=== PATIENT | female | born 1985 | race Caucasian/White ===

== ENCOUNTER → 2016-09-23 | Outpatient (CLI) | payer MEDICAID | LOC: RAD 09:41 | PROVIDERS: ATTEND Orthopaedic Surgery | DX: S42.001K Fracture of unspecified part of right clavicle, subsequent encounter for fracture with nonunion (principal) ==

== ENCOUNTER 2016-12-11 11:09 | Emergency (ER) | payer MEDICAID ==
[2016-12-11 11:14] VITALS: BP 115/73
--- NOTE | 2016-12-11 11:16 | ER Document Report ---
ED Medical Screen (RME) - General Stated Complaint: SHOULDER PAIN Mode of Arrival: Ambulatory Information source: Patient, Relative - mother Notes: pt presents to the ED with c/o right shoulder pain. She reports recent surgery on right clavicle with a olivia placed. Patient had a seizure last night and now the area is bleeding more. She also reports pain in the area. I have greeted and performed a rapid initial assessment of this patient. A comprehensive ED assessment and evaluation of the patient, analysis of test results and completion of the medical decision making process will be conducted by additional ED providers. TRAVEL OUTSIDE OF THE [place] IN LAST 30 DAYS: No - Related Data Allergies/Adverse Reactions: alprazolam [From Xanax] Allergy (Severe, Verified 06/28/16 04:56) Aggression asenapine maleate [From Saphris] Allergy (Severe, Verified 05/13/14 10:40) Blackout clonazepam [From Klonopin] Allergy (Severe, Verified 06/28/16 04:56) Seizure meperidine HCl [From Demerol] Allergy (Severe, Verified 05/13/14 10:40) Seizure brompheniramine maleate [From Dimetapp] Allergy (Mild, Verified 05/13/14 10:40) Hives dextromethorphan HBr [From Dimetapp] Allergy (Mild, Verified 05/13/14 10:40) Hives phenylpropanolamine HCl [From Dimetapp] Allergy (Mild, Verified 05/13/14 10:40) Hives pseudoephedrine HCl [From Dimetapp] Allergy (Mild, Verified 05/13/14 10:40) Hives triprolidine HCl [From Actifed] Allergy (Mild, Verified 05/13/14 10:40) Hives amoxicillin [Amoxicillin] Allergy (Unknown, Verified 05/13/14 10:40) doxepin [Doxepin] Allergy (Unknown, Verified 05/13/14 10:40) doxycycline [Doxycycline] Allergy (Unknown, Verified 05/13/14 10:40) erythromycin base [Erythromycin Base] Allergy (Unknown, Verified 05/13/14 10:40) indomethacin [Indomethacin] Allergy (Unknown, Verified 05/13/14 10:40) modafinil [From Provigil] Allergy (Unknown, Verified 05/13/14 10:40) quetiapine fumarate [From Seroquel] Allergy (Unknown, Verified 05/13/14 10:40) tramadol [Tramadol] Allergy (Unknown, Verified 06/28/16 04:56) triazolam [Triazolam] Allergy (Unknown, Verified 05/13/14 10:40) zonisamide [From Zonegran] Allergy (Unknown, Verified 05/13/14 10:40) cefdinir [Cefdinir] Allergy (Verified 05/13/14 10:40) haloperidol [From Haldol] Allergy (Verified 07/19/16 10:08) paliperidone [From Invega] Allergy (Verified 07/19/16 10:08) phenobarbital Allergy (Verified 07/19/16 10:08) primidone Allergy (Verified 07/19/16 10:08) pseudoephedrine [From Sudafed] Allergy (Verified 07/19/16 10:08) levetiracetam [From Keppra] Adverse Reaction (Verified 06/29/16 11:07) phenytoin [From Dilantin] Adverse Reaction (Verified 06/29/16 11:07) palprex Allergy (Unknown, Uncoded 12/10/13 12:38) zicam Allergy (Unknown, Uncoded 12/10/13 12:38) all vitamins Allergy (Uncoded 07/19/16 10:05) Seizures Past Medical History - Past Medical History Cardiac Medical History: Reports: Hx Hypertension - History of Denies: Hx Congestive Heart Failure, Hx Coronary Artery Disease, Hx DVT, Hx Heart Attack, Hx Hypercholesterolemia, Hx Pulmonary Embolism Pulmonary Medical History: Denies: Hx Asthma, Hx Bronchitis, Hx COPD, Hx Pneumonia Neurological Medical History: Reports: Hx Seizures - epilepsy; last seizure 1 month ago. Denies: Hx Cerebrovascular Accident Endocrine Medical History: Denies: Hx Diabetes Mellitus Type 1, Hx Diabetes Mellitus Type 2, Hx Hyperthyroidism, Hx Hypothyroidism Renal/ Medical History: Reports: Hx Kidney Stones GI Medical History: Denies: Hx Cirrhosis, Hx Gastroesophageal Reflux Disease, Hx Hepatitis Musculoskeltal Medical History: Denies Hx Arthritis Skin Medical History: Denies Hx Eczema, Denies Hx Psoriasis Psychiatric Medical History: Reports: Hx Anxiety, Hx Bipolar Disorder, Hx Depression Infectious Medical History: Denies: Hx Hepatitis Past Surgical History: Reports: Hx Appendectomy, Hx Gynecologic Surgery - Right oophorectomy; Left ovarian cyst, Hx Oral Surgery, Hx Urinary Tract Surgery - stent - Immunizations Hx Diphtheria, Pertussis, Tetanus Vaccination: Yes
--- NOTE | 2016-12-11 13:03 | ER Document Report ---
ED General - General Chief Complaint: Shoulder Pain Stated Complaint: SHOULDER PAIN Mode of Arrival: Ambulatory TRAVEL OUTSIDE OF THE [place] IN LAST 30 DAYS: No - HPI Patient complains to provider of: right shoulder surgical wound drainage Notes: Patient coming in approximately 2 weeks postop from having a pin placed in her clavicle with a bone stimulator of the right shoulder with signs of drainage concern about bleeding from the site states this patient had a seizure night prior to arrival and drainage. Patient denies any other symptoms denies fevers chills nausea vomiting. - Related Data Allergies/Adverse Reactions: alprazolam [From Xanax] Allergy (Severe, Verified 12/11/16 11:14) Aggression asenapine maleate [From Saphris] Allergy (Severe, Verified 12/11/16 11:14) Blackout clonazepam [From Klonopin] Allergy (Severe, Verified 12/11/16 11:14) Seizure meperidine HCl [From Demerol] Allergy (Severe, Verified 12/11/16 11:14) Seizure brompheniramine maleate [From Dimetapp] Allergy (Mild, Verified 12/11/16 11:14) Hives dextromethorphan HBr [From Dimetapp] Allergy (Mild, Verified 12/11/16 11:14) Hives phenylpropanolamine HCl [From Dimetapp] Allergy (Mild, Verified 12/11/16 11:14) Hives pseudoephedrine HCl [From Dimetapp] Allergy (Mild, Verified 12/11/16 11:14) Hives triprolidine HCl [From Actifed] Allergy (Mild, Verified 12/11/16 11:14) Hives amoxicillin [Amoxicillin] Allergy (Unknown, Verified 12/11/16 11:14) doxepin [Doxepin] Allergy (Unknown, Verified 12/11/16 11:14) doxycycline [Doxycycline] Allergy (Unknown, Verified 12/11/16 11:14) erythromycin base [Erythromycin Base] Allergy (Unknown, Verified 12/11/16 11:14) indomethacin [Indomethacin] Allergy (Unknown, Verified 12/11/16 11:14) modafinil [From Provigil] Allergy (Unknown, Verified 12/11/16 11:14) quetiapine fumarate [From Seroquel] Allergy (Unknown, Verified 12/11/16 11:14) tramadol [Tramadol] Allergy (Unknown, Verified 12/11/16 11:14) triazolam [Triazolam] Allergy (Unknown, Verified 12/11/16 11:14) zonisamide [From Zonegran] Allergy (Unknown, Verified 12/11/16 11:14) cefdinir [Cefdinir] Allergy (Verified 12/11/16 11:14) haloperidol [From Haldol] Allergy (Verified 12/11/16 11:14) paliperidone [From Invega] Allergy (Verified 12/11/16 11:14) phenobarbital Allergy (Verified 12/11/16 11:14) primidone Allergy (Verified 12/11/16 11:14) pseudoephedrine [From Sudafed] Allergy (Verified 12/11/16 11:14) levetiracetam [From Keppra] Adverse Reaction (Verified 12/11/16 11:14) phenytoin [From Dilantin] Adverse Reaction (Verified 12/11/16 11:14) palprex Allergy (Unknown, Uncoded 12/11/16 11:14) zicam Allergy (Unknown, Uncoded 12/11/16 11:14) all vitamins Allergy (Uncoded 12/11/16 11:14) Seizures Past Medical History - General Information source: Patient, Relative - mother - Social History Smoking Status: Former Smoker Chew tobacco use (# tins/day): No Frequency of alcohol use: None Drug Abuse: None Family History: CAD, Other - asthma - Past Medical History Cardiac Medical History: Reports: Hx Hypertension - History of Denies: Hx Congestive Heart Failure, Hx Coronary Artery Disease, Hx DVT, Hx Heart Attack, Hx Hypercholesterolemia, Hx Pulmonary Embolism Pulmonary Medical History: Denies: Hx Asthma, Hx Bronchitis, Hx COPD, Hx Pneumonia Neurological Medical History: Reports: Hx Seizures - epilepsy; last seizure 1 month ago. Denies: Hx Cerebrovascular Accident Endocrine Medical History: Denies: Hx Diabetes Mellitus Type 1, Hx Diabetes Mellitus Type 2, Hx Hyperthyroidism, Hx Hypothyroidism Renal/ Medical History: Reports: Hx Kidney Stones. Denies: Hx Peritoneal Dialysis GI Medical History: Denies: Hx Cirrhosis, Hx Gastroesophageal Reflux Disease, Hx Hepatitis Musculoskeltal Medical History: Denies Hx Arthritis Skin Medical History: Denies Hx Eczema, Denies Hx Psoriasis Psychiatric Medical History: Reports: Hx Anxiety, Hx Bipolar Disorder, Hx Depression Infectious Medical History: Denies: Hx Hepatitis Past Surgical History: Reports: Hx Appendectomy, Hx Gynecologic Surgery - Right oophorectomy; Left ovarian cyst, Hx Oral Surgery, Hx Urinary Tract Surgery - stent - Immunizations Hx Diphtheria, Pertussis, Tetanus Vaccination: Yes Review of Systems - Review of Systems Constitutional: No symptoms reported EENT: No symptoms reported Cardiovascular: No symptoms reported Respiratory: No symptoms reported Gastrointestinal: No symptoms reported Genitourinary: No symptoms reported Female Genitourinary: No symptoms reported Musculoskeletal: Other - Right surgical wound complication Skin: No symptoms reported Hematologic/Lymphatic: No symptoms reported Neurological/Psychological: No symptoms reported Physical Exam - Vital signs Vitals: Temp Pulse Resp BP Pulse Ox 98.5 F 96 20 115/73 97 12/11/16 11:13 12/11/16 11:13 12/11/16 11:13 12/11/16 11:13 12/11/16 11:13 Interpretation: Normal - General General appearance: Appears well, Alert - HEENT Head: Normocephalic, Atraumatic Eyes: Normal Pupils: PERRL - Respiratory Respiratory status: No respiratory distress Chest status: Nontender Breath sounds: Normal Chest palpation: Normal - Cardiovascular Rhythm: Regular Heart sounds: Normal auscultation Murmur: No - Abdominal Inspection: Normal Distension: No distension Bowel sounds: Normal Tenderness: Nontender Organomegaly: No organomegaly - Back Back: Normal, Nontender - Extremities General upper extremity: Nontender, Normal color, Normal ROM, Normal temperature. No: Normal inspection - Patient has surgical scars to the right shoulder with a small area of dehiscence of the surgical wound at the distal end of the clavicle with servicing this fluid draining. Patient does have a dressing over the wound with minimal drainage on the dressing. More likely patient developed a seroma and now is leaking. General lower extremity: Normal inspection, Nontender, Normal color, Normal ROM , Normal temperature, Normal weight bearing. No: Сергей's sign - Neurological Neuro grossly intact: Yes Cognition: Normal Orientation: AAOx4 Shawn Coma Scale Eye Opening: Spontaneous Shawn Coma Scale Verbal: Oriented Shawn Coma Scale Motor: Obeys Commands [place] Coma Scale Total: 15 Speech: Normal Motor strength normal: LUE, RUE, LLE, RLE Sensory: Normal - Psychological Associated symptoms: Normal affect, Normal mood - Skin Skin Temperature: Warm Skin Moisture: Dry Skin Color: Normal Course - Re-evaluation Re-evalutation: 12/11/16 16:03 Patient with insertion of drainage from a surgical wound with minimal dehiscence of did discuss with orthopedic fund controller at [facility]. Agrees with assessment and plan to discharge patient home patient to call the orthopedist on Tuesday. - Vital Signs Vital signs: Temp Pulse Resp BP Pulse Ox 98.5 F 96 20 115/73 97 12/11/16 11:13 12/11/16 11:13 12/11/16 11:13 12/11/16 11:13 12/11/16 11:13 Discharge - Discharge Clinical Impression: surgical wound complication Condition: Good Disposition: HOME, SELF-CARE Additional Instructions: I discussed your case with the orthopedic fund controller at [facility]. Please call the orthopedics office on Tuesday for a follow-up appointment. At this time I think that she developed a seroma which is a fluid collection underneath her surgical scar leaking serosanguineous fluid. This fluid may continue to leak. Please change dressings as needed Referrals: WARREN GUTIERREZ MD [Primary Care Provider] - Follow up as needed
== END 2016-12-11 13:16 | disposition home or self-care (01) ==
LOC: ER 11:09
DX: T81.31XA Disruption of external operation (surgical) wound, not elsewhere classified, initial encounter (principal); M25.511 Pain in right shoulder; Z88.3 Allergy status to other anti-infective agents; Z87.891 Personal history of nicotine dependence; Z87.442 Personal history of urinary calculi
CPT/HCPCS: 99283

== ENCOUNTER → 2017-01-19 | Outpatient (CLI) | payer MEDICAID ==
[2017-01-19 13:39] LABS: ANION GAP 15 (5-19); BLOOD UREA NITROGEN 9 mg/dL (7-20); CALCIUM 10.5 mg/dL (8.4-10.2); CARBON DIOXIDE 24 mmol/L (22-30); CHLORIDE 102 mmol/L (98-107); CREATININE RESULT 1.05 mg/dL (0.52-1.25); GLUCOSE 124 mg/dL (75-110); POTASSIUM 4.6 mmol/L (3.6-5.0); SODIUM 141.1 mmol/L (137-145)
== END ==
LOC: OD 12:12
PROVIDERS: ATTEND Family Medicine
DX: E87.6 Hypokalemia (principal); N20.0 Calculus of kidney
CPT/HCPCS: 36415; 80048

== ENCOUNTER 2017-07-29 15:42 | Emergency (ER) | payer MEDICAID ==
[2017-07-29 16:37] LABS: ABSOLUTE BASOPHILS # (AUTO) 0.1 10^3/uL (0.0-0.2); ABSOLUTE EOSINOPHILS # (AUTO) 0.2 10^3/uL (0.0-0.6); ABSOLUTE LYMPHOCYTES (AUTO) 1.4 10^3/uL (0.5-4.7); ABSOLUTE MONOCYTES (AUTO) 1.3 10^3/uL (0.1-1.4); ABSOLUTE NEUT (AUTO) 8.2 10^3/uL (1.7-8.2); EOSINOPHILS % (AUTO) 1.5 % (0-6); HEMATOCRIT 39.1 % (36.0-47.0); HEMOGLOBIN 13.3 g/dL (12.0-15.5); HGB HCT DIFFERENCE 0.8; LYMPHOCYTES % (AUTO) 12.8 % (13-45); MEAN CORPUSCULAR HEMOGLOBIN 29.9 pg (27.0-33.4); MEAN CORPUSCULAR HGB CONC 33.9 g/dL (32.0-36.0); MEAN CORPUSCULAR VOLUME 88 fl (80-97); MONOCYTES % (AUTO) 11.6 % (3-13); RED BLOOD COUNT 4.43 10^6/uL (3.72-5.28); RED CELL DISTRIBUTION WIDTH 12.8 % (11.5-14.0); SEGMENTED NEUTROPHILS % (AUTO) 73.1 % (42-78); WHITE BLOOD COUNT 11.3 10^3/uL (4.0-10.5)
[2017-07-29 16:54] LABS: ALANINE AMINOTRANSFERASE 28 U/L (9-52); ALCOHOL < 10 mg/dL (NONE DETECTED); ALKALINE PHOSPHATASE 92 U/L (38-126); ANION GAP 13 (5-19); ASPARTATE AMINO TRANSFERASE 20 U/L (14-36); BILIRUBIN,DIRECT 0.3 mg/dL (0.0-0.4); BILIRUBIN,TOTAL 0.4 mg/dL (0.2-1.3); BLOOD UREA NITROGEN 7 mg/dL (7-20); CALCIUM 9.3 mg/dL (8.4-10.2); CARBON DIOXIDE 26 mmol/L (22-30); CHLORIDE 101 mmol/L (98-107); CREATININE RESULT 1.04 mg/dL (0.52-1.25); GLUCOSE 109 mg/dL (75-110); MAGNESIUM 2.1 mg/dL (1.6-2.3); POTASSIUM 3.9 mmol/L (3.6-5.0); SODIUM 140.4 mmol/L (137-145); TOTAL PROTEIN 6.9 g/dL (6.3-8.2)
[2017-07-29] MEDS ORDERED: LORAZEPAM INJ 2 MG/1 ML VIAL IV ONE (17:00)
--- NOTE | 2017-07-29 17:38 | RADIOLOGY REPORT (SQ) ---
EXAM DESCRIPTION: CT HEAD WITHOUT COMPLETED DATE/TIME: 07/29/2017 5:27 pm REASON FOR STUDY: fall, altered COMPARISON: None. TECHNIQUE: Axial images acquired through the brain without intravenous contrast. Images reviewed wi th bone, brain and subdural windows. Images stored on PACS. All CT scanners at this facility use dose modulation, iterative reconstruction, and/or weight based d osing when appropriate to reduce radiation dose to as low as reasonably achievable (ALARA). [facility]: Dose Right [facility]: CareDose [facility]: Dose Right [facility]: Teradose 4D [facility]: [employer] RADIATION DOSE: 64.6mGy. LIMITATIONS: None. FINDINGS: VENTRICLES: Normal size and contour. CEREBRUM: No masses. No hemorrhage. No midline shift. No evidence for acute infarction. Normal gra y/white matter differentiation. No areas of low density in the white matter. CEREBELLUM: No masses. No hemorrhage. No alteration of density. No evidence for acute infarction. EXTRAAXIAL SPACES: No fluid collections. No masses. ORBITS AND GLOBE: No intra- or extraconal masses. Normal contour of globe without masses. CALVARIUM: No fracture. PARANASAL SINUSES: No fluid or mucosal thickening. SOFT TISSUES: No mass or hematoma. OTHER: No other significant finding. IMPRESSION: NORMAL BRAIN CT WITHOUT CONTRAST. EVIDENCE OF ACUTE STROKE: NO. COMMENT: Quality ID # [id number]: Final reports with documentation of one or more dose reduction techniques (e.g., Automated exposure control, adjustment of the mA and/or kV according to patient size, use of iterative reconstruction technique) TECHNICAL DOCUMENTATION: JOB ID: [id number] [employer]- All Rights Reserved
[2017-07-29] MEDS ORDERED: ACETAMINOPHEN 325 MG TABLET PO ONE (18:11)
[2017-07-29] MEDS ORDERED: LAMOTRIGINE 100 MG TABLET PO ONE (18:11)
--- NOTE | 2017-07-29 18:12 | ER Document Report ---
ED General - General Chief Complaint: Seizure Stated Complaint: RIGHT SHOULDER PAIN Time Seen by Provider: 07/29/17 16:30 Notes: This is [id number] female patient with history of seizures. Reportedly had a few seizures today. Takes medication. States that she fell and whacked her head. Complaining of headache. No other issues of that than some chronic right shoulder pain. Able to move shoulder completely. Denies any neck pain, back pain, abdominal pain, chest pain or other issues. TRAVEL OUTSIDE OF THE [place] IN LAST 30 DAYS: No - HPI Onset: Just prior to arrival Onset/Duration: Sudden Associated symptoms: None - Related Data Allergies/Adverse Reactions: alprazolam [From Xanax] Allergy (Severe, Verified 07/29/17 15:52) Aggression asenapine maleate [From Saphris] Allergy (Severe, Verified 07/29/17 15:52) Blackout clonazepam [From Klonopin] Allergy (Severe, Verified 07/29/17 15:52) Seizure meperidine HCl [From Demerol] Allergy (Severe, Verified 07/29/17 15:52) Seizure brompheniramine maleate [From Dimetapp] Allergy (Mild, Verified 07/29/17 15:52) Hives dextromethorphan HBr [From Dimetapp] Allergy (Mild, Verified 07/29/17 15:52) Hives phenylpropanolamine HCl [From Dimetapp] Allergy (Mild, Verified 07/29/17 15:52) Hives pseudoephedrine HCl [From Dimetapp] Allergy (Mild, Verified 07/29/17 15:52) Hives triprolidine HCl [From Actifed] Allergy (Mild, Verified 07/29/17 15:52) Hives amoxicillin [Amoxicillin] Allergy (Unknown, Verified 07/29/17 15:52) doxepin [Doxepin] Allergy (Unknown, Verified 07/29/17 15:52) doxycycline [Doxycycline] Allergy (Unknown, Verified 07/29/17 15:52) erythromycin base [Erythromycin Base] Allergy (Unknown, Verified 07/29/17 15:52) indomethacin [Indomethacin] Allergy (Unknown, Verified 07/29/17 15:52) modafinil [From Provigil] Allergy (Unknown, Verified 07/29/17 15:52) quetiapine fumarate [From Seroquel] Allergy (Unknown, Verified 07/29/17 15:52) tramadol [Tramadol] Allergy (Unknown, Verified 07/29/17 15:52) triazolam [Triazolam] Allergy (Unknown, Verified 07/29/17 15:52) zonisamide [From Zonegran] Allergy (Unknown, Verified 07/29/17 15:52) cefdinir [Cefdinir] Allergy (Verified 07/29/17 15:52) haloperidol [From Haldol] Allergy (Verified 07/29/17 15:52) paliperidone [From Invega] Allergy (Verified 07/29/17 15:52) phenobarbital Allergy (Verified 07/29/17 15:52) primidone Allergy (Verified 07/29/17 15:52) pseudoephedrine [From Sudafed] Allergy (Verified 07/29/17 15:52) levetiracetam [From Keppra] Adverse Reaction (Verified 07/29/17 15:52) phenytoin [From Dilantin] Adverse Reaction (Verified 07/29/17 15:52) palprex Allergy (Unknown, Uncoded 07/29/17 15:52) zicam Allergy (Unknown, Uncoded 07/29/17 15:52) all vitamins Allergy (Uncoded 07/29/17 15:52) Seizures Past Medical History - General Information source: Patient - Social History Smoking Status: Current Every Day Smoker Chew tobacco use (# tins/day): No Frequency of alcohol use: None Drug Abuse: None Family History: CAD, Other - asthma Patient has suicidal ideation: No Patient has homicidal ideation: No - Past Medical History Cardiac Medical History: Reports: Hx Hypertension - History of Denies: Hx Congestive Heart Failure, Hx Coronary Artery Disease, Hx DVT, Hx Heart Attack, Hx Hypercholesterolemia, Hx Pulmonary Embolism Pulmonary Medical History: Denies: Hx Asthma, Hx Bronchitis, Hx COPD, Hx Pneumonia Neurological Medical History: Reports: Hx Seizures - epilepsy; last seizure 1 month ago. Denies: Hx Cerebrovascular Accident Endocrine Medical History: Denies: Hx Diabetes Mellitus Type 1, Hx Diabetes Mellitus Type 2, Hx Hyperthyroidism, Hx Hypothyroidism Renal/ Medical History: Reports: Hx Kidney Stones. Denies: Hx Peritoneal Dialysis GI Medical History: Denies: Hx Cirrhosis, Hx Gastroesophageal Reflux Disease, Hx Hepatitis Musculoskeltal Medical History: Denies Hx Arthritis Skin Medical History: Denies Hx Eczema, Denies Hx Psoriasis Psychiatric Medical History: Reports: Hx Anxiety, Hx Bipolar Disorder, Hx Depression Infectious Medical History: Denies: Hx Hepatitis Past Surgical History: Reports: Hx Appendectomy, Hx Gynecologic Surgery - Right oophorectomy; Left ovarian cyst, Hx Oral Surgery, Hx Urinary Tract Surgery - stent - Immunizations Hx Diphtheria, Pertussis, Tetanus Vaccination: Yes Review of Systems - Review of Systems Constitutional: No symptoms reported EENT: No symptoms reported Cardiovascular: No symptoms reported Respiratory: No symptoms reported Gastrointestinal: No symptoms reported Genitourinary: No symptoms reported Female Genitourinary: No symptoms reported Musculoskeletal: No symptoms reported, Other - Chronic shoulder pain Skin: No symptoms reported Hematologic/Lymphatic: No symptoms reported Neurological/Psychological: Seizure, Headaches Physical Exam - Vital signs Vitals: Temp Pulse Resp BP Pulse Ox 98.7 F 92 18 120/77 98 07/29/17 15:46 07/29/17 15:46 07/29/17 15:46 07/29/17 15:46 07/29/17 15:46 Interpretation: Normal - General General appearance: Appears well, Alert - HEENT Head: Normocephalic, Atraumatic Eyes: Normal Pupils: PERRL - Respiratory Respiratory status: No respiratory distress Chest status: Nontender Breath sounds: Normal Chest palpation: Normal - Cardiovascular Rhythm: Regular Heart sounds: Normal auscultation Murmur: No - Abdominal Inspection: Normal Distension: No distension Bowel sounds: Normal Tenderness: Nontender Organomegaly: No organomegaly - Back Back: Normal, Nontender - Extremities General upper extremity: Normal inspection, Nontender, Normal color, Normal ROM , Normal temperature, Other - Full range of motion. Able to move arm completely above her head. Able to AB duct and adductor without difficulty. No obvious deformity or bruising to General lower extremity: Normal inspection, Nontender, Normal color, Normal ROM , Normal temperature, Normal weight bearing. No: Сергей's sign - Neurological Neuro grossly intact: Yes Cognition: Normal Orientation: AAOx4 [place] Coma Scale Eye Opening: Spontaneous Shawn Coma Scale Verbal: Oriented [place] Coma Scale Motor: Obeys Commands [place] Coma Scale Total: 15 Speech: Normal Motor strength normal: LUE, RUE, LLE, RLE Sensory: Normal - Psychological Associated symptoms: Normal affect, Normal mood - Skin Skin Temperature: Warm Skin Moisture: Dry Skin Color: Normal Course - Re-evaluation Re-evalutation: 07/29/17 18:10 Is a well-appearing female with history of seizures. Ativan was given. No seizure-like activity while in the ER. Head CT reviewed and unremarkable. - Vital Signs Vital signs: Temp Pulse Resp BP Pulse Ox 98.7 F 92 13 106/77 97 07/29/17 15:46 07/29/17 15:46 07/29/17 17:49 07/29/17 17:49 07/29/17 17:49 - Laboratory Result Diagrams: 07/29/17 16:28 07/29/17 16:28 Laboratory results interpreted by me: 07/29/17 16:28 WBC 11.3 H Plt Count 457 H Lymphocytes % 12.8 L Discharge - Discharge Clinical Impression: Seizure Disposition: HOME, SELF-CARE Additional Instructions: Head Injury Your child's examination shows no evidence of brain injury. The child can therefore be safely observed at home. Give clear liquids only for the first eight hours. Acetaminophen or ibuprofen can safely be given for pain. Follow the directions on the bottle. Do not give any medication that may alter her/his level of alertness. Limit activity for the first 24 hours -- bed rest is advisable at first. Several times during the first 24 hours, check the patient to see if the pupils are equal in size to each other, that the patient is easily arousable, and responds normally. Contact your doctor or go to the hospital if any of the following things occur: Persistent or projectile vomiting, a seizure, confusion , unequal pupil size, difficulty in arousing the patient, worsening or continued headache, or failure to improve as expected. Seizure, Known Epileptic You have had a seizure. Seizures may "break through" in an epileptic due to stress of infection or injury, a change in blood chemistry, or drug and alcohol use. Another common cause is failure to take medication as prescribed. Your doctor has evaluated your situation for the likely cause of this seizure. It is important that you follow his advice concerning any medication changes and follow-up care. Further testing of anti-seizure medication levels in your blood may be necessary. If you have a bulk delivery driver's license, it's important that you DO NOT DRIVE until given permission by your physician. This seizure must be reported to the bulk delivery driver 's license bureau. Call the doctor or return if seizures recur, or if new or unusual symptoms arise -- such as severe headache, confusion, excessive sleepiness, local weakness or numbness, neck stiffness, or fever. Referrals: ABISAI GUTIERREZ, DO [Primary Care Provider] - Follow up as needed
[2017-07-29 18:20] LABS: APPEARANCE,URINE SLIGHTLY-CLOUDY; BILIRUBIN,URINE NEGATIVE (NEGATIVE); GLUCOSE, URINE NEGATIVE (NEGATIVE); KETONES,URINE NEGATIVE (NEGATIVE); LEUKOCYTE ESTERASE,URINE TRACE (NEGATIVE); NITRITE,URINE NEGATIVE (NEGATIVE); PROTEIN,URINE NEGATIVE (NEGATIVE); URINE SPECIFIC GRAVITY 1.006; UROBILINOGEN,URINE NEGATIVE mg/dL (<2.0)
[2017-07-29 18:29] LABS: URINE BARBITURATES SCREEN NEGATIVE; URINE METHADONE SCREEN NEGATIVE; URINE OPIATES LOW NEGATIVE; URINE PHENCYCLIDINE SCREEN NEGATIVE
[2017-07-29 18:38] VITALS: BP 109/78
== END 2017-07-29 18:44 | disposition home or self-care (01) ==
LOC: ER 15:42
DX: R56.9 Unspecified convulsions (principal); M25.511 Pain in right shoulder; R51 Headache; W19.XXXA Unspecified fall, initial encounter; F17.200 Nicotine dependence, unspecified, uncomplicated
CPT/HCPCS: 99284; 96374; 36415; 80307 ×2; 83735; 84703; 85025; 80053; 81001; 70450; J3490 ×2; J2060

== ENCOUNTER 2017-08-28 17:23 | Emergency (ER) | payer MEDICAID ==
[2017-08-28] MEDS ORDERED: NORMAL SALINE 1000 ML 1,000 ML IV ONE (17:56)
--- NOTE | 2017-08-28 17:57 | ER Document Report ---
ED Medical Screen (RME) - General Chief Complaint: Flank Pain Stated Complaint: SIDE PAIN AND ABDOMINAL PAIN Time Seen by Provider: 08/28/17 17:55 Mode of Arrival: Ambulatory Information source: Patient TRAVEL OUTSIDE OF THE [place] IN LAST 30 DAYS: No - HPI Patient complains to provider of: R flank pian Onset: This morning - Pt .with h/o kidney stones with onset of R flank pain earlier today. Denies hematuria - Related Data Allergies/Adverse Reactions: alprazolam [From Xanax] Allergy (Severe, Verified 08/28/17 17:24) Aggression asenapine maleate [From Saphris] Allergy (Severe, Verified 08/28/17 17:24) Blackout clonazepam [From Klonopin] Allergy (Severe, Verified 08/28/17:24) Seizure meperidine HCl [From Demerol] Allergy (Severe, Verified 08/28/17 17:24) Seizure brompheniramine maleate [From Dimetapp] Allergy (Mild, Verified 08/28/17 17:24) Hives dextromethorphan HBr [From Dimetapp] Allergy (Mild, Verified 08/28/17 17:24) Hives phenylpropanolamine HCl [From Dimetapp] Allergy (Mild, Verified 08/28/17 17:24) Hives pseudoephedrine HCl [From Dimetapp] Allergy (Mild, Verified 08/28/17 17:24) Hives triprolidine HCl [From Actifed] Allergy (Mild, Verified 08/28/17 17:24) Hives amoxicillin [Amoxicillin] Allergy (Unknown, Verified 08/28/17 17:24) doxepin [Doxepin] Allergy (Unknown, Verified 08/28/17 17:24) doxycycline [Doxycycline] Allergy (Unknown, Verified 08/28/17 17:24) erythromycin base [Erythromycin Base] Allergy (Unknown, Verified 08/28/17 17:24) indomethacin [Indomethacin] Allergy (Unknown, Verified 08/28/17:24) modafinil [From Provigil] Allergy (Unknown, Verified 08/28/17 17:24) quetiapine fumarate [From Seroquel] Allergy (Unknown, Verified 08/28/17 17:24) tramadol [Tramadol] Allergy (Unknown, Verified 08/28/17 17:24) triazolam [Triazolam] Allergy (Unknown, Verified 08/28/17 17:24) zonisamide [From Zonegran] Allergy (Unknown, Verified 08/28/17 17:24) cefdinir [Cefdinir] Allergy (Verified 08/28/17 17:24) haloperidol [From Haldol] Allergy (Verified 08/28/17 17:24) paliperidone [From Invega] Allergy (Verified 08/28/17 17:24) phenobarbital Allergy (Verified 08/28/17 17:24) primidone Allergy (Verified 08/28/17 17:24) pseudoephedrine [From Sudafed] Allergy (Verified 08/28/17 17:24) levetiracetam [From Keppra] Adverse Reaction (Verified 08/28/17 17:24) phenytoin [From Dilantin] Adverse Reaction (Verified 08/28/17 17:24) palprex Allergy (Unknown, Uncoded 08/28/17 17:24) zicam Allergy (Unknown, Uncoded 08/28/17 17:24) all vitamins Allergy (Uncoded 08/28/17 17:24) Seizures Past Medical History - Past Medical History Cardiac Medical History: Reports: Hx Hypertension - History of Denies: Hx Congestive Heart Failure, Hx Coronary Artery Disease, Hx DVT, Hx Heart Attack, Hx Hypercholesterolemia, Hx Pulmonary Embolism Pulmonary Medical History: Denies: Hx Asthma, Hx Bronchitis, Hx COPD, Hx Pneumonia Neurological Medical History: Reports: Hx Seizures - epilepsy; last seizure 1 month ago. Denies: Hx Cerebrovascular Accident Endocrine Medical History: Denies: Hx Diabetes Mellitus Type 1, Hx Diabetes Mellitus Type 2, Hx Hyperthyroidism, Hx Hypothyroidism Renal/ Medical History: Reports: Hx Kidney Stones. Denies: Hx Peritoneal Dialysis GI Medical History: Denies: Hx Cirrhosis, Hx Gastroesophageal Reflux Disease, Hx Hepatitis Musculoskeltal Medical History: Denies Hx Arthritis Skin Medical History: Denies Hx Eczema, Denies Hx Psoriasis Psychiatric Medical History: Reports: Hx Anxiety, Hx Bipolar Disorder, Hx Depression Infectious Medical History: Denies: Hx Hepatitis Past Surgical History: Reports: Hx Appendectomy, Hx Gynecologic Surgery - Right oophorectomy; Left ovarian cyst, Hx Oral Surgery, Hx Urinary Tract Surgery - stent - Immunizations Hx Diphtheria, Pertussis, Tetanus Vaccination: Yes Physical Exam - Vital signs Vitals: Temp Pulse Resp BP Pulse Ox 98.8 F 87 16 110/74 97 08/28/17 17:28 08/28/17 17:28 08/28/17 17:28 08/28/17 17:28 08/28/17 17:28 Course - Vital Signs Vital signs: Temp Pulse Resp BP Pulse Ox 98.8 F 87 16 110/74 97 08/28/17 17:28 08/28/17 17:28 08/28/17 17:28 08/28/17 17:28 08/28/17 17:28
[2017-08-28 19:17] LABS: BILIRUBIN,URINE NEGATIVE (NEGATIVE); GLUCOSE, URINE NEGATIVE (NEGATIVE); KETONES,URINE NEGATIVE (NEGATIVE); LEUKOCYTE ESTERASE,URINE NEGATIVE (NEGATIVE); NITRITE,URINE NEGATIVE (NEGATIVE); PROTEIN,URINE 30 mg/dL (NEGATIVE); URINE SPECIFIC GRAVITY 1.021; UROBILINOGEN,URINE NEGATIVE mg/dL (<2.0)
[2017-08-28 19:19] LABS: APPEARANCE,URINE SLIGHTLY HAZY
--- NOTE | 2017-08-28 20:23 | RADIOLOGY REPORT (SQ) ---
EXAM DESCRIPTION: CT LTD RENAL STONE PROTOCOL ON COMPLETED DATE/TIME: 08/28/2017 8:07 pm REASON FOR STUDY: R flank pain COMPARISON: 06/27/2016 TECHNIQUE: CT scan of the abdomen and pelvis performed without intravenous or oral contrast. Images reviewed with lung, soft tissue, and bone windows. Reconstructed coronal and sagittal MPR images revi ewed. All images stored on PACS. All CT scanners at this facility use dose modulation, iterative reconstruction, and/or weight based d osing when appropriate to reduce radiation dose to as low as reasonably achievable (ALARA). [facility]: Dose Right [facility]: CareDose [facility]: Dose Right [facility]: Teradose 4D [facility]: Alai RADIATION DOSE: mGy. LIMITATIONS: None. FINDINGS: LOWER CHEST: No significant findings. No nodules or infiltrates. NON-CONTRASTED LIVER, SPLEEN, ADRENALS: Evaluation limited by lack of IV contrast. No identified sign ificant masses. PANCREAS: No masses. No peripancreatic inflammatory changes. GALLBLADDER: No identified stones by CT criteria. No inflammatory changes to suggest cholecystitis. RIGHT KIDNEY AND URETER: No suspicious masses. Assessment limited by lack of IV contrast. Tiny calc ifications. No hydronephrosis or hydroureter. LEFT KIDNEY AND URETER: No suspicious masses. Assessment limited by lack of IV contrast. Tiny calci fications. No hydronephrosis or hydroureter. AORTA AND RETROPERITONEUM: No aneurysm. No retroperitoneal masses or adenopathy. BOWEL AND PERITONEAL CAVITY: No obvious masses or inflammatory changes. No free fluid. APPENDIX: Not visualized. PELVIS, BLADDER, AND ABDOMINAL WALL:No abnormal masses. Trace free fluid. Bladder normal. BONES: No significant findings. OTHER: No other significant finding. IMPRESSION: NO ACUTE PROCESS IN THE ABDOMEN OR PELVIS. COMMENT: Quality ID # [id number]: Final reports with documentation of one or more dose reduction techniques (e.g., Automated exposure control, adjustment of the mA and/or kV according to patient size, use of iterative reconstruction technique) TECHNICAL DOCUMENTATION: JOB ID: [id number] [place]-72 2010 [employer]- All Rights Reserved
--- NOTE | 2017-08-28 20:47 | ER Document Report ---
ED General - General Chief Complaint: Flank Pain Stated Complaint: SIDE PAIN AND ABDOMINAL PAIN Time Seen by Provider: 08/28/17 17:55 Mode of Arrival: Ambulatory Notes: Patient is a 31-year-old female who presents emergency department with her mother complaining of right flank pain and right groin pain. Describes her flank pain as a constant dull ache and her pelvic pain as a achy/cramping pain. She denies any sharp stabbing pain in her flank radiating into her groin. Patient states that this started a couple of hours prior to arrival. Patient states that she does have a history of kidney stones. She also has a history of ovarian cysts. States she has not had a kidney stone in the past 12 months. She denies any fevers, chills, decreased urine output or hematuria. Patient states that she is currently on her period which started yesterday. She denies any nausea, vomiting, diarrhea or constipation Past medical history significant for bipolar, epilepsy, chronic low back pain and significant allergies list. Patient does have a Essure in place for control. Past surgical history is significant for appendectomy, left oophorectomy TRAVEL OUTSIDE OF THE [place] IN LAST 30 DAYS: No - Related Data Allergies/Adverse Reactions: alprazolam [From Xanax] Allergy (Severe, Verified 08/28/17 17:24) Aggression asenapine maleate [From Saphris] Allergy (Severe, Verified 08/28/17 17:24) Blackout clonazepam [From Klonopin] Allergy (Severe, Verified 08/28/17 17:24) Seizure meperidine HCl [From Demerol] Allergy (Severe, Verified 08/28/17 17:24) Seizure brompheniramine maleate [From Dimetapp] Allergy (Mild, Verified 08/28/17 17:24) Hives dextromethorphan HBr [From Dimetapp] Allergy (Mild, Verified 08/28/17 17:24) Hives phenylpropanolamine HCl [From Dimetapp] Allergy (Mild, Verified 08/28/17 17:24) Hives pseudoephedrine HCl [From Dimetapp] Allergy (Mild, Verified 08/28/17 17:24) Hives triprolidine HCl [From Actifed] Allergy (Mild, Verified 08/28/17 17:24) Hives amoxicillin [Amoxicillin] Allergy (Unknown, Verified 08/28/17 17:24) doxepin [Doxepin] Allergy (Unknown, Verified 08/28/17 17:24) doxycycline [Doxycycline] Allergy (Unknown, Verified 08/28/17 17:24) erythromycin base [Erythromycin Base] Allergy (Unknown, Verified 08/28/17 17:24) indomethacin [Indomethacin] Allergy (Unknown, Verified 08/28/17 17:24) modafinil [From Provigil] Allergy (Unknown, Verified 08/28/17 17:24) quetiapine fumarate [From Seroquel] Allergy (Unknown, Verified 08/28/17 17:24) tramadol [Tramadol] Allergy (Unknown, Verified 08/28/17 17:24) triazolam [Triazolam] Allergy (Unknown, Verified 08/28/17 17:24) zonisamide [From Zonegran] Allergy (Unknown, Verified 08/28/17 17:24) cefdinir [Cefdinir] Allergy (Verified 08/28/17 17:24) haloperidol [From Haldol] Allergy (Verified 08/28/17 17:24) paliperidone [From Invega] Allergy (Verified 08/28/17 17:24) phenobarbital Allergy (Verified 08/28/17 17:24) primidone Allergy (Verified 08/28/17 17:24) pseudoephedrine [From Sudafed] Allergy (Verified 08/28/17 17:24) levetiracetam [From Keppra] Adverse Reaction (Verified 08/28/17 17:24) phenytoin [From Dilantin] Adverse Reaction (Verified 08/28/17 17:24) palprex Allergy (Unknown, Uncoded 08/28/17 17:24) zicam Allergy (Unknown, Uncoded 08/28/17 17:24) all vitamins Allergy (Uncoded 08/28/17 17:24) Seizures Past Medical History - General Information source: Patient - Social History Smoking Status: Former Smoker Family History: CAD, Other - asthma Patient has suicidal ideation: No Patient has homicidal ideation: No - Past Medical History Cardiac Medical History: Reports: Hx Hypertension - History of Denies: Hx Congestive Heart Failure, Hx Coronary Artery Disease, Hx DVT, Hx Heart Attack, Hx Hypercholesterolemia, Hx Pulmonary Embolism Pulmonary Medical History: Denies: Hx Asthma, Hx Bronchitis, Hx COPD, Hx Pneumonia Neurological Medical History: Reports: Hx Seizures - epilepsy. Denies: Hx Cerebrovascular Accident Endocrine Medical History: Denies: Hx Diabetes Mellitus Type 1, Hx Diabetes Mellitus Type 2, Hx Hyperthyroidism, Hx Hypothyroidism Renal/ Medical History: Reports: Hx Kidney Stones. Denies: Hx Peritoneal Dialysis GI Medical History: Denies: Hx Cirrhosis, Hx Gastroesophageal Reflux Disease, Hx Hepatitis Musculoskeltal Medical History: Denies Hx Arthritis Skin Medical History: Denies Hx Eczema, Denies Hx Psoriasis Psychiatric Medical History: Reports: Hx Anxiety, Hx Bipolar Disorder, Hx Depression Infectious Medical History: Denies: Hx Hepatitis Past Surgical History: Reports: Hx Appendectomy, Hx Gynecologic Surgery - Right oophorectomy; Left ovarian cyst, Hx Kidney (Renal Surgery) - lithotripsy, Hx Oral Surgery, Hx Urinary Tract Surgery - stent - Immunizations Hx Diphtheria, Pertussis, Tetanus Vaccination: Yes Review of Systems - Review of Systems Constitutional: No symptoms reported Cardiovascular: No symptoms reported Respiratory: No symptoms reported Gastrointestinal: No symptoms reported Genitourinary: See HPI Female Genitourinary: See HPI -: Yes All other systems reviewed and negative Physical Exam - Vital signs Vitals: Temp Pulse Resp BP Pulse Ox 98.8 F 87 16 110/74 97 08/28/17 17:28 08/28/17 17:28 08/28/17 17:28 08/28/17 17:28 08/28/17 17:28 - Notes Notes: PHYSICAL EXAM GENERAL: Alert, interacts well. LUNGS: Clear to auscultation bilaterally, no wheezes, rales, or rhonchi. No respiratory distress. HEART: Regular rate and rhythm. No murmurs, gallops, or rubs. ABDOMEN: Soft, nondistended, right suprapubic pain. Otherwise abdomen nontender.. No guarding, rebound, or rigidity.. Bowel sounds present in all 4 quadrants. Female exam deferred EXTREMITIES: Moves all 4 extremities spontaneously. No edema, radial and dorsalis pedis pulses 2/4 bilaterally. No cyanosis. Back: Bilateral paralumbar muscular tenderness to palpation with pain reproducible on exam. No spinous process tenderness. No CVA tenderness. NEUROLOGICAL: Alert and oriented x4. Normal speech. PSYCH: Normal affect, normal mood. SKIN: Warm, dry, normal turgor. No rashes or lesions noted. Course - Re-evaluation Re-evalutation: 08/28/17 20:47 Patient is a 31-year-old female who is hemodynamically stable, no acute distress and afebrile. Urine is consistent with blood present but patient is on her menstrual cycle. CT limited was ordered from triage without evidence of stone. Patient sent for transvaginal ultrasound which does not reveal any evidence of ovarian or pelvic pathology. Patient back pain is consistent with a musculoskeletal pain given that her pain is reproducible to palpation. Regarding her pelvic pain likely due to artifact she is currently on her menstrual cycle. There is no concern for the Easter eroding given confirmed on both studies to be in good position. Patient to be discharged home and to follow-up with her [employer] as needed this week - Vital Signs Vital signs: Temp Pulse Resp BP Pulse Ox 101.5 F H 98 20 132/82 H 98 08/28/17 22:48 08/28/17 22:48 08/28/17 22:48 08/28/17 22:48 08/28/17 22:48 - Laboratory Laboratory results interpreted by me: 08/28/17 18:45 Urine Protein 30 H Urine Blood MODERATE H - Diagnostic Test Radiology reviewed: Image reviewed, Reports reviewed Discharge - Discharge Clinical Impression: Pelvic pain Back pain Qualifiers: Back pain location: low back pain Chronicity: chronic Back pain laterality: bilateral Sciatica presence: without sciatica Qualified Code(s): M54.5 - Low back pain Condition: Good Disposition: HOME, SELF-CARE Additional Instructions: There is no evidence of kidney stone noted on your imaging today also no evidence of ovarian cysts. Please follow-up with your [employer] tomorrow. LOW BACK PAIN: Three out of every four people will have an episode of disabling back pain during their lifetime. Most commonly the pain is due to straining of the muscles and ligaments in the low back. Usual treatment includes: (1) Rest on a firm surface. Avoid lying on your stomach. (2) Ice pack the painful area. After a few days, gentle heat may be used intermittently to relax the area, or ice packs can be continued. (3) Medication may be needed -- muscle relaxers and antiinflammatory medicines are commonly used. (4) As the back improves, exercises are prescribed to strengthen the back and abdominal muscles. Your doctor will advise you on the proper care for your back at each stage in your recovery. You may be better in a few days -- or healing may take several weeks. If new symptoms of a "herniated disc" (radiation of pain, numbness, or tingling down the back of the leg or weakness in the leg) occur, you should be re-examined. Further testing may be necessary. ORAL NARCOTIC MEDICATION: You have been given a prescription for pain control. This medication is a narcotic. It's best taken with food, as nausea can result if taken on an empty stomach. Don't operate machinery or drive within six hours of taking this medication. Do not combine this medicine with alcohol, or with any medication which can cause sedation (such as cold tablets or sleeping pills) unless you get permission from the physician. Narcotics tend to cause constipation. If possible, drink plenty of fluids and eat a diet high in fiber and fruits. Please be aware that prescription narcotics also have the potential for abuse. People become addicted to these medications because of the general sense of wellbeing that they induce. This feeling along with a significant reduction in tension, anxiety, and aggression provides a stimulating seductive quality to these drugs. Once your pain is under control, we encourage you to discard your unused narcotics. ICE PACKS: Apply ice packs frequently against the painful area. Many different schedules are recommended, such as "20 minutes on, 20 minutes off" or "one hour ice, two hours rest." If you need to work, you may need to go longer between ice treatments. You should plan to have the area ice packed AT LEAST one fourth of the time. The ice should be applied over the wrap, tape, or splint, or over a layer of cloth -- not directly against the skin. Some ice bags have a built-in cloth and can be put directly on the skin. WARM PACKS: After approximately two days, apply gentle heat (such as a heating pad or hot water bottle) for about 20 to 30 minutes about every two hours -- at least four times daily. Warmth and elevation will help you make a more rapid recovery , and will ease the pain considerably. Do not use HOT heat, and never apply heat for longer than 30 minutes. The continuous heat can invisibly damage skin and muscles -- even when no burn is seen on the surface. Damaged muscles can make you MORE sore. FOLLOW-UP CARE: If you have been referred to a physician for follow-up care, call the physician s office for an appointment as you were instructed or within the next two days. If you experience worsening or a significant change in your symptoms, notify the physician immediately or return to the Emergency Department at any time for re-evaluation. Prescriptions: Oxycodone HCl 5 mg PO BID #6 tablet Forms: Parent Work Note
[2017-08-28] MEDS ORDERED: MORPHINE SULFATE 10 MG/ML INJ IV ONE (21:10)
--- NOTE | 2017-08-28 21:54 | RADIOLOGY REPORT (SQ) ---
EXAM DESCRIPTION: U/S NON OB PEL TV W/DOPPLER COMPLETED DATE/TIME: 08/28/2017 9:33 pm REASON FOR STUDY: RLQ pain, h/o appendectomy, and ovarian cysts COMPARISON: None. TECHNIQUE: Dynamic and static grayscale images acquired of the pelvis via transvaginal approach and recorded on PACS. Additional selected color Doppler and spectral images recorded. LIMITATIONS: None. FINDINGS: UTERUS: Contour normal. No mass. ENDOMETRIAL STRIPE: No focal or generalized thickening. No masses. CERVIX: No nabothian cysts. RIGHT OVARY: No abnormal masses. RIGHT OVARY DOPPLER: Normal arterial vascular flow without evidence for torsion. LEFT OVARY: Surgically absent. LEFT OVARY DOPPLER: Ovary not visualized. FREE FLUID: Trace cul-de-sac free fluid. OTHER: No other significant finding. MEASUREMENTS: UTERUS: 8.4 x 4.1 x 3.4 cm ENDOMETRIAL STRIPE: 2 mm RIGHT OVARY: 2.4 x 3.1 x 3.0 cm LEFT OVARY: Not visualized. IMPRESSION: No acute findings. TECHNICAL DOCUMENTATION: JOB ID: [id number] [place]-72 2010 [employer]- All Rights Reserved
[2017-08-28] MEDS ORDERED: MORPHINE SULFATE IR 15 MG TABLET PO ONE (22:17)
[2017-08-28] MEDS ORDERED: OXYCODONE HCL IR 5 MG TABLET PO ONE (22:23)
[2017-08-28 22:50] VITALS: BP 132/82
== END 2017-08-28 22:48 | disposition home or self-care (01) ==
LOC: ER 17:23
DX: R10.2 Pelvic and perineal pain (principal); M54.5 Low back pain; G89.29 Other chronic pain; I10 Essential (primary) hypertension; Z87.442 Personal history of urinary calculi; Z87.42 Personal history of other diseases of the female genital tract; Z97.5 Presence of (intrauterine) contraceptive device; Z90.49 Acquired absence of other specified parts of digestive tract; Z90.721 Acquired absence of ovaries, unilateral; Z88.8 Allergy status to other drugs, medicaments and biological substances; Z88.5 Allergy status to narcotic agent; Z88.0 Allergy status to penicillin; Z88.1 Allergy status to other antibiotic agents; Z87.891 Personal history of nicotine dependence
CPT/HCPCS: 99284; 96361; 96374; 87086; 81025; 81001; 76830; 93976; 76380; J2270; J7030; J3490

== ENCOUNTER 2017-10-07 14:57 | Emergency (ER) | payer MEDICAID ==
--- NOTE | 2017-10-07 17:12 | ER Document Report ---
ED Extremity Problem, Upper - General Chief Complaint: Arm Pain Stated Complaint: ARM INJURY Time Seen by Provider: 10/07/17 17:03 Mode of Arrival: Ambulatory Information source: Patient TRAVEL OUTSIDE OF THE [place] IN LAST 30 DAYS: No - HPI Patient complains to provider of: Pain, Left, Shoulder Onset: This afternoon Recent injury: Possibly Quality of pain: Achy Severity of pain: Moderate Associated symptoms: denies: Back pain, Chest pain/discomfort, Chills, Dizziness , Fainted, Fever, Hurts to breathe, Jaw pain, Nausea, Neck pain, Numbness, Seizure, Short of breath, Sweating, Tingling, Vomiting Exacerbated by: Movement Relieved by: Rest Notes: Patient arrives with complaints of left shoulder pain. Patient was bending down to pick something off the floor of the car she had a sudden pain in her left shoulder. There is no significant trauma. She denies any numbness, tingling, weakness. She denies any chest pain or shortness of breath. No nausea, vomiting, diarrhea. She denies any other complaints at this moment. There is no other injuries at this time. She denies any history of shoulder dislocations. - Related Data Allergies/Adverse Reactions: alprazolam [From Xanax] Allergy (Severe, Verified 10/07/17 15:00) Aggression asenapine maleate [From Saphris] Allergy (Severe, Verified 10/07/17 15:00) Blackout clonazepam [From Klonopin] Allergy (Severe, Verified 10/07/17 15:00) Seizure meperidine HCl [From Demerol] Allergy (Severe, Verified 10/07/17 15:00) Seizure brompheniramine maleate [From Dimetapp] Allergy (Mild, Verified 10/07/17 15:00) Hives dextromethorphan HBr [From Dimetapp] Allergy (Mild, Verified 10/07/17 15:00) Hives phenylpropanolamine HCl [From Dimetapp] Allergy (Mild, Verified 10/07/17 15:00) Hives pseudoephedrine HCl [From Dimetapp] Allergy (Mild, Verified 10/07/17 15:00) Hives triprolidine HCl [From Actifed] Allergy (Mild, Verified 10/07/17 15:00) Hives amoxicillin [Amoxicillin] Allergy (Unknown, Verified 10/07/17 15:00) doxepin [Doxepin] Allergy (Unknown, Verified 10/07/17 15:00) doxycycline [Doxycycline] Allergy (Unknown, Verified 10/07/17 15:00) erythromycin base [Erythromycin Base] Allergy (Unknown, Verified 10/07/17 15:00) indomethacin [Indomethacin] Allergy (Unknown, Verified 10/07/17 15:00) modafinil [From Provigil] Allergy (Unknown, Verified 10/07/17 15:00) quetiapine fumarate [From Seroquel] Allergy (Unknown, Verified 10/07/17 15:00) tramadol [Tramadol] Allergy (Unknown, Verified 10/07/17 15:00) triazolam [Triazolam] Allergy (Unknown, Verified 10/07/17 15:00) zonisamide [From Zonegran] Allergy (Unknown, Verified 10/07/17 15:00) cefdinir [Cefdinir] Allergy (Verified 10/07/17 15:00) haloperidol [From Haldol] Allergy (Verified 10/07/17 15:00) paliperidone [From Invega] Allergy (Verified 10/07/17 15:00) phenobarbital Allergy (Verified 10/07/17 15:00) primidone Allergy (Verified 10/07/17 15:00) pseudoephedrine [From Sudafed] Allergy (Verified 10/07/17 15:00) levetiracetam [From Keppra] Adverse Reaction (Verified 10/07/17 15:00) phenytoin [From Dilantin] Adverse Reaction (Verified 10/07/17 15:00) palprex Allergy (Unknown, Uncoded 08/28/17 17:24) zicam Allergy (Unknown, Uncoded 08/28/17 17:24) all vitamins Allergy (Uncoded 08/28/17 17:24) Seizures Past Medical History - Social History Smoking Status: Former Smoker Chew tobacco use (# tins/day): No Frequency of alcohol use: former Drug Abuse: None Family History: CAD, Other - asthma Patient has suicidal ideation: No Patient has homicidal ideation: No - Past Medical History Cardiac Medical History: Reports: Hx Hypertension - History of Denies: Hx Congestive Heart Failure, Hx Coronary Artery Disease, Hx DVT, Hx Heart Attack, Hx Hypercholesterolemia, Hx Pulmonary Embolism Pulmonary Medical History: Denies: Hx Asthma, Hx Bronchitis, Hx COPD, Hx Pneumonia Neurological Medical History: Reports: Hx Seizures - epilepsy. Denies: Hx Cerebrovascular Accident Endocrine Medical History: Denies: Hx Diabetes Mellitus Type 1, Hx Diabetes Mellitus Type 2, Hx Hyperthyroidism, Hx Hypothyroidism Renal/ Medical History: Reports: Hx Kidney Stones. Denies: Hx Peritoneal Dialysis GI Medical History: Denies: Hx Cirrhosis, Hx Gastroesophageal Reflux Disease, Hx Hepatitis Musculoskeltal Medical History: Reports Hx Arthritis Skin Medical History: Denies Hx Eczema, Denies Hx Psoriasis Psychiatric Medical History: Reports: Hx Anxiety, Hx Bipolar Disorder, Hx Depression, Hx Schizophrenia Infectious Medical History: Denies: Hx Hepatitis Past Surgical History: Reports: Hx Appendectomy, Hx Gynecologic Surgery - Right oophorectomy; Left ovarian cyst, Hx Kidney (Renal Surgery) - lithotripsy, Hx Oral Surgery, Hx Urinary Tract Surgery - stent - Immunizations Hx Diphtheria, Pertussis, Tetanus Vaccination: Yes Review of Systems - Review of Systems -: Yes All other systems reviewed and negative Physical Exam - Vital signs Vitals: Temp Pulse Resp BP Pulse Ox 98.3 F 88 18 113/72 96 10/07/17 15:59 10/07/17 15:59 10/07/17 15:59 10/07/17 15:59 10/07/17 15:59 - Notes Notes: GENERAL: alert, cooperative, nontoxic, no distress. HEAD: normocephalic, atraumatic EYES: conjunctiva pink without discharge, no external redness or swelling. EARS: no external swelling, no external redness NOSE: atraumatic, no external swelling MOUTH/THROAT: mucous membranes moist and pink NECK: soft, supple, full range of motion, no meningismus. CHEST: no distress, lungs clear and equal throughout. No wheezing, rales, rhonchi. CARDIAC: regular rate and rhythm, no murmur, normal capillary refill, normal pulses. BACK: full range of motion, no CVA tenderness. EXTREMITIES: Mild tenderness to palpation of the left anterior shoulder at the AC joint. Slightly limited range of motion secondary to pain but abduction, abduction, flexion and extension are present. Normal neurovascular exam distally. No redness or significant swelling. No obvious deformity. NEURO: alert and oriented 3, no focal deficits, full range of motion of all extremities. PYSCH: appropriate mood, affect. Patient is cooperative. SKIN: pink, warm, dry, no rash. Course - Re-evaluation Re-evalutation: 10/07/17 17:52 The patient is nontoxic appearing with stable vitals. Patient felt a pop in her left shoulder when bending down to reach for something and has pain in this area since that time. There was no trauma or fall. There is no redness or swelling. No fever. She is neurovascularly intact. Compartments are soft. X- ray shows no definite acute osseous abnormality. There is a periosteal reaction involving the medial cortex of the proximal humeral diaphysis with irregularity of the humeral neck suggestive of a subacute or chronic injury and can also be seen with stress change/infection/underlying malignancy. Radiologist recommends considering a follow-up MRI. I discussed these findings with the patient. She will be placed in a sling for comfort. She will be given a prescription for Percocet. She was instructed to follow-up with [facility] at the next available appointment to facilitate an MRI. Follow-up sooner for increased pain, fever, numbness, tingling, weakness, any further concerns. The patient's emergency department workup and current diagnosis were explained to the patient and or family. Follow-up instructions were provided. Medications if prescribed were discussed. Instructions for when to return to the emergency department including specific worrisome symptoms were discussed with the patient and/or family. - Vital Signs Vital signs: Temp Pulse Resp BP Pulse Ox 98.3 F 88 18 113/72 96 10/07/17 15:59 10/07/17 15:59 10/07/17 15:59 10/07/17 15:59 10/07/17 15:59 Procedures - Immobilization left arm Pre-Proc Neuro Vasc Exam: Normal Immobilizer type: Sling Performed by: PCT Post-Proc Neuro Vasc Exam: Normal Alignment checked and good: Yes Discharge - Discharge Clinical Impression: Left shoulder pain Qualifiers: Chronicity: acute Qualified Code(s): M25.512 - Pain in left shoulder Condition: Stable Disposition: HOME, SELF-CARE Instructions: Shoulder Injury ([facility]) Additional Instructions: Take medications as prescribed. Follow-up with your orthopedist at the next available appointment. Follow-up sooner for increased pain, fever, redness, numbness, tingling, weakness, any further concerns. Prescriptions: Oxycodone HCl/Acetaminophen [Percocet 5-325 mg Tablet] 1 - 2 tab PO Q4H PRN #15 tablet PRN Reason: Forms: Smoking Cessation Education Referrals: WARREN GUTIERREZ MD [Primary Care Provider] - Follow up as needed CONNIE GREEN MD [ACTIVE STAFF] - Follow up as needed
--- NOTE | 2017-10-07 17:34 | RADIOLOGY REPORT (SQ) ---
EXAM DESCRIPTION: SHOULDER LEFT 2 OR MORE VIEWS COMPLETED DATE/TIME: 10/07/2017 5:24 pm REASON FOR STUDY: pain, felt pop while reaching COMPARISON: None. NUMBER OF VIEWS: Three views. TECHNIQUE: Internal rotation, external rotation, and Y view images acquired of the left shoulder. LIMITATIONS: None. FINDINGS: MINERALIZATION: Normal. BONES: No acute fracture or dislocation. No worrisome bone lesions. There is smooth periosteal reac tion involving the medial cortex of the proximal humeral diaphysis with slight irregularity of the hu meral neck. JOINTS: No dislocation. VISUALIZED LUNGS AND RIBS: No pneumothorax. No rib fracture. SOFT TISSUES: No radiopaque foreign body. OTHER: No other significant finding. IMPRESSION: NO DEFINITE ACUTE OSSEOUS ABNORMALITY. THERE IS PERIOSTEAL REACTION INVOLVING THE MEDIA L CORTEX OF THE PROXIMAL HUMERAL DIAPHYSIS WITH IRREGULARITY OF THE HUMERAL NECK SUGGESTIVE OF SUBACU TE OR CHRONIC INJURY COULD ALSO BE SEEN WITH STRESS CHANGE, INFECTION, OR UNDERLYING MALIGNANCY. COR RELATE WITH CLINICAL HISTORY AND CONSIDER ARE FOLLOW-UP MRI. TECHNICAL DOCUMENTATION: JOB ID: [id number] [employer]- All Rights Reserved
[2017-10-07 18:38] VITALS: BP 117/78
== END 2017-10-07 18:38 | disposition home or self-care (01) ==
LOC: ER 14:57
DX: M25.512 Pain in left shoulder (principal); I10 Essential (primary) hypertension; Z88.8 Allergy status to other drugs, medicaments and biological substances; Z88.5 Allergy status to narcotic agent; Z88.1 Allergy status to other antibiotic agents; Z88.0 Allergy status to penicillin; Z87.891 Personal history of nicotine dependence
CPT/HCPCS: 99283

== ENCOUNTER → 2017-12-20 | Outpatient (CLI) | payer MEDICAID ==
--- NOTE | 2017-12-21 11:19 | RADIOLOGY REPORT (SQ) ---
EXAM DESCRIPTION: NM THYROID SCAN AND UPTAKE COMPLETED DATE/TIME: 12/21/2017 10:07 am REASON FOR STUDY: THYROID NODULE (E04.1) E04.1 NONTOXIC SINGLE THYROID NODULE COMPARISON: No corresponding imaging studies are available. RADIONUCLIDE AND DOSE: 306 microcuries I-123. Oral administration ADDITIONAL DRUGS AND DOSES: None. TECHNIQUE: Iodine uptake was measured at 4 and 24 hours. Images of the neck were acquired. LIMITATIONS: None. FINDINGS: 4 HOUR UPTAKE RADIO-IODINE: 5.1%. Normal Range of 5-20% [facility] Normal Range of 5-15% [facility] Normal Range of 5-15% [facility] 24 HOUR UPTAKE RADIO-IODINE: 18.8%. Normal Range of 7-35% [facility] Normal Range of 8-35% [facility] Normal Range of 15-30% [facility] SCAN: No hot or cold focal areas over the thyroid gland on imaging. Gland is grossly normal in size. IMPRESSION: NORMAL RADIONUCLIDE SCAN OF THYROID GLAND. NORMAL UPTAKE OF IODINE. TECHNICAL DOCUMENTATION: JOB ID: [id number] [employer]- All Rights Reserved Reading location - IP/workstation name: [email or web address]
== END ==
LOC: RAD 08:21
PROVIDERS: ATTEND Internal Medicine Endocrinology, Diabetes & Metabolism
DX: E04.1 Nontoxic single thyroid nodule (principal)
CPT/HCPCS: 78014; A9516

== ENCOUNTER → 2018-03-17 | Outpatient (CLI) | payer MEDICAID ==
--- NOTE | 2018-03-17 15:25 | RADIOLOGY REPORT (SQ) ---
EXAM DESCRIPTION: U/S RETROPERITON LTD COMPLETED DATE/TIME: 03/17/2018 2:08 pm REASON FOR STUDY: DISORDER OF KIDNEY AND URETER, UNSPECIFIED N28.9 DISORDER OF KIDNEY AND URETER, U NSPECIFIED COMPARISON: None. TECHNIQUE: Dynamic and static grayscale images acquired of the kidneys and bladder and recorded on P ACS. Additional selected color Doppler and spectral images recorded. LIMITATIONS: None. FINDINGS: RIGHT KIDNEY: The right kidney measures 9.8 x 4.1 x 4.9 cm, normal size. Normal echogen icity. No solid or suspicious masses. No hydronephrosis. No calcifications. LEFT KIDNEY: The left kidney measures 10.4 x 5.0 x 5.3 cm, normal size. Normal echogenicity. No solid or suspicious masses. No hydronephrosis. No calcifications. BLADDER: Bilateral ureteral jets not visualized. OTHER FINDINGS: No other significant finding. IMPRESSION: NORMAL RENAL ULTRASOUND. TECHNICAL DOCUMENTATION: JOB ID: [id number] [employer]- All Rights Reserved Reading location - IP/workstation name: [email or web address]
== END ==
LOC: RAD 13:11
PROVIDERS: ATTEND Internal Medicine Endocrinology, Diabetes & Metabolism
DX: N28.9 Disorder of kidney and ureter, unspecified (principal)
CPT/HCPCS: 76775

== ENCOUNTER → 2018-08-14 | Outpatient (CLI) | payer MEDICARE, MEDICAID ==
--- NOTE | 2018-08-14 12:42 | RADIOLOGY REPORT (SQ) ---
EXAM DESCRIPTION: U/S RETROPERITON (RENAL/AORTA) COMPLETED DATE/TIME: 08/14/2018 12:27 pm REASON FOR STUDY: CKD IV (N18.4) N18.4 CHRONIC KIDNEY DISEASE, STAGE 4 (SEVERE) COMPARISON: None. TECHNIQUE: Dynamic and static grayscale images acquired of the kidneys and bladder and recorded on P ACS. Additional selected color Doppler and spectral images recorded. LIMITATIONS: None. FINDINGS: RIGHT KIDNEY: Normal size. Normal echogenicity. No solid or suspicious masses. No hydronep hrosis. No calcifications. LEFT KIDNEY: Normal size. Normal echogenicity. No solid or suspicious masses. No hydronephrosis. No calcifications. BLADDER: No masses. OTHER FINDINGS: Gallstones. IMPRESSION: NORMAL RENAL AND BLADDER ULTRASOUND. GALLSTONES. TECHNICAL DOCUMENTATION: JOB ID: [id number] [employer]- All Rights Reserved Reading location - IP/workstation name: [email or web address]
== END ==
LOC: RAD 10:52
PROVIDERS: ATTEND Internal Medicine Nephrology
DX: N18.4 Chronic kidney disease, stage 4 (severe) (principal); K80.80 Other cholelithiasis without obstruction
CPT/HCPCS: 76770

== ENCOUNTER → 2018-08-14 | Outpatient (CLI) | payer MEDICARE, MEDICAID ==
[2018-08-14 13:07] LABS: ABSOLUTE BASOPHILS # (AUTO) 0.1 10^3/uL (0.0-0.2); ABSOLUTE EOSINOPHILS # (AUTO) 0.1 10^3/uL (0.0-0.6); ABSOLUTE LYMPHOCYTES (AUTO) 1.8 10^3/uL (0.5-4.7); ABSOLUTE MONOCYTES (AUTO) 1.4 10^3/uL (0.1-1.4); ABSOLUTE NEUT (AUTO) 6.8 10^3/uL (1.7-8.2); BASOPHILS % (AUTO) 0.8 % (0-2); EOSINOPHILS % (AUTO) 1.2 % (0-6); HEMATOCRIT 42.3 % (36.0-47.0); HEMOGLOBIN 14.4 g/dL (12.0-15.5); LYMPHOCYTES % (AUTO) 17.1 % (13-45); MEAN CORPUSCULAR HEMOGLOBIN 30.4 pg (27.0-33.4); MEAN CORPUSCULAR HGB CONC 34.1 g/dL (32.0-36.0); MEAN CORPUSCULAR VOLUME 89 fl (80-97); MONOCYTES % (AUTO) 13.8 % (3-13); PLATELET COUNT 439 10^3/uL (150-450); RED BLOOD COUNT 4.74 10^6/uL (3.72-5.28); RED CELL DISTRIBUTION WIDTH 14.1 % (11.5-14.0); SEGMENTED NEUTROPHILS % (AUTO) 67.1 % (42-78); TOTAL CELLS COUNTED % (AUTO) 100 %; WHITE BLOOD COUNT 10.2 10^3/uL (4.0-10.5)
[2018-08-14 13:13] LABS: APPEARANCE,URINE SLIGHTLY-CLOUDY; BILIRUBIN,URINE NEGATIVE (NEGATIVE); CALCIUM OXALATE CRYSTALS,URINE MANY /HPF; COLOR,URINE YELLOW; GLUCOSE, URINE NEGATIVE (NEGATIVE); KETONES,URINE NEGATIVE (NEGATIVE); LEUKOCYTE ESTERASE,URINE NEGATIVE (NEGATIVE); NITRITE,URINE NEGATIVE (NEGATIVE); PROTEIN,URINE 30 mg/dL (NEGATIVE); URINE SPECIFIC GRAVITY 1.025
[2018-08-14 13:30] LABS: ALANINE AMINOTRANSFERASE 28 U/L (9-52); ALBUMIN 4.4 g/dL (3.5-5.0); ALKALINE PHOSPHATASE 145 U/L (38-126); ANION GAP 17 (5-19); ASPARTATE AMINO TRANSFERASE 33 U/L (14-36); BILIRUBIN,DIRECT 0.4 mg/dL (0.0-0.4); BILIRUBIN,TOTAL 0.6 mg/dL (0.2-1.3); BLOOD UREA NITROGEN 23 mg/dL (7-20); CALCIUM 10.3 mg/dL (8.4-10.2); CARBON DIOXIDE 24 mmol/L (22-30); CHLORIDE 101 mmol/L (98-107); GLUCOSE 124 mg/dL (75-110); PHOSPHORUS 2.1 mg/dL (2.5-4.5); POTASSIUM 4.5 mmol/L (3.6-5.0); SODIUM 141.5 mmol/L (137-145); TOTAL PROTEIN 7.9 g/dL (6.3-8.2)
== END ==
LOC: OD 12:16
PROVIDERS: ATTEND Internal Medicine Nephrology
DX: N18.4 Chronic kidney disease, stage 4 (severe) (principal); G40.909 Epilepsy, unspecified, not intractable, without status epilepticus
CPT/HCPCS: 36415; 80053; 81001; 83735; 83970; 84100; 85025

== ENCOUNTER 2018-12-14 16:14 | Inpatient (IN) | payer MEDICARE, MEDICAID ==
[2018-12-14] MEDS ORDERED: NORMAL SALINE 1000 ML 1,000 ML IV ONE (17:27)
[2018-12-14] MEDS ORDERED: ONDANSETRON HCL INJ/PF 4 MG/2 ML SDV IV ONE (17:28)
--- NOTE | 2018-12-14 17:29 | ER Document Report ---
ED Medical Screen (RME) - General Chief Complaint: Abdominal Pain Stated Complaint: ABDOMINAL PAIN Time Seen by Provider: 12/14/18 17:06 Primary Care Provider: Jose CHAHAL MD [Primary Care Provider] - Follow up as needed Notes: Patient is a 33-year-old female that presents to the emergency department for chief complaint of abdominal pain, nausea. Patient states she has not had a bowel movement about 1 week, she states that this feels somewhat like her constipation is somewhat like her prior kidney stones but she cannot tell.. ROS: Other than noted above, the 12 point review of systems was reviewed with the patient and were negative, all pertinent findings are included in the HPI. PHYSICAL EXAMINATION: Vital signs reviewed. Obese female, no acute distress HEAD: Atraumatic, normocephalic. EYES: Pupils equal round extraocular movements intact, conjunctiva are normal. ENT: Nares patent NECK: Normal range of motion CV: Heart regular rate and rhythm LUNGS: No respiratory distress Musculoskeletal: Normal range of motion NEUROLOGICAL: Normal speech PSYCH: Normal mood, normal affect. MDM: Patient seen and examined for rapid initial assessment. Vital signs reviewed. A comprehensive ED assessment and evaluation of the patient, analysis of test results and completion of the medical decision making process will be conducted by additional ED providers. *Note is created using voice recognition software and may contain spelling, syntax or grammatical errors. TRAVEL OUTSIDE OF THE [place] IN LAST 30 DAYS: No - Related Data Allergies/Adverse Reactions: alprazolam [From Xanax] Allergy (Severe, Verified 12/14/18 16:15) Aggression asenapine maleate [From Saphris] Allergy (Severe, Verified 12/14/18 16:15) Blackout clonazepam [From Klonopin] Allergy (Severe, Verified 12/14/18 16:15) Seizure meperidine HCl [From Demerol] Allergy (Severe, Verified 12/14/18 16:15) Seizure brompheniramine maleate [From Dimetapp] Allergy (Mild, Verified 12/14/18 16:15) Hives dextromethorphan HBr [From Dimetapp] Allergy (Mild, Verified 12/14/18 16:15) Hives phenylpropanolamine HCl [From Dimetapp] Allergy (Mild, Verified 12/14/18 16:15) Hives pseudoephedrine HCl [From Dimetapp] Allergy (Mild, Verified 12/14/18 16:15) Hives triprolidine HCl [From Actifed] Allergy (Mild, Verified 12/14/18 16:15) Hives amoxicillin [Amoxicillin] Allergy (Unknown, Verified 12/14/18 16:15) doxepin [Doxepin] Allergy (Unknown, Verified 12/14/18 16:15) doxycycline [Doxycycline] Allergy (Unknown, Verified 12/14/18 16:15) erythromycin base [Erythromycin Base] Allergy (Unknown, Verified 12/14/18 16:15) indomethacin [Indomethacin] Allergy (Unknown, Verified 12/14/18 16:15) modafinil [From Provigil] Allergy (Unknown, Verified 12/14/18 16:15) quetiapine fumarate [From Seroquel] Allergy (Unknown, Verified 12/14/18 16:15) tramadol [Tramadol] Allergy (Unknown, Verified 12/14/18 16:15) triazolam [Triazolam] Allergy (Unknown, Verified 12/14/18 16:15) zonisamide [From Zonegran] Allergy (Unknown, Verified 12/14/18 16:15) cefdinir [Cefdinir] Allergy (Verified 12/14/18 16:15) haloperidol [From Haldol] Allergy (Verified 12/14/18 16:15) paliperidone [From Invega] Allergy (Verified 12/14/18 16:15) phenobarbital Allergy (Verified 12/14/18 16:15) primidone Allergy (Verified 12/14/18 16:15) pseudoephedrine [From Sudafed] Allergy (Verified 12/14/18 16:15) levetiracetam [From Keppra] Adverse Reaction (Verified 12/14/18 16:15) phenytoin [From Dilantin] Adverse Reaction (Verified 12/14/18 16:15) palprex Allergy (Unknown, Uncoded 12/14/18 16:15) zicam Allergy (Unknown, Uncoded 12/14/18 16:15) all vitamins Allergy (Uncoded 12/14/18 16:15) Seizures Past Medical History - Social History Chew tobacco use (# tins/day): No - Past Medical History Cardiac Medical History: Reports: Hx Hypertension - History of Denies: Hx Congestive Heart Failure, Hx Coronary Artery Disease, Hx DVT, Hx Heart Attack, Hx Hypercholesterolemia, Hx Pulmonary Embolism Pulmonary Medical History: Denies: Hx Asthma, Hx Bronchitis, Hx COPD, Hx Pneumonia Neurological Medical History: Reports: Hx Seizures - epilepsy. Denies: Hx Cerebrovascular Accident Endocrine Medical History: Denies: Hx Diabetes Mellitus Type 1, Hx Diabetes Mellitus Type 2, Hx Hyperthyroidism, Hx Hypothyroidism Renal/ Medical History: Reports: Hx Kidney Stones. Denies: Hx Peritoneal Dialysis GI Medical History: Denies: Hx Cirrhosis, Hx Gastroesophageal Reflux Disease, Hx Hepatitis Musculoskeltal Medical History: Reports Hx Arthritis Skin Medical History: Denies Hx Eczema, Denies Hx Psoriasis Psychiatric Medical History: Reports: Hx Anxiety, Hx Bipolar Disorder, Hx Depression, Hx Schizophrenia Infectious Medical History: Denies: Hx Hepatitis Past Surgical History: Reports: Hx Appendectomy, Hx Gynecologic Surgery - Right oophorectomy; Left ovarian cyst, Hx Kidney (Renal Surgery) - lithotripsy, Hx Oral Surgery, Hx Urinary Tract Surgery - stent - Immunizations Hx Diphtheria, Pertussis, Tetanus Vaccination: Yes Physical Exam - Vital signs Vitals: Temp Pulse Resp BP Pulse Ox 98.0 F 99 22 H 140/98 H 96 12/14/18 16:18 12/14/18 16:18 12/14/18 16:18 12/14/18 16:18 12/14/18 16:18 Course - Vital Signs Vital signs: Temp Pulse Resp BP Pulse Ox 98.0 F 84 16 132/97 H 99 12/14/18 16:18 12/14/18 17:39 12/14/18 17:39 12/14/18 17:39 12/14/18 17:39 Doctor's Discharge - Discharge Referrals: Jose CHAHAL MD [Primary Care Provider] - Follow up as needed
[2018-12-14 18:44] LABS: ABSOLUTE BASOPHILS # (AUTO) 0.1 10^3/uL (0.0-0.2); ABSOLUTE LYMPHOCYTES (AUTO) 1.4 10^3/uL (0.5-4.7); ABSOLUTE MONOCYTES (AUTO) 2.1 10^3/uL (0.1-1.4); ABSOLUTE NEUT (AUTO) 14.6 10^3/uL (1.7-8.2); BASOPHILS % (AUTO) 0.3 % (0-2); EOSINOPHILS % (AUTO) 0.2 % (0-6); HEMATOCRIT 45.7 % (36.0-47.0); HEMOGLOBIN 15.6 g/dL (12.0-15.5); LYMPHOCYTES % (AUTO) 7.7 % (13-45); MEAN CORPUSCULAR HEMOGLOBIN 29.7 pg (27.0-33.4); MEAN CORPUSCULAR HGB CONC 34.1 g/dL (32.0-36.0); MEAN CORPUSCULAR VOLUME 87 fl (80-97); MONOCYTES % (AUTO) 11.6 % (3-13); PLATELET COUNT 460 10^3/uL (150-450); RED BLOOD COUNT 5.25 10^6/uL (3.72-5.28); SEGMENTED NEUTROPHILS % (AUTO) 80.2 % (42-78); TOTAL CELLS COUNTED % (AUTO) 100 %; WHITE BLOOD COUNT 18.3 10^3/uL (4.0-10.5)
[2018-12-14 19:00] LABS: ALANINE AMINOTRANSFERASE 29 U/L (9-52); ALBUMIN 4.6 g/dL (3.5-5.0); ALKALINE PHOSPHATASE 177 U/L (38-126); ANION GAP 16 (5-19); ASPARTATE AMINO TRANSFERASE 37 U/L (14-36); BILIRUBIN,DIRECT 0.5 mg/dL (0.0-0.4); BILIRUBIN,TOTAL 0.9 mg/dL (0.2-1.3); BLOOD UREA NITROGEN 17 mg/dL (7-20); CARBON DIOXIDE 23 mmol/L (22-30); CHLORIDE 94 mmol/L (98-107); GLUCOSE 115 mg/dL (75-110); POTASSIUM 4.6 mmol/L (3.6-5.0); SODIUM 133.2 mmol/L (137-145); TOTAL PROTEIN 8.4 g/dL (6.3-8.2)
[2018-12-14 19:13] LABS: LIPASE 3269.9 U/L (23-300)
[2018-12-14 19:15] LABS: CALCIUM 13.1 mg/dL (8.4-10.2)
--- NOTE | 2018-12-14 19:23 | RADIOLOGY REPORT (SQ) ---
EXAM DESCRIPTION: ABDOMEN 2 VIEWS COMPLETED DATE/TIME: 12/14/2018 7:14 pm REASON FOR STUDY: abdominal pain, constipation COMPARISON: 01/07/2016 NUMBER OF VIEWS: Two views. TECHNIQUE: Supine and erect/decubitus radiographic images of the abdomen acquired. LIMITATIONS: None. FINDINGS: FREE AIR: None. No abnormal gas collections. LUNG BASES: Clear. BOWEL GAS PATTERN: Nonobstructive pattern. No dilated loops or air fluid levels. CALCIFICATIONS: No suspicious calcifications. SOFT TISSUES: No gross mass or suggestion of organomegaly. HARDWARE: None in the abdomen. BONES: No acute fracture. No worrisome bone lesions. OTHER: Essure devices in the pelvis. IMPRESSION: NO RADIOGRAPHIC EVIDENCE FOR ACUTE ABDOMINAL DISEASE. TECHNICAL DOCUMENTATION: JOB ID: [id number] [employer]- All Rights Reserved Reading location - IP/workstation name: [email or web address]
--- NOTE | 2018-12-14 19:44 | ER Document Report ---
ED General - General Chief Complaint: Abdominal Pain Stated Complaint: ABDOMINAL PAIN Time Seen by Provider: 12/14/18 17:06 Primary Care Provider: Jose CHAHAL MD [Primary Care Provider] - Follow up as needed TRAVEL OUTSIDE OF THE [place] IN LAST 30 DAYS: No - HPI Notes: Patient is a 33-year-old female with a history of seizures, CKD, hypothyroidism, constipation, kidney stones, appendectomy, and mental health disorders who presents to the emergency department complaining of mid abdominal pain that wraps around both sides to her back that began 3 days ago. Patient states that she has had intermittent nausea and a couple episodes of vomiting associated. Patient states that she has had a decreased p.o. intake because of the pain as well. She otherwise is urinating normally. She has not had any vaginal discharge, odor, or bleeding. Denies any headache, fever, neck pain, URI, sore throat, chest pain, palpitations, syncope, cough, shortness of breath, wheeze, dyspnea, diarrhea, urinary retention, dysuria, hematuria, loss of control of bowel or bladder, numbness/tingling, saddle anesthesia, muscle paralysis/weakness, or rash. - Related Data Allergies/Adverse Reactions: alprazolam [From Xanax] Allergy (Severe, Verified 12/14/18 16:15) Aggression asenapine maleate [From Saphris] Allergy (Severe, Verified 12/14/18 16:15) Blackout clonazepam [From Klonopin] Allergy (Severe, Verified 12/14/18 16:15) Seizure meperidine HCl [From Demerol] Allergy (Severe, Verified 12/14/18 16:15) Seizure brompheniramine maleate [From Dimetapp] Allergy (Mild, Verified 12/14/18 16:15) Hives dextromethorphan HBr [From Dimetapp] Allergy (Mild, Verified 12/14/18 16:15) Hives phenylpropanolamine HCl [From Dimetapp] Allergy (Mild, Verified 12/14/18 16:15) Hives pseudoephedrine HCl [From Dimetapp] Allergy (Mild, Verified 12/14/18 16:15) Hives triprolidine HCl [From Actifed] Allergy (Mild, Verified 12/14/18 16:15) Hives amoxicillin [Amoxicillin] Allergy (Unknown, Verified 12/14/18 16:15) doxepin [Doxepin] Allergy (Unknown, Verified 12/14/18 16:15) doxycycline [Doxycycline] Allergy (Unknown, Verified 12/14/18 16:15) erythromycin base [Erythromycin Base] Allergy (Unknown, Verified 12/14/18 16:15) indomethacin [Indomethacin] Allergy (Unknown, Verified 12/14/18 16:15) modafinil [From Provigil] Allergy (Unknown, Verified 12/14/18 16:15) quetiapine fumarate [From Seroquel] Allergy (Unknown, Verified 12/14/18 16:15) tramadol [Tramadol] Allergy (Unknown, Verified 12/14/18 16:15) triazolam [Triazolam] Allergy (Unknown, Verified 12/14/18 16:15) zonisamide [From Zonegran] Allergy (Unknown, Verified 12/14/18 16:15) cefdinir [Cefdinir] Allergy (Verified 12/14/18 16:15) haloperidol [From Haldol] Allergy (Verified 12/14/18 16:15) paliperidone [From Invega] Allergy (Verified 12/14/18 16:15) phenobarbital Allergy (Verified 12/14/18 16:15) primidone Allergy (Verified 12/14/18 16:15) pseudoephedrine [From Sudafed] Allergy (Verified 12/14/18 16:15) levetiracetam [From Keppra] Adverse Reaction (Verified 12/14/18 16:15) phenytoin [From Dilantin] Adverse Reaction (Verified 12/14/18 16:15) palprex Allergy (Unknown, Uncoded 12/14/18 16:15) zicam Allergy (Unknown, Uncoded 12/14/18 16:15) all vitamins Allergy (Uncoded 12/14/18 16:15) Seizures Past Medical History - Social History Smoking Status: Former Smoker Chew tobacco use (# tins/day): No Family History: CAD, Other - asthma Patient has suicidal ideation: No Patient has homicidal ideation: No - Past Medical History Cardiac Medical History: Reports: Hx Hypertension - History of Denies: Hx Congestive Heart Failure, Hx Coronary Artery Disease, Hx DVT, Hx Heart Attack, Hx Hypercholesterolemia, Hx Pulmonary Embolism Pulmonary Medical History: Denies: Hx Asthma, Hx Bronchitis, Hx COPD, Hx Pneumonia Neurological Medical History: Reports: Hx Seizures - epilepsy. Denies: Hx Cerebrovascular Accident Endocrine Medical History: Denies: Hx Diabetes Mellitus Type 1, Hx Diabetes Mellitus Type 2, Hx Hyperthyroidism, Hx Hypothyroidism Renal/ Medical History: Reports: Hx Kidney Stones. Denies: Hx Peritoneal Dialysis GI Medical History: Denies: Hx Cirrhosis, Hx Gastroesophageal Reflux Disease, Hx Hepatitis Musculoskeletal Medical History: Reports Hx Arthritis Skin Medical History: Denies Hx Eczema, Denies Hx Psoriasis Psychiatric Medical History: Reports: Hx Anxiety, Hx Bipolar Disorder, Hx Depression, Hx Schizophrenia Infectious Medical History: Denies: Hx Hepatitis Past Surgical History: Reports: Hx Appendectomy, Hx Gynecologic Surgery - Right oophorectomy; Left ovarian cyst, Hx Kidney (Renal Surgery) - lithotripsy, Hx Oral Surgery, Hx Urinary Tract Surgery - stent - Immunizations Hx Diphtheria, Pertussis, Tetanus Vaccination: Yes Review of Systems - Review of Systems -: Yes All other systems reviewed and negative Physical Exam - Vital signs Vitals: Temp Pulse Resp BP Pulse Ox 98.0 F 99 22 H 140/98 H 96 12/14/18 16:18 12/14/18 16:18 12/14/18 16:18 12/14/18 16:18 12/14/18 16:18 - Notes Notes: PHYSICAL EXAMINATION: GENERAL: Well-appearing, well-nourished and in no acute distress. HEAD: Atraumatic, normocephalic. EYES: Pupils equal round and reactive to light, extraocular movements intact, sclera anicteric, conjunctiva are normal. ENT: Nares patent and without discharge. oropharynx clear without exudates. No tonsilar hypertrophy or erythema. Moist mucous membranes. NECK: Normal range of motion, supple without lymphadenopathy LUNGS: Breath sounds clear to auscultation bilaterally and equal. No wheezes rales or rhonchi. HEART: Regular rate and rhythm without murmurs, rubs, gallops. ABDOMEN: Soft, nondistended abdomen. No guarding, no rebound. Normal bowel sounds present. No CVA tenderness bilaterally. + tenderness to the mid abdomen. Musculoskeletal: FROM to passive/active. Strength 5+/5. Extremities: No cyanosis, clubbing, or edema b/l. Peripheral pulses 2+. Capillary refill less than 3 seconds. NEUROLOGICAL: Normal speech, normal gait. PSYCH: Normal mood, normal affect. SKIN: Warm, Dry, normal turgor, no rashes or lesions noted. Course - Re-evaluation Re-evalutation: 12/14/18 19:43 Reviewed labs/case with Dr. Herzog. We will push fluids through IV and obtain a plain CT due to Cr level. Suspect Pancreatitis causing disruption with her labs with elevated Calcium and KETTY. 12/14/18 20:53 CT shows pancreatitis. Patient is an afebrile, well-hydrated, 33-year-old female who presents emergency department with acute kidney injury, hypercalcemia, and acute pancreatitis. Vitals are currently acceptable without significant tachycardia, tachypnea, or hypoxia. Patient was given fluids as well as nausea and pain medicine. I did speak with Dr. Trinh, hospitalist, who accepted patient for admit to the medical floor. - Vital Signs Vital signs: Temp Pulse Resp BP Pulse Ox 98.0 F 84 16 132/97 H 99 12/14/18 16:18 12/14/18 17:39 12/14/18 17:39 12/14/18 17:39 12/14/18 17:39 - Laboratory Result Diagrams: 12/14/18 17:35 12/14/18 17:35 Laboratory results interpreted by me: 12/14/18 12/14/18 12/14/18 17:35 17:35 17:41 WBC 18.3 H Hgb 15.6 H Plt Count 460 H Seg Neutrophils % 80.2 H Lymphocytes % 7.7 L Absolute Neutrophils 14.6 H Absolute Monocytes 2.1 H Sodium 133.2 L Chloride 94 L Creatinine 2.33 H Est GFR ( Amer) 29 L Est GFR (Non-Af Amer) 24 L Glucose 115 H Calcium 13.1 H* Direct Bilirubin 0.5 H AST 37 H Alkaline Phosphatase 177 H Total Protein 8.4 H Lipase 3269.9 H Urine Protein 100 H Ur Leukocyte Esterase TRACE H Discharge - Discharge Clinical Impression: Acute kidney injury, Hypercalcemia Acute pancreatitis Qualifiers: Pancreatitis type: unspecified pancreatitis type Acute pancreatitis complication: no infection or necrosis Qualified Code(s): K85.90 - Acute pancreatitis without necrosis or infection, unspecified Condition: Stable Disposition: ADMITTED INPATIENT Admitting Provider: Hospitalist - Dr. Trinh Unit Admitted: Medical Floor Referrals: Jose CHAHAL MD [Primary Care Provider] - Follow up as needed
[2018-12-14 19:56] LABS: APPEARANCE,URINE CLOUDY; BILIRUBIN,URINE NEGATIVE (NEGATIVE); COLOR,URINE YELLOW; GLUCOSE, URINE NEGATIVE (NEGATIVE); KETONES,URINE NEGATIVE (NEGATIVE); LEUKOCYTE ESTERASE,URINE TRACE (NEGATIVE); NITRITE,URINE NEGATIVE (NEGATIVE); PROTEIN,URINE 100 mg/dL (NEGATIVE); URINE SPECIFIC GRAVITY 1.013; UROBILINOGEN,URINE NEGATIVE mg/dL (<2.0)
[2018-12-14] MEDS ORDERED: MORPHINE SULFATE 10 MG/ML INJ IV ONE (20:28)
[2018-12-14] MEDS: NORMAL SALINE 1000 ML 1,000 ML IV PRN ×3 (20:28→22:06)
--- NOTE | 2018-12-14 20:33 | RADIOLOGY REPORT (SQ) ---
CT ABDOMEN PELVIS WITHOUT IV CONTRAST EXAM DATE: 12/14/2018 19:35 HISTORY: Abdominal pain. COMPARISON: 08/28/2017 TECHNIQUE: CT scan of the abdomen and pelvis was performed without IV contrast. This exam was performed according to our departmental dose-optimization program, which includes automated exposure control, adjustment of the mA and/or kV according to patient size and/or use of iterative reconstruction technique. FINDINGS: The lung bases are clear. No pleural or pericardial effusions. There is no hiatal hernia. Multiple gallstones are present. The liver, spleen, and adrenal glands are normal. There is inflammatory stranding surrounding the pancreas. No fluid collection is seen. There are nonobstructing bilateral renal stones. A 2 cm left ovarian cyst is seen. No small bowel obstruction. The appendix is normal. There is no evidence of diverticulitis. No intraperitoneal free fluid or free air is identified. The aorta is normal caliber. No acute osseous findings are appreciated. IMPRESSION: 1. Acute pancreatitis without fluid collection. 2. Gallstones without inflammatory changes. 3. Nonobstructing bilateral renal stones. 4. 2 cm left ovarian cyst.
[2018-12-14] MEDS ORDERED: PROMETHAZINE HCL INJ 25 MG/1 ML VIAL IV PRN (20:49)
[2018-12-14] MEDS ORDERED: ONDANSETRON HCL INJ/PF 4 MG/2 ML SDV IV PRN (20:49)
[2018-12-14] MEDS ORDERED: MAGNESIUM HYDROXIDE SUSP 30 ML UDCUP PO PRN (20:49)
[2018-12-14] MEDS ORDERED: IPRATROPIUM/ALBUTEROL 0.5-2.5 MG/3 ML AMPUL NEB PRN (20:49)
[2018-12-14] MEDS ORDERED: DEXTROSE 50%-WATER 25 GM/50 ML DISP.SYRIN IV PRN ×2 (20:54)
[2018-12-14] MEDS ORDERED: GLUCAGON,HUMAN RECOMB 1 MG INJ IM PRN (20:54)
[2018-12-14] MEDS ORDERED: DEXTROSE 40% GEL 15 GM TUBE PO PRN ×2 (20:54)
[2018-12-14] MEDS ORDERED: NORMAL SALINE 1000 ML 1,000 ML IV SCH (21:00)
[2018-12-14 21:46] LABS: URINE AMPHETAMINES SCREEN NEGATIVE; URINE BARBITURATES SCREEN NEGATIVE; URINE BENZODIAZEPINES SCREEN UNCONFIRMED POSITIVE; URINE COCAINE SCREEN NEGATIVE; URINE MARIJUANA (THC) SCREEN NEGATIVE; URINE METHADONE SCREEN NEGATIVE; URINE PHENCYCLIDINE SCREEN NEGATIVE
[2018-12-14] MEDS: HYDROMORPHONE HCL INJ/PF 2 MG/ML AMPULE SUBCUT PRN (21:59)
--- NOTE | 2018-12-14 22:17 | ER Document Report ---
Doctor's Note Notes: I personally and independently obtained patient history and examined the patient in conjunction with the APC and agree with the assessment, treatment plan and disposition of the patient as recorded by the APC, and have reviewed the APC's note. HISTORY OF PRESENT ILLNESS: Patient is a 33-year-old female that presents to the emergency department for chief complaint of abdominal pain. Patient reports she has had a bowel movement in about 1 week, she is had some nausea, and abdominal pain she is not sure she is constipated or she is having a kidney stone, because the pain is similar to both that she has had in the past. ROS: Constitutional: Negative for fever. Cardiovascular: Negative for chest pain. Respiratory: Negative for shortness of breath. Gastrointestinal: Positive for abdominal pain and nausea Musculoskeletal: Negative for arm, leg or back pain Skin: Negative for rash. Neurological: Negative for weakness or numbness. Other than noted above, the 12 point review of systems was reviewed with the patient and were negative, all pertinent findings are included in the HPI. PHYSICAL EXAMINATION: Vital signs reviewed, nursing noted reviewed. GENERAL: Obese female, appears uncomfortable HEAD: Atraumatic, normocephalic. EYES: Eyes appear normal, conjunctiva are normal. ENT: nares patent, oropharynx clear without exudates. Moist mucous membranes. NECK: Normal range of motion, supple without lymphadenopathy LUNGS: Breath sounds clear to auscultation bilaterally and equal. No wheezes rales or rhonchi. HEART: Regular rate and rhythm without murmurs ABDOMEN: Soft, obese, tender to palpate normoactive bowel sounds. No rebound, guarding, or rigidity. No masses appreciated. EXTREMITIES: Nontender, good range of motion, no pitting or edema. NEUROLOGICAL: No focal neurological deficits. Moves all extremities spontaneously Motor and sensory grossly intact on exam. PSYCH: Normal mood, normal affect. SKIN: Warm, Dry, normal turgor, no rashes or lesions noted on exposed skin MEDICAL DECISION MAKING: Patient seen and examined, vital signs reviewed, patient was worked up for her abdominal pain, which demonstrated multiple lab abnormalities, including hypercalcemia, leukocytosis, and markedly elevated lipase concerning for acute pancreatitis, CT imaging was ordered after discussing with the PA, and demonstrated exam consistent with acute pancreatitis, gallstones without evidence of acute cholecystitis. Patient will be admitted to the hospital for further evaluation and management. She is given aggressive fluid hydration in the emergency department. Please review detail APC documentation. *Note is created using voice recognition software and may contain spelling, syntax or grammatical errors. Laboratory 12/14/18 12/14/18 12/14/18 17:35 17:35 17:35 WBC 18.3 H RBC 5.25 Hgb 15.6 H Hct 45.7 MCV 87 MCH 29.7 MCHC 34.1 RDW 14.0 Plt Count 460 H Seg Neutrophils % 80.2 H Lymphocytes % 7.7 L Monocytes % 11.6 Eosinophils % 0.2 Basophils % 0.3 Absolute Neutrophils 14.6 H Absolute Lymphocytes 1.4 Absolute Monocytes 2.1 H Absolute Eosinophils 0.0 Absolute Basophils 0.1 Sodium 133.2 L Potassium 4.6 Chloride 94 L Carbon Dioxide 23 Anion Gap 16 BUN 17 Creatinine 2.33 H Est GFR ( Amer) 29 L Est GFR (Non-Af Amer) 24 L Glucose 115 H Calcium 13.1 H* Total Bilirubin 0.9 Direct Bilirubin 0.5 H Neonat Total Bilirubin Not Reportable Neonat Direct Bilirubin Not Reportable Neonat Indirect Bili Not Reportable AST 37 H ALT 29 Alkaline Phosphatase 177 H Creatine Kinase Total Protein 8.4 H Albumin 4.6 Lipase 3269.9 H Serum HCG, Qual NEGATIVE Urine Color Urine Appearance Urine pH Ur Specific [place] Urine Protein Urine Glucose (UA) Urine Ketones Urine Blood Urine Nitrite Urine Bilirubin Urine Urobilinogen Ur Leukocyte Esterase Urine WBC (Auto) Urine RBC (Auto) Urine Bacteria (Auto) Squamous Epi Cells Auto Urine Mucus (Auto) Urine Ascorbic Acid Urine Opiates Screen Urine Methadone Screen Ur Barbiturates Screen Ur Phencyclidine Scrn Ur Amphetamines Screen U Benzodiazepines Scrn Urine Cocaine Screen U Marijuana (THC) Screen 12/14/18 12/14/18 12/14/18 17:35 17:41 17:41 WBC RBC Hgb Hct MCV MCH MCHC RDW Plt Count Seg Neutrophils % Lymphocytes % Monocytes % Eosinophils % Basophils % Absolute Neutrophils Absolute Lymphocytes Absolute Monocytes Absolute Eosinophils Absolute Basophils Sodium Potassium Chloride Carbon Dioxide Anion Gap BUN Creatinine Est GFR ( Amer) Est GFR (Non-Af Amer) Glucose Calcium Total Bilirubin Direct Bilirubin Neonat Total Bilirubin Neonat Direct Bilirubin Neonat Indirect Bili AST ALT Alkaline Phosphatase Creatine Kinase 27 L Total Protein Albumin Lipase Serum HCG, Qual Urine Color YELLOW Urine Appearance CLOUDY Urine pH 9.0 Ur Specific [place] 1.013 Urine Protein 100 H Urine Glucose (UA) NEGATIVE Urine Ketones NEGATIVE Urine Blood NEGATIVE Urine Nitrite NEGATIVE Urine Bilirubin NEGATIVE Urine Urobilinogen NEGATIVE Ur Leukocyte Esterase TRACE H Urine WBC (Auto) 19 Urine RBC (Auto) 2 Urine Bacteria (Auto) TRACE Squamous Epi Cells Auto 16 Urine Mucus (Auto) RARE Urine Ascorbic Acid NEGATIVE Urine Opiates Screen NEGATIVE Urine Methadone Screen NEGATIVE Ur Barbiturates Screen NEGATIVE Ur Phencyclidine Scrn NEGATIVE Ur Amphetamines Screen NEGATIVE U Benzodiazepines Scrn UNCONFIRMED POSITIVE Urine Cocaine Screen NEGATIVE U Marijuana (THC) Screen NEGATIVE Abdomen X-Ray 12/14/18 17:27 IMPRESSION: NO RADIOGRAPHIC EVIDENCE FOR ACUTE ABDOMINAL DISEASE. Abdomen/Pelvis CT 12/14/18 19:35 IMPRESSION: 1. Acute pancreatitis without fluid collection. 2. Gallstones without inflammatory changes. 3. Nonobstructing bilateral renal stones. 4. 2 cm left ovarian cyst.
[2018-12-14] MEDS: HEPARIN SOD (PORCINE) 5,000 UNIT/ML 1 ML SYRINGE SUBCUT SCH (23:13)
[2018-12-15] MEDS: INSULIN LISPRO 100 UNIT/ML 3 ML VIAL SUBCUT SCH ×4 (00:59→20:18)
[2018-12-15] MEDS: NORMAL SALINE 1000 ML 1,000 ML IV PRN ×2 (01:01→03:23)
[2018-12-15] MEDS: HYDROMORPHONE HCL INJ/PF 2 MG/ML AMPULE SUBCUT PRN ×3 (01:17→08:15)
[2018-12-15] MEDS ORDERED: FUROSEMIDE INJ/PF 40 MG/4 ML SDV IV ONE (04:10)
--- NOTE | 2018-12-15 04:22 | PDOC H&P ---
History of Present Illness Admission Date/PCP: 12/14/18 21:00 Jose CHAHAL MD Patient complains of: Abdominal pain History of Present Illness: CONNOR FLOYD is a 33 year old female with a past medical history of bipolar depression, nephrolithiasis, morbid obesity, diabetes and chronic pain presents the emergency room with 4 days of dull epigastric abdominal pain associated with nausea and vomiting of gastric content. In the emergency department she is found to have hypercalcemia of 13, acute renal failure creatinine 2.5, and acute pancreatitis. She receives morphine and referred to the hospitalist for admission. Patient denies recent change in medications, recent upper respiratory infection, alcohol, or weight loss. Past Medical History Cardiac Medical History: Reports: Hypertension - History of Denies: Congestive Heart Failure, Coronary Artery Disease, DVT, Myocardial Infarction, Hyperlipidema, Pulmonary Embolism Pulmonary Medical History: Denies: Asthma, Bronchitis, Chronic Obstructive Pulmonary Disease (COPD), Pneumonia Neurological Medical History: Reports: Seizures - epilepsy Endocrine Medical History: Denies: Diabetes Mellitus Type 1, Diabetes Mellitus Type 2, Hyperthyroidism, Hypothyroidism GI Medical History: Denies: Cirrhosis, Gastroesophageal Reflux Disease, Hepatitis Musculoskeltal Medical History: Reports: Arthritis Skin Medical History: Denies: Eczema, Psoriasis Psychiatric Medical History: Reports: Bipolar Disorder, Depression Hematology: Denies: Anemia Past Surgical History Past Surgical History: Reports: Appendectomy Social History Information Source: Patient Lives with: Family Smoking Status: Former Smoker Frequency of Alcohol Use: None Hx Recreational Drug Use: No Drugs: None Hx Prescription Drug Abuse: No - Advance Directive Resuscitation Status: Full Code Family History Family History: Arthritis, CAD, Malignancy, Thyroid Disfunction, Other - Ovarian cancer in mother, asthma Parental Family History Reviewed: Yes Children Family History Reviewed: Yes Sibling(s) Family History Reviewed.: Yes Medication/Allergy Home Medications: Diazepam [Valium 2 mg Tablet] 2 mg PO QHS 12/14/18 Fluoxetine HCl [Prozac] 80 mg PO DAILY 12/14/18 Lamotrigine [Lamictal] 150 mg PO Q12 12/14/18 Levothyroxine Sodium [Synthroid 0.075 mg Tablet] 0.075 mg PO Q6AM 12/14/18 Potassium Citrate [Potassium Citrate ER] 20 meq PO Q12 12/14/18 Yulia's Wort 300 mg PO DAILY 12/14/18 Trazodone HCl [Desyrel] 100 mg PO QHS 12/14/18 Allergies/Adverse Reactions: alprazolam [From Xanax] Allergy (Severe, Verified 12/14/18 16:15) Aggression asenapine maleate [From Saphris] Allergy (Severe, Verified 12/14/18 16:15) Blackout clonazepam [From Klonopin] Allergy (Severe, Verified 12/14/18 16:15) Seizure meperidine HCl [From Demerol] Allergy (Severe, Verified 12/14/18 16:15) Seizure brompheniramine maleate [From Dimetapp] Allergy (Mild, Verified 12/14/18 16:15) Hives dextromethorphan HBr [From Dimetapp] Allergy (Mild, Verified 12/14/18 16:15) Hives phenylpropanolamine HCl [From Dimetapp] Allergy (Mild, Verified 12/14/18 16:15) Hives pseudoephedrine HCl [From Dimetapp] Allergy (Mild, Verified 12/14/18 16:15) Hives triprolidine HCl [From Actifed] Allergy (Mild, Verified 12/14/18 16:15) Hives amoxicillin [Amoxicillin] Allergy (Unknown, Verified 12/14/18 16:15) doxepin [Doxepin] Allergy (Unknown, Verified 12/14/18 16:15) doxycycline [Doxycycline] Allergy (Unknown, Verified 12/14/18 16:15) erythromycin base [Erythromycin Base] Allergy (Unknown, Verified 12/14/18 16:15) indomethacin [Indomethacin] Allergy (Unknown, Verified 12/14/18 16:15) modafinil [From Provigil] Allergy (Unknown, Verified 12/14/18 16:15) quetiapine fumarate [From Seroquel] Allergy (Unknown, Verified 12/14/18 16:15) tramadol [Tramadol] Allergy (Unknown, Verified 12/14/18 16:15) triazolam [Triazolam] Allergy (Unknown, Verified 12/14/18 16:15) zonisamide [From Zonegran] Allergy (Unknown, Verified 12/14/18 16:15) cefdinir [Cefdinir] Allergy (Verified 12/14/18 16:15) haloperidol [From Haldol] Allergy (Verified 12/14/18 16:15) paliperidone [From Invega] Allergy (Verified 12/14/18 16:15) phenobarbital Allergy (Verified 12/14/18 16:15) primidone Allergy (Verified 12/14/18 16:15) pseudoephedrine [From Sudafed] Allergy (Verified 12/14/18 16:15) levetiracetam [From Keppra] Adverse Reaction (Verified 12/14/18 16:15) phenytoin [From Dilantin] Adverse Reaction (Verified 12/14/18 16:15) palprex Allergy (Unknown, Uncoded 12/14/18 16:15) zicam Allergy (Unknown, Uncoded 12/14/18 16:15) all vitamins Allergy (Uncoded 12/14/18 16:15) Seizures Review of Systems Constitutional: PRESENT: fatigue. ABSENT: chills, fever(s), headache(s), weight gain, weight loss Eyes: ABSENT: visual disturbances Ears: ABSENT: hearing changes Cardiovascular: ABSENT: chest pain, dyspnea on exertion, edema, orthropnea, palpitations Respiratory: ABSENT: cough, hemoptysis Gastrointestinal: PRESENT: as per HPI, abdominal pain, bloating, constipation, nausea, vomiting. ABSENT: diarrhea, hematemesis, hematochezia Genitourinary: ABSENT: dysuria, hematuria Musculoskeletal: ABSENT: joint swelling Integumentary: ABSENT: rash, wounds Neurological: ABSENT: abnormal gait, abnormal speech, confusion, dizziness, focal weakness, syncope Psychiatric: ABSENT: anxiety, depression, homidical ideation, suicidal ideation Endocrine: ABSENT: cold intolerance, heat intolerance, polydipsia, polyuria Hematologic/Lymphatic: ABSENT: easy bleeding, easy bruising Physical Exam Vital Signs: Temp Pulse Resp BP Pulse Ox 98.1 F 97 16 129/84 H 97 12/15/18 00:29 12/15/18 00:32 12/15/18 00:29 12/15/18 00:32 12/15/18 00:32 Intake & Output 12/13/18 12/14/18 12/15/18 11:59 11:59 11:59 Intake Total 5000 Balance 5000 Weight 99.8 kg General appearance: PRESENT: cooperative, mild distress, morbidly obese Head exam: PRESENT: atraumatic, normocephalic Eye exam: PRESENT: conjunctiva pink, EOMI, PERRLA. ABSENT: scleral icterus Ear exam: PRESENT: normal external ear exam Mouth exam: PRESENT: dry mucosa, neck supple. ABSENT: laceration Neck exam: ABSENT: carotid bruit, JVD, lymphadenopathy, thyromegaly Respiratory exam: PRESENT: clear to auscultation tj. ABSENT: decreased breath sounds, prolonged expiratory phas, rales, retraction, rhonchi, wheezes Cardiovascular exam: PRESENT: RRR. ABSENT: diastolic murmur, rubs, systolic murmur Pulses: PRESENT: normal dorsalis pedis pul Vascular exam: PRESENT: normal capillary refill GI/Abdominal exam: PRESENT: diminished bowel sounds, distended, hypoactive bowel sounds, tenderness. ABSENT: ascites, firm, guarding, rebound Rectal exam: PRESENT: deferred Extremities exam: PRESENT: full ROM. ABSENT: calf tenderness, clubbing, pedal edema Neurological exam: PRESENT: alert, awake, oriented to person, oriented to place, oriented to time, oriented to situation, CN II-XII grossly intact. ABSENT: motor sensory deficit Psychiatric exam: PRESENT: anxious Skin exam: PRESENT: dry, intact, warm. ABSENT: cyanosis, rash Results Laboratory Results: 12/14/18 17:35 12/14/18 17:35 12/14/18 12/14/18 12/14/18 17:35 17:35 17:35 WBC 18.3 H RBC 5.25 Hgb 15.6 H Hct 45.7 MCV 87 MCH 29.7 MCHC 34.1 RDW 14.0 Plt Count 460 H Seg Neutrophils % 80.2 H Lymphocytes % 7.7 L Monocytes % 11.6 Eosinophils % 0.2 Basophils % 0.3 Absolute Neutrophils 14.6 H Absolute Lymphocytes 1.4 Absolute Monocytes 2.1 H Absolute Eosinophils 0.0 Absolute Basophils 0.1 Sodium 133.2 L Potassium 4.6 Chloride 94 L Carbon Dioxide 23 Anion Gap 16 BUN 17 Creatinine 2.33 H Est GFR ( Amer) 29 L Est GFR (Non-Af Amer) 24 L Glucose 115 H Calcium 13.1 H* Total Bilirubin 0.9 AST 37 H ALT 29 Alkaline Phosphatase 177 H Total Protein 8.4 H Albumin 4.6 Lipase 3269.9 H Serum HCG, Qual NEGATIVE PTH Intact Urine Color Urine Appearance Urine pH Ur Specific [place] Urine Protein Urine Glucose (UA) Urine Ketones Urine Blood Urine Nitrite Ur Leukocyte Esterase Urine WBC (Auto) Urine RBC (Auto) 12/14/18 12/14/18 17:41 22:30 WBC RBC Hgb Hct MCV MCH MCHC RDW Plt Count Seg Neutrophils % Lymphocytes % Monocytes % Eosinophils % Basophils % Absolute Neutrophils Absolute Lymphocytes Absolute Monocytes Absolute Eosinophils Absolute Basophils Sodium Potassium Chloride Carbon Dioxide Anion Gap BUN Creatinine Est GFR ( Amer) Est GFR (Non-Af Amer) Glucose Calcium Total Bilirubin AST ALT Alkaline Phosphatase Total Protein Albumin Lipase Serum HCG, Qual PTH Intact 6.1 L Urine Color YELLOW Urine Appearance CLOUDY Urine pH 9.0 Ur Specific [place] 1.013 Urine Protein 100 H Urine Glucose (UA) NEGATIVE Urine Ketones NEGATIVE Urine Blood NEGATIVE Urine Nitrite NEGATIVE Ur Leukocyte Esterase TRACE H Urine WBC (Auto) 19 Urine RBC (Auto) 2 12/14/18 17:35 Creatine Kinase 27 L Impressions: Abdomen X-Ray 12/14/18 17:27 IMPRESSION: NO RADIOGRAPHIC EVIDENCE FOR ACUTE ABDOMINAL DISEASE. Abdomen/Pelvis CT 12/14/18 19:35 IMPRESSION: 1. Acute pancreatitis without fluid collection. 2. Gallstones without inflammatory changes. 3. Nonobstructing bilateral renal stones. 4. 2 cm left ovarian cyst. Assessment and Plan - Diagnosis (1) Hypercalcemia Is this a current diagnosis for this admission?: Yes Plan: Significant elevation is concerning for malignancy, IV fluid bolus, Lasix, pamidronate as needed, follow-up chemistry, PTH, PTH related protein, vitamin D 2. (2) Acute kidney injury Is this a current diagnosis for this admission?: Yes Plan: Multifactorial secondary to poor p.o. intake, hypercalcemia, IV fluid challenge, avoid nephrotoxic meds and doses. Follow-up urinalysis and chemistry (3) Acute pancreatitis Qualifiers: Pancreatitis type: unspecified pancreatitis type Acute pancreatitis complication: no infection or necrosis Qualified Code(s): K85.90 - Acute pancreatitis without necrosis or infection, unspecified Is this a current diagnosis for this admission?: Yes Plan: Likely secondary to hypercalcemia, IV fluid challenge, bowel rest follow-up - Time Time Spent with patient: 35 or more minutes - Inpatient Certification Medical Necessity: Need Close Monitoring Due to Risk of Patient Decompensation
[2018-12-15] MEDS ORDERED: DIAZEPAM 2 MG TABLET PO ONE (04:30)
[2018-12-15 05:33] LABS: ABSOLUTE EOSINOPHILS # (AUTO) 0.1 10^3/uL (0.0-0.6); ABSOLUTE LYMPHOCYTES (AUTO) 1.2 10^3/uL (0.5-4.7); ABSOLUTE MONOCYTES (AUTO) 1.9 10^3/uL (0.1-1.4); BASOPHILS % (AUTO) 0.2 % (0-2); EOSINOPHILS % (AUTO) 0.6 % (0-6); HEMATOCRIT 37.6 % (36.0-47.0); LYMPHOCYTES % (AUTO) 9.3 % (13-45); MEAN CORPUSCULAR HEMOGLOBIN 29.9 pg (27.0-33.4); MEAN CORPUSCULAR HGB CONC 33.9 g/dL (32.0-36.0); MEAN CORPUSCULAR VOLUME 88 fl (80-97); MONOCYTES % (AUTO) 14.5 % (3-13); PLATELET COUNT 341 10^3/uL (150-450); RED BLOOD COUNT 4.27 10^6/uL (3.72-5.28); RED CELL DISTRIBUTION WIDTH 13.6 % (11.5-14.0); SEGMENTED NEUTROPHILS % (AUTO) 75.4 % (42-78); TOTAL CELLS COUNTED % (AUTO) 100 %; WHITE BLOOD COUNT 13.3 10^3/uL (4.0-10.5)
[2018-12-15 05:52] LABS: ALANINE AMINOTRANSFERASE 28 U/L (9-52); ALKALINE PHOSPHATASE 120 U/L (38-126); ANION GAP 10 (5-19); ASPARTATE AMINO TRANSFERASE 21 U/L (14-36); BILIRUBIN,DIRECT 0.4 mg/dL (0.0-0.4); BILIRUBIN,TOTAL 0.5 mg/dL (0.2-1.3); BLOOD UREA NITROGEN 14 mg/dL (7-20); CALCIUM 9.7 mg/dL (8.4-10.2); CARBON DIOXIDE 20 mmol/L (22-30); CHOLESTEROL 212.11 mg/dL (0-200); GLUCOSE 100 mg/dL (75-110); SODIUM 137.7 mmol/L (137-145); TRIGLYCERIDES 179 mg/dL (<150)
[2018-12-15 06:03] LABS: DIRECT LDL 138 mg/dL (<100)
[2018-12-15 06:23] LABS: HEMOGLOBIN 12.8 g/dL (12.0-15.5)
[2018-12-15] MEDS: HEPARIN SOD (PORCINE) 5,000 UNIT/ML 1 ML SYRINGE SUBCUT SCH ×3 (06:26→21:10)
[2018-12-15 06:33] LABS: VLDL CHOLESTEROL 35.8 mg/dL (10-31)
[2018-12-15 06:52] LABS: CHLORIDE 108 mmol/L (98-107)
[2018-12-15 06:53] LABS: POTASSIUM 3.6 mmol/L (3.6-5.0)
[2018-12-15 08:37] LABS: APPEARANCE,URINE CLEAR; BILIRUBIN,URINE NEGATIVE (NEGATIVE); COLOR,URINE COLORLESS; GLUCOSE, URINE NEGATIVE (NEGATIVE); KETONES,URINE NEGATIVE (NEGATIVE); LEUKOCYTE ESTERASE,URINE NEGATIVE (NEGATIVE); NITRITE,URINE NEGATIVE (NEGATIVE); PROTEIN,URINE NEGATIVE (NEGATIVE); URINE SPECIFIC GRAVITY 1.004; UROBILINOGEN,URINE NEGATIVE mg/dL (<2.0)
[2018-12-15] MEDS: LAMOTRIGINE 100 MG TABLET PO SCH ×2 (09:15→21:08)
[2018-12-15] MEDS ORDERED: FLUOXETINE HCL 20 MG CAPSULE PO SCH (10:00)
[2018-12-15] MEDS: FLUOXETINE HCL 20 MG/5 ML UDCUP PO SCH ×2 (12:05→21:09)
[2018-12-15] MEDS: POTASSIUM CHLORIDE 10 MEQ CAPSULE.ER PO SCH ×2 (12:06→21:08)
[2018-12-15] MEDS: HYDROMORPHONE HCL INJ/PF 2 MG/ML AMPULE IV PRN ×4 (12:25→23:46)
[2018-12-15] MEDS ORDERED: LEVOTHYROXINE SODIUM 0.075 MG TABLET PO ONE (13:00)
[2018-12-15] MEDS ORDERED: BUTALB/ACETAMINOPHEN/CAFFEINE 1 TAB EACH PO ONE (13:00)
--- NOTE | 2018-12-15 19:12 | PDOC PROGRESS REPORT ---
Subjective Progress Note for:: 12/15/18 Subjective:: CONNOR FLOYD is a 33 year old female with a past medical history of bipolar depression, nephrolithiasis, morbid obesity, diabetes and chronic pain presents the emergency room with 4 days of dull epigastric abdominal pain associated with nausea and vomiting of gastric content. In the emergency department she is found to have hypercalcemia of 13, acute renal failure creatinine 2.5, and acute pancreatitis. She receives morphine and referred to the hospitalist for admission. Patient denies recent change in medications, recent upper respiratory infection, alcohol, or weight loss. 12/15/2018. No acute events overnight. Pending of persistent abdominal pain and headache. Patient p.o. tolerant and her diet was advanced. Has not had any bowel movement. Denies any any chest pain, shortness of breath, fever, chills, diarrhea or any urinary symptoms. Denies any recent recent upper respiratory infection, alcohol abuse, trauma, herbal medication abuse, excessive antacid intake, history of malignancy, history of hyperparathyroidism, history of excessive vitamin D intake, weight loss or fatigue. Reason For Visit: ARF, HYPERCALEMIA, PANCREATITIS, DIABETES, BIPOLAR Physical Exam Vital Signs: Temp Pulse Resp BP Pulse Ox 98.3 F 91 18 120/88 H 98 12/15/18 11:17 12/15/18 14:00 12/15/18 11:17 12/15/18 11:17 12/15/18 11:17 Intake & Output 12/14/18 12/15/18 12/16/18 06:59 06:59 06:59 Intake Total 6050 0 Output Total 500 Balance 6050 -500 Weight 99.4 kg General appearance: PRESENT: no acute distress, obese Head exam: PRESENT: atraumatic, normocephalic Neck exam: ABSENT: carotid bruit, JVD, lymphadenopathy, thyromegaly Respiratory exam: PRESENT: clear to auscultation tj. ABSENT: rales, rhonchi, wheezes Cardiovascular exam: PRESENT: RRR. ABSENT: diastolic murmur, rubs, systolic murmur GI/Abdominal exam: PRESENT: guarding, normal bowel sounds, soft, tenderness - Gastric tenderness.. ABSENT: distended, mass, organolmegaly, rebound Extremities exam: PRESENT: full ROM. ABSENT: calf tenderness, clubbing, pedal edema Neurological exam: PRESENT: alert, awake, oriented to person, oriented to place, oriented to time, oriented to situation, CN II-XII grossly intact. ABSENT: motor sensory deficit Psychiatric exam: PRESENT: agitated, anxious Skin exam: PRESENT: dry, intact, warm. ABSENT: cyanosis, rash Results Laboratory Results: 12/15/18 05:19 12/15/18 05:19 12/14/18 12/14/18 12/14/18 17:35 17:35 17:41 WBC RBC Hgb Hct MCV MCH MCHC RDW Plt Count Seg Neutrophils % Lymphocytes % Monocytes % Eosinophils % Basophils % Absolute Neutrophils Absolute Lymphocytes Absolute Monocytes Absolute Eosinophils Absolute Basophils Sodium 133.2 L Potassium 4.6 Chloride 94 L Carbon Dioxide 23 Anion Gap 16 BUN 17 Creatinine 2.33 H Est GFR ( Amer) 29 L Est GFR (Non-Af Amer) 24 L Glucose 115 H Calcium 13.1 H* Total Bilirubin 0.9 AST 37 H ALT 29 Alkaline Phosphatase 177 H Total Protein 8.4 H Albumin 4.6 Triglycerides Cholesterol LDL Cholesterol Direct VLDL Cholesterol HDL Cholesterol Lipase 3269.9 H Serum HCG, Qual NEGATIVE PTH Intact Urine Color YELLOW Urine Appearance CLOUDY Urine pH 9.0 Ur Specific [place] 1.013 Urine Protein 100 H Urine Glucose (UA) NEGATIVE Urine Ketones NEGATIVE Urine Blood NEGATIVE Urine Nitrite NEGATIVE Ur Leukocyte Esterase TRACE H Urine WBC (Auto) 19 Urine RBC (Auto) 2 12/14/18 12/15/18 12/15/18 22:30 05:19 05:19 WBC 13.3 H RBC 4.27 Hgb 12.8 D Hct 37.6 MCV 88 MCH 29.9 MCHC 33.9 RDW 13.6 Plt Count 341 Seg Neutrophils % 75.4 Lymphocytes % 9.3 L Monocytes % 14.5 H Eosinophils % 0.6 Basophils % 0.2 Absolute Neutrophils 10.0 H Absolute Lymphocytes 1.2 Absolute Monocytes 1.9 H Absolute Eosinophils 0.1 Absolute Basophils 0.0 Sodium 137.7 Potassium 3.6 D Chloride 108 H Carbon Dioxide 20 L Anion Gap 10 BUN 14 Creatinine 1.94 H Est GFR ( Amer) 36 L Est GFR (Non-Af Amer) 30 L Glucose 100 Calcium 9.7 Total Bilirubin 0.5 AST 21 ALT 28 Alkaline Phosphatase 120 Total Protein 6.0 L Albumin 3.0 L Triglycerides 179 H Cholesterol 212.11 H LDL Cholesterol Direct 138 H VLDL Cholesterol 35.8 H HDL Cholesterol 32 L Lipase Serum HCG, Qual PTH Intact 6.1 L Urine Color Urine Appearance Urine pH Ur Specific [place] Urine Protein Urine Glucose (UA) Urine Ketones Urine Blood Urine Nitrite Ur Leukocyte Esterase Urine WBC (Auto) Urine RBC (Auto) 12/15/18 08:20 WBC RBC Hgb Hct MCV MCH MCHC RDW Plt Count Seg Neutrophils % Lymphocytes % Monocytes % Eosinophils % Basophils % Absolute Neutrophils Absolute Lymphocytes Absolute Monocytes Absolute Eosinophils Absolute Basophils Sodium Potassium Chloride Carbon Dioxide Anion Gap BUN Creatinine Est GFR ( Amer) Est GFR (Non-Af Amer) Glucose Calcium Total Bilirubin AST ALT Alkaline Phosphatase Total Protein Albumin Triglycerides Cholesterol LDL Cholesterol Direct VLDL Cholesterol HDL Cholesterol Lipase Serum HCG, Qual PTH Intact Urine Color COLORLESS Urine Appearance CLEAR Urine pH 7.0 Ur Specific [place] 1.004 Urine Protein NEGATIVE Urine Glucose (UA) NEGATIVE Urine Ketones NEGATIVE Urine Blood NEGATIVE Urine Nitrite NEGATIVE Ur Leukocyte Esterase NEGATIVE Urine WBC (Auto) Urine RBC (Auto) 12/14/18 17:35 Creatine Kinase 27 L Impressions: Abdomen X-Ray 12/14/18 17:27 IMPRESSION: NO RADIOGRAPHIC EVIDENCE FOR ACUTE ABDOMINAL DISEASE. Abdomen/Pelvis CT 12/14/18 19:35 IMPRESSION: 1. Acute pancreatitis without fluid collection. 2. Gallstones without inflammatory changes. 3. Nonobstructing bilateral renal stones. 4. 2 cm left ovarian cyst. Assessment and Plan - Diagnosis (1) Acute pancreatitis Qualifiers: Pancreatitis type: unspecified pancreatitis type Acute pancreatitis complication: no infection or necrosis Qualified Code(s): K85.90 - Acute pancreatitis without necrosis or infection, unspecified Is this a current diagnosis for this admission?: Yes Plan: Likely secondary to hypercalcemia, IV fluid challenge, bowel rest follow-up. P.o. tolerant. Advance diet as tolerated. Denies any recent recent upper respiratory infection, alcohol abuse, trauma, herbal medication abuse, excessive antacid intake, history of malignancy, hyperparathyroidism, excessive vitamin D, daily or antiacid intake. Denies any weight changes, fatigue or night sweats. CT abdomen on admission postive for acute pancreatitis without fluid collection, Gallstones without inflammatory changes, Nonobstructing bilateral renal stones, 2 cm left ovarian cyst. (2) Acute kidney injury Is this a current diagnosis for this admission?: Yes Plan: Multifactorial secondary to poor p.o. intake, hypercalcemia, IV fluid challenge, avoid nephrotoxic meds and doses. Improving. Nonoliguric. Continue IV fluids. Monitor electrolytes and volume status. (3) Hypercalcemia Is this a current diagnosis for this admission?: Yes Plan: Improved. Within normal limits. PTH , TSH and vitamin D within normal limits. Pending PTH related peptide and vitamin D 1,25 dihydroxy. Denies any recent recent upper respiratory infection, alcohol abuse, trauma, herbal medication abuse, excessive antacid intake, history of malignancy, hyperparathyroidism, excessive vitamin D, daily or antiacid intake. Denies any weight changes or fatigue. (4) Seizure disorder Is this a current diagnosis for this admission?: No Plan: Restart home meds. (5) Hypothyroidism Is this a current diagnosis for this admission?: No Plan: Continue levothyroxine. Will obtain TSH level. (6) Hyperlipidemia Is this a current diagnosis for this admission?: Yes Plan: Diet and lifestyle modification. Will start on simvastatin. Follow-up with PCP for LFT evaluation.
[2018-12-15] MEDS: DIAZEPAM 2 MG TABLET PO SCH (21:10)
[2018-12-15] MEDS: SIMVASTATIN 10 MG TABLET PO SCH (21:10)
[2018-12-16] MEDS: INSULIN LISPRO 100 UNIT/ML 3 ML VIAL SUBCUT SCH ×3 (00:45→11:35)
[2018-12-16] MEDS: POTASSIUM CHLORIDE 10 MEQ CAPSULE.ER PO SCH ×3 (01:25→21:05)
[2018-12-16] MEDS: HYDROMORPHONE HCL INJ/PF 2 MG/ML AMPULE IV PRN ×2 (02:52→05:49)
[2018-12-16 04:45] LABS: ABSOLUTE BASOPHILS # (AUTO) 0.1 10^3/uL (0.0-0.2); ABSOLUTE EOSINOPHILS # (AUTO) 0.1 10^3/uL (0.0-0.6); ABSOLUTE LYMPHOCYTES (AUTO) 1.6 10^3/uL (0.5-4.7); ABSOLUTE MONOCYTES (AUTO) 1.9 10^3/uL (0.1-1.4); ABSOLUTE NEUT (AUTO) 8.5 10^3/uL (1.7-8.2); BASOPHILS % (AUTO) 0.4 % (0-2); EOSINOPHILS % (AUTO) 1.2 % (0-6); HEMATOCRIT 37.9 % (36.0-47.0); HEMOGLOBIN 12.8 g/dL (12.0-15.5); MEAN CORPUSCULAR HEMOGLOBIN 29.4 pg (27.0-33.4); MEAN CORPUSCULAR HGB CONC 33.8 g/dL (32.0-36.0); MEAN CORPUSCULAR VOLUME 87 fl (80-97); MONOCYTES % (AUTO) 15.9 % (3-13); PLATELET COUNT 325 10^3/uL (150-450); RED BLOOD COUNT 4.35 10^6/uL (3.72-5.28); RED CELL DISTRIBUTION WIDTH 13.8 % (11.5-14.0); SEGMENTED NEUTROPHILS % (AUTO) 69.5 % (42-78); TOTAL CELLS COUNTED % (AUTO) 100 %; WHITE BLOOD COUNT 12.2 10^3/uL (4.0-10.5)
[2018-12-16 05:17] LABS: ALANINE AMINOTRANSFERASE 22 U/L (9-52); ALBUMIN 3.2 g/dL (3.5-5.0); ALKALINE PHOSPHATASE 116 U/L (38-126); ANION GAP 8 (5-19); ASPARTATE AMINO TRANSFERASE 21 U/L (14-36); BILIRUBIN,DIRECT 0.4 mg/dL (0.0-0.4); BILIRUBIN,TOTAL 0.6 mg/dL (0.2-1.3); BLOOD UREA NITROGEN 13 mg/dL (7-20); CALCIUM 9.9 mg/dL (8.4-10.2); CARBON DIOXIDE 22 mmol/L (22-30); CHLORIDE 104 mmol/L (98-107); GLUCOSE 95 mg/dL (75-110); POTASSIUM 3.7 mmol/L (3.6-5.0); SODIUM 134.4 mmol/L (137-145); TOTAL PROTEIN 6.1 g/dL (6.3-8.2)
[2018-12-16] MEDS: LEVOTHYROXINE SODIUM 0.075 MG TABLET PO SCH (05:50)
[2018-12-16] MEDS: HEPARIN SOD (PORCINE) 5,000 UNIT/ML 1 ML SYRINGE SUBCUT SCH ×3 (05:50→21:06)
[2018-12-16] MEDS: MAGNESIUM SULFATE/D5W 1 GM/100 ML RTUPB IV SCH ×3 (05:55→08:24)
[2018-12-16] MEDS ORDERED: HYDROMORPHONE HCL INJ/PF 2 MG/ML AMPULE IV ONE (08:52)
[2018-12-16] MEDS: FLUOXETINE HCL 20 MG CAPSULE PO SCH (09:28)
[2018-12-16] MEDS: LAMOTRIGINE 100 MG TABLET PO SCH ×2 (09:29→21:06)
[2018-12-16] MEDS: SENNOSIDES/DOCUSATE 8.6-50 MG 1 EACH TABLET PO SCH (09:29)
[2018-12-16] MEDS: HYDROMORPHONE HCL INJ/PF 2 MG/ML AMPULE IV SCH ×6 (09:29→23:56)
[2018-12-16] MEDS: NORMAL SALINE 1000 ML 1,000 ML IV PRN ×3 (09:37→23:56)
[2018-12-16] MEDS ORDERED: FLUOXETINE HCL 20 MG/5 ML UDCUP PO SCH (10:00)
--- NOTE | 2018-12-16 10:58 | PDOC PROGRESS REPORT ---
Subjective Progress Note for:: 12/16/18 Subjective:: CONNOR FLOYD is a 33 year old female with a past medical history of bipolar depression, nephrolithiasis, morbid obesity, diabetes and chronic pain presents the emergency room with 4 days of dull epigastric abdominal pain associated with nausea and vomiting of gastric content. In the emergency department she is found to have hypercalcemia of 13, acute renal failure creatinine 2.5, and acute pancreatitis. She receives morphine and referred to the hospitalist for admission. Patient denies recent change in medications, recent upper respiratory infection, alcohol, or weight loss. 12/15/2018. No acute events overnight. Pending of persistent abdominal pain and headache. Patient p.o. tolerant and her diet was advanced. Has not had any bowel movement. Denies any any chest pain, shortness of breath, fever, chills, diarrhea or any urinary symptoms. Denies any recent recent upper respiratory infection, alcohol abuse, trauma, herbal medication abuse, excessive antacid intake, history of malignancy, history of hyperparathyroidism, history of excessive vitamin D intake, weight loss or fatigue. 12/16/2018. No acute events overnight. Patient cannot tolerate p.o. intake yesterday due to worsening abdominal pain. Today abdominal pain is getting better she is not nauseous and has not had any vomiting since yesterday. Last bowel movement was several days ago. She is passing gas. Denies any fever, chills, shortness of breath, chest pain, diarrhea or any urinary symptoms. Reason For Visit: ARF, HYPERCALEMIA, PANCREATITIS, DIABETES, BIPOLAR Physical Exam Vital Signs: Temp Pulse Resp BP Pulse Ox 98.5 F 100 18 129/89 H 96 12/16/18 07:33 12/16/18 07:33 12/16/18 07:33 12/16/18 07:33 12/16/18 07:33 Intake & Output 12/15/18 12/16/18 12/17/18 06:59 06:59 06:59 Intake Total 6050 518 200 Output Total 800 Balance 6050 -282 200 Weight 99.4 kg 98.1 kg General appearance: PRESENT: obese Head exam: PRESENT: atraumatic, normocephalic Respiratory exam: PRESENT: clear to auscultation tj. ABSENT: rales, rhonchi, wheezes Cardiovascular exam: PRESENT: RRR. ABSENT: diastolic murmur, rubs, systolic murmur GI/Abdominal exam: PRESENT: distended, guarding, normal bowel sounds, soft, tenderness - Epigastric. ABSENT: mass, organolmegaly, rebound Neurological exam: PRESENT: alert, awake, oriented to person, oriented to place, oriented to time, oriented to situation, CN II-XII grossly intact. ABSENT: motor sensory deficit Results Laboratory Results: 12/16/18 04:17 12/16/18 04:17 12/16/18 12/16/18 12/16/18 04:17 04:17 04:17 WBC 12.2 H RBC 4.35 Hgb 12.8 Hct 37.9 MCV 87 MCH 29.4 MCHC 33.8 RDW 13.8 Plt Count 325 Seg Neutrophils % 69.5 Lymphocytes % 13.0 Monocytes % 15.9 H Eosinophils % 1.2 Basophils % 0.4 Absolute Neutrophils 8.5 H Absolute Lymphocytes 1.6 Absolute Monocytes 1.9 H Absolute Eosinophils 0.1 Absolute Basophils 0.1 Sodium 134.4 L Potassium 3.7 Chloride 104 Carbon Dioxide 22 Anion Gap 8 BUN 13 Creatinine 1.68 H Est GFR ( Amer) 42 L Est GFR (Non-Af Amer) 35 L Glucose 95 Calcium 9.9 Phosphorus 3.0 Magnesium 1.2 L* Total Bilirubin 0.6 AST 21 ALT 22 Alkaline Phosphatase 116 Total Protein 6.1 L Albumin 3.2 L TSH 0.79 12/14/18 17:35 Creatine Kinase 27 L Impressions: Abdomen X-Ray 12/14/18 17:27 IMPRESSION: NO RADIOGRAPHIC EVIDENCE FOR ACUTE ABDOMINAL DISEASE. Abdomen/Pelvis CT 12/14/18 19:35 IMPRESSION: 1. Acute pancreatitis without fluid collection. 2. Gallstones without inflammatory changes. 3. Nonobstructing bilateral renal stones. 4. 2 cm left ovarian cyst. Assessment and Plan - Diagnosis (1) Acute pancreatitis Qualifiers: Pancreatitis type: unspecified pancreatitis type Acute pancreatitis complication: no infection or necrosis Qualified Code(s): K85.90 - Acute pancreatitis without necrosis or infection, unspecified Is this a current diagnosis for this admission?: Yes Plan: Likely secondary to hypercalcemia. Denies any recent recent upper respiratory infection, alcohol abuse, trauma, herbal medication abuse, excessive antacid intake, history of malignancy, hyperparathyroidism, excessive vitamin D, daily or antiacid intake. Denies any weight changes, fatigue or night sweats. CT abdomen on admission postive for acute pancreatitis without fluid collection, Gallstones without inflammatory changes, Nonobstructing bilateral renal stones, 2 cm left ovarian cyst. Continue opiate analgesics. Taper if possible. P.o. tolerant. Continue clear liquids and advance diet as tolerated. Monitor electrolytes and replace as needed. (2) Acute kidney injury Is this a current diagnosis for this admission?: Yes Plan: Multifactorial. Prerenal. Likely due to intravascular volume depletion due to nausea/vomiting and dehydration coupled with hypercalcemia. Nonoliguric. Creatinine improving. Electrolytes within normal limits. Continue IV fluids. Monitor volume status and electrolytes and replace as needed. (3) Hypercalcemia Is this a current diagnosis for this admission?: Yes Plan: Improved. In the setting of acute pancreatitis and KETTY. Within normal limits. PTH , TSH and 25, and 1,25 Dihydroxy Vitamin D within normal limits. Pending PTH related peptide. Denies any recent upper respiratory infection, alcohol abuse, trauma, herbal medication abuse, excessive antacid intake, history of malignancy, hyperparathyroidism, excessive vitamin D, or excessive antiacid intake. Denies any weight changes fatigue or malaise. Pending UPEP, SPEP and serum free light chain assay to r/u any underlying malignancy. CT chest to rule out any lung malignancy as patient has history of heavy smoking in the past. Follow-up with PCP for the results of pending labs if discharged before results are available. (4) Seizure disorder Is this a current diagnosis for this admission?: No Plan: Restart home meds. (5) Hypothyroidism Is this a current diagnosis for this admission?: No Plan: Continue levothyroxine. TSH 0.79. (6) Hyperlipidemia Is this a current diagnosis for this admission?: Yes Plan: Triglyceride 179. Diet and lifestyle modification. Started on simvastatin 20 mg p.o. daily. Follow-up with PCP for LFT evaluation. (7) Depression Is this a current diagnosis for this admission?: No Plan: Continue fluoxetine and trazodone. Outpatient psychiatry and PCP follow-up. (8) Hypomagnesemia Is this a current diagnosis for this admission?: Yes Plan: Likely due to GI losses. Replaced. Magnesium level tomorrow.
--- NOTE | 2018-12-16 19:18 | EKG REPORT ---
SEVERITY:- ABNORMAL ECG - SINUS RHYTHM NONSPECIFIC T ABNORMALITIES ANTERIR AND , LATERAL LEADS : POSSIBLE ISCHEMIA : Confirmed by: Sangeetha Mancia MD 16-Dec-2018 19:18:01
[2018-12-16] MEDS: SIMVASTATIN 10 MG TABLET PO SCH (21:05)
[2018-12-16] MEDS: TRAZODONE HCL 50 MG TABLET PO SCH (21:12)
[2018-12-16] MEDS: DIAZEPAM 2 MG TABLET PO SCH (21:13)
[2018-12-16] MEDS ORDERED: (PENDING PHARMACY ID) (Trazodone Hcl [Desyrel] 100 MG) PO SCH (22:00)
[2018-12-17] MEDS: HYDROMORPHONE HCL INJ/PF 2 MG/ML AMPULE IV SCH ×5 (03:02→18:33)
[2018-12-17 05:02] LABS: ABSOLUTE EOSINOPHILS # (AUTO) 0.3 10^3/uL (0.0-0.6); ABSOLUTE LYMPHOCYTES (AUTO) 1.2 10^3/uL (0.5-4.7); ABSOLUTE MONOCYTES (AUTO) 1.8 10^3/uL (0.1-1.4); ABSOLUTE NEUT (AUTO) 6.8 10^3/uL (1.7-8.2); BASOPHILS % (AUTO) 0.4 % (0-2); EOSINOPHILS % (AUTO) 2.5 % (0-6); LYMPHOCYTES % (AUTO) 11.5 % (13-45); MEAN CORPUSCULAR HGB CONC 34.3 g/dL (32.0-36.0); MEAN CORPUSCULAR VOLUME 87 fl (80-97); MONOCYTES % (AUTO) 18.1 % (3-13); PLATELET COUNT 316 10^3/uL (150-450); RED BLOOD COUNT 4.01 10^6/uL (3.72-5.28); RED CELL DISTRIBUTION WIDTH 13.7 % (11.5-14.0); SEGMENTED NEUTROPHILS % (AUTO) 67.5 % (42-78); TOTAL CELLS COUNTED % (AUTO) 100 %; WHITE BLOOD COUNT 10.1 10^3/uL (4.0-10.5)
[2018-12-17 05:32] LABS: ALANINE AMINOTRANSFERASE 20 U/L (9-52); ALBUMIN 3.1 g/dL (3.5-5.0); ALKALINE PHOSPHATASE 111 U/L (38-126); ASPARTATE AMINO TRANSFERASE 31 U/L (14-36); BILIRUBIN,DIRECT 0.5 mg/dL (0.0-0.4); BILIRUBIN,TOTAL 0.7 mg/dL (0.2-1.3); BLOOD UREA NITROGEN 9 mg/dL (7-20); CARBON DIOXIDE 21 mmol/L (22-30); CHLORIDE 110 mmol/L (98-107); GLUCOSE 87 mg/dL (75-110); POTASSIUM 4.1 mmol/L (3.6-5.0); SODIUM 135.2 mmol/L (137-145); TOTAL PROTEIN 6.2 g/dL (6.3-8.2)
[2018-12-17 05:38] LABS: ANION GAP 4 (5-19)
[2018-12-17] MEDS: HEPARIN SOD (PORCINE) 5,000 UNIT/ML 1 ML SYRINGE SUBCUT SCH ×3 (06:02→21:15)
[2018-12-17] MEDS: LEVOTHYROXINE SODIUM 0.075 MG TABLET PO SCH (06:09)
[2018-12-17] MEDS: NORMAL SALINE 1000 ML 1,000 ML IV PRN (06:12)
[2018-12-17] MEDS: LAMOTRIGINE 100 MG TABLET PO SCH ×2 (09:26→21:14)
[2018-12-17] MEDS: SENNOSIDES/DOCUSATE 8.6-50 MG 1 EACH TABLET PO SCH (09:26)
[2018-12-17] MEDS: FLUOXETINE HCL 20 MG CAPSULE PO SCH (09:26)
[2018-12-17] MEDS: POTASSIUM CHLORIDE 10 MEQ CAPSULE.ER PO SCH ×2 (09:26→21:15)
[2018-12-17] MEDS ORDERED: LORAZEPAM INJ 2 MG/1 ML VIAL IV PRN (09:53)
[2018-12-17] MEDS ORDERED: HYDROMORPHONE HCL INJ/PF 2 MG/ML AMPULE IV SCH (10:00)
--- NOTE | 2018-12-17 10:09 | PDOC PROGRESS REPORT ---
Subjective Progress Note for:: 12/17/18 Subjective:: CONNOR FLOYD is a 33 year old female with a past medical history of bipolar depression, nephrolithiasis, morbid obesity, diabetes and chronic pain presents the emergency room with 4 days of dull epigastric abdominal pain associated with nausea and vomiting of gastric content. In the emergency department she is found to have hypercalcemia of 13, acute renal failure creatinine 2.5, and acute pancreatitis. She receives morphine and referred to the hospitalist for admission. Patient denies recent change in medications, recent upper respiratory infection, alcohol, or weight loss. 12/15/2018. No acute events overnight. Pending of persistent abdominal pain and headache. Patient p.o. tolerant and her diet was advanced. Has not had any bowel movement. Denies any any chest pain, shortness of breath, fever, chills, diarrhea or any urinary symptoms. Denies any recent recent upper respiratory infection, alcohol abuse, trauma, herbal medication abuse, excessive antacid intake, history of malignancy, history of hyperparathyroidism, history of excessive vitamin D intake, weight loss or fatigue. 12/16/2018. No acute events overnight. Patient cannot tolerate p.o. intake yesterday due to worsening abdominal pain. Today abdominal pain is getting better she is not nauseous and has not had any vomiting since yesterday. Last bowel movement was several days ago. She is passing gas. Denies any fever, chills, shortness of breath, chest pain, diarrhea or any urinary symptoms. 12/17/2018. No acute events overnight. Patient reporting after witnessed se izure. Abdominal pain is improving and patient is p.o. tolerant, passing flatus has not had a bowel movement since admission. Denying any fever, chills, nausea, vomiting, diarrhea or any urinary symptoms. Reason For Visit: ARF, HYPERCALEMIA, PANCREATITIS, DIABETES, BIPOLAR Physical Exam Vital Signs: Temp Pulse Resp BP Pulse Ox 98.4 F 98 16 125/72 93 12/17/18 07:26 12/17/18 07:26 12/17/18 07:26 12/17/18 07:26 12/17/18 07:26 Intake & Output 12/16/18 12/17/18 12/18/18 06:59 06:59 06:59 Intake Total 518 3888 Output Total 800 2900 Balance -282 988 Weight 98.1 kg 98 kg General appearance: PRESENT: no acute distress, well-developed, well-nourished Head exam: PRESENT: atraumatic, normocephalic Respiratory exam: PRESENT: clear to auscultation tj. ABSENT: rales, rhonchi, wheezes Cardiovascular exam: PRESENT: RRR. ABSENT: diastolic murmur, rubs, systolic murmur GI/Abdominal exam: PRESENT: distended, normal bowel sounds, soft, tenderness - Epigastric. ABSENT: guarding, mass, organolmegaly, rebound Neurological exam: PRESENT: alert, awake, oriented to person, oriented to place, oriented to time, oriented to situation, CN II-XII grossly intact. ABSENT: motor sensory deficit Results Laboratory Results: 12/17/18 04:26 12/17/18 04:26 12/17/18 12/17/18 04:26 04:26 WBC 10.1 RBC 4.01 Hgb 12.0 Hct 35.0 L MCV 87 MCH 30.0 MCHC 34.3 RDW 13.7 Plt Count 316 Seg Neutrophils % 67.5 Lymphocytes % 11.5 L Monocytes % 18.1 H Eosinophils % 2.5 Basophils % 0.4 Absolute Neutrophils 6.8 Absolute Lymphocytes 1.2 Absolute Monocytes 1.8 H Absolute Eosinophils 0.3 Absolute Basophils 0.0 Sodium 135.2 L Potassium 4.1 Chloride 110 H Carbon Dioxide 21 L Anion Gap 4 L BUN 9 Creatinine 1.43 H Est GFR ( Amer) 51 L Est GFR (Non-Af Amer) 42 L Glucose 87 Calcium 9.0 Magnesium 2.0 Total Bilirubin 0.7 AST 31 ALT 20 Alkaline Phosphatase 111 Total Protein 6.2 L Albumin 3.1 L 12/14/18 17:41 Clean Catch Midstream Urine Culture - Final Mixed Urogenital Jaqueline 12/14/18 17:35 Creatine Kinase 27 L Impressions: Abdomen X-Ray 12/14/18 17:27 IMPRESSION: NO RADIOGRAPHIC EVIDENCE FOR ACUTE ABDOMINAL DISEASE. Abdomen/Pelvis CT 12/14/18 19:35 IMPRESSION: 1. Acute pancreatitis without fluid collection. 2. Gallstones without inflammatory changes. 3. Nonobstructing bilateral renal stones. 4. 2 cm left ovarian cyst. Assessment and Plan - Diagnosis (1) Acute pancreatitis Qualifiers: Pancreatitis type: unspecified pancreatitis type Acute pancreatitis complication: no infection or necrosis Qualified Code(s): K85.90 - Acute pancreatitis without necrosis or infection, unspecified Is this a current diagnosis for this admission?: Yes Plan: Likely secondary to hypercalcemia versus cholelithiasis. Denies any recent recent upper respiratory infection, alcohol abuse, trauma, herbal medication abuse, excessive antacid intake, history of malignancy, hyperparathyroidism, excessive vitamin D, daily or antiacid intake. Denies any weight changes, fatigue or night sweats. CT abdomen on admission postive for acute pancreatitis without fluid collection, Gallstones without inflammatory changes, Nonobstructing bilateral renal stones, 2 cm left ovarian cyst. Taper IV Dilaudid if possible switch to opiates. Advance diet as tolerated. Monitor electrolytes and vitals. (2) Cholelithiases Qualifiers: Cholelithiasis location: gallbladder Cholecystitis presence: without cholecystitis Biliary obstruction: without biliary obstruction Qualified Code(s): K80.20 - Calculus of gallbladder without cholecystitis without obstruction Is this a current diagnosis for this admission?: Yes Plan: CT abdomen positive for multiple gallstones without any inflammatory changes. Cholelithiasis is a common cause of acute pancreatitis however I am not certain if her acute acute pancreatitis is caused by her cholelithiasis. Surgery consulted for further recommendations and plan is for possible cholecystectomy tomorrow. N.p.o. after midnight. (3) Hypercalcemia Is this a current diagnosis for this admission?: Yes Plan: Improved. In the setting of acute pancreatitis and KETTY. Within normal limits. PTH , TSH and 25, and 1,25 Dihydroxy Vitamin D within normal limits. Pending PTH related peptide. Denies any recent upper respiratory infection, alcohol abuse, trauma, herbal medication abuse, excessive antacid intake, history of malignancy, hype rparathyroidism, excessive vitamin D, or excessive antiacid intake. Denies any weight changes fatigue or malaise. Pending UPEP, SPEP and serum free light chain assay to r/u any underlying malignancy. CT chest to rule out any lung malignancy as patient has history of heavy smoking in the past. Follow-up with PCP for the results of pending labs if discharged before results are available. (4) Acute kidney injury Is this a current diagnosis for this admission?: Yes Plan: Multifactorial. Prerenal. Likely due to intravascular volume depletion due to nausea/vomiting and dehydration coupled with hypercalcemia. Nonoliguric. Creatinine improving. Electrolytes within normal limits. Monitor volume status and electrolytes and replace as needed. (5) Seizure disorder Is this a current diagnosis for this admission?: No Plan: Continue lamotrigine, diazepam. Benzos as needed for seizures. Outpatient PCP follow-up. (6) Hypothyroidism Is this a current diagnosis for this admission?: No Plan: Continue levothyroxine. TSH 0.79. (7) Hyperlipidemia Is this a current diagnosis for this admission?: Yes Plan: Triglyceride 179. Diet and lifestyle modification. Started on simvastatin 20 mg p.o. daily. Follow-up with PCP for LFT evaluation. (8) Depression Is this a current diagnosis for this admission?: No Plan: Continue fluoxetine and trazodone. Outpatient psychiatry and PCP follow-up.
[2018-12-17] MEDS ORDERED: DEXTROSE 5%-NORMAL SALINE 1,000 ML IV PRN (11:01)
[2018-12-17] MEDS ORDERED: GLUCAGON,HUMAN RECOMB 1 MG INJ SUBCUT PRN ×2 (11:02→14:47)
[2018-12-17] MEDS ORDERED: DEXTROSE 40% GEL 15 GM TUBE PO PRN ×4 (11:02→14:47)
[2018-12-17] MEDS ORDERED: DEXTROSE 50%-WATER 25 GM/50 ML DISP.SYRIN IV PRN ×4 (11:02→14:47)
--- NOTE | 2018-12-17 12:33 | RADIOLOGY REPORT (SQ) ---
EXAM DESCRIPTION: CT CHEST WITHOUT COMPLETED DATE/TIME: 12/17/2018 11:33 am REASON FOR STUDY: Hypercalcemia hx of Tobacco abuse COMPARISON: None. TECHNIQUE: CT scan performed of the chest without intravenous contrast. Images reviewed with lung, soft tissue and bone windows. Reconstructed coronal and sagittal MPR images reviewed. All images st ored on PACS. All CT scanners at this facility use dose modulation, iterative reconstruction, and/or weight based d osing when appropriate to reduce radiation dose to as low as reasonably achievable (ALARA). [facility]: Dose Right [facility]: CareDose [facility]: Dose Right [facility]: Teradose 4D [facility]: Smart [place] RADIATION DOSE: CT Rad equipment meets quality standard of care and radiation dose reduction techniq ues were employed. CTDIvol: 16.2 mGy. DLP: 540 mGy-cm. mGy. LIMITATIONS: No technical limitations. FINDINGS: LUNGS AND PLEURA: Possible trace pleural effusions. Scattered linear parenchymal densitie s throughout both lungs. No masses, lobar infiltrates, or pneumothorax. No pleural calcifications. HILAR AND MEDIASTINAL STRUCTURES: No identified masses or abnormal nodes. No obvious aneurysm. HEART AND VASCULAR STRUCTURES: No aneurysm. No pericardial effusion. UPPER ABDOMEN: Numerous gallstones. Limited exam. THYROID AND OTHER SOFT TISSUES: No masses. No adenopathy. BONES: No significant finding. HARDWARE: None in the chest. OTHER: No other significant findings. IMPRESSION: SCATTERED LINEAR PARENCHYMAL DENSITIES MOST LIKELY DUE TO ATELECTASIS. POSSIBLE TRACE P LEURAL EFFUSIONS. NO OTHER SIGNIFICANT FINDINGS. TECHNICAL DOCUMENTATION: JOB ID: [id number] Quality ID # [id number]: Final reports with documentation of one or more dose reduction techniques (e.g., Au tomated exposure control, adjustment of the mA and/or kV according to patient size, use of iterative reconstruction technique) 2010 [email or web address]- All Rights Reserved Reading location - IP/workstation name: [email or web address]
--- NOTE | 2018-12-17 14:59 | PDOC CONSULTATION ---
Consultation Consult Date: 12/17/18 Consult reason:: gallstones and pancreatitis History of Present Illness Admission Date/PCP: 12/14/18 21:00 Jose CHAHAL MD History of Present Illness: CONNOR FLOYD is a 33 year old female seen in consultation at the request of the hospitalist service. This is a patient with a several day history of sharp, stabbing epigastric pain. The patient was diagnosed with pancreatitis and admitted to the hospital for bowel rest and hydration. The patient was found to have gallstones on ultrasound. She reports that she has not had alcohol in over 11 years. She reports nausea and vomiting, however this has subsided since her hospitalization. She continues to have abdominal pain that is 10 out of 10. It is sharp and stabbing and bores straight through to her back. Narcotics make it better. Nothing makes it worse. Past Medical History Cardiac Medical History: Reports: Hypertension - History of Denies: Congestive Heart Failure, Coronary Artery Disease, DVT, Myocardial Infarction, Hyperlipidema, Pulmonary Embolism Pulmonary Medical History: Denies: Asthma, Bronchitis, Chronic Obstructive Pulmonary Disease (COPD), Pneumonia Neurological Medical History: Reports: Seizures - epilepsy Endocrine Medical History: Denies: Diabetes Mellitus Type 1, Diabetes Mellitus Type 2, Hyperthyroidism, Hypothyroidism GI Medical History: Denies: Cirrhosis, Gastroesophageal Reflux Disease, Hepatitis Musculoskeltal Medical History: Reports: Arthritis Skin Medical History: Denies: Eczema, Psoriasis Psychiatric Medical History: Reports: Bipolar Disorder, Depression Hematology: Denies: Anemia Past Surgical History Past Surgical History: Reports: Appendectomy Social History Lives with: Family Smoking Status: Former Smoker Frequency of Alcohol Use: None Hx Recreational Drug Use: No Drugs: None Hx Prescription Drug Abuse: No - Advance Directive Resuscitation Status: Full Code Family History Family History: Arthritis, CAD, Malignancy, Thyroid Disfunction, Other - Ovarian cancer in mother, asthma Parental Family History Reviewed: Yes Children Family History Reviewed: Yes Sibling(s) Family History Reviewed.: Yes Medication/Allergy Home Medications: Diazepam [Valium 2 mg Tablet] 2 mg PO QHS 12/14/18 Fluoxetine HCl [Prozac] 8 mg PO BID 12/14/18 Lamotrigine [Lamictal] 150 mg PO Q12 12/14/18 Levothyroxine Sodium [Synthroid 0.075 mg Tablet] 75 mg PO Q6AM 03/28/19 Potassium Citrate [Potassium Citrate ER] 20 meq PO QAMP 12/14/18 Mershon's Wort 300 mg PO DAILY 12/14/18 Trazodone HCl [Desyrel] 100 mg PO QHS 12/14/18 Allergies/Adverse Reactions: alprazolam [From Xanax] Allergy (Severe, Verified 12/14/18 16:15) Aggression asenapine maleate [From Saphris] Allergy (Severe, Verified 12/14/18 16:15) Blackout clonazepam [From Klonopin] Allergy (Severe, Verified 12/14/18 16:15) Seizure meperidine HCl [From Demerol] Allergy (Severe, Verified 12/14/18 16:15) Seizure brompheniramine maleate [From Dimetapp] Allergy (Mild, Verified 12/14/18 16:15) Hives dextromethorphan HBr [From Dimetapp] Allergy (Mild, Verified 12/14/18 16:15) Hives phenylpropanolamine HCl [From Dimetapp] Allergy (Mild, Verified 12/14/18 16:15) Hives pseudoephedrine HCl [From Dimetapp] Allergy (Mild, Verified 12/14/18 16:15) Hives triprolidine HCl [From Actifed] Allergy (Mild, Verified 12/14/18 16:15) Hives amoxicillin [Amoxicillin] Allergy (Unknown, Verified 12/14/18 16:15) doxepin [Doxepin] Allergy (Unknown, Verified 12/14/18 16:15) doxycycline [Doxycycline] Allergy (Unknown, Verified 12/14/18 16:15) erythromycin base [Erythromycin Base] Allergy (Unknown, Verified 12/14/18 16:15) indomethacin [Indomethacin] Allergy (Unknown, Verified 12/14/18 16:15) modafinil [From Provigil] Allergy (Unknown, Verified 12/14/18 16:15) quetiapine fumarate [From Seroquel] Allergy (Unknown, Verified 12/14/18 16:15) tramadol [Tramadol] Allergy (Unknown, Verified 12/14/18 16:15) triazolam [Triazolam] Allergy (Unknown, Verified 12/14/18 16:15) zonisamide [From Zonegran] Allergy (Unknown, Verified 12/14/18 16:15) cefdinir [Cefdinir] Allergy (Verified 12/14/18 16:15) haloperidol [From Haldol] Allergy (Verified 12/14/18 16:15) paliperidone [From Invega] Allergy (Verified 12/14/18 16:15) phenobarbital Allergy (Verified 12/14/18 16:15) primidone Allergy (Verified 12/14/18 16:15) pseudoephedrine [From Sudafed] Allergy (Verified 12/14/18 16:15) levetiracetam [From Keppra] Adverse Reaction (Verified 12/14/18 16:15) phenytoin [From Dilantin] Adverse Reaction (Verified 12/14/18 16:15) palprex Allergy (Unknown, Uncoded 12/14/18 16:15) zicam Allergy (Unknown, Uncoded 12/14/18 16:15) all vitamins Allergy (Uncoded 12/14/18 16:15) Seizures Review of Systems Constitutional: ABSENT: anorexia, chills, fatigue, fever(s), headache(s) Eyes: ABSENT: visual disturbances Ears: ABSENT: hearing changes Nose, Mouth, and Throat: ABSENT: mouth pain, sore throat Cardiovascular: ABSENT: chest pain, dyspnea on exertion Respiratory: ABSENT: cough, dyspnea Gastrointestinal: PRESENT: abdominal pain, bloating, nausea, vomiting Genitourinary: ABSENT: dysuria Musculoskeletal: ABSENT: back pain Integumentary: ABSENT: pruritus, rash Neurological: ABSENT: abnormal movements, confusion, convulsions, dizziness Psychiatric: PRESENT: anxiety, depression Endocrine: ABSENT: cold intolerance, heat intolerance Hematologic/Lymphatic: ABSENT: easy bleeding, easy bruising Physical Exam Vital Signs: Temp Pulse Resp BP Pulse Ox 98.4 F 98 16 125/72 93 12/17/18 07:26 12/17/18 07:26 12/17/18 07:26 12/17/18 07:26 12/17/18 07:26 Intake & Output 12/16/18 12/17/18 12/18/18 06:59 06:59 06:59 Intake Total 518 3888 Output Total 800 2900 Balance -282 988 Weight 98.1 kg 98 kg General appearance: PRESENT: no acute distress Head exam: PRESENT: atraumatic, normocephalic Eye exam: PRESENT: EOMI, PERRLA. ABSENT: scleral icterus Mouth exam: PRESENT: moist, neck supple Neck exam: ABSENT: meningismus, tenderness, thyromegaly, tracheal deviation Respiratory exam: PRESENT: clear to auscultation tj, unlabored. ABSENT: chest wall tenderness, tachypnea, wheezes Cardiovascular exam: PRESENT: RRR Pulses: PRESENT: normal radial pulses Vascular exam: PRESENT: normal capillary refill. ABSENT: pallor GI/Abdominal exam: PRESENT: soft, tenderness - Mild epigastric. ABSENT: distended, firm, guarding, rebound, rigid Rectal exam: PRESENT: deferred Extremities exam: ABSENT: clubbing Musculoskeletal exam: ABSENT: deformity Neurological exam: PRESENT: alert, awake, oriented to person, oriented to place, oriented to time, oriented to situation, CN II-XII grossly intact Psychiatric exam: ABSENT: agitated, anxious, depressed Focused psych exam: ABSENT: delusional Skin exam: ABSENT: cyanosis, erythema, jaundice Results Laboratory Results: 12/17/18 04:26 12/17/18 04:26 12/17/18 12/17/18 04:26 04:26 WBC 10.1 RBC 4.01 Hgb 12.0 Hct 35.0 L MCV 87 MCH 30.0 MCHC 34.3 RDW 13.7 Plt Count 316 Seg Neutrophils % 67.5 Lymphocytes % 11.5 L Monocytes % 18.1 H Eosinophils % 2.5 Basophils % 0.4 Absolute Neutrophils 6.8 Absolute Lymphocytes 1.2 Absolute Monocytes 1.8 H Absolute Eosinophils 0.3 Absolute Basophils 0.0 Sodium 135.2 L Potassium 4.1 Chloride 110 H Carbon Dioxide 21 L Anion Gap 4 L BUN 9 Creatinine 1.43 H Est GFR ( Amer) 51 L Est GFR (Non-Af Amer) 42 L Glucose 87 Calcium 9.0 Magnesium 2.0 Total Bilirubin 0.7 AST 31 ALT 20 Alkaline Phosphatase 111 Total Protein 6.2 L Albumin 3.1 L 12/14/18 17:41 Clean Catch Midstream Urine Culture - Final Mixed Urogenital Jaqueline 12/14/18 17:35 Creatine Kinase 27 L Impressions: Abdomen X-Ray 12/14/18 17:27 IMPRESSION: NO RADIOGRAPHIC EVIDENCE FOR ACUTE ABDOMINAL DISEASE. Abdomen/Pelvis CT 12/14/18 19:35 IMPRESSION: 1. Acute pancreatitis without fluid collection. 2. Gallstones without inflammatory changes. 3. Nonobstructing bilateral renal stones. 4. 2 cm left ovarian cyst. Assessment & Plan - Diagnosis (1) Acute pancreatitis Qualifiers: Pancreatitis type: unspecified pancreatitis type Acute pancreatitis complication: no infection or necrosis Qualified Code(s): K85.90 - Acute p ancreatitis without necrosis or infection, unspecified Is this a current diagnosis for this admission?: Yes (2) Gallstone Qualifiers: Cholecystitis presence: without cholecystitis Biliary obstruction: without biliary obstruction Qualified Code(s): K80.20 - Calculus of gallbladder without cholecystitis without obstruction Is this a current diagnosis for this admission?: Yes - Plan Summary Plan Summary: This is a 33-year-old female with gallstones and pancreatitis. The patient denies any recent alcohol consumption of (11 years). I believe she is experiencing gallstone pancreatitis. I have recommended cholecystectomy for the patient. Her lipase has returned to normal. Her pain is improving. The patient and her mother have agreed to this. Risks/benefits discussed, informed consent obtained, and all questions answered.
[2018-12-17] MEDS: TRAZODONE HCL 50 MG TABLET PO SCH (21:14)
[2018-12-17] MEDS: SIMVASTATIN 10 MG TABLET PO SCH (21:15)
[2018-12-17] MEDS: DIAZEPAM 2 MG TABLET PO SCH (21:15)
[2018-12-18] MEDS: HYDROMORPHONE HCL INJ/PF 2 MG/ML AMPULE IV SCH ×4 (00:26→16:25)
[2018-12-18] MEDS: LEVOTHYROXINE SODIUM 0.075 MG TABLET PO SCH (06:57)
[2018-12-18] MEDS: HEPARIN SOD (PORCINE) 5,000 UNIT/ML 1 ML SYRINGE SUBCUT SCH ×2 (06:57→14:06)
[2018-12-18] MEDS: FLUOXETINE HCL 20 MG CAPSULE PO SCH (09:10)
[2018-12-18] MEDS: POTASSIUM CHLORIDE 10 MEQ CAPSULE.ER PO SCH (09:11)
[2018-12-18] MEDS: SENNOSIDES/DOCUSATE 8.6-50 MG 1 EACH TABLET PO SCH (09:11)
[2018-12-18] MEDS: LAMOTRIGINE 100 MG TABLET PO SCH ×2 (09:11→22:34)
[2018-12-18] MEDS ORDERED: DEXTROSE 5%-NORMAL SALINE 1,000 ML IV PRN ×2 (10:16)
--- NOTE | 2018-12-18 10:16 | PDOC PROGRESS REPORT ---
Subjective Progress Note for:: 12/18/18 Subjective:: This is 33 years old female patient with past medical history of obesity, seizure disorder, hypothyroidism, bipolar disorder and hyperlipidemia admitted with 4 days of epigastric abdominal pain associated with nausea and vomiting. At presentation her CT of the abdomen revealed acute pancreatitis without fluid collection. Her lipase was also 3200. Reportedly patient is sober for more than a year. She has been managed with pain medication bowel rest and hydration. Her initial blood work also shows acute kidney injury with creatinine of 2.33 and hypercalcemia with calcium of 13.1. Her hypercalcemia resolved and her acute kidney kidney injury is resolving. Her CT scan of the abdomen also shows cholelithiasis without cholecystitis. Since patient is sober her acute pancreatitis is most probably due to gallstone. The surgical team consulted and patient is scheduled this morning for lap dante. Reason For Visit: ARF, HYPERCALEMIA, PANCREATITIS, DIABETES, BIPOLAR Physical Exam Vital Signs: Temp Pulse Resp BP Pulse Ox 99.1 F 95 16 119/68 93 12/18/18 08:38 12/18/18 09:09 12/18/18 09:09 12/18/18 08:38 12/18/18 09:09 Intake & Output 12/17/18 12/18/18 12/19/18 06:59 06:59 06:59 Intake Total 3888 2416 Output Total 2900 3300 Balance 988 -884 Weight 98 kg 98.3 kg General appearance: PRESENT: no acute distress Eye exam: PRESENT: conjunctiva pink Mouth exam: PRESENT: moist Neck exam: ABSENT: carotid bruit, JVD, lymphadenopathy, thyromegaly Respiratory exam: PRESENT: clear to auscultation tj. ABSENT: rales, rhonchi, wheezes Cardiovascular exam: PRESENT: RRR. ABSENT: diastolic murmur, rubs, systolic murmur Neurological exam: PRESENT: alert, awake, oriented to time, oriented to situation Results Laboratory Results: 12/17/18 04:26 12/17/18 04:26 12/17/18 04:26 Lipase 218.3 12/14/18 17:35 Creatine Kinase 27 L Impressions: Abdomen X-Ray 12/14/18 17:27 IMPRESSION: NO RADIOGRAPHIC EVIDENCE FOR ACUTE ABDOMINAL DISEASE. Abdomen/Pelvis CT 12/14/18 19:35 IMPRESSION: 1. Acute pancreatitis without fluid collection. 2. Gallstones without inflammatory changes. 3. Nonobstructing bilateral renal stones. 4. 2 cm left ovarian cyst. Chest CT 12/17/18 09:58 IMPRESSION: SCATTERED LINEAR PARENCHYMAL DENSITIES MOST LIKELY DUE TO ATELECTASIS. POSSIBLE TRACE PLEURAL EFFUSIONS. NO OTHER SIGNIFICANT FINDINGS. Assessment and Plan - Diagnosis (1) Acute pancreatitis Qualifiers: Pancreatitis type: biliary Is this a current diagnosis for this admission?: Yes Plan: The acute pancreatitis has been subsiding. Her lipase normalized and patient able to tolerate food. Acute pancreatitis most probably due to gallstone induced. And patient scheduled for laparoscopic cholecystectomy. (2) Hypercalcemia Is this a current diagnosis for this admission?: Yes Plan: Resolved (3) Hypomagnesemia Is this a current diagnosis for this admission?: Yes Plan: Resolved (4) Acute kidney injury Is this a current diagnosis for this admission?: Yes Plan: Has been resolving. (5) Seizure disorder Is this a current diagnosis for this admission?: Yes Plan: Continue current antiepileptic regimen. (6) Hypothyroidism Qualifiers: Hypothyroidism type: acquired Qualified Code(s): E03.9 - Hypothyroidism, unspecified Is this a current diagnosis for this admission?: Yes Plan: Continue levothyroxine (7) Bipolar disorder Is this a current diagnosis for this admission?: Yes Plan: In remission. Follow-up with her primary psychiatrist. (8) Hyperlipidemia Qualifiers: Hyperlipidemia type: unspecified Qualified Code(s): E78.5 - Hyperlipidemia, unspecified Is this a current diagnosis for this admission?: Yes Plan: Continue home medication. (9) Obesity (BMI 30-39.9) Is this a current diagnosis for this admission?: Yes Plan: Lifestyle modification advised.
[2018-12-18] MEDS ORDERED: ROCURONIUM BROMIDE INJ 50 MG/5 ML VIAL IV ONE (10:45)
[2018-12-18] MEDS ORDERED: SUCCINYLCHOLINE CHLORIDE INJ 200 MG/10 ML VIAL ONE (10:45)
[2018-12-18] MEDS ORDERED: BUPIVACAINE HCL 0.25 % INJ/PF (2.5 MG/1 ML) 30 ML VIAL ONE (13:39)
[2018-12-18 14:18] LABS: VITAMIN D 1,25 DIHYDROXY 50.6 pg/mL (19.9-79.3)
[2018-12-18] MEDS ORDERED: ONDANSETRON HCL INJ/PF 4 MG/2 ML SDV IV PRN (15:30)
[2018-12-18] MEDS ORDERED: MIDAZOLAM 2 MG/2 ML INJ ONE (20:48)
[2018-12-18] MEDS ORDERED: DEXAMETHASONE SOD PHOSPHATE INJ 4 MG/1 ML VIAL ONE (20:48)
[2018-12-18] MEDS ORDERED: FENTANYL CITRATE INJ/PF 100 MCG/2 ML AMPUL ONE (20:48)
[2018-12-18] MEDS ORDERED: ONDANSETRON HCL INJ/PF 4 MG/2 ML SDV ONE (20:48)
[2018-12-18] MEDS ORDERED: ACETAMINOPHEN 1,000 MG/100 ML RTUPB IV ONE (20:49)
[2018-12-18] MEDS ORDERED: HYDROMORPHONE HCL INJ/PF 2 MG/ML AMPULE ONE (20:49)
[2018-12-18] MEDS ORDERED: PROPOFOL INJ 200 MG/20 ML VIAL IV ONE (20:49)
[2018-12-18] MEDS ORDERED: CLINDAMYCIN 600 MG/D5W RTU 600 MG/50 ML RTUPB IV ONE (21:25)
--- NOTE | 2018-12-18 22:43 | RADIOLOGY REPORT (SQ) ---
EXAM DESCRIPTION: FL CHOLANGIOGRAM INTRAOPERATIVE COMPLETED DATE/TME: 12/18/2018 00:00 CLINICAL HISTORY: 33 years, Female, LAP VAMSI COMPARISON: CT 12/06/2018 NUMBER OF VIEWS: 1 TECHNIQUE: A single intraoperative image was submitted during cholangiogram LIMITATIONS: None. FINDINGS: Opacification of the biliary tree and proximal duodenum. Correlate with intraoperative findings. No discrete filling defects or gross evidence for biliary ductal dilatation IMPRESSION: Single image submitted using the C-arm during intraoperative cholangiogram. Correlate with intraoperative findings copyright 2010 [employer]- All Rights Reserved
[2018-12-18] MEDS ORDERED: SUGAMMADEX SODIUM 200 MG/2 ML SDV IV ONE (22:45)
--- NOTE | 2018-12-18 22:59 | Operative Report ---
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 Laparoscopic cholecystectomy. 2. Completion intraoperative cholangiography. 3. Interpretation of intraoperative cholangiography SURGEON: MAJO CHASE ANESTHESIA: GA TISSUE REMOVED OR ALTERED: 1 gallbladder with contents COMPLICATIONS: None ESTIMATED BLOOD LOSS: 40 cc INTRAOPERATIVE FINDINGS: See below PROCEDURE: After obtaining informed consent, the patient was taken to the operating room. General Anesthesia was induced; the arms were extended, and the abdomen was exposed, and prepped and draped in a sterile fashion. Instrumentation was set up for laparoscopic cholecystectomy. Surgical plan and surgical timeout were conducted. A vertical incision was made above the umbilicus, and a verres needle was ins erted uneventfully into the peritoneal cavity. Pneumoperitoneum was established. The verres needle was removed and a 5 mm trocar was inserted and a 5 mm flexible laparoscope was inserted. Visualization of the peritoneal cavity confirmed safe uneventful entry. Under direct visualization 3 additional 5 mm ports were established, one in the subxiphoid position and second in the subcostal positio n. Findings were significant for distended gallbladder. Initially an attempt was made to elevate the gallbladder up over the liver bed. Tin-Reid Darius adhesions were taken down with hook dissection to minimize shearing of the Mona's capsule. Unfortunately due to the large size of the gallbladder, and intra-abdominal fat, visualization of the neck of the gallbladder was. Therefore the gallbladder was taken down from the fundus. Graspers were repositioned and hook cautery was used to remove the gallbladder from the inferior surface of the right lobe of the liver. We eventually got down to the neck of the gallbladder, cauterized and clipped the cystic duct which was diminutive. The gallbladder was now suspended from the cystic duct. Photos taken. A large clip was placed on the cystic duct distally. Proximally a small incision was made in the cystic duct, and a percutaneous flexible, disposable cholangiogram catheter was noted to the anterior abdominal wall at a separate st ab wound. The stylette was removed, and the cholangiogram catheter advanced into the ovary and the cystic duct without difficulty. The catheter was secured with a clip, [place] were released, patient leveled out a series of cholangiograms were sharp with full strength Isovue contrast. Real-time endoscopy revealed excellent visualization of the entire intra-and extrahepatic biliary tree, no obvious filling defects, no leak, and egress of contrast into the duodenum. We returned the peritoneal cavity with the impression that this was a normal cholangiogram. Clip was removed from the cystic duct, catheter removed, cystic duct clipped twice proximally then divided. The gallbladder was placed in Endobag and brought in the patient to the supraumbilical port site by extending the incision and fascial opening. The specimen was sent with gallbladder contents to pathology We returned to the peritoneal cavity check for bleeding, and evidence of bile leak, and there was none. We checked cystic duct stump and cystic artery and again confirmed there was secured. At this point we felt the operation was complete. The subcutaneous tissue was then anesthetized with quarter percent Marcaine Sponge and needle counts are correct. The drain was required all ports removed under direct visualization pneumoperitoneum evacuated, and the supraumbilical fascial defect closed with 0 Vicryl, and the 5 mm port wounds closed with 3-0 Vicryl suture, benzoin and Steri-Strips. The patient was extubated, and taken to the recovery room in stable condition.
[2018-12-19] MEDS: SIMVASTATIN 10 MG TABLET PO SCH ×2 (00:35→21:08)
[2018-12-19] MEDS: POTASSIUM CHLORIDE 10 MEQ CAPSULE.ER PO SCH ×2 (00:35→10:19)
[2018-12-19] MEDS: TRAZODONE HCL 50 MG TABLET PO SCH ×2 (00:35→21:07)
[2018-12-19] MEDS: HYDROMORPHONE HCL INJ/PF 2 MG/ML AMPULE IV SCH ×4 (00:39→13:36)
[2018-12-19] MEDS: DIAZEPAM 2 MG TABLET PO SCH ×2 (00:49→21:08)
[2018-12-19] MEDS: HEPARIN SOD (PORCINE) 5,000 UNIT/ML 1 ML SYRINGE SUBCUT SCH ×3 (00:49→13:41)
[2018-12-19 06:00] LABS: HEMATOCRIT 36.7 % (36.0-47.0); HEMOGLOBIN 12.5 g/dL (12.0-15.5); MEAN CORPUSCULAR HEMOGLOBIN 29.8 pg (27.0-33.4); MEAN CORPUSCULAR VOLUME 88 fl (80-97); PLATELET COUNT 361 10^3/uL (150-450); RED BLOOD COUNT 4.18 10^6/uL (3.72-5.28); RED CELL DISTRIBUTION WIDTH 13.9 % (11.5-14.0); WHITE BLOOD COUNT 9.7 10^3/uL (4.0-10.5)
[2018-12-19 06:14] LABS: CHLORIDE 110 mmol/L (98-107); POTASSIUM 5.4 mmol/L (3.6-5.0); SODIUM 138.2 mmol/L (137-145)
[2018-12-19] MEDS: LEVOTHYROXINE SODIUM 0.075 MG TABLET PO SCH (06:19)
[2018-12-19 06:30] LABS: ANION GAP 7 (5-19); BLOOD UREA NITROGEN 7 mg/dL (7-20); CALCIUM 9.9 mg/dL (8.4-10.2); CARBON DIOXIDE 21 mmol/L (22-30); GLUCOSE 119 mg/dL (75-110); LIPASE 139.9 U/L (23-300)
[2018-12-19 06:58] LABS: ABSOLUTE LYMPHOCYTES# (MANUAL) 0.3 10^3/uL (0.5-4.7); ABSOLUTE MONOCYTES # (MANUAL) 0.1 10^3/uL (0.1-1.4); ABSOLUTE NEUTROPHILS# (MANUAL) 9.3 10^3/uL (1.7-8.2); BASOPHILS % (MANUAL) 0 % (0-2); EOSINOPHILS % (MANUAL) 0 % (0-6); LYMPHOCYTES % (MANUAL) 3 % (13-45); MONOCYTES % (MANUAL) 1 % (3-13); SEGMENTED NEUTROPHILS % (MAN) 96 % (42-78); TOTAL CELLS COUNTED 100
[2018-12-19 07:02] LABS: HELMET CELLS SLIGHT; OVALOCYTES 1+; PLATELET COMMENT ADEQUATE; POIKILOCYTOSIS 1+; TEAR DROP CELLS SLIGHT; TOXIC GRANULATION 1+; TOXIC VACUOLATION PRESENT
[2018-12-19] MEDS: LAMOTRIGINE 100 MG TABLET PO SCH ×2 (10:16→21:08)
[2018-12-19] MEDS: FLUOXETINE HCL 20 MG CAPSULE PO SCH (10:19)
[2018-12-19] MEDS: SENNOSIDES/DOCUSATE 8.6-50 MG 1 EACH TABLET PO SCH (10:19)
--- NOTE | 2018-12-19 13:46 | PDOC PROGRESS REPORT ---
Subjective Progress Note for:: 12/19/18 Reason For Visit: ARF, HYPERCALEMIA, PANCREATITIS, DIABETES, BIPOLAR pt s/p lap dante for gallstone pancreatitis neg cholangiogram Physical Exam Vital Signs: Temp Pulse Resp BP Pulse Ox 97.9 F 85 18 130/83 H 96 12/19/18 11:10 12/19/18 11:10 12/19/18 11:10 12/19/18 11:10 12/19/18 11:10 Intake & Output 12/18/18 12/19/18 12/20/18 06:59 06:59 06:59 Intake Total 2416 2490 Output Total 3300 820 Balance -884 1670 Weight 98.3 kg 98.2 kg General appearance: PRESENT: cooperative Head exam: PRESENT: normocephalic Eye exam: PRESENT: EOMI Mouth exam: PRESENT: moist Neck exam: PRESENT: full ROM Respiratory exam: PRESENT: clear to auscultation tj Cardiovascular exam: PRESENT: RRR Pulses: PRESENT: normal radial pulses, normal femoral pulses GI/Abdominal exam: PRESENT: soft Rectal exam: PRESENT: deferred Extremities exam: PRESENT: full ROM Neurological exam: PRESENT: alert, awake, oriented to person, oriented to place Psychiatric exam: PRESENT: appropriate affect Skin exam: PRESENT: dry Results Laboratory Results: 12/19/18 05:36 12/19/18 05:36 12/19/18 12/19/18 05:36 05:36 WBC 9.7 RBC 4.18 Hgb 12.5 Hct 36.7 MCV 88 MCH 29.8 MCHC 34.0 RDW 13.9 Plt Count 361 Seg Neutrophils % Not Reportable Lymphocytes % Not Reportable Monocytes % Not Reportable Eosinophils % Not Reportable Basophils % Not Reportable Absolute Neutrophils Not Reportable Absolute Lymphocytes Not Reportable Absolute Monocytes Not Reportable Absolute Eosinophils Not Reportable Absolute Basophils Not Reportable Sodium 138.2 Potassium 5.4 H Chloride 110 H Carbon Dioxide 21 L Anion Gap 7 BUN 7 Creatinine 1.17 Est GFR ( Amer) > 60 Est GFR (Non-Af Amer) 53 L Glucose 119 H Calcium 9.9 Lipase 139.9 12/14/18 17:35 Creatine Kinase 27 L Impressions: Abdomen X-Ray 12/14/18 17:27 IMPRESSION: NO RADIOGRAPHIC EVIDENCE FOR ACUTE ABDOMINAL DISEASE. Abdomen/Pelvis CT 12/14/18 19:35 IMPRESSION: 1. Acute pancreatitis without fluid collection. 2. Gallstones without inflammatory changes. 3. Nonobstructing bilateral renal stones. 4. 2 cm left ovarian cyst. Chest CT 12/17/18 09:58 IMPRESSION: SCATTERED LINEAR PARENCHYMAL DENSITIES MOST LIKELY DUE TO ATELECTASIS. POSSIBLE TRACE PLEURAL EFFUSIONS. NO OTHER SIGNIFICANT FINDINGS. Cholangiogram 12/18/18 00:00 IMPRESSION: Single image submitted using the C-arm during intraoperative cholangiogram. Correlate with intraoperative findings copyright 2011 [employer]- All Rights Reserved Assessment & Plan - Plan Summary Plan Summary: s/p lap dante hector clears lipase this am wnl will advance to low fat soft diet ok from surgery standpt to dc home needs f/u with surgery in a week.
[2018-12-19] MEDS ORDERED: OXYCODONE-ACETAMINOPHEN 5-325 MG TABLET PO PRN (14:16)
--- NOTE | 2018-12-19 14:43 | PDOC PROGRESS REPORT ---
Subjective Progress Note for:: 12/19/18 Subjective:: 33 years old female patient with past medical history of obesity, seizure disorder, hypothyroidism, bipolar disorder and hyperlipidemia admitted with 4 days of epigastric abdominal pain associated with nausea and vomiting. At presentation her CT of the abdomen revealed acute pancreatitis without fluid collection. Her lipase was also 3200. Reportedly patient is sober for more than a year. She has been managed with pain medication bowel rest and hydr ation. Her initial blood work also shows acute kidney injury with creatinine of 2.33 and hypercalcemia with calcium of 13.1. Her hypercalcemia resolved and her acute kidney kidney injury is resolving. Her CT scan of the abdomen also shows cholelithiasis without cholecystitis. Since patient is sober her acute pancreatitis is most probably due to gallstone. The surgical team consulted and patient is scheduled this morning for lap dante. 12/19/[id number]-skno-old female admitted for abdominal and abdominal pain nausea and vomiting CT scan of the abdomen reveals acute pancreatitis without fluid c ollection. CT scan also shows cholelithiasis without cholecystitis. Status post cholecystectomy. Recent is doing well. Diet was advanced by the surgeons today and signed off Today. No acute events in the last 24 hours patient is afebrile. Reason For Visit: ARF, HYPERCALEMIA, PANCREATITIS, DIABETES, BIPOLAR Physical Exam Vital Signs: Temp Pulse Resp BP Pulse Ox 97.9 F 85 18 130/83 H 96 12/19/18 11:10 12/19/18 11:10 12/19/18 11:10 12/19/18 11:10 12/19/18 11:10 Intake & Output 12/18/18 12/19/18 12/20/18 06:59 06:59 06:59 Intake Total 2416 2490 Output Total 3300 820 Balance -884 1670 Weight 98.3 kg 98.2 kg General appearance: PRESENT: no acute distress, obese Head exam: PRESENT: atraumatic Eye exam: PRESENT: PERRLA Mouth exam: PRESENT: moist, tongue midline Neck exam: ABSENT: carotid bruit, JVD, lymphadenopathy, thyromegaly Respiratory exam: PRESENT: clear to auscultation tj. ABSENT: rales, rhonchi, wheezes Cardiovascular exam: PRESENT: RRR. ABSENT: diastolic murmur, rubs, systolic murmur GI/Abdominal exam: PRESENT: normal bowel sounds, soft. ABSENT: distended, guarding, mass, organolmegaly, rebound, tenderness Extremities exam: PRESENT: full ROM. ABSENT: calf tenderness, clubbing, pedal edema Neurological exam: PRESENT: alert, awake, oriented to person, oriented to place, oriented to time, oriented to situation, CN II-XII grossly intact. ABSENT: motor sensory deficit Psychiatric exam: PRESENT: appropriate affect, normal mood. ABSENT: homicidal ideation, suicidal ideation Results Laboratory Results: 12/19/18 05:36 12/19/18 05:36 12/19/18 12/19/18 05:36 05:36 WBC 9.7 RBC 4.18 Hgb 12.5 Hct 36.7 MCV 88 MCH 29.8 MCHC 34.0 RDW 13.9 Plt Count 361 Seg Neutrophils % Not Reportable Lymphocytes % Not Reportable Monocytes % Not Reportable Eosinophils % Not Reportable Basophils % Not Reportable Absolute Neutrophils Not Reportable Absolute Lymphocytes Not Reportable Absolute Monocytes Not Reportable Absolute Eosinophils Not Reportable Absolute Basophils Not Reportable Sodium 138.2 Potassium 5.4 H Chloride 110 H Carbon Dioxide 21 L Anion Gap 7 BUN 7 Creatinine 1.17 Est GFR ( Amer) > 60 Est GFR (Non-Af Amer) 53 L Glucose 119 H Calcium 9.9 Lipase 139.9 12/14/18 17:35 Creatine Kinase 27 L Impressions: Abdomen X-Ray 12/14/18 17:27 IMPRESSION: NO RADIOGRAPHIC EVIDENCE FOR ACUTE ABDOMINAL DISEASE. Abdomen/Pelvis CT 12/14/18 19:35 IMPRESSION: 1. Acute pancreatitis without fluid collection. 2. Gallstones without inflammatory changes. 3. Nonobstructing bilateral renal stones. 4. 2 cm left ovarian cyst. Chest CT 12/17/18 09:58 IMPRESSION: SCATTERED LINEAR PARENCHYMAL DENSITIES MOST LIKELY DUE TO ATELECTASIS. POSSIBLE TRACE PLEURAL EFFUSIONS. NO OTHER SIGNIFICANT FINDINGS. Cholangiogram 12/18/18 00:00 IMPRESSION: Single image submitted using the C-arm during intraoperative cholangiogram. Correlate with intraoperative findings copyright 2011 [employer]- All Rights Reserved Assessment and Plan - Diagnosis (1) Acute pancreatitis Qualifiers: Pancreatitis type: biliary Is this a current diagnosis for this admission?: Yes Plan: The acute pancreatitis has been subsiding. Her lipase normalized and patient able to tolerate food. Acute pancreatitis most probably due to gallstone induced. And patient scheduled for laparoscopic cholecystectomy. [birth year]1999 [id number] female admitted for nausea vomiting abdominal pain CT scan shows pancreatitis most likely secondary to gallstones. Status post cholecystectomy. Patient is free now. Able to tolerate the diet. (2) Cholelithiases Qualifiers: Cholelithiasis location: gallbladder Cholecystitis presence: without chol ecystitis Biliary obstruction: without biliary obstruction Qualified Code(s): K80.20 - Calculus of gallbladder without cholecystitis without obstr uction Is this a current diagnosis for this admission?: Yes Plan: CT abdomen positive for multiple gallstones without any inflammatory changes. Cholelithiasis is a common cause of acute pancreatitis however I am not certain if her acute acute pancreatitis is caused by her cholelithiasis. Surgery consulted for further recommendations and plan is for possible cholecystectomy tomorrow. N.p.o. after midnight. 12/19/2018-status post cholecystectomy for cholelithiasis. No postop complications. (3) Hypercalcemia Is this a current diagnosis for this admission?: Yes Plan: Improved. In the setting of acute pancreatitis and KETTY. Within normal limits. PTH , TSH and 25, and 1,25 Dihydroxy Vitamin D within normal limits. Pending PTH related peptide. Denies any recent upper respiratory infection, alcohol abuse, trauma, herbal medication abuse, excessive antacid intake, history of malignancy, hyperparathyroidism, excessive vitamin D, or excessive antiacid intake. Denies any weight changes fatigue or malaise. Pending UPEP, SPEP and serum free light chain assay to r/u any underlying malignancy. CT chest to rule out any lung malignancy as patient has history of heavy smoking in the past. Follow-up with PCP for the results of pending labs if discharged before results are available. 12/19/2018-serum calcium is 9.9 today. PTH, TSH, 25.125 dihydroxy vitamin D levels are within normal limits. PTH is 6.1 today. Low. (4) Hypomagnesemia Is this a current diagnosis for this admission?: Yes Plan: Likely due to GI losses. Replaced. Magnesium level tomorrow. 12/19/2018-latest magnesium level is 2.0. Hypomagnesia is resolved. (5) Acute kidney injury Is this a current diagnosis for this admission?: Yes Plan: Multifactorial. Prerenal. Likely due to intravascular volume depletion due to nausea/vomiting and dehydration coupled with hypercalcemia. Nonoliguric. Creatinine improving. Electrolytes within normal limits. Monitor volume status and electrolytes and replace as needed. 12/19/2018-patientcreatinine is 1.17 today. Admission creatinine is 2.33. Acute kidney injury most likely secondary to prerenal causes resolved. (6) Seizure disorder Is this a current diagnosis for this admission?: Yes Plan: Continue current antiepileptic regimen. 12/19/2018-patient has history of seizure disorder presently on Keppra 150 mg p.o. twice daily plan is to continue the present management. - Time Time Spent with patient: 15-24 minutes Medications reviewed and adjusted accordingly: Yes Anticipated discharge: Home
[2018-12-19 17:36] LABS: A/G RATIO 1.1 (0.7-1.7); GAMMA GLOBULIN 0.6 g/dL (0.4-1.8); GLOBULIN TOTAL 2.8 g/dL (2.2-3.9); MONOCLONAL SPIKE Not Observed g/dL (Not Observ); PROTEIN TOTAL SERUM 5.8 g/dL (6.0-8.5)
[2018-12-19 17:36] LABS: ALBUMIN URINE 10.6 % (.); ALPHA-1-GLOBULIN URINE 5.3 % (.); ALPHA-2-GLOBULIN UR 20.7 % (.); GAMMA GLOBULIN UR 20.4 % (.); M-SPIKE % URINE Not Observed % (Not Observ); PROTEIN TOTAL URINE 9.4 mg/dL (Not Estab.)
[2018-12-19] MEDS ORDERED: POLYETHYLENE GLYCOL 3350 POWDER 17 GM/1 PACKET PO ONE (19:15)
[2018-12-19] MEDS: OXYCODONE-ACETAMINOPHEN 5-325 MG TABLET PO PRN (19:25)
[2018-12-19] MEDS: POLYETHYLENE GLYCOL 3350 POWDER 17 GM/1 PACKET PO SCH (19:29)
[2018-12-19] MEDS ORDERED: HYDROCODONE/ACETAMINOPHEN 5-325 MG TABLET PO ONE (21:00)
[2018-12-19 21:05] LABS: PTH RELATED PEPTIDE <2.0 pmol/L (.)
[2018-12-19] MEDS: KETOROLAC TROMETHAMINE INJ/PF 30 MG/1 ML SDV IV PRN (22:51)
--- NOTE | 2018-12-20 01:29 | RADIOLOGY REPORT (SQ) ---
EXAM DESCRIPTION: XR ABDOMEN 2 VIEWS SUPINE ERECT COMPLETED DATE/TME: 12/19/2018 00:00 CLINICAL HISTORY: 33 years, Female, ABDOMINAL PAIN COMPARISON: None. NUMBER OF VIEWS: 3 TECHNIQUE: Supine and erect views of the abdomen LIMITATIONS: None. FINDINGS: Nonspecific, nonobstructive bowel gas pattern. No free air. Status post cholecystectomy. Abundant stool in the colon. Curvilinear metallic densities in the pelvis are noted. IMPRESSION: Abundant stool in the colon. copyright 2010 [employer]- All Rights Reserved
[2018-12-20] MEDS: HEPARIN SOD (PORCINE) 5,000 UNIT/ML 1 ML SYRINGE SUBCUT SCH ×4 (02:46→21:08)
[2018-12-20] MEDS: LEVOTHYROXINE SODIUM 0.075 MG TABLET PO SCH (05:43)
[2018-12-20] MEDS: KETOROLAC TROMETHAMINE INJ/PF 30 MG/1 ML SDV IV PRN ×3 (05:44→23:37)
[2018-12-20] MEDS ORDERED: LEVOTHYROXINE SODIUM 0.075 MG TABLET PO SCH (06:00)
[2018-12-20 06:42] LABS: ABSOLUTE BASOPHILS # (AUTO) 0.1 10^3/uL (0.0-0.2); ABSOLUTE EOSINOPHILS # (AUTO) 0.4 10^3/uL (0.0-0.6); ABSOLUTE LYMPHOCYTES (AUTO) 1.8 10^3/uL (0.5-4.7); ABSOLUTE MONOCYTES (AUTO) 1.7 10^3/uL (0.1-1.4); ABSOLUTE NEUT (AUTO) 9.4 10^3/uL (1.7-8.2); BASOPHILS % (AUTO) 0.7 % (0-2); EOSINOPHILS % (AUTO) 2.6 % (0-6); HEMATOCRIT 34.3 % (36.0-47.0); HEMOGLOBIN 11.7 g/dL (12.0-15.5); LYMPHOCYTES % (AUTO) 13.6 % (13-45); MEAN CORPUSCULAR HEMOGLOBIN 29.7 pg (27.0-33.4); MEAN CORPUSCULAR HGB CONC 34.2 g/dL (32.0-36.0); MEAN CORPUSCULAR VOLUME 87 fl (80-97); PLATELET COUNT 391 10^3/uL (150-450); RED BLOOD COUNT 3.95 10^6/uL (3.72-5.28); RED CELL DISTRIBUTION WIDTH 14.1 % (11.5-14.0); SEGMENTED NEUTROPHILS % (AUTO) 70.1 % (42-78); TOTAL CELLS COUNTED % (AUTO) 100 %; WHITE BLOOD COUNT 13.4 10^3/uL (4.0-10.5)
[2018-12-20 07:09] LABS: ALANINE AMINOTRANSFERASE 28 U/L (9-52); ALKALINE PHOSPHATASE 153 U/L (38-126); ANION GAP 10 (5-19); ASPARTATE AMINO TRANSFERASE 31 U/L (14-36); BILIRUBIN,DIRECT 0.4 mg/dL (0.0-0.4); BILIRUBIN,TOTAL 0.5 mg/dL (0.2-1.3); BLOOD UREA NITROGEN 8 mg/dL (7-20); CALCIUM 9.5 mg/dL (8.4-10.2); CARBON DIOXIDE 24 mmol/L (22-30); CHLORIDE 103 mmol/L (98-107); GLUCOSE 90 mg/dL (75-110); POTASSIUM 4.3 mmol/L (3.6-5.0); SODIUM 137.1 mmol/L (137-145); TOTAL PROTEIN 5.8 g/dL (6.3-8.2)
[2018-12-20] MEDS: POLYETHYLENE GLYCOL 3350 POWDER 17 GM/1 PACKET PO SCH (09:24)
[2018-12-20] MEDS: OXYCODONE-ACETAMINOPHEN 5-325 MG TABLET PO PRN ×3 (09:31→22:27)
[2018-12-20] MEDS: LAMOTRIGINE 100 MG TABLET PO SCH ×2 (09:32→21:06)
[2018-12-20] MEDS: SENNOSIDES/DOCUSATE 8.6-50 MG 1 EACH TABLET PO SCH (09:32)
[2018-12-20] MEDS: FLUOXETINE HCL 20 MG CAPSULE PO SCH (09:32)
[2018-12-20] MEDS ORDERED: BISACODYL 10 MG SUPP.RECT PR PRN (12:41)
--- NOTE | 2018-12-20 12:55 | PDOC PROGRESS REPORT ---
Subjective Progress Note for:: 12/20/18 Subjective:: 33 years old female patient with past medical history of obesity, seizure disorder, hypothyroidism, bipolar disorder and hyperlipidemia admitted with 4 days of epigastric abdominal pain associated with nausea and vomiting. At presentation her CT of the abdomen revealed acute pancreatitis without fluid collection. Her lipase was also 3200. Reportedly patient is sober for more than a year. She has been managed with pain medication bowel rest and hydr ation. Her initial blood work also shows acute kidney injury with creatinine of 2.33 and hypercalcemia with calcium of 13.1. Her hypercalcemia resolved and her acute kidney kidney injury is resolving. Her CT scan of the abdomen also shows cholelithiasis without cholecystitis. Since patient is sober her acute pancreatitis is most probably due to gallstone. The surgical team consulted and patient is scheduled this morning for lap dante. 12/19/[id number]-lcvs-old female admitted for abdominal and abdominal pain nausea and vomiting CT scan of the abdomen reveals acute pancreatitis without fluid c ollection. CT scan also shows cholelithiasis without cholecystitis. Status post cholecystectomy. Recent is doing well. Diet was advanced by the surgeons today and signed off Today. No acute events in the last 24 hours patient is afebrile. 12/20/[id number]-[id number]-old female admitted for abdominal pains nausea and vomitings found to have acute pancreatitis without fluid collection found to have a g allstones cholecystectomy was done no postoperative complications abdominal x- ray was done yesterday shows abundant stool in the colon we try to give MiraLAX actually made it worse and patient complaining of bloating of the stomach we could give Fleet enema and Dulcolax suppository today for a bowel movement. Patient and mom concerned about pain and did not want to go home today. Reason For Visit: ARF, HYPERCALEMIA, PANCREATITIS, DIABETES, BIPOLAR Physical Exam Vital Signs: Temp Pulse Resp BP Pulse Ox 98.5 F 96 18 109/74 93 12/20/18 08:47 12/20/18 09:29 12/20/18 09:29 12/20/18 08:47 12/20/18 09:29 Intake & Output 12/19/18 12/20/18 12/21/18 06:59 06:59 06:59 Intake Total 2490 360 Output Total 820 1080 Balance 1670 -720 Weight 98.2 kg General appearance: PRESENT: mild distress, obese Head exam: PRESENT: atraumatic Eye exam: PRESENT: PERRLA Neck exam: ABSENT: carotid bruit, JVD, lymphadenopathy, thyromegaly Respiratory exam: PRESENT: clear to auscultation tj. ABSENT: rales, rhonchi, wheezes Cardiovascular exam: PRESENT: RRR. ABSENT: diastolic murmur, rubs, systolic murmur GI/Abdominal exam: PRESENT: normal bowel sounds, soft. ABSENT: distended, guarding, mass, organolmegaly, rebound, tenderness Neurological exam: PRESENT: alert, awake, oriented to person, oriented to place, oriented to time, oriented to situation, CN II-XII grossly intact. ABSENT: motor sensory deficit Psychiatric exam: PRESENT: appropriate affect, normal mood. ABSENT: homicidal ideation, suicidal ideation Results Laboratory Results: 12/20/18 06:14 12/20/18 06:14 12/16/18 12/20/18 12/20/18 04:17 06:14 06:14 WBC 13.4 H RBC 3.95 Hgb 11.7 L Hct 34.3 L MCV 87 MCH 29.7 MCHC 34.2 RDW 14.1 H Plt Count 391 Seg Neutrophils % 70.1 Lymphocytes % 13.6 Monocytes % 13.0 Eosinophils % 2.6 Basophils % 0.7 Absolute Neutrophils 9.4 H Absolute Lymphocytes 1.8 Absolute Monocytes 1.7 H Absolute Eosinophils 0.4 Absolute Basophils 0.1 Sodium 137.1 Potassium 4.3 Chloride 103 Carbon Dioxide 24 Anion Gap 10 BUN 8 Creatinine 1.31 H Est GFR ( Amer) 56 L Est GFR (Non-Af Amer) 46 L Glucose 90 Calcium 9.5 Magnesium 1.7 Total Bilirubin 0.5 AST 31 ALT 28 Alkaline Phosphatase 153 H Total Protein 5.8 L 5.8 L Albumin 3.0 3.0 L 12/14/18 17:35 Creatine Kinase 27 L Impressions: Abdomen/Pelvis CT 12/14/18 19:35 IMPRESSION: 1. Acute pancreatitis without fluid collection. 2. Gallstones without inflammatory changes. 3. Nonobstructing bilateral renal stones. 4. 2 cm left ovarian cyst. Chest CT 12/17/18 09:58 IMPRESSION: SCATTERED LINEAR PARENCHYMAL DENSITIES MOST LIKELY DUE TO ATELECTASIS. POSSIBLE TRACE PLEURAL EFFUSIONS. NO OTHER SIGNIFICANT FINDINGS. Cholangiogram 12/18/18 00:00 IMPRESSION: Single image submitted using the C-arm during intraoperative cholangiogram. Correlate with intraoperative findings copyright 2010 [employer]- All Rights Reserved Abdomen X-Ray 12/19/18 00:00 IMPRESSION: Abundant stool in the colon. copyright 2010 [employer]- All Rights Reserved Assessment and Plan - Diagnosis (1) Acute pancreatitis Qualifiers: Pancreatitis type: biliary Is this a current diagnosis for this admission?: Yes Plan: The acute pancreatitis has been subsiding. Her lipase normalized and patient able to tolerate food. Acute pancreatitis most probably due to gallstone induced. And patient scheduled for laparoscopic cholecystectomy. 12/19/2018 33-year-old female admitted for nausea vomiting abdominal pain CT scan shows pancreatitis most likely secondary to gallstones. Status post cholecystectomy. Patient is free now. Able to tolerate the diet. 12/20/[id number]-jknc-old female admitted for abdominal pains nausea and vomitings found to have pancreatitis caused by cholelithiasis status post gallbladder removal. No postop complications. (2) Cholelithiases Qualifiers: Cholelithiasis location: gallbladder Cholecystitis presence: without cholecystitis Biliary obstruction: without biliary obstruction Qualified Code(s): K80.20 - Calculus of gallbladder without cholecystitis without obstruction Is this a current diagnosis for this admission?: Yes Plan: CT abdomen positive for multiple gallstones without any inflammatory changes. Cholelithiasis is a common cause of acute pancreatitis however I am not certain if her acute acute pancreatitis is caused by her cholelithiasis. Surgery consulted for further recommendations and plan is for possible cholecystectomy tomorrow. N.p.o. after midnight. 12/19/2018-status post cholecystectomy for cholelithiasis. No postop complications. 12/20/2018-status post cholecystectomy for cholelithiasis no postop complications. Abdominal x-ray was done yesterday and shows abundant stool in the colon. (3) Hypercalcemia Is this a current diagnosis for this admission?: Yes Plan: Improved. In the setting of acute pancreatitis and KETTY. Within normal limits. PTH , TSH and 25, and 1,25 Dihydroxy Vitamin D within normal limits. Pending PTH related peptide. Denies any recent upper respiratory infection, alcohol abuse, trauma, herbal medication abuse, excessive antacid intake, history of malignancy, hyperparathyroidism, excessive vitamin D, or excessive antiacid intake. Denies any weight changes fatigue or malaise. Pending UPEP, SPEP and serum free light chain assay to r/u any underlying malignancy. CT chest to rule out any lung malignancy as patient has history of heavy smoking in the past. Follow-up with PCP for the results of pending labs if discharged before results are available. 12/19/2018-serum calcium is 9.9 today. PTH, TSH, 25.125 dihydroxy vitamin D levels are within normal limits. PTH is 6.1 today. Low. 12/20/2018-serum calcium is 9.5 today within normal range. PTH is low 6.1. (4) Hypomagnesemia Is this a current diagnosis for this admission?: Yes Plan: Likely due to GI losses. Replaced. Magnesium level tomorrow. 12/19/2018-latest magnesium level is 2.0. Hypomagnesia is resolved. 12/20/2018-serum magnesium level is 1.7 today close to normal range to give magnesium oxide 400 mg p.o. daily. (5) Acute kidney injury Is this a current diagnosis for this admission?: Yes Plan: Multifactorial. Prerenal. Likely due to intravascular volume depletion due to nausea/vomiting and dehydration coupled with hypercalcemia. Nonoliguric. Creatinine improving. Electrolytes within normal limits. Monitor volume status and electrolytes and replace as needed. 12/19/2018-patientcreatinine is 1.17 today. Admission creatinine is 2.33. Acute kidney injury most likely secondary to prerenal causes resolved. 12/20/2018-admission serum creatinine is 2.23 on today's creatinine is 1.31 acute kidney injury most likely secondary to prerenal causes resolving. (6) Seizure disorder Is this a current diagnosis for this admission?: Yes Plan: Continue current antiepileptic regimen. 12/19/2018-patient has history of seizure disorder presently on Keppra 150 mg p.o. twice daily plan is to continue the present management. 12/20/2018-no seizure activity was noted today. Plan is to continue the present management. - Time Time Spent with patient: 15-24 minutes Anticipated discharge: Home
[2018-12-20] MEDS ORDERED: MAGNESIUM CITRATE 296 ML BOTTLE PO ONE (14:00)
[2018-12-20] MEDS: SIMVASTATIN 10 MG TABLET PO SCH (21:06)
[2018-12-20] MEDS: DIAZEPAM 2 MG TABLET PO SCH (21:07)
[2018-12-20] MEDS: TRAZODONE HCL 50 MG TABLET PO SCH (21:08)
[2018-12-21] MEDS: HEPARIN SOD (PORCINE) 5,000 UNIT/ML 1 ML SYRINGE SUBCUT SCH ×2 (06:18→13:15)
[2018-12-21] MEDS: LEVOTHYROXINE SODIUM 0.075 MG TABLET PO SCH (06:18)
[2018-12-21 06:40] LABS: ABSOLUTE BASOPHILS # (AUTO) 0.1 10^3/uL (0.0-0.2); ABSOLUTE EOSINOPHILS # (AUTO) 0.5 10^3/uL (0.0-0.6); ABSOLUTE MONOCYTES (AUTO) 1.5 10^3/uL (0.1-1.4); ABSOLUTE NEUT (AUTO) 4.4 10^3/uL (1.7-8.2); BASOPHILS % (AUTO) 0.8 % (0-2); EOSINOPHILS % (AUTO) 5.9 % (0-6); HEMATOCRIT 35.8 % (36.0-47.0); HEMOGLOBIN 12.1 g/dL (12.0-15.5); LYMPHOCYTES % (AUTO) 23.5 % (13-45); MEAN CORPUSCULAR HEMOGLOBIN 30.2 pg (27.0-33.4); MEAN CORPUSCULAR HGB CONC 33.9 g/dL (32.0-36.0); MEAN CORPUSCULAR VOLUME 89 fl (80-97); PLATELET COUNT 378 10^3/uL (150-450); RED BLOOD COUNT 4.02 10^6/uL (3.72-5.28); RED CELL DISTRIBUTION WIDTH 14.2 % (11.5-14.0); SEGMENTED NEUTROPHILS % (AUTO) 51.8 % (42-78); TOTAL CELLS COUNTED % (AUTO) 100 %; WHITE BLOOD COUNT 8.4 10^3/uL (4.0-10.5)
[2018-12-21 07:02] LABS: ALANINE AMINOTRANSFERASE 20 U/L (9-52); ALKALINE PHOSPHATASE 136 U/L (38-126); ANION GAP 8 (5-19); ASPARTATE AMINO TRANSFERASE 26 U/L (14-36); BILIRUBIN,DIRECT 0.4 mg/dL (0.0-0.4); BILIRUBIN,TOTAL 0.5 mg/dL (0.2-1.3); BLOOD UREA NITROGEN 12 mg/dL (7-20); CALCIUM 9.4 mg/dL (8.4-10.2); CARBON DIOXIDE 24 mmol/L (22-30); CHLORIDE 107 mmol/L (98-107); GLUCOSE 82 mg/dL (75-110); POTASSIUM 4.2 mmol/L (3.6-5.0); SODIUM 138.8 mmol/L (137-145)
[2018-12-21] MEDS: SENNOSIDES/DOCUSATE 8.6-50 MG 1 EACH TABLET PO SCH (09:01)
[2018-12-21] MEDS: LAMOTRIGINE 100 MG TABLET PO SCH (09:01)
[2018-12-21] MEDS: FLUOXETINE HCL 20 MG CAPSULE PO SCH (09:02)
[2018-12-21] MEDS: POLYETHYLENE GLYCOL 3350 POWDER 17 GM/1 PACKET PO SCH (09:02)
--- NOTE | 2018-12-21 15:58 | PDOC DISCHARGE SUMMARY ---
General - Admit/Disc Date/PCP Admission Date/Primary Care Provider: 12/14/18 21:00 Jose CHAHAL MD Discharge Date: 12/21/18 - Discharge Diagnosis (1) Acute pancreatitis Is this a current diagnosis for this admission?: Yes Summary: The acute pancreatitis has been subsiding. Her lipase normalized and patient able to tolerate food. Acute pancreatitis most probably due to gallstone induced. And patient scheduled for laparoscopic cholecystectomy. 12/19/2018 33-year-old female admitted for nausea vomiting abdominal pain CT scan shows pancreatitis most likely secondary to gallstones. Status post cholecystectomy. Patient is free now. Able to tolerate the diet. 12/20/[id number]-zarw-old female admitted for abdominal pains nausea and vomitings found to have pancreatitis caused by cholelithiasis status post gallbladder removal. No postop complications. 12/21/[id number]-ovfi-old female admitted with complaints of abdominal pain nausea and vomitings. CT scan of the abdomen shows pancreatitis most likely secondary to gallstones. Gallbladder was removed. No postop complications. Patient is doing well. She is going home today. She is going to see Dr. Samuels as an outpatient in 3-5 days. (2) Cholelithiases Is this a current diagnosis for this admission?: Yes Summary: CT abdomen positive for multiple gallstones without any inflammatory changes. Cholelithiasis is a common cause of acute pancreatitis however I am not certain if her acute acute pancreatitis is caused by her cholelithiasis. Surgery consulted for further recommendations and plan is for possible cholecystectomy tomorrow. N.p.o. after midnight. 12/19/2018-status post cholecystectomy for cholelithiasis. No postop complications. 12/20/2018-status post cholecystectomy for cholelithiasis no postop complications. Abdominal x-ray was done yesterday and shows abundant stool in the colon. 12/21/2018-patient is admitted with gallstones causing pancreatitis, status post cholecystectomy patient is doing well now. (3) Hypercalcemia Is this a current diagnosis for this admission?: Yes Summary: Improved. In the setting of acute pancreatitis and KETTY. Within normal limits. PTH , TSH and 25, and 1,25 Dihydroxy Vitamin D within normal limits. Pending PTH related peptide. Denies any recent upper respiratory infection, alcohol abuse, trauma, herbal medication abuse, excessive antacid intake, history of malignancy, hyperparathyroidism, excessive vitamin D, or excessive antiacid intake. Denies any weight changes fatigue or malaise. Pending UPEP, SPEP and serum free light chain assay to r/u any underlying malignancy. CT chest to rule out any lung malignancy as patient has history of heavy smoking in the past. Follow-up with PCP for the results of pending labs if discharged before results are available. 12/19/2018-serum calcium is 9.9 today. PTH, TSH, 25.125 dihydroxy vitamin D levels are within normal limits. PTH is 6.1 today. Low. 12/20/2018-serum calcium is 9.5 today within normal range. PTH is low 6.1. 12/21/2018-patient serum calcium is around 9.4 serum calcium level is within normal range. (4) Hypomagnesemia Is this a current diagnosis for this admission?: Yes Summary: Likely due to GI losses. Replaced. Magnesium level tomorrow. 12/19/2018-latest magnesium level is 2.0. Hypomagnesia is resolved. 12/20/2018-serum magnesium level is 1.7 today close to normal range to give magnesium oxide 400 mg p.o. daily. 12/21/2018-patient serum magnesium level is 2.3 hypomagnesemia is resolved. (5) Acute kidney injury Is this a current diagnosis for this admission?: Yes Summary: Multifactorial. Prerenal. Likely due to intravascular volume depletion due to nausea/vomiting and dehydration coupled with hypercalcemia. Nonoliguric. Creatinine improving. Electrolytes within normal limits. Monitor volume status and electrolytes and replace as needed. 12/19/2018-patientcreatinine is 1.17 today. Admission creatinine is 2.33. Acute kidney injury most likely secondary to prerenal causes resolved. 12/20/2018-admission serum creatinine is 2.23 on today's creatinine is 1.31 acute kidney injury most likely secondary to prerenal causes resolving. 12/21/2018-latest serum sodium level is 1.36 today on admission creatinine is 2.33 acute on chronic kidney disease secondary to prerenal causes resolving. (6) Seizure disorder Is this a current diagnosis for this admission?: Yes Summary: Continue current antiepileptic regimen. 12/19/2018-patient has history of seizure disorder presently on Keppra 150 mg p.o. twice daily plan is to continue the present management. 12/20/2018-no seizure activity was noted today. Plan is to continue the present management. 12/21/2018-patient has history of seizure disorder she is on Keppra 150 mg p.o. twice daily at home patient is advised to continue the medications on discharge. (7) Constipation Is this a current diagnosis for this admission?: No Summary: 12/21/2018-patient is given the history of chronic constipation she was given a mag citrate and Dulcolax suppository yesterday she had a very good bowel movements. She is going home on senna 1 tablet as needed basis for constipation. - Additional Information Resuscitation Status: Full Code Discharge Diet: Cardiac Discharge Activity: Activity As Tolerated Prescriptions: Sennosides/Docusate 8.6-50 mg [Senna Plus Tablet] 1 each PO DAILY #30 tablet Home Medications: Diazepam [Valium 2 mg Tablet] 2 mg PO QHS 12/14/18 Fluoxetine HCl [Prozac] 8 mg PO BID 12/14/18 Lamotrigine [Lamictal] 150 mg PO Q12 12/14/18 Levothyroxine Sodium [Synthroid 0.075 mg Tablet] 75 mg PO Q6AM 12/14/18 Potassium Citrate [Potassium Citrate ER] 20 meq PO QAMP 12/14/18 Niwot's Wort 300 mg PO DAILY 12/14/18 Trazodone HCl [Desyrel] 100 mg PO QHS 12/14/18 Sennosides/Docusate 8.6-50 mg [Senna Plus Tablet] 1 each PO DAILY #30 tablet History of Present Illness History of Present Illness: CONNOR FLOYD is a 33 year old female 33 year old female with a past medical history of bipolar depression, nephrolithiasis, morbid obesity, diabetes and chronic pain presents the emergency room with 4 days of dull epigastric abdominal pain associated with nausea and vomiting of gastric content. In the emergency department she is found to have hypercalcemia of 13, acute renal failure creatinine 2.5, and acute pancreatitis. She receives morphine and referred to the hospitalist for admiss ion. Patient denies recent change in medications, recent upper respiratory infection, alcohol, or weight loss. Physical Exam Vital Signs: Temp Pulse Resp BP Pulse Ox 98.2 F 92 16 122/79 94 12/21/18 15:27 12/21/18 15:27 12/21/18 15:27 12/21/18 15:27 12/21/18 15:27 Intake & Output 12/20/18 12/21/18 12/22/18 06:59 06:59 06:59 Intake Total 360 1211 236 Output Total 1080 700 Balance -720 511 236 Weight 102.9 kg General appearance: PRESENT: no acute distress, obese Head exam: PRESENT: atraumatic Eye exam: PRESENT: PERRLA Mouth exam: PRESENT: moist, tongue midline Neck exam: ABSENT: carotid bruit, JVD, lymphadenopathy, thyromegaly Respiratory exam: PRESENT: clear to auscultation tj. ABSENT: rales, rhonchi, wheezes Cardiovascular exam: PRESENT: RRR. ABSENT: diastolic murmur, rubs, systolic murmur GI/Abdominal exam: PRESENT: normal bowel sounds, soft. ABSENT: distended, guarding, mass, organolmegaly, rebound, tenderness Extremities exam: PRESENT: full ROM. ABSENT: calf tenderness, clubbing, pedal edema Neurological exam: PRESENT: alert, awake, oriented to person, oriented to place, oriented to time, oriented to situation, CN II-XII grossly intact. ABSENT: motor sensory deficit Psychiatric exam: PRESENT: appropriate affect, normal mood. ABSENT: homicidal ideation, suicidal ideation Results Laboratory Results: 12/21/18 06:07 12/21/18 06:07 12/21/18 12/21/18 06:07 06:07 WBC 8.4 RBC 4.02 Hgb 12.1 Hct 35.8 L MCV 89 MCH 30.2 MCHC 33.9 RDW 14.2 H Plt Count 378 Seg Neutrophils % 51.8 Lymphocytes % 23.5 Monocytes % 18.0 H Eosinophils % 5.9 Basophils % 0.8 Absolute Neutrophils 4.4 Absolute Lymphocytes 2.0 Absolute Monocytes 1.5 H Absolute Eosinophils 0.5 Absolute Basophils 0.1 Sodium 138.8 Potassium 4.2 Chloride 107 Carbon Dioxide 24 Anion Gap 8 BUN 12 Creatinine 1.36 H Est GFR ( Amer) 54 L Est GFR (Non-Af Amer) 45 L Glucose 82 Calcium 9.4 Magnesium 2.3 Total Bilirubin 0.5 AST 26 ALT 20 Alkaline Phosphatase 136 H Total Protein 6.0 L Albumin 3.0 L 12/14/18 17:35 Creatine Kinase 27 L Impressions: Abdomen/Pelvis CT 12/14/18 19:35 IMPRESSION: 1. Acute pancreatitis without fluid collection. 2. Gallstones without inflammatory changes. 3. Nonobstructing bilateral renal stones. 4. 2 cm left ovarian cyst. Chest CT 12/17/18 09:58 IMPRESSION: SCATTERED LINEAR PARENCHYMAL DENSITIES MOST LIKELY DUE TO ATELECTASIS. POSSIBLE TRACE PLEURAL EFFUSIONS. NO OTHER SIGNIFICANT FINDINGS. Cholangiogram 12/18/18 00:00 IMPRESSION: Single image submitted using the C-arm during intraoperative cholangiogram. Correlate with intraoperative findings copyright 2010 [email or web address]- All Rights Reserved Abdomen X-Ray 12/19/18 00:00 IMPRESSION: Abundant stool in the colon. copyright 2011 [email or web address]- All Rights Reserved Qualifiers - * PATIENT BEING DISCHARGED WITH ANY OF THE FOLLOWING DIAGNOSIS: No VTE patient discharged on overlapping Therapy?: No
[2018-12-21 16:08] VITALS: BP 113/69
== END 2018-12-21 16:36 | disposition home or self-care (01) | DRG 418 ==
LOC: ER 16:14 → EH 21:00 → 3W 12-15 00:15 → 5 12-17 20:23
PROVIDERS: ADMIT Internal Medicine; ATTEND Internal Medicine
PROC: BF101ZZ Fluoroscopy of Bile Ducts using Low Osmolar Contrast (ICD-10-PCS; 2018-12-18)
PROC: 0FT44ZZ Resection of Gallbladder, Percutaneous Endoscopic Approach (ICD-10-PCS; principal; 2018-12-18 15:45)
DX: K85.90 Acute pancreatitis without necrosis or infection, unspecified (principal); N17.9 Acute kidney failure, unspecified; K80.20 Calculus of gallbladder without cholecystitis without obstruction; E83.52 Hypercalcemia; E83.42 Hypomagnesemia; N18.9 Chronic kidney disease, unspecified; E03.9 Hypothyroidism, unspecified; G40.909 Epilepsy, unspecified, not intractable, without status epilepticus; F31.9 Bipolar disorder, unspecified; E66.01 Morbid (severe) obesity due to excess calories; K59.00 Constipation, unspecified; Z87.891 Personal history of nicotine dependence; Z68.37 Body mass index [BMI] 37.0-37.9, adult
CPT/HCPCS: 36415; 71250; 74019; 74176; 74300; 790; 80048; 80053; 80061; 80307; 81001; 82306; 82397; 82550; 82652; 82962; 83690; 83735; 83970; 84100; 84156; 84165; 84166; 84443; 84703; 85025; 86335; 87086; 88304; 93005; 93010; 96361; 96374; 99284; J0131; J0330; J1100; J1170; J1644; J1885; J1940; J2250; J2270; J2405; J2704; J3010; J3475; J3490; J7030; Q9967

== ENCOUNTER 2019-02-09 12:54 | Emergency (ER) | payer MEDICARE, MEDICAID ==
--- NOTE | 2019-02-09 14:29 | ER Document Report ---
ED Medical Screen (RME) - General Chief Complaint: Abdominal Pain Stated Complaint: ABDOMINAL PAIN Time Seen by Provider: 02/09/19 14:21 Primary Care Provider: Jose CHAHAL MD [Primary Care Provider] - Follow up as needed TRAVEL OUTSIDE OF THE [place] IN LAST 30 DAYS: No - HPI Notes: 02/09/19 14:27 Patient is a 33-year-old female with a history of seizures, CKD, hypothyroidism, constipation, kidney stones, appendectomy, and mental health disorders and recent admission to the hospital for acute renal failure, pancreatitis, and cholecystectomy complaining of bilateral lower abdominal pain that is a little worse on the left lower quadrant than the right that began 2 days ago. The pain has been constant and is described as sharp. Patient states that she also has some pain to her left flank. Patient states that the pain does not radiate. This pain does not mimic previous kidney stones. She is otherwise eating and drinking without difficulty. She is urinating normally and having normal bowel movements. Her last bowel movement was today. No other vaginal discharge, odor, or bleeding. Denies GRANT, fever, neck pain, URI, CP, SOB, or rash. I have treated and performed a rapid initial assessment of this patient. A comprehensive ED assessment and evaluation of the patient, analysis of test results and completion of medical decision making process will be conducted by additional ED providers. PHYSICAL EXAMINATION: GENERAL: Well-appearing, well-nourished and in no acute distress. A&Ox4. Answers questions appropriately. LUNGS: Breath sounds clear to auscultation bilaterally and equal. No wheezes rales or rhonchi. HEART: Regular rate and rhythm without murmurs, rubs, gallops. ABDOMEN: Soft, nondistended abdomen. No guarding, no rebound. Normal bowel sounds present. No CVA tenderness bilaterally. + mild lower abd tenderness b/l (cannot elicit thorough abd exam w/o table, however). - Related Data Allergies/Adverse Reactions: alprazolam [From Xanax] Allergy (Severe, Verified 12/14/18 16:15) Aggression asenapine maleate [From Saphris] Allergy (Severe, Verified 12/14/18 16:15) Blackout clonazepam [From Klonopin] Allergy (Severe, Verified 12/14/18 16:15) Seizure meperidine HCl [From Demerol] Allergy (Severe, Verified 12/14/18 16:15) Seizure brompheniramine maleate [From Dimetapp] Allergy (Mild, Verified 12/14/18 16:15) Hives dextromethorphan HBr [From Dimetapp] Allergy (Mild, Verified 12/14/18 16:15) Hives phenylpropanolamine HCl [From Dimetapp] Allergy (Mild, Verified 12/14/18 16:15) Hives pseudoephedrine HCl [From Dimetapp] Allergy (Mild, Verified 12/14/18 16:15) Hives triprolidine HCl [From Actifed] Allergy (Mild, Verified 12/14/18 16:15) Hives amoxicillin [Amoxicillin] Allergy (Unknown, Verified 12/14/18 16:15) doxepin [Doxepin] Allergy (Unknown, Verified 12/14/18 16:15) doxycycline [Doxycycline] Allergy (Unknown, Verified 12/14/18 16:15) erythromycin base [Erythromycin Base] Allergy (Unknown, Verified 12/14/18 16:15) indomethacin [Indomethacin] Allergy (Unknown, Verified 12/14/18 16:15) modafinil [From Provigil] Allergy (Unknown, Verified 12/14/18 16:15) quetiapine fumarate [From Seroquel] Allergy (Unknown, Verified 12/14/18 16:15) tramadol [Tramadol] Allergy (Unknown, Verified 12/14/18 16:15) triazolam [Triazolam] Allergy (Unknown, Verified 12/14/18 16:15) zonisamide [From Zonegran] Allergy (Unknown, Verified 12/14/18 16:15) cefdinir [Cefdinir] Allergy (Verified 12/14/18 16:15) haloperidol [From Haldol] Allergy (Verified 12/14/18 16:15) paliperidone [From Invega] Allergy (Verified 12/14/18 16:15) phenobarbital Allergy (Verified 12/14/18 16:15) primidone Allergy (Verified 12/14/18 16:15) pseudoephedrine [From Sudafed] Allergy (Verified 12/14/18 16:15) levetiracetam [From Keppra] Adverse Reaction (Verified 12/14/18 16:15) phenytoin [From Dilantin] Adverse Reaction (Verified 12/14/18 16:15) palprex Allergy (Unknown, Uncoded 12/14/18 16:15) zicam Allergy (Unknown, Uncoded 12/14/18 16:15) all vitamins Allergy (Uncoded 12/14/18 16:15) Seizures Past Medical History - Past Medical History Cardiac Medical History: Reports: Hx Hypertension - History of Denies: Hx Congestive Heart Failure, Hx Coronary Artery Disease, Hx DVT, Hx Heart Attack, Hx Hypercholesterolemia, Hx Pulmonary Embolism Pulmonary Medical History: Denies: Hx Asthma, Hx Bronchitis, Hx COPD, Hx Pneumonia Neurological Medical History: Reports: Hx Seizures - epilepsy. Denies: Hx Cerebrovascular Accident Endocrine Medical History: Denies: Hx Diabetes Mellitus Type 1, Hx Diabetes Mellitus Type 2, Hx Hyperthyroidism, Hx Hypothyroidism Renal/ Medical History: Reports: Hx Kidney Stones. Denies: Hx Peritoneal Dialysis GI Medical History: Denies: Hx Cirrhosis, Hx Gastroesophageal Reflux Disease, Hx Hepatitis Musculoskeltal Medical History: Reports Hx Arthritis Skin Medical History: Denies Hx Eczema, Denies Hx Psoriasis Psychiatric Medical History: Reports: Hx Anxiety, Hx Bipolar Disorder, Hx Depression, Hx Schizophrenia Infectious Medical History: Denies: Hx Hepatitis Past Surgical History: Reports: Hx Appendectomy, Hx Gynecologic Surgery - Right oophorectomy; Left ovarian cyst, Hx Kidney (Renal Surgery) - lithotripsy, Hx Oral Surgery, Hx Urinary Tract Surgery - stent - Immunizations Hx Diphtheria, Pertussis, Tetanus Vaccination: Yes Physical Exam - Vital signs Vitals: Temp Pulse Resp BP Pulse Ox 98.1 F 105 H 20 120/78 96 02/09/19 12:59 02/09/19 12:59 02/09/19 12:59 02/09/19 12:59 02/09/19 12:59 Course - Vital Signs Vital signs: Temp Pulse Resp BP Pulse Ox 98.1 F 105 H 20 120/78 96 02/09/19 12:59 02/09/19 12:59 02/09/19 12:59 02/09/19 12:59 02/09/19 12:59 Doctor's Discharge - Discharge Referrals: Jose CHAHAL MD [Primary Care Provider] - Follow up as needed
[2019-02-09 15:17] LABS: ABSOLUTE BASOPHILS # (AUTO) 0.1 10^3/uL (0.0-0.2); ABSOLUTE EOSINOPHILS # (AUTO) 0.3 10^3/uL (0.0-0.6); ABSOLUTE LYMPHOCYTES (AUTO) 1.5 10^3/uL (0.5-4.7); ABSOLUTE MONOCYTES (AUTO) 1.6 10^3/uL (0.1-1.4); ABSOLUTE NEUT (AUTO) 6.6 10^3/uL (1.7-8.2); BASOPHILS % (AUTO) 0.8 % (0-2); EOSINOPHILS % (AUTO) 3.2 % (0-6); HEMATOCRIT 41.4 % (36.0-47.0); HEMOGLOBIN 13.9 g/dL (12.0-15.5); LYMPHOCYTES % (AUTO) 14.7 % (13-45); MEAN CORPUSCULAR HEMOGLOBIN 29.9 pg (27.0-33.4); MEAN CORPUSCULAR HGB CONC 33.5 g/dL (32.0-36.0); MEAN CORPUSCULAR VOLUME 89 fl (80-97); MONOCYTES % (AUTO) 16.2 % (3-13); PLATELET COUNT 440 10^3/uL (150-450); RED BLOOD COUNT 4.65 10^6/uL (3.72-5.28); RED CELL DISTRIBUTION WIDTH 14.4 % (11.5-14.0); SEGMENTED NEUTROPHILS % (AUTO) 65.1 % (42-78); TOTAL CELLS COUNTED % (AUTO) 100 %; WHITE BLOOD COUNT 10.1 10^3/uL (4.0-10.5)
[2019-02-09 15:27] LABS: APPEARANCE,URINE SLIGHTLY-CLOUDY; BILIRUBIN,URINE NEGATIVE (NEGATIVE); COLOR,URINE YELLOW; GLUCOSE, URINE NEGATIVE (NEGATIVE); KETONES,URINE NEGATIVE (NEGATIVE); LEUKOCYTE ESTERASE,URINE TRACE (NEGATIVE); NITRITE,URINE NEGATIVE (NEGATIVE); PROTEIN,URINE 30 mg/dL (NEGATIVE); URINE SPECIFIC GRAVITY 1.013; UROBILINOGEN,URINE NEGATIVE mg/dL (<2.0)
[2019-02-09 16:50] LABS: ALANINE AMINOTRANSFERASE 35 U/L (9-52); ALBUMIN 4.5 g/dL (3.5-5.0); ALKALINE PHOSPHATASE 144 U/L (38-126); ANION GAP 15 (5-19); ASPARTATE AMINO TRANSFERASE 36 U/L (14-36); BILIRUBIN,DIRECT 0.3 mg/dL (0.0-0.4); BILIRUBIN,TOTAL 0.5 mg/dL (0.2-1.3); BLOOD UREA NITROGEN 14 mg/dL (7-20); CALCIUM 11.2 mg/dL (8.4-10.2); CARBON DIOXIDE 27 mmol/L (22-30); CHLORIDE 100 mmol/L (98-107); GLUCOSE 120 mg/dL (75-110); LIPASE 94.3 U/L (23-300); POTASSIUM 4.4 mmol/L (3.6-5.0); SODIUM 141.8 mmol/L (137-145)
[2019-02-09] MEDS ORDERED: ONDANSETRON HCL INJ/PF 4 MG/2 ML SDV IV ONE (17:04)
[2019-02-09] MEDS ORDERED: HYDROMORPHONE HCL INJ/PF 2 MG/ML AMPULE IV ONE ×2 (17:04→18:39)
[2019-02-09] MEDS ORDERED: NORMAL SALINE 1000 ML 1,000 ML IV ONE (17:05)
--- NOTE | 2019-02-09 18:09 | RADIOLOGY REPORT (SQ) ---
EXAM DESCRIPTION: CT ABD/PELVIS NO ORAL OR IV COMPLETED DATE/TIME: 02/09/2019 5:53 pm REASON FOR STUDY: LFT ABDOMINAL PAIN COMPARISON: 12/14/2018 TECHNIQUE: CT scan of the abdomen and pelvis performed without intravenous or oral contrast. Images reviewed with lung, soft tissue, and bone windows. Reconstructed coronal and sagittal MPR images revi ewed. All images stored on PACS. All CT scanners at this facility use dose modulation, iterative reconstruction, and/or weight based d osing when appropriate to reduce radiation dose to as low as reasonably achievable (ALARA). [facility]: Dose Right [facility]: CareDose [facility]: Dose Right [facility]: Teradose 4D [facility]: Smart DKT Technology RADIATION DOSE: CT Rad equipment meets quality standard of care and radiation dose reduction techniq ues were employed. CTDIvol: 14.6 mGy. DLP: 831 mGy-cm.mGy. LIMITATIONS: None. FINDINGS: LOWER CHEST: No significant findings. No nodules or infiltrates. NON-CONTRASTED LIVER, SPLEEN, ADRENALS: Evaluation limited by lack of IV contrast. No identified sign ificant masses. PANCREAS: No masses. No peripancreatic inflammatory changes. GALLBLADDER: Surgically absent. RIGHT KIDNEY AND URETER: No suspicious masses. Assessment limited by lack of IV contrast. There are 2 renal calculi the largest 2 mm. No hydronephrosis. LEFT KIDNEY AND URETER: No suspicious masses. Assessment limited by lack of IV contrast. Renal calcu li. 3 mm stone in the left ureter the level of L4- 5. No hydronephrosis. AORTA AND RETROPERITONEUM: No aneurysm. No retroperitoneal masses or adenopathy. BOWEL AND PERITONEAL CAVITY: No obvious masses or inflammatory changes. No free fluid. APPENDIX: Not visualized. PELVIS, BLADDER, AND ABDOMINAL WALL:No abnormal masses. No free fluid. Bladder normal. BONES: No significant findings. OTHER: No other significant finding. IMPRESSION: 3 mm stone left ureter. No hydronephrosis. COMMENT: Quality ID # [id number]: Final reports with documentation of one or more dose reduction techniques (e.g., Automated exposure control, adjustment of the mA and/or kV according to patient size, use of iterative reconstruction technique) TECHNICAL DOCUMENTATION: JOB ID: [id number] [email or web address]- All Rights Reserved Reading location - IP/workstation name: [facility]
--- NOTE | 2019-02-09 18:45 | ER Document Report ---
ED GI/ - General Chief Complaint: Abdominal Pain Stated Complaint: ABDOMINAL PAIN Time Seen by Provider: 02/09/19 14:21 Primary Care Provider: Jose CHAHAL MD [Primary Care Provider] - Follow up as needed Mode of Arrival: Ambulatory Information source: Patient, Relative Notes: Patient is a 33-year-old female who returns emergency room complaining of left-sided flank pain left-sided abdominal pain. Started approximately 2 days ago. Back in December 18 patient had her gallbladder removed where she also been diagnosed with a gallbladder pancreatitis at the time. She has not had any problems with that since. She is currently on her period now. She also has a history of seizure disorder hypothyroidism constipation and kidney stones. She is had a appendectomy in the cholecystectomy and oophorectomy in the past. She also has had a recent bout of acute renal failure that has also been treated in absolved itself. Patient's primary complaint is nausea caused by this abdominal and flank pain. She does state this does not feel like her normal kidney stone presentation. She denies any fevers and again no vomiting. TRAVEL OUTSIDE OF THE [place] IN LAST 30 DAYS: No - HPI Patient complains to provider of: Abdominal pain Onset: Other - 2 days Timing/Duration: Gradual, Worse Quality of pain: Achy, Sharp Severity at maximum: Moderate Severity in ED: Moderate Pain Level: 3 LMP: Now - Related Data Allergies/Adverse Reactions: alprazolam [From Xanax] Allergy (Severe, Verified 12/14/18 16:15) Aggression asenapine maleate [From Saphris] Allergy (Severe, Verified 12/14/18 16:15) Blackout clonazepam [From Klonopin] Allergy (Severe, Verified 12/14/18 16:15) Seizure meperidine HCl [From Demerol] Allergy (Severe, Verified 12/14/18 16:15) Seizure brompheniramine maleate [From Dimetapp] Allergy (Mild, Verified 12/14/18 16:15) Hives dextromethorphan HBr [From Dimetapp] Allergy (Mild, Verified 12/14/18 16:15) Hives phenylpropanolamine HCl [From Dimetapp] Allergy (Mild, Verified 12/14/18 16:15) Hives pseudoephedrine HCl [From Dimetapp] Allergy (Mild, Verified 12/14/18 16:15) Hives triprolidine HCl [From Actifed] Allergy (Mild, Verified 12/14/18 16:15) Hives amoxicillin [Amoxicillin] Allergy (Unknown, Verified 12/14/18 16:15) doxepin [Doxepin] Allergy (Unknown, Verified 12/14/18 16:15) doxycycline [Doxycycline] Allergy (Unknown, Verified 12/14/18 16:15) erythromycin base [Erythromycin Base] Allergy (Unknown, Verified 12/14/18 16:15) indomethacin [Indomethacin] Allergy (Unknown, Verified 12/14/18 16:15) modafinil [From Provigil] Allergy (Unknown, Verified 12/14/18 16:15) quetiapine fumarate [From Seroquel] Allergy (Unknown, Verified 12/14/18 16:15) tramadol [Tramadol] Allergy (Unknown, Verified 12/14/18 16:15) triazolam [Triazolam] Allergy (Unknown, Verified 12/14/18 16:15) zonisamide [From Zonegran] Allergy (Unknown, Verified 12/14/18 16:15) cefdinir [Cefdinir] Allergy (Verified 12/14/18 16:15) haloperidol [From Haldol] Allergy (Verified 12/14/18 16:15) paliperidone [From Invega] Allergy (Verified 12/14/18 16:15) phenobarbital Allergy (Verified 12/14/18 16:15) primidone Allergy (Verified 12/14/18 16:15) pseudoephedrine [From Sudafed] Allergy (Verified 12/14/18 16:15) levetiracetam [From Keppra] Adverse Reaction (Verified 12/14/18 16:15) phenytoin [From Dilantin] Adverse Reaction (Verified 12/14/18 16:15) palprex Allergy (Unknown, Uncoded 12/14/18 16:15) zicam Allergy (Unknown, Uncoded 12/14/18 16:15) all vitamins Allergy (Uncoded 12/14/18 16:15) Seizures Past Medical History - General Information source: Patient, Parent - Social History Smoking Status: Unknown if Ever Smoked Cigarette use (# per day): No Chew tobacco use (# tins/day): No Smoking Education Provided: No Frequency of alcohol use: Rare Drug Abuse: None Lives with: Family Family History: Reviewed & Not Pertinent, Arthritis, CAD, Malignancy, Thyroid Disfunction, Other - Ovarian cancer in mother, asthma Patient has suicidal ideation: No Patient has homicidal ideation: No - Past Medical History Cardiac Medical History: Reports: Hx Hypertension - History of Denies: Hx Congestive Heart Failure, Hx Coronary Artery Disease, Hx DVT, Hx Heart Attack, Hx Hypercholesterolemia, Hx Pulmonary Embolism Pulmonary Medical History: Denies: Hx Asthma, Hx Bronchitis, Hx COPD, Hx Pneumonia Neurological Medical History: Reports: Hx Seizures - epilepsy. Denies: Hx Cerebrovascular Accident Endocrine Medical History: Denies: Hx Diabetes Mellitus Type 1, Hx Diabetes Mellitus Type 2, Hx Hyperthyroidism, Hx Hypothyroidism Renal/ Medical History: Reports: Hx Kidney Stones. Denies: Hx Peritoneal Dialysis GI Medical History: Denies: Hx Cirrhosis, Hx Gastroesophageal Reflux Disease, Hx Hepatitis Musculoskeletal Medical History: Reports Hx Arthritis Skin Medical History: Denies Hx Eczema, Denies Hx Psoriasis Psychiatric Medical History: Reports: Hx Anxiety, Hx Bipolar Disorder, Hx Depression, Hx Schizophrenia Infectious Medical History: Denies: Hx Hepatitis Past Surgical History: Reports: Hx Appendectomy, Hx Gynecologic Surgery - Right oophorectomy; Left ovarian cyst, Hx Kidney (Renal Surgery) - lithotripsy, Hx Oral Surgery, Hx Urinary Tract Surgery - stent - Immunizations Hx Diphtheria, Pertussis, Tetanus Vaccination: Yes Review of Systems - Review of Systems Constitutional: No symptoms reported EENT: No symptoms reported Cardiovascular: No symptoms reported Respiratory: No symptoms reported Gastrointestinal: Abdominal pain Genitourinary: Flank pain Female Genitourinary: No symptoms reported Musculoskeletal: No symptoms reported Skin: No symptoms reported Hematologic/Lymphatic: No symptoms reported Neurological/Psychological: No symptoms reported -: Yes All other systems reviewed and negative Physical Exam - Vital signs Vitals: Temp Pulse Resp BP Pulse Ox 98.1 F 105 H 20 120/78 96 02/09/19 12:59 02/09/19 12:59 02/09/19 12:59 02/09/19 12:59 02/09/19 12:59 Interpretation: Normal, Tachycardic - Notes Notes: PHYSICAL EXAMINATION: GENERAL: Well-appearing, well-nourished and in no acute distress. Uncomfortable appearing HEAD: Atraumatic, normocephalic. EYES: Pupils equal round and reactive to light, extraocular movements intact, conjunctiva are normal. LUNGS: Breath sounds clear to auscultation bilaterally and equal. No wheezes rales or rhonchi. HEART: Tachycardic rate and rhythm without murmurs ABDOMEN: Examination of patient's abdomen shows that there bowel sounds in all 4 quadrants. She is tender to palpation in the left lower quadrant as well as having displayed moderate amount of tenderness in the left flank pain area. Female : deferred Musculoskeletal: Normal range of motion, no pitting or edema. No cyanosis. NEUROLOGICAL: Normal speech, normal gait. Normal sensory, motor exams PSYCH: Normal mood, normal affect. SKIN: Warm, Dry, normal turgor, no rashes or lesions noted. Course - Re-evaluation Re-evalutation: 02/09/19 18:44 Patient's course of stay in the hospital she came to fruition with a CT that showed that she has a 3 mm stone narrowing the distal UVJ is at the level of L4- L5. Is a 3 mm stone no obstruction no hydronephrosis. So we will treat patient with pain medication nausea medication and some Flomax. She will need to follow-up with her primary doctor or see a urologist. I informed her we do not have any referrals to urology and she can call around to find some. Patient did have a slight bump in her creatinine level up to 1.52 so slightly dehydrated on that end of it. She is given no liter of fluids here in the emergency room pain medications she will be discharged home as indicated. 02/09/19 18:45 - Vital Signs Vital signs: Temp Pulse Resp BP Pulse Ox 98.1 F 105 H 20 120/78 96 02/09/19 12:59 02/09/19 12:59 02/09/19 12:59 02/09/19 12:59 02/09/19 12:59 - Laboratory Result Diagrams: 02/09/19 14:40 02/09/19 16:22 Laboratory results interpreted by me: 02/09/19 02/09/19 02/09/19 13:30 14:40 16:22 RDW 14.4 H Monocytes % 16.2 H Absolute Monocytes 1.6 H Creatinine 1.52 H Est GFR ( Amer) 47 L Est GFR (Non-Af Amer) 39 L Glucose 120 H Calcium 11.2 H Alkaline Phosphatase 144 H Urine Protein 30 H Urine Blood LARGE H Ur Leukocyte Esterase TRACE H Urine Ascorbic Acid 40 H Discharge - Discharge Clinical Impression: Ureterolithiasis Condition: Stable Disposition: HOME, SELF-CARE Instructions: Abdominal Pain ([facility]), Kidney Stone ([facility]) Additional Instructions: Home and rest. Medications prescribed. He will need to contact the urologist. We do not have one a call from here so you [facility] have someone I believe out of [place] or [facility] you may contact them they actually have an office here in town but I do not know the number of the top. Should you experience any increasing pain nausea or vomiting return to ER for recheck over the weekend. Prescriptions: Ondansetron HCl [Zofran 4 mg Tablet] 1 - 2 tab PO Q4H PRN #20 tablet PRN Reason: Oxycodone HCl/Acetaminophen [Percocet 5-325 mg Tablet] 1 tab PO Q4H PRN #15 tablet PRN Reason: Tamsulosin HCl [Flomax 0.4 mg Cap.sr] 0.4 mg PO DAILY #10 cap.sr.24h Referrals: Jose CHAHAL MD [Primary Care Provider] - Follow up as needed
[2019-02-09 19:20] VITALS: BP 118/76
[2019-02-09] MEDS ORDERED: OXYCODONE-ACETAMINOPHEN 5-325 MG TABLET PO ONE (19:33)
== END 2019-02-09 19:32 | disposition home or self-care (01) ==
LOC: ER 12:54
DX: N20.1 Calculus of ureter (principal); R10.9 Unspecified abdominal pain; Z88.3 Allergy status to other anti-infective agents; Z87.442 Personal history of urinary calculi
CPT/HCPCS: 99284; 96361; 96374; 96375; 36415; 83690; 85025; 81025; 80053; 81001; 74176; A9270; J1170; J2405; J7030

== ENCOUNTER 2019-02-26 14:24 | Emergency (ER) | payer MEDICARE, MEDICAID ==
[2019-02-26] MEDS ORDERED: OXYCODONE-ACETAMINOPHEN 5-325 MG TABLET PO ONE (14:53)
[2019-02-26] MEDS ORDERED: ONDANSETRON 4 MG TAB.RAPDIS PO ONE (14:54)
--- NOTE | 2019-02-26 14:56 | ER Document Report ---
ED Medical Screen (RME) - General Chief Complaint: Flank Pain Stated Complaint: ABDOMINAL PAIN, SIDE PAIN Time Seen by Provider: 02/26/19 14:44 Primary Care Provider: Jose CHAHAL MD [Primary Care Provider] - Follow up as needed Notes: 33-year-old female coming in today chief complaint of left flank pain going on since Tuesday. She has a history of kidney stones. Similar symptoms. No urinary symptoms. No hematuria. No fevers or chills. I have treated and performed a rapid initial assessment of this patient. A comprehensive ED assessment and evaluation of the patient, analysis of test resu lts and completion of medical decision making process will be conducted by additional ED providers. PHYSICAL EXAMINATION: GENERAL: Well-appearing, well-nourished and in no acute distress. A&Ox4. A nswers questions appropriately. LUNGS: Breath sounds clear to auscultation bilaterally and equal. No wheezes rales or rhonchi. HEART: Regular rate and rhythm without murmurs, rubs, gallops. ABDOMEN: Limited exam as patient is sitting upright. No abdominal tenderness. There is left CVA tenderness. Extremities: No cyanosis, clubbing, or edema b/l. NEUROLOGICAL: Normal speech, normal gait. PSYCH: Normal mood, normal affect. TRAVEL OUTSIDE OF THE [place] IN LAST 30 DAYS: No - Related Data Allergies/Adverse Reactions: alprazolam [From Xanax] Allergy (Severe, Verified 02/26/19 14:25) Aggression asenapine maleate [From Saphris] Allergy (Severe, Verified 02/26/19 14:25) Blackout clonazepam [From Klonopin] Allergy (Severe, Verified 02/26/19 14:25) Seizure meperidine HCl [From Demerol] Allergy (Severe, Verified 02/26/19 14:25) Seizure brompheniramine maleate [From Dimetapp] Allergy (Mild, Verified 02/26/19 14:25) Hives dextromethorphan HBr [From Dimetapp] Allergy (Mild, Verified 02/26/19 14:25) Hives phenylpropanolamine HCl [From Dimetapp] Allergy (Mild, Verified 02/26/19 14:25) Hives pseudoephedrine HCl [From Dimetapp] Allergy (Mild, Verified 02/26/19 14:25) Hives triprolidine HCl [From Actifed] Allergy (Mild, Verified 02/26/19 14:25) Hives amoxicillin [Amoxicillin] Allergy (Unknown, Verified 02/26/19 14:25) doxepin [Doxepin] Allergy (Unknown, Verified 02/26/19 14:25) doxycycline [Doxycycline] Allergy (Unknown, Verified 02/26/19 14:25) erythromycin base [Erythromycin Base] Allergy (Unknown, Verified 02/26/19 14:25) indomethacin [Indomethacin] Allergy (Unknown, Verified 02/26/19 14:25) modafinil [From Provigil] Allergy (Unknown, Verified 02/26/19 14:25) quetiapine fumarate [From Seroquel] Allergy (Unknown, Verified 02/26/19 14:25) tramadol [Tramadol] Allergy (Unknown, Verified 02/26/19 14:25) triazolam [Triazolam] Allergy (Unknown, Verified 02/26/19 14:25) zonisamide [From Zonegran] Allergy (Unknown, Verified 02/26/19 14:25) cefdinir [Cefdinir] Allergy (Verified 02/26/19 14:25) haloperidol [From Haldol] Allergy (Verified 02/26/19 14:25) paliperidone [From Invega] Allergy (Verified 02/26/19 14:25) phenobarbital Allergy (Verified 02/26/19 14:25) primidone Allergy (Verified 02/26/19 14:25) pseudoephedrine [From Sudafed] Allergy (Verified 02/26/19 14:25) levetiracetam [From Keppra] Adverse Reaction (Verified 02/26/19 14:25) phenytoin [From Dilantin] Adverse Reaction (Verified 02/26/19 14:25) palprex Allergy (Unknown, Uncoded 02/26/19 14:25) zicam Allergy (Unknown, Uncoded 02/26/19 14:25) all vitamins Allergy (Uncoded 02/26/19 14:25) Seizures Past Medical History - Social History Chew tobacco use (# tins/day): No Drug Abuse: None - Past Medical History Cardiac Medical History: Reports: Hx Hypertension - History of Denies: Hx Congestive Heart Failure, Hx Coronary Artery Disease, Hx DVT, Hx Heart Attack, Hx Hypercholesterolemia, Hx Pulmonary Embolism Pulmonary Medical History: Denies: Hx Asthma, Hx Bronchitis, Hx COPD, Hx Pneumonia Neurological Medical History: Reports: Hx Seizures - epilepsy. Denies: Hx Cerebrovascular Accident Endocrine Medical History: Denies: Hx Diabetes Mellitus Type 1, Hx Diabetes Mellitus Type 2, Hx Hyperthyroidism, Hx Hypothyroidism Renal/ Medical History: Reports: Hx Kidney Stones. Denies: Hx Peritoneal Dialysis GI Medical History: Denies: Hx Cirrhosis, Hx Gastroesophageal Reflux Disease, Hx Hepatitis Musculoskeltal Medical History: Reports Hx Arthritis Skin Medical History: Denies Hx Eczema, Denies Hx Psoriasis Psychiatric Medical History: Reports: Hx Anxiety, Hx Bipolar Disorder, Hx Depression, Hx Schizophrenia Infectious Medical History: Denies: Hx Hepatitis Past Surgical History: Reports: Hx Appendectomy, Hx Gynecologic Surgery - Right oophorectomy; Left ovarian cyst, Hx Kidney (Renal Surgery) - lithotripsy, Hx Oral Surgery, Hx Urinary Tract Surgery - stent - Immunizations Hx Diphtheria, Pertussis, Tetanus Vaccination: Yes Physical Exam - Vital signs Vitals: Temp Pulse Resp BP Pulse Ox 98.2 F 102 H 18 128/91 H 95 02/26/19 14:34 02/26/19 14:34 02/26/19 14:34 02/26/19 14:34 02/26/19 14:34 Course - Vital Signs Vital signs: Temp Pulse Resp BP Pulse Ox 98.2 F 102 H 18 128/91 H 95 02/26/19 14:34 02/26/19 14:34 02/26/19 14:34 02/26/19 14:34 02/26/19 14:34 Doctor's Discharge - Discharge Referrals: Jose CHAHAL MD [Primary Care Provider] - Follow up as needed
--- NOTE | 2019-02-26 15:42 | RADIOLOGY REPORT (SQ) ---
EXAM DESCRIPTION: CT ABD/PELVIS NO ORAL OR IV COMPLETED DATE/TIME: 02/26/2019 3:22 pm REASON FOR STUDY: l flank pain like stone COMPARISON: 02/09/2019 and 12/14/2018. TECHNIQUE: CT scan of the abdomen and pelvis performed without intravenous or oral contrast. Images reviewed with lung, soft tissue, and bone windows. Reconstructed coronal and sagittal MPR images revi ewed. All images stored on PACS. All CT scanners at this facility use dose modulation, iterative reconstruction, and/or weight based d osing when appropriate to reduce radiation dose to as low as reasonably achievable (ALARA). [facility]: Dose Right [facility]: CareDose [facility]: Dose Right [facility]: Teradose 4D [facility]: [employer] RADIATION DOSE: CT Rad equipment meets quality standard of care and radiation dose reduction techniq ues were employed. CTDIvol: 13.8 mGy. DLP: 818 mGy-cm.mGy. LIMITATIONS: None. FINDINGS: LOWER CHEST: No significant findings. No nodules or infiltrates. NON-CONTRASTED LIVER, SPLEEN, ADRENALS: Evaluation limited by lack of IV contrast. No identified sign ificant masses. PANCREAS: No masses. No peripancreatic inflammatory changes. GALLBLADDER: Surgically absent. RIGHT KIDNEY AND URETER: No suspicious masses. Assessment limited by lack of IV contrast. Small gabriel yceal calculi. No hydronephrosis or hydroureter. LEFT KIDNEY AND URETER: Small 1 cm cortical cyst, unchanged. No suspicious masses. Assessment limite d by lack of IV contrast. Small calyceal calculi. No hydronephrosis or hydroureter. AORTA AND RETROPERITONEUM: No aneurysm. No retroperitoneal masses or adenopathy. BOWEL AND PERITONEAL CAVITY: No obvious masses or inflammatory changes. No free fluid. APPENDIX: Surgically absent. PELVIS, BLADDER, AND ABDOMINAL WALL:No abnormal masses. No free fluid. Bladder normal. BONES: No significant findings. OTHER: No other significant finding. IMPRESSION: 1. SMALL NONOBSTRUCTING CALYCEAL CALCULI IN BOTH KIDNEYS. NO URETERAL CALCULI. NO HYDRONEPHROSIS OR HYDROURETER. 2. STABLE SMALL CORTICAL CYST IN THE LEFT KIDNEY. 3. NO OTHER SIGNIFICANT OR ACUTE PROCESS IN THE ABDOMEN OR PELVIS. COMMENT: Quality ID # [id number]: Final reports with documentation of one or more dose reduction techniques (e.g., Automated exposure control, adjustment of the mA and/or kV according to patient size, use of iterative reconstruction technique) TECHNICAL DOCUMENTATION: JOB ID: [id number] [employer]- All Rights Reserved Reading location - IP/workstation name: [email or web address]
[2019-02-26 16:47] LABS: ABSOLUTE BASOPHILS # (AUTO) 0.1 10^3/uL (0.0-0.2); ABSOLUTE EOSINOPHILS # (AUTO) 0.3 10^3/uL (0.0-0.6); ABSOLUTE LYMPHOCYTES (AUTO) 1.5 10^3/uL (0.5-4.7); ABSOLUTE MONOCYTES (AUTO) 1.6 10^3/uL (0.1-1.4); ABSOLUTE NEUT (AUTO) 7.4 10^3/uL (1.7-8.2); BASOPHILS % (AUTO) 1.2 % (0-2); EOSINOPHILS % (AUTO) 2.9 % (0-6); HEMATOCRIT 42.2 % (36.0-47.0); HEMOGLOBIN 14.4 g/dL (12.0-15.5); LYMPHOCYTES % (AUTO) 13.4 % (13-45); MEAN CORPUSCULAR HEMOGLOBIN 30.4 pg (27.0-33.4); MEAN CORPUSCULAR HGB CONC 34.2 g/dL (32.0-36.0); MEAN CORPUSCULAR VOLUME 89 fl (80-97); MONOCYTES % (AUTO) 14.6 % (3-13); PLATELET COUNT 439 10^3/uL (150-450); RED BLOOD COUNT 4.75 10^6/uL (3.72-5.28); RED CELL DISTRIBUTION WIDTH 14.2 % (11.5-14.0); SEGMENTED NEUTROPHILS % (AUTO) 67.9 % (42-78); TOTAL CELLS COUNTED % (AUTO) 100 %; WHITE BLOOD COUNT 10.9 10^3/uL (4.0-10.5)
[2019-02-26 16:53] LABS: APPEARANCE,URINE CLOUDY; BILIRUBIN,URINE NEGATIVE (NEGATIVE); GLUCOSE, URINE NEGATIVE (NEGATIVE); KETONES,URINE NEGATIVE (NEGATIVE); LEUKOCYTE ESTERASE,URINE TRACE (NEGATIVE); NITRITE,URINE POSITIVE (NEGATIVE); PROTEIN,URINE NEGATIVE (NEGATIVE); URINE SPECIFIC GRAVITY 1.012
[2019-02-26 17:00] LABS: COLOR,URINE YELLOW
[2019-02-26 17:06] LABS: ALANINE AMINOTRANSFERASE 41 U/L (9-52); ALBUMIN 4.5 g/dL (3.5-5.0); ALKALINE PHOSPHATASE 151 U/L (38-126); ANION GAP 16 (5-19); ASPARTATE AMINO TRANSFERASE 41 U/L (14-36); BILIRUBIN,TOTAL 0.5 mg/dL (0.2-1.3); BLOOD UREA NITROGEN 11 mg/dL (7-20); CALCIUM 11.9 mg/dL (8.4-10.2); CARBON DIOXIDE 27 mmol/L (22-30); CHLORIDE 99 mmol/L (98-107); GLUCOSE 101 mg/dL (75-110); POTASSIUM 4.3 mmol/L (3.6-5.0); SODIUM 142.2 mmol/L (137-145); TOTAL PROTEIN 7.9 g/dL (6.3-8.2)
[2019-02-26] MEDS ORDERED: OXYCODONE-ACETAMINOPHEN 5-325 MG TABLET ONE (19:43)
[2019-02-26] MEDS ORDERED: ONDANSETRON 4 MG TAB.RAPDIS ONE (19:43)
[2019-02-26] MEDS ORDERED: NORMAL SALINE 1000 ML 1,000 ML IV ONE (22:38)
[2019-02-26] MEDS ORDERED: SULFAMETHOXAZOLE/TRIMETHOPRIM 800-160 MG TABLET PO ONE (22:38)
--- NOTE | 2019-02-26 23:43 | ER Document Report ---
ED General - General Chief Complaint: Flank Pain Stated Complaint: ABDOMINAL PAIN, SIDE PAIN Time Seen by Provider: 02/26/19 14:44 Primary Care Provider: Jose CHAHAL MD [Primary Care Provider] - Follow up as needed Notes: Patient is a 33-year-old female who presents with some left-sided flank pain. Some dysuria. No fevers. No vomiting. She says that she has a history of kidney stones. A week ago she was seen here and was diagnosed with 3 mm kidney stone. She is unsure if she passes. She has no other complaints at this time. Patient's mother did mention the patient did have one seizure since she is been here. She says is a very brief seizure. She has a chronic history of epilepsy and mother says when the patient has not had a srinivas is tired and she will have a seizure so this is not atypical for her. TRAVEL OUTSIDE OF THE [place] IN LAST 30 DAYS: No - Related Data Allergies/Adverse Reactions: alprazolam [From Xanax] Allergy (Severe, Verified 02/26/19 14:25) Aggression asenapine maleate [From Saphris] Allergy (Severe, Verified 02/26/19 14:25) Blackout clonazepam [From Klonopin] Allergy (Severe, Verified 02/26/19 14:25) Seizure meperidine HCl [From Demerol] Allergy (Severe, Verified 02/26/19 14:25) Seizure brompheniramine maleate [From Dimetapp] Allergy (Mild, Verified 02/26/19 14:25) Hives dextromethorphan HBr [From Dimetapp] Allergy (Mild, Verified 02/26/19 14:25) Hives phenylpropanolamine HCl [From Dimetapp] Allergy (Mild, Verified 02/26/19 14:25) Hives pseudoephedrine HCl [From Dimetapp] Allergy (Mild, Verified 02/26/19 14:25) Hives triprolidine HCl [From Actifed] Allergy (Mild, Verified 02/26/19 14:25) Hives amoxicillin [Amoxicillin] Allergy (Unknown, Verified 02/26/19 14:25) doxepin [Doxepin] Allergy (Unknown, Verified 02/26/19 14:25) doxycycline [Doxycycline] Allergy (Unknown, Verified 02/26/19 14:25) erythromycin base [Erythromycin Base] Allergy (Unknown, Verified 02/26/19 14:25) indomethacin [Indomethacin] Allergy (Unknown, Verified 02/26/19 14:25) modafinil [From Provigil] Allergy (Unknown, Verified 02/26/19 14:25) quetiapine fumarate [From Seroquel] Allergy (Unknown, Verified 02/26/19 14:25) tramadol [Tramadol] Allergy (Unknown, Verified 02/26/19 14:25) triazolam [Triazolam] Allergy (Unknown, Verified 02/26/19 14:25) zonisamide [From Zonegran] Allergy (Unknown, Verified 02/26/19 14:25) cefdinir [Cefdinir] Allergy (Verified 02/26/19 14:25) haloperidol [From Haldol] Allergy (Verified 02/26/19 14:25) paliperidone [From Invega] Allergy (Verified 02/26/19 14:25) phenobarbital Allergy (Verified 02/26/19 14:25) primidone Allergy (Verified 02/26/19 14:25) pseudoephedrine [From Sudafed] Allergy (Verified 02/26/19 14:25) levetiracetam [From Keppra] Adverse Reaction (Verified 02/26/19 14:25) phenytoin [From Dilantin] Adverse Reaction (Verified 02/26/19 14:25) palprex Allergy (Unknown, Uncoded 02/26/19 14:25) zicam Allergy (Unknown, Uncoded 02/26/19 14:25) all vitamins Allergy (Uncoded 02/26/19 14:25) Seizures Past Medical History - Social History Smoking Status: Former Smoker Chew tobacco use (# tins/day): No Frequency of alcohol use: None Drug Abuse: None Family History: Reviewed & Not Pertinent, Arthritis, CAD, Malignancy, Thyroid Disfunction, Other - Ovarian cancer in mother, asthma Patient has suicidal ideation: No Patient has homicidal ideation: No - Past Medical History Cardiac Medical History: Reports: Hx Hypertension - History of Denies: Hx Congestive Heart Failure, Hx Coronary Artery Disease, Hx DVT, Hx Heart Attack, Hx Hypercholesterolemia, Hx Pulmonary Embolism Pulmonary Medical History: Denies: Hx Asthma, Hx Bronchitis, Hx COPD, Hx Pneumonia Neurological Medical History: Reports: Hx Seizures - epilepsy. Denies: Hx Cerebrovascular Accident Endocrine Medical History: Denies: Hx Diabetes Mellitus Type 1, Hx Diabetes Mellitus Type 2, Hx Hyperthyroidism, Hx Hypothyroidism Renal/ Medical History: Reports: Hx Kidney Stones. Denies: Hx Peritoneal D ialysis GI Medical History: Denies: Hx Cirrhosis, Hx Gastroesophageal Reflux Disease, Hx Hepatitis Musculoskeletal Medical History: Reports Hx Arthritis Skin Medical History: Denies Hx Eczema, Denies Hx Psoriasis Psychiatric Medical History: Reports: Hx Anxiety, Hx Bipolar Disorder, Hx Depression, Hx Schizophrenia Infectious Medical History: Denies: Hx Hepatitis Past Surgical History: Reports: Hx Appendectomy, Hx Gynecologic Surgery - Right oophorectomy; Left ovarian cyst, Hx Kidney (Renal Surgery) - lithotripsy, Hx Oral Surgery, Hx Urinary Tract Surgery - stent - Immunizations Hx Diphtheria, Pertussis, Tetanus Vaccination: Yes Review of Systems - Review of Systems Notes: My Normal Review Basic REVIEW OF SYSTEMS: CONSTITUTIONAL : Denies fever, chills, or sweats. Denies recent illness. CARDIOVASCULAR: Denies chest pain. RESPIRATORY: Denies cough, cold, or chest congestion. Denies shortness of breath, difficulty breathing, or wheezing. GASTROINTESTINAL: Denies abdominal pain. Some left-sided flank pain denies nausea, vomiting, or diarrhea. GENITOURINARY: Mild dysuria MUSCULOSKELETAL: Denies neck or back pain or joint pain or swelling. SKIN: Denies rash or skin lesions. NEUROLOGICAL: Denies altered mental status or loss of consciousness. Denies headache. Denies weakness or paralysis or loss of use of either side. Denies problems with gait or speech. Denies sensory or motor loss. ALL OTHER SYSTEMS REVIEWED AND NEGATIVE. Physical Exam - Vital signs Vitals: Temp Pulse Resp BP Pulse Ox 98.2 F 102 H 18 128/91 H 95 02/26/19 14:34 02/26/19 14:34 02/26/19 14:34 02/26/19 14:34 02/26/19 14:34 - Notes Notes: General Appearance: Well nourished, alert, cooperative, no acute distress, no obvious discomfort. Well-appearing. Vitals: reviewed, See vital signs table. Head: no swelling or tenderness to the head Eyes: PERRL, EOMI, Conjuctiva clear Mouth: No decreasd moisture Lungs: No wheezing, No rales, No rhonci, No accessory muscle use, good air exchange bilaterally. Heart: Normal rate, Regular rythm, No murmur, no rub Abdomen: Normal BS, soft, No rigidity, No reproducible abdominal tenderness to palpation., No guarding, no rebound, no abdominal masses, no organomegaly Extremities: good pulses in all extremities, no swelling or tenderness in the extremities, no edema. Skin: warm, dry, appropriate color, no rash Neuro: speech clear, oriented x 3, normal affect, responds appropriately to questions. Course - Re-evaluation Re-evalutation: 02/27/19 00:[address] scan does not show any evidence of insert ureteral stone. She does have some kidney stones but no hydronephrosis or obstructing. She does have a UTI. She looks very comfortable on exam. She has no reproducible pain to palpation. I did give her a dose of antibiotic we will place her antibiotics for UTI. I will send her urine for culture to make sure that she does not have resistance antibiotics that we have placed her on. She does have some renal insufficiency which looking through records she does have a fluctuating renal fu nction that goes anywhere from normal to a creatinine of just over 2. I will give her some IV fluids to help keep her well-hydrated to help prevent further renal insufficiency. Will have follow-up closely with her primary care doctor in the next 3 days for reevaluation and recheck of her kidney function. Encouraged her return to ER immediately if she has fevers, vomiting, worsening pain, or she feels unwell. Patient agrees with plan and will be discharged home. Dictation of this chart was performed using voice recognition software; therefore, there may be some unintended grammatical errors. - Vital Signs Vital signs: Temp Pulse Resp BP Pulse Ox 98.2 F 83 16 105/69 96 02/27/19 01:11 02/27/19 01:11 02/27/19 01:11 02/27/19 01:11 02/27/19 01:11 - Laboratory Result Diagrams: 02/26/19 16:05 02/26/19 16:05 Laboratory results interpreted by me: 02/26/19 02/26/19 02/26/19 16:05 16:05 16:05 WBC 10.9 H RDW 14.2 H Monocytes % 14.6 H Absolute Monocytes 1.6 H Creatinine 1.87 H Est GFR ( Amer) 37 L Est GFR (Non-Af Amer) 31 L Calcium 11.9 H AST 41 H Alkaline Phosphatase 151 H Urine Nitrite POSITIVE H Urine Urobilinogen 4.0 H Ur Leukocyte Esterase TRACE H Procedures - Additional Procedures IV insertion Additional Procedures: IV insertion Notes: 02/26/19 23:42 Nursing staff unable to obtain peripheral IV due to patient being very difficult IV stick. I therefore did a bedside sono-guided IV in the left antecubital fossa. The vein was compressible. He was cannulated on first attempt with 20- gauge Angiocath. Nonpulsatile dark blood return. IV flushed well without difficulties. Area was sterilely cleaned chlorhexidine swab prior to needle stick. Discharge - Discharge Clinical Impression: Flank pain UTI (urinary tract infection) Qualifiers: Urinary tract infection type: site unspecified Hematuria presence: without hematuria Qualified Code(s): N39.0 - Urinary tract infection, site not specified Condition: Good Disposition: HOME, SELF-CARE Additional Instructions: You have what appears to be a urinary tract infection. We have started you on Bactrim. Please stop taking this antibiotic immediately if you develop a rash. You did have some mild renal insufficiency. This is where your kidney function is a little bit off. Looking through your records this is something that frequently happens to you. This is why we gave you some IV fluids. It is important that you continue only to orally rehydrate and drink liquids. Please follow-up with your doctor this week for reevaluation and to recheck your kidney function to make sure it is continuing to improve. Return to the ER immediately if you have fevers, vomiting, or feel that you are worsening any way. Prescriptions: Sulfamethoxazole/Trimethoprim [Bactrim Ds Tablet] 1 each PO BID #14 tablet Referrals: Jose CHAHAL MD [Primary Care Provider] - Follow up as needed
[2019-02-27 01:12] VITALS: BP 105/69
== END 2019-02-27 01:12 | disposition home or self-care (01) ==
LOC: ER 14:24
DX: N39.0 Urinary tract infection, site not specified (principal); R10.9 Unspecified abdominal pain; R30.0 Dysuria; Z87.891 Personal history of nicotine dependence; I10 Essential (primary) hypertension
CPT/HCPCS: 99284; 96360; 36415; 87086; 85025; 80053; 81001; 74176; A9270 ×3; J7030; S0119

== ENCOUNTER → 2019-03-09 | Outpatient (CLI) | payer MEDICARE, MEDICAID | LOC: OD 14:10 | PROVIDERS: ATTEND Nurse Practitioner Acute Care | DX: R30.0 Dysuria (principal) | CPT/HCPCS: 87086 ==

== ENCOUNTER → 2019-03-26 | Outpatient (CLI) | payer MEDICARE, MEDICAID ==
[2019-03-26 15:03] LABS: ANION GAP 12 (5-19); BLOOD UREA NITROGEN 15 mg/dL (7-20); CALCIUM 10.6 mg/dL (8.4-10.2); CARBON DIOXIDE 25 mmol/L (22-30); CHLORIDE 102 mmol/L (98-107); GLUCOSE 95 mg/dL (75-110); PHOSPHORUS 3.5 mg/dL (2.5-4.5); POTASSIUM 4.5 mmol/L (3.6-5.0); SODIUM 138.9 mmol/L (137-145)
[2019-03-26 15:30] LABS: APPEARANCE,URINE CLEAR; COLOR,URINE STRAW
[2019-03-26 15:31] LABS: BILIRUBIN,URINE NEGATIVE (NEGATIVE); GLUCOSE, URINE NEGATIVE (NEGATIVE); KETONES,URINE NEGATIVE (NEGATIVE); LEUKOCYTE ESTERASE,URINE TRACE (NEGATIVE); NITRITE,URINE NEGATIVE (NEGATIVE); PROTEIN,URINE NEGATIVE (NEGATIVE); UROBILINOGEN,URINE NEGATIVE mg/dL (<2.0)
[2019-03-26 16:45] LABS: HEMATOCRIT 39.1 % (36.0-47.0); HEMOGLOBIN 13.2 g/dL (12.0-15.5); MEAN CORPUSCULAR HEMOGLOBIN 30.5 pg (27.0-33.4); MEAN CORPUSCULAR HGB CONC 33.7 g/dL (32.0-36.0); MEAN CORPUSCULAR VOLUME 90 fl (80-97); PLATELET COUNT 491 10^3/uL (150-450); RED BLOOD COUNT 4.33 10^6/uL (3.72-5.28); RED CELL DISTRIBUTION WIDTH 14.9 % (11.5-14.0); WHITE BLOOD COUNT 10.9 10^3/uL (4.0-10.5)
== END ==
LOC: OD 13:54
PROVIDERS: ATTEND Physician Assistant Medical
DX: N18.3 Chronic kidney disease, stage 3 (moderate) (principal); E83.42 Hypomagnesemia
CPT/HCPCS: 36415; 80048; 81001; 83970; 84100; 85027

== ENCOUNTER 2019-08-27 22:25 | Emergency (ER) | payer MEDICARE, MEDICAID ==
[2019-08-28 01:37] LABS: ALBUMIN 3.9 g/dL (3.5-5.0); ALKALINE PHOSPHATASE 129 U/L (38-126); ANION GAP 13 (5-19); ASPARTATE AMINO TRANSFERASE 40 U/L (14-36); BILIRUBIN,DIRECT 0.1 mg/dL (0.0-0.4); BILIRUBIN,TOTAL 0.4 mg/dL (0.2-1.3); BLOOD UREA NITROGEN 11 mg/dL (7-20); CALCIUM 10.5 mg/dL (8.4-10.2); CARBON DIOXIDE 25 mmol/L (22-30); CHLORIDE 100 mmol/L (98-107); GLUCOSE 115 mg/dL (75-110); POTASSIUM 3.8 mmol/L (3.6-5.0); TOTAL PROTEIN 7.1 g/dL (6.3-8.2)
[2019-08-28 01:40] LABS: APPEARANCE,URINE CLOUDY; BILIRUBIN,URINE NEGATIVE (NEGATIVE); CALCIUM OXALATE CRYSTALS,URINE FEW /HPF; COLOR,URINE AMBER; GLUCOSE, URINE NEGATIVE (NEGATIVE); KETONES,URINE NEGATIVE (NEGATIVE); LEUKOCYTE ESTERASE,URINE SMALL (NEGATIVE); NITRITE,URINE NEGATIVE (NEGATIVE); PROTEIN,URINE 30 mg/dL (NEGATIVE); URINE SPECIFIC GRAVITY 1.019; UROBILINOGEN,URINE NEGATIVE mg/dL (<2.0)
[2019-08-28 01:43] LABS: ABSOLUTE BASOPHILS # (AUTO) 0.1 10^3/uL (0.0-0.2); ABSOLUTE EOSINOPHILS # (AUTO) 0.3 10^3/uL (0.0-0.6); ABSOLUTE LYMPHOCYTES (AUTO) 2.4 10^3/uL (0.5-4.7); ABSOLUTE MONOCYTES (AUTO) 1.6 10^3/uL (0.1-1.4); ABSOLUTE NEUT (AUTO) 6.4 10^3/uL (1.7-8.2); BASOPHILS % (AUTO) 1.1 % (0-2); EOSINOPHILS % (AUTO) 3.1 % (0-6); HEMOGLOBIN 13.3 g/dL (12.0-15.5); LYMPHOCYTES % (AUTO) 21.9 % (13-45); MEAN CORPUSCULAR HEMOGLOBIN 30.7 pg (27.0-33.4); MEAN CORPUSCULAR HGB CONC 34.1 g/dL (32.0-36.0); MEAN CORPUSCULAR VOLUME 90 fl (80-97); MONOCYTES % (AUTO) 14.9 % (3-13); PLATELET COUNT 403 10^3/uL (150-450); RED BLOOD COUNT 4.32 10^6/uL (3.72-5.28); RED CELL DISTRIBUTION WIDTH 13.3 % (11.5-14.0); TOTAL CELLS COUNTED % (AUTO) 100 %; WHITE BLOOD COUNT 10.9 10^3/uL (4.0-10.5)
[2019-08-28] MEDS ORDERED: NORMAL SALINE 1000 ML 1,000 ML IV ONE (03:23)
[2019-08-28] MEDS ORDERED: LEVOFLOXACIN 750 MG/D5W RTU 750 MG/150 ML RTUPB IV ONE (03:24)
[2019-08-28] MEDS ORDERED: MORPHINE SULFATE 10 MG/ML INJ IV ONE (03:25)
[2019-08-28] MEDS ORDERED: ONDANSETRON HCL INJ/PF 4 MG/2 ML SDV IV ONE (03:25)
--- NOTE | 2019-08-28 03:27 | ER Document Report ---
ED GI/ - General Chief Complaint: Flank Pain Stated Complaint: LOWER BACK PAIN Time Seen by Provider: 08/28/19 02:51 Primary Care Provider: LURDES CABELLO FNP-C [Primary Care Provider] - Follow up as needed Notes: Patient is a 33-year-old female that comes to the emergency department for chief complaint of bilateral flank pain worsening since yesterday. Pain is starting to wrap around her abdomen towards her lower abdomen as well. She reports that she is getting nauseated but she denies vomiting or fever. She does have a history of kidney stones including stents. She denies vaginal bleeding or discharge. She denies any other complaints. TRAVEL OUTSIDE OF THE [place] IN LAST 30 DAYS: No - Related Data Allergies/Adverse Reactions: alprazolam [From Xanax] Allergy (Severe, Verified 08/28/19 00:19) Aggression asenapine maleate [From Saphris] Allergy (Severe, Verified 08/28/19 00:19) Blackout clonazepam [From Klonopin] Allergy (Severe, Verified 08/28/19 00:19) Seizure meperidine HCl [From Demerol] Allergy (Severe, Verified 08/28/19 00:19) Seizure brompheniramine maleate [From Dimetapp] Allergy (Mild, Verified 08/28/19 00:19) Hives dextromethorphan HBr [From Dimetapp] Allergy (Mild, Verified 08/28/19 00:19) Hives phenylpropanolamine HCl [From Dimetapp] Allergy (Mild, Verified 08/28/19 00:19) Hives pseudoephedrine HCl [From Dimetapp] Allergy (Mild, Verified 08/28/19 00:19) Hives triprolidine HCl [From Actifed] Allergy (Mild, Verified 08/28/19 00:19) Hives amoxicillin [Amoxicillin] Allergy (Unknown, Verified 08/28/19 00:19) doxepin [Doxepin] Allergy (Unknown, Verified 08/28/19 00:19) doxycycline [Doxycycline] Allergy (Unknown, Verified 08/28/19 00:19) erythromycin base [Erythromycin Base] Allergy (Unknown, Verified 08/28/19 00:19) indomethacin [Indomethacin] Allergy (Unknown, Verified 08/28/19 00:19) modafinil [From Provigil] Allergy (Unknown, Verified 08/28/19 00:19) quetiapine fumarate [From Seroquel] Allergy (Unknown, Verified 08/28/19 00:19) tramadol [Tramadol] Allergy (Unknown, Verified 08/28/19 00:19) triazolam [Triazolam] Allergy (Unknown, Verified 08/28/19 00:19) zonisamide [From Zonegran] Allergy (Unknown, Verified 08/28/19 00:19) cefdinir [Cefdinir] Allergy (Verified 08/28/19 00:19) haloperidol [From Haldol] Allergy (Verified 08/28/19 00:19) paliperidone [From Invega] Allergy (Verified 08/28/19 00:19) phenobarbital Allergy (Verified 08/28/19 00:19) primidone Allergy (Verified 08/28/19 00:19) pseudoephedrine [From Sudafed] Allergy (Verified 08/28/19 00:19) levetiracetam [From Keppra] Adverse Reaction (Verified 08/28/19 00:19) phenytoin [From Dilantin] Adverse Reaction (Verified 08/28/19 00:19) palprex Allergy (Unknown, Uncoded 02/26/19 14:25) zicam Allergy (Unknown, Uncoded 02/26/19 14:25) all vitamins Allergy (Uncoded 02/26/19 14:25) Seizures Past Medical History - General Information source: Patient - Social History Smoking Status: Former Smoker Frequency of alcohol use: None Drug Abuse: None Lives with: Family Family History: Reviewed & Not Pertinent, Arthritis, CAD, Malignancy, Thyroid Disfunction, Other - Ovarian cancer in mother, asthma Patient has suicidal ideation: No Patient has homicidal ideation: No - Past Medical History Cardiac Medical History: Reports: Hx Hypertension - History of Denies: Hx Congestive Heart Failure, Hx Coronary Artery Disease, Hx DVT, Hx Heart Attack, Hx Hypercholesterolemia, Hx Pulmonary Embolism Pulmonary Medical History: Denies: Hx Asthma, Hx Bronchitis, Hx COPD, Hx Pneumonia Neurological Medical History: Reports: Hx Seizures - epilepsy. Denies: Hx Cerebrovascular Accident Endocrine Medical History: Denies: Hx Diabetes Mellitus Type 1, Hx Diabetes Mellitus Type 2, Hx Hyperthyroidism, Hx Hypothyroidism Renal/ Medical History: Reports: Hx Kidney Stones. Denies: Hx Peritoneal Dialysis GI Medical History: Denies: Hx Cirrhosis, Hx Gastroesophageal Reflux Disease, Hx Hepatitis Musculoskeletal Medical History: Reports Hx Arthritis Skin Medical History: Denies Hx Eczema, Denies Hx Psoriasis Psychiatric Medical History: Reports: Hx Anxiety, Hx Bipolar Disorder, Hx Depression, Hx Schizophrenia Infectious Medical History: Denies: Hx Hepatitis Past Surgical History: Reports: Hx Appendectomy, Hx Gynecologic Surgery - Right oophorectomy; Left ovarian cyst, Hx Kidney (Renal Surgery) - lithotripsy, Hx Oral Surgery, Hx Urinary Tract Surgery - stent - Immunizations Hx Diphtheria, Pertussis, Tetanus Vaccination: Yes Review of Systems - Review of Systems Constitutional: No symptoms reported EENT: No symptoms reported Cardiovascular: No symptoms reported Respiratory: No symptoms reported Gastrointestinal: See HPI Genitourinary: See HPI Female Genitourinary: No symptoms reported Musculoskeletal: See HPI Skin: No symptoms reported Hematologic/Lymphatic: No symptoms reported Neurological/Psychological: No symptoms reported Physical Exam - Vital signs Vitals: Temp Resp Pulse Ox 97.8 F 18 97 08/27/19 22:26 08/27/19 22:26 08/27/19 22:26 - Notes Notes: GENERAL: Alert, interacts well. No acute distress. HEAD: Normocephalic, atraumatic. EYES: Pupils equal, round, and reactive to light. Extraocular movements intact. ENT: Oral mucosa moist, tongue midline. Oropharynx unremarkable. NECK: Full range of motion. Supple. Trachea midline. LUNGS: Clear to auscultation bilaterally, no wheezes, rales, or rhonchi. No respiratory distress. HEART: Regular rate and rhythm. No murmur ABDOMEN: Soft, non-tender. Non-distended. EXTREMITIES: Bilateral CVA tenderness, moderate. Moves all 4 extremities spontaneously. No edema, normal radial and dorsalis pedis pulses bilaterally. No cyanosis. BACK: no cervical, thoracic, lumbar midline tenderness. No saddle anesthesia, normal distal neurovascular exam. Moves all extremities in full range of motion. NEUROLOGICAL: Alert and oriented x3. Normal speech. Cranial nerves II through XII grossly intact. PSYCH: Normal affect, normal mood. SKIN: Warm, dry, normal turgor. No rashes or lesions noted. Course - Re-evaluation Re-evalutation: Patient and mother initially upset on my evaluation because they have been waiting a long time due to significant weight times and delay. I did apologize to them, they did calm down after this. Patient's abdomen is benign. She does appear to have bilateral CVA tenderness, there is no midline tenderness, no neurological deficits, no signs of trauma. Pain is not worse with movement. Not overtly muscular on exam. Vital signs unremarkable. Patient is nontoxic in appearance. No fever. CBC shows mild leukocytosis, chemistry unremarkable, urinalysis shows leukocyte esterase, white blood cells, however there are also squamous epithelials. No vaginal bleeding or discharge. No abdominal pain. I did discuss CT or ultrasound for history of kidney stones although I have a low suspicion of this based on her bilateral symptoms. This was declined after discussion, I performed a KUB instead, no large stone is seen, no acute findings noted. Clinical picture is most suggestive of urinary tract infection and possible developing pyelonephritis. Culture placed, placed on antibiotics. This was difficult because patient is allergic to some antibiotics, eventually we agreed to place her on course of levofloxacin for possible pyelonephritis. Discussed follow-up, expectations, return precautions with patient and mother at length, they state understanding and agreement with plan. Stable at time of discharge. - Vital Signs Vital signs: Temp Pulse Resp BP Pulse Ox 98.0 F 87 16 132/73 H 99 08/28/19 06:11 08/28/19 06:11 08/28/19 06:11 08/28/19 06:11 08/28/19 06:11 - Laboratory Result Diagrams: 08/28/19 01:00 08/28/19 01:00 Laboratory results interpreted by me: 08/28/19 08/28/19 08/28/19 01:00 01:00 01:00 WBC 10.9 H Bryan % (Auto) 14.9 H Absolute Monos (auto) 1.6 H Creatinine 1.44 H Est GFR ( Amer) 50 L Est GFR (MDRD) Non-Af 42 L Glucose 115 H Calcium 10.5 H AST 40 H Alkaline Phosphatase 129 H Urine Protein 30 H Ur Leukocyte Esterase SMALL H Urine Ascorbic Acid 40 H Discharge - Discharge Clinical Impression: Flank pain, Nausea Condition: Stable Disposition: HOME, SELF-CARE Additional Instructions: Your x-ray does not show an obvious passing stone. Your urine and evaluation is most suggestive of a developing urinary tract infection, possibly kidney infection. Take antibiotics as prescribed to completion, take nausea medication if needed, drink plenty of fluids and rest. Follow-up with primary care. Come back if you worsen including vomiting, fever, severe worsening pain, or any other concerning symptoms. Prescriptions: Levofloxacin [Levaquin 750 mg Tablet] 750 mg PO DAILY #4 tablet Promethazine HCl [Phenergan 25 mg Tablet] 25 mg PO Q6H PRN #15 tablet PRN Reason: Referrals: LURDES CABELLO FNP-C [Primary Care Provider] - Follow up as needed
--- NOTE | 2019-08-28 04:42 | RADIOLOGY REPORT (SQ) ---
Abdomen single view on 08/28/2019 at 4:20 AM CLINICAL INDICATION: Left-sided back pain, history of kidney stones COMPARISON: CT from 02/26/2019 FINDINGS: Two Essure type devices are noted in the left pelvis. Left pelvic calcifications likely represent phleboliths. No definite calcifications are noted overlying the kidneys or expected course of the ureters although one could be obscured by overlying bowel. If there is high clinical concern consider CT. Bowel gas pattern is unremarkable. No increased stool to suggest constipation is noted. IMPRESSION: Nonspecific abdomen. If there is high clinical concern for left ureteral stone consider CT.
[2019-08-28] MEDS ORDERED: HYDROCODONE/ACETAMINOPHEN 5-325 MG (6 TAB/ER DISP) PO PRN (05:07)
[2019-08-28 06:18] VITALS: BP 132/73
== END 2019-08-28 06:11 | disposition home or self-care (01) ==
LOC: ER 22:25
DX: R10.9 Unspecified abdominal pain (principal); R11.0 Nausea; I10 Essential (primary) hypertension; Z87.442 Personal history of urinary calculi; Z90.49 Acquired absence of other specified parts of digestive tract; Z90.721 Acquired absence of ovaries, unilateral; Z87.891 Personal history of nicotine dependence; Z88.8 Allergy status to other drugs, medicaments and biological substances; Z88.6 Allergy status to analgesic agent; Z88.5 Allergy status to narcotic agent; Z88.0 Allergy status to penicillin; Z88.1 Allergy status to other antibiotic agents
CPT/HCPCS: 99284; 96375; 96365; 36415; 83690; 85025; 80053; 81001; 74018; J2270; J2405; J7030; J1956; A9270; 87086

== ENCOUNTER 2019-08-29 10:30 | Emergency (ER) | payer MEDICARE, MEDICAID ==
--- NOTE | 2019-08-29 12:38 | ER Document Report ---
ED General - General Chief Complaint: Allergic Reaction Stated Complaint: POSSIBLE ALLERGIC REACTION Time Seen by Provider: 08/29/19 11:58 Primary Care Provider: LURDES CABELLO FNP-C [Primary Care Provider] - Follow up in 3-5 days POLI CARRANZA MD [EMERITUS] - Follow up as needed Mode of Arrival: Ambulatory Information source: Patient Notes: 33-year-old female with history of multiple allergies presents to the emergency department today with complaints of rash and swelling to both hands. She reports she received Levaquin IV 2 days ago for a kidney infection. She reports that the first time she ever had medication. She reports she started having some swelling while she was still here in the emergency department and then yesterday her hand started turning red in different areas, with pain, that worsened overnight. She was also prescribed p.o. Levaquin and [place]. She has not taken any doses of the p.o. Levaquin but is taken a dose of the [place]. She is not taking anything for the reaction such as Benadryl. denies fever nausea vomiting diarrhea. She reports she does not really have the flank pain now. Patient has history of multiple allergies to medications with reactions of hives. She reports Demerol makes her stop breathing. TRAVEL OUTSIDE OF THE [place] IN LAST 30 DAYS: No - HPI Onset: Other Onset/Duration: Worse Severity: Severe Associated symptoms: None Exacerbated by: Other - touch Relieved by: Denies Similar symptoms previously: No Recently seen / treated by doctor: No - Related Data Allergies/Adverse Reactions: alprazolam [From Xanax] Allergy (Severe, Verified 08/28/19 00:19) Aggression asenapine maleate [From Saphris] Allergy (Severe, Verified 08/28/19 00:19) Blackout clonazepam [From Klonopin] Allergy (Severe, Verified 08/28/19 00:19) Seizure meperidine HCl [From Demerol] Allergy (Severe, Verified 08/28/19 00:19) Seizure brompheniramine maleate [From Dimetapp] Allergy (Mild, Verified 08/28/19 00:19) Hives dextromethorphan HBr [From Dimetapp] Allergy (Mild, Verified 08/28/19 00:19) Hives phenylpropanolamine HCl [From Dimetapp] Allergy (Mild, Verified 08/28/19 00:19) Hives pseudoephedrine HCl [From Dimetapp] Allergy (Mild, Verified 08/28/19 00:19) Hives triprolidine HCl [From Actifed] Allergy (Mild, Verified 08/28/19 00:19) Hives amoxicillin [Amoxicillin] Allergy (Unknown, Verified 08/28/19 00:19) doxepin [Doxepin] Allergy (Unknown, Verified 08/28/19 00:19) doxycycline [Doxycycline] Allergy (Unknown, Verified 08/28/19 00:19) erythromycin base [Erythromycin Base] Allergy (Unknown, Verified 08/28/19 00:19) indomethacin [Indomethacin] Allergy (Unknown, Verified 08/28/19 00:19) modafinil [From Provigil] Allergy (Unknown, Verified 08/28/19 00:19) quetiapine fumarate [From Seroquel] Allergy (Unknown, Verified 08/28/19 00:19) tramadol [Tramadol] Allergy (Unknown, Verified 08/28/19 00:19) triazolam [Triazolam] Allergy (Unknown, Verified 08/28/19 00:19) zonisamide [From Zonegran] Allergy (Unknown, Verified 08/28/19 00:19) cefdinir [Cefdinir] Allergy (Verified 08/28/19 00:19) haloperidol [From Haldol] Allergy (Verified 08/28/19 00:19) paliperidone [From Invega] Allergy (Verified 08/28/19 00:19) phenobarbital Allergy (Verified 08/28/19 00:19) primidone Allergy (Verified 08/28/19 00:19) pseudoephedrine [From Sudafed] Allergy (Verified 08/28/19 00:19) levetiracetam [From Keppra] Adverse Reaction (Verified 08/28/19 00:19) phenytoin [From Dilantin] Adverse Reaction (Verified 08/28/19 00:19) palprex Allergy (Unknown, Uncoded 02/26/19 14:25) zicam Allergy (Unknown, Uncoded 02/26/19 14:25) all vitamins Allergy (Uncoded 02/26/19 14:25) Seizures Past Medical History - General Information source: Patient Last Menstrual Period: July - Social History Smoking Status: Former Smoker Cigarette use (# per day): No Frequency of alcohol use: None Drug Abuse: None Lives with: Family Family History: Reviewed & Not Pertinent, Arthritis, CAD, Malignancy, Thyroid Disfunction, Other - Ovarian cancer in mother, asthma Patient has suicidal ideation: No Patient has homicidal ideation: No - Past Medical History Cardiac Medical History: Reports: Hx Hypertension - History of Denies: Hx Congestive Heart Failure, Hx Coronary Artery Disease, Hx DVT, Hx Heart Attack, Hx Hypercholesterolemia, Hx Pulmonary Embolism Pulmonary Medical History: Denies: Hx Asthma, Hx Bronchitis, Hx COPD, Hx Pneumonia Neurological Medical History: Reports: Hx Seizures - epilepsy. Denies: Hx Cerebrovascular Accident Endocrine Medical History: Denies: Hx Diabetes Mellitus Type 1, Hx Diabetes Mellitus Type 2, Hx Hyperthyroidism, Hx Hypothyroidism Renal/ Medical History: Reports: Hx Kidney Stones. Denies: Hx Peritoneal Dialysis GI Medical History: Denies: Hx Cirrhosis, Hx Gastroesophageal Reflux Disease, Hx Hepatitis Musculoskeletal Medical History: Reports Hx Arthritis Skin Medical History: Denies Hx Eczema, Denies Hx Psoriasis Psychiatric Medical History: Reports: Hx Anxiety, Hx Bipolar Disorder, Hx Depression, Hx Schizophrenia Infectious Medical History: Denies: Hx Hepatitis Past Surgical History: Reports: Hx Appendectomy, Hx Cholecystectomy, Hx Gynecologic Surgery - Right oophorectomy; Left ovarian cyst, Hx Kidney (Renal Surgery) - lithotripsy, Hx Oral Surgery, Hx Urinary Tract Surgery - stent - Immunizations Hx Diphtheria, Pertussis, Tetanus Vaccination: Yes Review of Systems - Review of Systems Notes: Review HPI for review of systems., All other systems negative Physical Exam - Vital signs Vitals: Temp Pulse Resp BP Pulse Ox 98.0 F 96 16 136/80 H 94 08/29/19 10:43 08/29/19 10:43 08/29/19 10:43 08/29/19 10:43 08/29/19 10:43 - HEENT Head: Normocephalic Eyes: Normal Conjunctiva: Normal Extraocular movements intact: Yes Eyelashes: Normal Pupils: PERRL Nasal: Normal Mouth/Lips: Normal Mucous membranes: Normal, Moist Pharynx: Normal. No: Erythema, Exudate Neck: Normal, Supple. No: Lymphadenopathy - Respiratory Respiratory status: No respiratory distress Chest status: Nontender Breath sounds: Normal Chest palpation: Normal - Cardiovascular Rhythm: Regular Heart sounds: Normal auscultation - Abdominal Inspection: Normal Distension: No distension Tenderness: Nontender - Back Back: Normal, Nontender. No: CVA tenderness, Vertebra tenderness - Extremities General upper extremity: Tender, Normal ROM, Normal strength General lower extremity: Normal ROM, Normal strength - Neurological Neuro grossly intact: Yes Cognition: Normal Orientation: AAOx4 Orwell Coma Scale Eye Opening: Spontaneous Shawn Coma Scale Verbal: Oriented Shawn Coma Scale Motor: Obeys Commands Shawn Coma Scale Total: 15 Speech: Normal - Psychological Associated symptoms: Normal affect, Normal mood - Skin Skin Temperature: Warm Skin Moisture: Dry Skin Color: Erythema Location of irregularity: Face - erythema slight to Forehead and chin, no vesicles, no open wounds, Extremities - Bilateral hands swelling with erythema surrounding left thumb ipj and erythema to the right lateral hand no open sores. possible vesicle starting to ipj left thumb center of erythema, cap refill <3 seconds Course - Re-evaluation Re-evalutation: 08/29/19 12:37 33-year-old female presents emergency department with complaints of rash and pain to both hands expanding to her right forearm and to her forehead and chin. She reports her hand started swelling 2 nights ago when she received IV Levaquin here. She was also prescribed oral Levaquin. She has not taken any doses yet. She was also prescribed [place] and she took 1 dose. She reports this turned color yesterday and worsened overnight. She reports extreme pain to the left thumb and lateral right hand. Dr. leger was consulted. He advises labs. 08/29/19 13:57 Lab results back unremarkable. Discussed with Dr. leger ,he advises steroids and follow-up. Patient was instructed on steroids. Instructed to return to the emergency department immediately for worsening symptoms. She was also instructed on close follow-up with her primary care provider for recheck. Mother and patient verbalized understanding to all instructions 08/29/19 12:35 08/29/19 12:35 MCV 90 fl (80-97) 08/29/19 12:35 MCH 30.9 pg (27.0-33.4) 08/29/19 12:35 MCHC 34.2 g/dL (32.0-36.0) 08/29/19 12:35 RDW 13.4 % (11.5-14.0) 08/29/19 12:35 Seg Neutrophils % 68.9 % (42-78) 08/29/19 12:35 Chloride 104 mmol/L (98-107) 08/29/19 12:35 Carbon Dioxide 29 mmol/L (22-30) 08/29/19 12:35 Anion Gap 9 (5-19) 08/29/19 12:35 Est GFR ( Amer) 56 (>60) L 08/29/19 12:35 Glucose 90 mg/dL (75-110) 08/29/19 12:35 Calcium 10.0 mg/dL (8.4-10.2) 08/29/19 12:35 Total Bilirubin 0.4 mg/dL (0.2-1.3) 08/29/19 12:35 AST 68 U/L (14-36) H 08/29/19 12:35 Alkaline Phosphatase 172 U/L (38-126) H 08/29/19 12:35 Total Protein 7.1 g/dL (6.3-8.2) 08/29/19 12:35 Albumin 3.8 g/dL (3.5-5.0) 08/29/19 12:35 Serum HCG, Qual NEGATIVE (NEGATIVE) 08/29/19 12:35 - Vital Signs Vital signs: Temp Pulse Resp BP Pulse Ox 98.3 F 86 16 129/81 H 98 08/29/19 14:06 08/29/19 14:06 08/29/19 11:00 08/29/19 14:06 08/29/19 14:06 - Laboratory Result Diagrams: 08/29/19 12:35 08/29/19 12:35 Laboratory results interpreted by me: 08/29/19 08/29/19 12:35 12:35 [place] % (Auto) 13.5 H Creatinine 1.31 H Est GFR ( Amer) 56 L Est GFR (MDRD) Non-Af 46 L AST 68 H Alkaline Phosphatase 172 H Discharge - Discharge Clinical Impression: Allergic reaction caused by a drug Qualifiers: Encounter type: initial encounter Qualified Code(s): T78.40XA - Allergy, unspecified, initial encounter Condition: Stable Disposition: HOME, SELF-CARE Instructions: Acute Allergic Reaction to Drugs ([facility]), Steroid Medication Additional Instructions: *You have been treated for an allergic reaction to Levaquin Stop taking the medication *Take prednisone as prescribed *Monitor your skin for signs of increasing reaction such as increasing redness swelling pain *Keep your skin protected apply barrier cream *Follow up with a primary care provider within 1 week for recheck *Return to ED for signs of worsening condition, changes, needs Monitor your blood pressure. Your blood pressure was elevated today. This may be because you were anxious, in pain or because you need medication. It is important to follow up with your primary care provider for full evaluation. Prescriptions: Methylprednisolone [Medrol Dosepack (4 mg/Tab) 21 Tab/Dosepak] 4 mg PO ASDIR PRN #[id number] PRN Reason: Forms: Elevated Blood Pressure Referrals: LURDES CABLELO, SHERYL-C [Primary Care Provider] - Follow up in 3-5 days POLI CARRANZA MD [EMERITUS] - Follow up as needed
[2019-08-29 12:50] LABS: ABSOLUTE BASOPHILS # (AUTO) 0.1 10^3/uL (0.0-0.2); ABSOLUTE EOSINOPHILS # (AUTO) 0.2 10^3/uL (0.0-0.6); ABSOLUTE LYMPHOCYTES (AUTO) 1.5 10^3/uL (0.5-4.7); ABSOLUTE MONOCYTES (AUTO) 1.3 10^3/uL (0.1-1.4); ABSOLUTE NEUT (AUTO) 6.6 10^3/uL (1.7-8.2); BASOPHILS % (AUTO) 0.7 % (0-2); EOSINOPHILS % (AUTO) 1.6 % (0-6); HEMATOCRIT 39.9 % (36.0-47.0); HEMOGLOBIN 13.6 g/dL (12.0-15.5); LYMPHOCYTES % (AUTO) 15.3 % (13-45); MEAN CORPUSCULAR HEMOGLOBIN 30.9 pg (27.0-33.4); MEAN CORPUSCULAR HGB CONC 34.2 g/dL (32.0-36.0); MEAN CORPUSCULAR VOLUME 90 fl (80-97); MONOCYTES % (AUTO) 13.5 % (3-13); PLATELET COUNT 388 10^3/uL (150-450); RED BLOOD COUNT 4.41 10^6/uL (3.72-5.28); RED CELL DISTRIBUTION WIDTH 13.4 % (11.5-14.0); SEGMENTED NEUTROPHILS % (AUTO) 68.9 % (42-78); TOTAL CELLS COUNTED % (AUTO) 100 %; WHITE BLOOD COUNT 9.5 10^3/uL (4.0-10.5)
[2019-08-29 13:16] LABS: ALBUMIN 3.8 g/dL (3.5-5.0); ALKALINE PHOSPHATASE 172 U/L (38-126); ANION GAP 9 (5-19); ASPARTATE AMINO TRANSFERASE 68 U/L (14-36); BILIRUBIN,DIRECT 0.2 mg/dL (0.0-0.4); BILIRUBIN,TOTAL 0.4 mg/dL (0.2-1.3); BLOOD UREA NITROGEN 9 mg/dL (7-20); CARBON DIOXIDE 29 mmol/L (22-30); CHLORIDE 104 mmol/L (98-107); GLUCOSE 90 mg/dL (75-110); POTASSIUM 4.6 mmol/L (3.6-5.0); TOTAL PROTEIN 7.1 g/dL (6.3-8.2)
[2019-08-29] MEDS ORDERED: PREDNISONE 20 MG TABLET PO ONE (13:53)
[2019-08-29 14:09] VITALS: BP 129/81
== END 2019-08-29 14:09 | disposition home or self-care (01) ==
LOC: ER 10:30
DX: R21 Rash and other nonspecific skin eruption (principal); R22.33 Localized swelling, mass and lump, upper limb, bilateral; T36.8X5A Adverse effect of other systemic antibiotics, initial encounter; Z88.3 Allergy status to other anti-infective agents; Z87.442 Personal history of urinary calculi; Z90.49 Acquired absence of other specified parts of digestive tract
CPT/HCPCS: 36415; 84703; 85025; 80053; A9270; 99283; J7512

== ENCOUNTER → 2019-09-25 | Outpatient (CLI) | payer MEDICARE, MEDICAID | LOC: LAB 15:09 | PROVIDERS: ATTEND Nurse Practitioner Family | DX: R30.0 Dysuria (principal); R82.71 Bacteriuria | CPT/HCPCS: 87086 ==

== ENCOUNTER → 2019-09-26 | Outpatient (CLI) | payer MEDICARE, MEDICAID ==
[2019-09-26 17:14] LABS: HEMATOCRIT 43.6 % (36.0-47.0); HEMOGLOBIN 14.8 g/dL (12.0-15.5); MEAN CORPUSCULAR HEMOGLOBIN 30.7 pg (27.0-33.4); MEAN CORPUSCULAR VOLUME 90 fl (80-97); PLATELET COUNT 406 10^3/uL (150-450); RED BLOOD COUNT 4.82 10^6/uL (3.72-5.28); RED CELL DISTRIBUTION WIDTH 13.5 % (11.5-14.0); WHITE BLOOD COUNT 9.7 10^3/uL (4.0-10.5)
[2019-09-26 17:23] LABS: ANION GAP 15 (5-19); BLOOD UREA NITROGEN 12 mg/dL (7-20); CALCIUM 10.2 mg/dL (8.4-10.2); CARBON DIOXIDE 21 mmol/L (22-30); CHLORIDE 103 mmol/L (98-107); GLUCOSE 122 mg/dL (75-110)
[2019-09-26 17:32] LABS: AMORPHOUS SEDIMENT,URINE TRACE /HPF; APPEARANCE,URINE CLOUDY; BILIRUBIN,URINE NEGATIVE (NEGATIVE); CALCIUM OXALATE CRYSTALS,URINE TOO NUMEROUS TO CNT /HPF; COLOR,URINE AMBER; GLUCOSE, URINE NEGATIVE (NEGATIVE); KETONES,URINE NEGATIVE (NEGATIVE); LEUKOCYTE ESTERASE,URINE NEGATIVE (NEGATIVE); NITRITE,URINE POSITIVE (NEGATIVE); PROTEIN,URINE 30 mg/dL (NEGATIVE)
== END ==
LOC: OD 15:23
PROVIDERS: ATTEND Physician Assistant Medical
DX: N18.3 Chronic kidney disease, stage 3 (moderate) (principal); E83.41 Hypermagnesemia; E87.6 Hypokalemia; N39.0 Urinary tract infection, site not specified
CPT/HCPCS: 36415; 80048; 81001; 85027; 87086

== ENCOUNTER 2019-11-10 13:10 | Emergency (ER) | payer MEDICARE, MEDICAID ==
--- NOTE | 2019-11-10 13:35 | ER Document Report ---
ED Medical Screen (RME) - General Stated Complaint: ABDOMINAL PAIN Time Seen by Provider: 11/10/19 13:32 Primary Care Provider: MENDEZ ACOSTA PA-C [Primary Care Provider] - Follow up as needed TRAVEL OUTSIDE OF THE [place] IN LAST 30 DAYS: No - HPI Notes: 11/10/19 13:34 Patient is a 33-year-old female with a history of bipolar depression, nephrolithiasis, morbid obesity, diabetes and chronic pain presents complaining of left flank pain that started 2 days ago and radiates into her abdomen. Patient states that it started intermittent, but has become constant. Patient is concerned that she may have another kidney stone. She is otherwise able to eat and drink without difficulty. She is urinating normally and having normal bowel movements. No fever. I have treated and performed a rapid initial assessment of this patient. A comprehensive ED assessment and evaluation of the patient, analysis of test results and completion of medical decision making process will be conducted by additional ED providers. PHYSICAL EXAMINATION: GENERAL: Well-appearing, well-nourished and in no acute distress. A&Ox4. Answers questions appropriately. Abdomen: In exam in triage, there is left CVA tenderness noted. - Related Data Allergies/Adverse Reactions: alprazolam [From Xanax] Allergy (Severe, Verified 08/28/19 00:19) Aggression asenapine maleate [From Saphris] Allergy (Severe, Verified 08/28/19 00:19) Blackout clonazepam [From Klonopin] Allergy (Severe, Verified 08/28/19 00:19) Seizure meperidine HCl [From Demerol] Allergy (Severe, Verified 08/28/19 00:19) Seizure brompheniramine maleate [From Dimetapp] Allergy (Mild, Verified 08/28/19 00:19) Hives dextromethorphan HBr [From Dimetapp] Allergy (Mild, Verified 08/28/19 00:19) Hives phenylpropanolamine HCl [From Dimetapp] Allergy (Mild, Verified 08/28/19 00:19) Hives pseudoephedrine HCl [From Dimetapp] Allergy (Mild, Verified 08/28/19 00:19) Hives triprolidine HCl [From Actifed] Allergy (Mild, Verified 08/28/19 00:19) Hives amoxicillin [Amoxicillin] Allergy (Unknown, Verified 08/28/19 00:19) doxepin [Doxepin] Allergy (Unknown, Verified 08/28/19 00:19) doxycycline [Doxycycline] Allergy (Unknown, Verified 08/28/19 00:19) erythromycin base [Erythromycin Base] Allergy (Unknown, Verified 08/28/19 00:19) indomethacin [Indomethacin] Allergy (Unknown, Verified 08/28/19 00:19) modafinil [From Provigil] Allergy (Unknown, Verified 08/28/19 00:19) quetiapine fumarate [From Seroquel] Allergy (Unknown, Verified 08/28/19 00:19) tramadol [Tramadol] Allergy (Unknown, Verified 08/28/19 00:19) triazolam [Triazolam] Allergy (Unknown, Verified 08/28/19 00:19) zonisamide [From Zonegran] Allergy (Unknown, Verified 08/28/19 00:19) cefdinir [Cefdinir] Allergy (Verified 08/28/19 00:19) haloperidol [From Haldol] Allergy (Verified 08/28/19 00:19) paliperidone [From Invega] Allergy (Verified 08/28/19 00:19) phenobarbital Allergy (Verified 08/28/19 00:19) primidone Allergy (Verified 08/28/19 00:19) pseudoephedrine [From Sudafed] Allergy (Verified 08/28/19 00:19) levetiracetam [From Keppra] Adverse Reaction (Verified 08/28/19 00:19) phenytoin [From Dilantin] Adverse Reaction (Verified 08/28/19 00:19) palprex Allergy (Unknown, Uncoded 02/26/19 14:25) zicam Allergy (Unknown, Uncoded 02/26/19 14:25) all vitamins Allergy (Uncoded 02/26/19 14:25) Seizures Past Medical History - Past Medical History Cardiac Medical History: Reports: Hx Hypertension - History of Denies: Hx Congestive Heart Failure, Hx Coronary Artery Disease, Hx DVT, Hx Heart Attack, Hx Hypercholesterolemia, Hx Pulmonary Embolism Pulmonary Medical History: Denies: Hx Asthma, Hx Bronchitis, Hx COPD, Hx Pneumonia Neurological Medical History: Reports: Hx Seizures - epilepsy. Denies: Hx Cerebrovascular Accident Endocrine Medical History: Denies: Hx Diabetes Mellitus Type 1, Hx Diabetes Mellitus Type 2, Hx Hyperthyroidism, Hx Hypothyroidism Renal/ Medical History: Reports: Hx Kidney Stones. Denies: Hx Peritoneal Dialysis GI Medical History: Denies: Hx Cirrhosis, Hx Gastroesophageal Reflux Disease, Hx Hepatitis Musculoskeltal Medical History: Reports Hx Arthritis Skin Medical History: Denies Hx Eczema, Denies Hx Psoriasis Psychiatric Medical History: Reports: Hx Anxiety, Hx Bipolar Disorder, Hx Depression, Hx Schizophrenia Infectious Medical History: Denies: Hx Hepatitis Past Surgical History: Reports: Hx Appendectomy, Hx Cholecystectomy, Hx Gynecolo gic Surgery - Right oophorectomy; Left ovarian cyst, Hx Kidney (Renal Surgery) - lithotripsy, Hx Oral Surgery, Hx Urinary Tract Surgery - stent - Immunizations Hx Diphtheria, Pertussis, Tetanus Vaccination: Yes Physical Exam - Vital signs Vitals: Temp Pulse Resp BP Pulse Ox 97.7 F 93 18 109/76 97 11/10/19 13:28 11/10/19 13:28 11/10/19 13:28 11/10/19 13:28 11/10/19 13:28 Course - Vital Signs Vital signs: Temp Pulse Resp BP Pulse Ox 97.7 F 93 18 109/76 97 11/10/19 13:28 11/10/19 13:28 11/10/19 13:28 11/10/19 13:28 11/10/19 13:28 Doctor's Discharge - Discharge Referrals: MENDEZ ACOSTA PA-C [Primary Care Provider] - Follow up as needed
[2019-11-10] MEDS ORDERED: NORMAL SALINE 1000 ML 1,000 ML IV ONE (13:36)
--- NOTE | 2019-11-10 14:17 | ER Document Report ---
ED GI/ - General Chief Complaint: Flank Pain Stated Complaint: ABDOMINAL PAIN Time Seen by Provider: 11/10/19 13:32 Primary Care Provider: MELLISA COOPER MD [ACTIVE STAFF] - Follow up in 1 week (for BUTTERMILK DRIER OPERATOR follow up for your ESSURE) MENDEZ ACOSTA PA-C [Primary Care Provider] - Follow up in 1 week TRAVEL OUTSIDE OF THE [place] IN LAST 30 DAYS: No - HPI Notes: 33-year-old female to the emergency department with complaints of left flank pain and nausea that began 2 days ago. She states that she has a history of kidney stones and is concerned that maybe she has has them again. She denies any fevers or chills. She denies any blood in her urine. She denies any dysuria or urinary frequency. - Related Data Allergies/Adverse Reactions: alprazolam [From Xanax] Allergy (Severe, Verified 08/28/19 00:19) Aggression asenapine maleate [From Saphris] Allergy (Severe, Verified 08/28/19 00:19) Blackout clonazepam [From Klonopin] Allergy (Severe, Verified 08/28/19 00:19) Seizure meperidine HCl [From Demerol] Allergy (Severe, Verified 08/28/19 00:19) Seizure brompheniramine maleate [From Dimetapp] Allergy (Mild, Verified 08/28/19 00:19) Hives dextromethorphan HBr [From Dimetapp] Allergy (Mild, Verified 08/28/19 00:19) Hives phenylpropanolamine HCl [From Dimetapp] Allergy (Mild, Verified 08/28/19 00:19) Hives pseudoephedrine HCl [From Dimetapp] Allergy (Mild, Verified 08/28/19 00:19) Hives triprolidine HCl [From Actifed] Allergy (Mild, Verified 08/28/19 00:19) Hives amoxicillin [Amoxicillin] Allergy (Unknown, Verified 08/28/19 00:19) doxepin [Doxepin] Allergy (Unknown, Verified 08/28/19 00:19) doxycycline [Doxycycline] Allergy (Unknown, Verified 08/28/19 00:19) erythromycin base [Erythromycin Base] Allergy (Unknown, Verified 08/28/19 00:19) indomethacin [Indomethacin] Allergy (Unknown, Verified 08/28/19 00:19) modafinil [From Provigil] Allergy (Unknown, Verified 08/28/19 00:19) quetiapine fumarate [From Seroquel] Allergy (Unknown, Verified 08/28/19 00:19) tramadol [Tramadol] Allergy (Unknown, Verified 08/28/19 00:19) triazolam [Triazolam] Allergy (Unknown, Verified 08/28/19 00:19) zonisamide [From Zonegran] Allergy (Unknown, Verified 08/28/19 00:19) cefdinir [Cefdinir] Allergy (Verified 08/28/19 00:19) haloperidol [From Haldol] Allergy (Verified 08/28/19 00:19) paliperidone [From Invega] Allergy (Verified 08/28/19 00:19) phenobarbital Allergy (Verified 08/28/19 00:19) primidone Allergy (Verified 08/28/19 00:19) pseudoephedrine [From Sudafed] Allergy (Verified 08/28/19 00:19) levetiracetam [From Keppra] Adverse Reaction (Verified 08/28/19 00:19) phenytoin [From Dilantin] Adverse Reaction (Verified 08/28/19 00:19) palprex Allergy (Unknown, Uncoded 02/26/19 14:25) zicam Allergy (Unknown, Uncoded 02/26/19 14:25) all vitamins Allergy (Uncoded 02/26/19 14:25) Seizures Home Medications: Diazepam, Trazadone, Lamictal, Synthroid Past Medical History - General Information source: Patient - Social History Smoking Status: Former Smoker Frequency of alcohol use: None Drug Abuse: None Family History: Reviewed & Not Pertinent, Arthritis, CAD, Malignancy, Thyroid Disfunction, Other - Ovarian cancer in mother, asthma Patient has suicidal ideation: No Patient has homicidal ideation: No - Past Medical History Cardiac Medical History: Reports: Hx Hypertension - History of Denies: Hx Congestive Heart Failure, Hx Coronary Artery Disease, Hx DVT, Hx Heart Attack, Hx Hypercholesterolemia, Hx Pulmonary Embolism Pulmonary Medical History: Denies: Hx Asthma, Hx Bronchitis, Hx COPD, Hx Pneumonia Neurological Medical History: Reports: Hx Seizures - epilepsy. Denies: Hx Cerebrovascular Accident Endocrine Medical History: Denies: Hx Diabetes Mellitus Type 1, Hx Diabetes Mellitus Type 2, Hx Hyperthyroidism, Hx Hypothyroidism Renal/ Medical History: Reports: Hx Kidney Stones. Denies: Hx Peritoneal Dialysis GI Medical History: Denies: Hx Cirrhosis, Hx Gastroesophageal Reflux Disease, Hx Hepatitis Musculoskeletal Medical History: Reports Hx Arthritis Skin Medical History: Denies Hx Eczema, Denies Hx Psoriasis Psychiatric Medical History: Reports: Hx Anxiety, Hx Bipolar Disorder, Hx Depression, Hx Schizophrenia Infectious Medical History: Denies: Hx Hepatitis Past Surgical History: Reports: Hx Appendectomy, Hx Cholecystectomy, Hx Gynecologic Surgery - Right oophorectomy; Left ovarian cyst, Hx Kidney (Renal S urgery) - lithotripsy, Hx Oral Surgery, Hx Urinary Tract Surgery - stent - Immunizations Hx Diphtheria, Pertussis, Tetanus Vaccination: Yes Review of Systems - Review of Systems Constitutional: denies: Chills, Fever EENT: No symptoms reported Cardiovascular: denies: Chest pain, Palpitations, Dyspnea, Syncope Respiratory: denies: Cough, Short of breath Gastrointestinal: Abdominal pain, Nausea. denies: Diarrhea, Vomiting Genitourinary: Flank pain Female Genitourinary: No symptoms reported Musculoskeletal: No symptoms reported Skin: No symptoms reported Hematologic/Lymphatic: No symptoms reported Neurological/Psychological: No symptoms reported -: Yes All other systems reviewed and negative Physical Exam - Vital signs Vitals: Temp Pulse Resp BP Pulse Ox 97.7 F 93 18 109/76 97 11/10/19 13:28 11/10/19 13:28 11/10/19 13:28 11/10/19 13:28 11/10/19 13:28 Interpretation: Normal - General General appearance: Appears well, Alert - HEENT Head: Normocephalic, Atraumatic Eyes: Normal Pupils: PERRL - Respiratory Respiratory status: No respiratory distress Chest status: Nontender Breath sounds: Normal Chest palpation: Normal - Cardiovascular Rhythm: Regular Heart sounds: Normal auscultation Murmur: No - Abdominal Inspection: Obese Distension: No distension Bowel sounds: Normal Tenderness: No: Tender, McBurney's point, Graham's sign, Guarding, Rebound Organomegaly: No organomegaly - Back Back: CVA tenderness - mild left sided CVAT - Neurological Neuro grossly intact: Yes Cognition: Normal Orientation: AAOx4 Shawn Coma Scale Eye Opening: Spontaneous [place] Coma Scale Verbal: Oriented [place] Coma Scale Motor: Obeys Commands [place] Coma Scale Total: 15 Speech: Normal Cranial nerves: Normal Cerebellar coordination: Normal Motor strength normal: LUE, RUE, LLE, RLE Additional motor exam normals: Equal program admin Sensory: Normal - Psychological Associated symptoms: Normal mood, Flat affect - Skin Skin Temperature: Warm Skin Moisture: Dry Skin Color: Normal Course - Re-evaluation Re-evalutation: Noted Essure that appears to be dislodged on CT. Patient does not have pelvic pain or any vaginal bleeding. She has this Essure place din 2004 -- it apparently was checked last year and was fine. I did call and speak with Dr. Cooper, BUTTERMILK DRIER OPERATOR test preparation tutor, about it and he does not think that this is creating her flank pain. However, he states the patient can follow in the office for further evaluation of Essure. Discussed results with patient. Noted CT reading that does not show acute ureteral stone. No other acute findings. Patient's pain has been controlled and she is feeling much better. Will discharge home. PCP follow up as well as BUTTERMILK DRIER OPERATOR for further management of Essure. Patient and mom agree with the plan. - Vital Signs Vital signs: Temp Pulse Resp BP Pulse Ox 98.0 F 84 16 116/74 96 11/10/19 17:02 11/10/19 17:02 11/10/19 17:02 11/10/19 17:02 11/10/19 17:02 - Laboratory Result Diagrams: 11/10/19 14:50 11/10/19 14:50 Laboratory results interpreted by me: 11/10/19 11/10/19 11/10/19 13:57 14:50 14:50 RBC 3.62 L Hgb 11.3 L Hct 32.4 L [place] % (Auto) 13.3 H Sodium 136.5 L Est GFR (MDRD) Non-Af 52 L Urine Protein 30 H - Diagnostic Test Radiology reviewed: Image reviewed, Reports reviewed Discharge - Discharge Clinical Impression: Left flank pain, Nephrolithiasis Condition: Stable Disposition: HOME, SELF-CARE Instructions: Flank Pain ([facility]) Additional Instructions: Take medicines as prescribed. Push fluids. Avoid caffeinated beverages. Follow-up with your primary care physician about your flank pain. Your E sure device looked dislodged on CT today. Spoke with Dr. Cooper, BR[employer] M[employer]DER [employer], and they would like for you to follow in the office. Please call the office and get an appointment. Return if any worsening symptoms. Prescriptions: Ondansetron [Zofran Odt 4 mg Tablet] 1 - 2 tab PO Q4HP PRN #10 tab.rapdis PRN Reason: Ibuprofen [Motrin 800 mg Tablet] 800 mg PO Q8H PRN #30 tab PRN Reason: Oxycodone HCl/Acetaminophen [Percocet 5-325 mg Tablet] 1 tab PO Q6H PRN #9 tablet PRN Reason: Referrals: MENDEZ ACOSTA PA-C [Primary Care Provider] - Follow up in 1 week MELLISA COOPER MD [ACTIVE STAFF] - Follow up in 1 week (for BUTTERMILK DRIER OPERATOR follow up for your ESSURE)
[2019-11-10 14:26] LABS: AMORPHOUS SEDIMENT,URINE TRACE /HPF; APPEARANCE,URINE CLOUDY; BILIRUBIN,URINE NEGATIVE (NEGATIVE); COLOR,URINE YELLOW; GLUCOSE, URINE NEGATIVE (NEGATIVE); KETONES,URINE NEGATIVE (NEGATIVE); PROTEIN,URINE 30 mg/dL (NEGATIVE); URINE SPECIFIC GRAVITY 1.016; UROBILINOGEN,URINE NEGATIVE mg/dL (<2.0)
[2019-11-10] MEDS ORDERED: ONDANSETRON HCL INJ/PF 4 MG/2 ML SDV IV ONE (14:29)
[2019-11-10] MEDS ORDERED: MORPHINE SULFATE 10 MG/ML INJ IV ONE ×2 (14:29→15:56)
--- NOTE | 2019-11-10 15:02 | RADIOLOGY REPORT (SQ) ---
EXAM DESCRIPTION: CT ABD/PELVIS NO ORAL OR IV COMPLETED DATE/TIME: 11/10/2019 2:25 pm REASON FOR STUDY: left flank pain COMPARISON: None. TECHNIQUE: CT scan of the abdomen and pelvis performed without intravenous or oral contrast. Images reviewed with lung, soft tissue, and bone windows. Reconstructed coronal and sagittal MPR images revi ewed. All images stored on PACS. All CT scanners at this facility use dose modulation, iterative reconstruction, and/or weight based d osing when appropriate to reduce radiation dose to as low as reasonably achievable (ALARA). [facility]: Dose Right [facility]: CareDose [facility]: Dose Right [facility]: Teradose 4D [facility]: Smart Continuity Control RADIATION DOSE: CT Rad equipment meets quality standard of care and radiation dose reduction techniq ues were employed. CTDIvol: 15.0 mGy. DLP: 844 mGy-cm.mGy. LIMITATIONS: None. FINDINGS: LOWER CHEST: No significant findings. No nodules or infiltrates. NON-CONTRASTED LIVER, SPLEEN, ADRENALS: Evaluation limited by lack of IV contrast. No identified sign ificant masses. PANCREAS: No masses. No peripancreatic inflammatory changes. GALLBLADDER: No identified stones by CT criteria. No inflammatory changes to suggest cholecystitis. RIGHT KIDNEY AND URETER: No suspicious masses. Assessment limited by lack of IV contrast. Tiny richie pheral nonobstructive calculi No hydronephrosis or hydroureter. LEFT KIDNEY AND URETER: No suspicious masses. Assessment limited by lack of IV contrast. Tiny perip heral nonobstructive calculi Send No hydronephrosis or hydroureter. AORTA AND RETROPERITONEUM: No aneurysm. No retroperitoneal masses or adenopathy. BOWEL AND PERITONEAL CAVITY: No obvious masses or inflammatory changes. No free fluid. APPENDIX: Normal. PELVIS, BLADDER, AND ABDOMINAL WALL:There 2 Essure devices present. 1 appears to be dislodged. Both the on the left side. BONES: No significant findings. OTHER: No other significant finding. IMPRESSION: 2 Essure devices present on the left side. Posterior device appears to be dislodged fro m the fallopian tube. No other significant finding. COMMENT: Quality ID # [id number]: Final reports with documentation of one or more dose reduction techniques (e.g., Automated exposure control, adjustment of the mA and/or kV according to patient size, use of iterative reconstruction technique) TECHNICAL DOCUMENTATION: JOB ID: [id number] 2010 [employer]- All Rights Reserved Reading location - IP/workstation name: [email or web address]
[2019-11-10 15:14] LABS: ABSOLUTE EOSINOPHILS # (AUTO) 0.1 10^3/uL (0.0-0.6); ABSOLUTE MONOCYTES (AUTO) 0.8 10^3/uL (0.1-1.4); ABSOLUTE NEUT (AUTO) 3.8 10^3/uL (1.7-8.2); BASOPHILS % (AUTO) 0.7 % (0-2); HEMATOCRIT 32.4 % (36.0-47.0); HEMOGLOBIN 11.3 g/dL (12.0-15.5); LYMPHOCYTES % (AUTO) 16.9 % (13-45); MEAN CORPUSCULAR HEMOGLOBIN 31.1 pg (27.0-33.4); MEAN CORPUSCULAR HGB CONC 34.7 g/dL (32.0-36.0); MEAN CORPUSCULAR VOLUME 90 fl (80-97); MONOCYTES % (AUTO) 13.3 % (3-13); PLATELET COUNT 161 10^3/uL (150-450); RED BLOOD COUNT 3.62 10^6/uL (3.72-5.28); RED CELL DISTRIBUTION WIDTH 13.6 % (11.5-14.0); SEGMENTED NEUTROPHILS % (AUTO) 67.1 % (42-78); TOTAL CELLS COUNTED % (AUTO) 100 %; WHITE BLOOD COUNT 5.7 10^3/uL (4.0-10.5)
[2019-11-10 15:40] LABS: ALBUMIN 3.9 g/dL (3.5-5.0); ALKALINE PHOSPHATASE 117 U/L (38-126); ANION GAP 12 (5-19); ASPARTATE AMINO TRANSFERASE 33 U/L (14-36); BILIRUBIN,DIRECT 0.4 mg/dL (0.0-0.4); BILIRUBIN,TOTAL 0.5 mg/dL (0.2-1.3); BLOOD UREA NITROGEN 13 mg/dL (7-20); CALCIUM 9.8 mg/dL (8.4-10.2); CARBON DIOXIDE 23 mmol/L (22-30); CHLORIDE 102 mmol/L (98-107); GLUCOSE 87 mg/dL (75-110); POTASSIUM 4.6 mmol/L (3.6-5.0); TOTAL PROTEIN 7.4 g/dL (6.3-8.2)
[2019-11-10 17:03] VITALS: BP 116/74
== END 2019-11-10 17:02 | disposition home or self-care (01) ==
LOC: ER 13:10
DX: N20.0 Calculus of kidney (principal); R10.9 Unspecified abdominal pain; R11.0 Nausea; I10 Essential (primary) hypertension; G40.909 Epilepsy, unspecified, not intractable, without status epilepticus; F41.9 Anxiety disorder, unspecified; F32.9 Major depressive disorder, single episode, unspecified; Z79.899 Other long term (current) drug therapy; Z88.8 Allergy status to other drugs, medicaments and biological substances; Z88.6 Allergy status to analgesic agent; Z88.5 Allergy status to narcotic agent; Z88.0 Allergy status to penicillin; Z88.1 Allergy status to other antibiotic agents
CPT/HCPCS: 96376; 99284; 96361; 96374; 96375; 36415; 83690; 85025; 81025; 80053; 81001; 74176; J2270; J2405; J7030

== ENCOUNTER 2019-12-19 15:44 | Emergency (ER) | payer MEDICARE, MEDICAID ==
[2019-12-19] MEDS ORDERED: KETOROLAC TROMETHAMINE 60 MG/2 ML SDV IM ONE (16:53)
[2019-12-19] MEDS ORDERED: ONDANSETRON 4 MG TAB.RAPDIS PO ONE (16:53)
--- NOTE | 2019-12-19 16:53 | ER Document Report ---
ED Medical Screen (RME) - General Chief Complaint: Flank Pain Stated Complaint: FLANK PAIN Time Seen by Provider: 12/19/19 16:52 Primary Care Provider: MENDEZ ACOSTA PA-C [Primary Care Provider] - Follow up as needed Mode of Arrival: Ambulatory Information source: Patient Notes: 34-year-old female presented to ED for complaint of left flank pain since manager supplier. She states she has had many stones in the past. She states last time was about 2 months ago. She states she has had a lot of pain and nausea. She is on her menstrual cycle at this time. Past medical history includes gallbladder ovarian cyst removal seizures fractured ankle with surgery. She is alert oriented respirations regular nonlabored speaking in full sentences. She states her last CAT scan was about 2 months ago. We will get blood urine ultrasound and give her an injection of Toradol and Zofran. I have greeted and performed a rapid initial assessment of this patient. A com prehensive ED assessment and evaluation of the patient, analysis of test results and completion of medical decision making process will be conducted by an additional ED providers. TRAVEL OUTSIDE OF THE [place] IN LAST 30 DAYS: No - Related Data Allergies/Adverse Reactions: alprazolam [From Xanax] Allergy (Severe, Verified 12/19/19 16:40) Aggression asenapine maleate [From Saphris] Allergy (Severe, Verified 12/19/19 16:40) Blackout clonazepam [From Klonopin] Allergy (Severe, Verified 12/19/19 16:40) Seizure meperidine HCl [From Demerol] Allergy (Severe, Verified 12/19/19 16:40) Seizure brompheniramine maleate [From Dimetapp] Allergy (Mild, Verified 12/19/19 16:40) Hives dextromethorphan HBr [From Dimetapp] Allergy (Mild, Verified 12/19/19 16:40) Hives phenylpropanolamine HCl [From Dimetapp] Allergy (Mild, Verified 12/19/19 16:40) Hives pseudoephedrine HCl [From Dimetapp] Allergy (Mild, Verified 12/19/19 16:40) Hives triprolidine HCl [From Actifed] Allergy (Mild, Verified 12/19/19 16:40) Hives amoxicillin [Amoxicillin] Allergy (Unknown, Verified 12/19/19 16:40) doxepin [Doxepin] Allergy (Unknown, Verified 12/19/19 16:40) doxycycline [Doxycycline] Allergy (Unknown, Verified 12/19/19 16:40) erythromycin base [Erythromycin Base] Allergy (Unknown, Verified 12/19/19 16:40) indomethacin [Indomethacin] Allergy (Unknown, Verified 12/19/19 16:40) modafinil [From Provigil] Allergy (Unknown, Verified 12/19/19 16:40) quetiapine fumarate [From Seroquel] Allergy (Unknown, Verified 12/19/19 16:40) tramadol [Tramadol] Allergy (Unknown, Verified 12/19/19 16:40) triazolam [Triazolam] Allergy (Unknown, Verified 12/19/19 16:40) zonisamide [From Zonegran] Allergy (Unknown, Verified 12/19/19 16:40) cefdinir [Cefdinir] Allergy (Verified 12/19/19 16:40) haloperidol [From Haldol] Allergy (Verified 12/19/19 16:40) paliperidone [From Invega] Allergy (Verified 12/19/19 16:40) phenobarbital Allergy (Verified 12/19/19 16:40) primidone Allergy (Verified 12/19/19 16:40) pseudoephedrine [From Sudafed] Allergy (Verified 12/19/19 16:40) levetiracetam [From Keppra] Adverse Reaction (Verified 12/19/19 16:40) phenytoin [From Dilantin] Adverse Reaction (Verified 12/19/19 16:40) palprex Allergy (Unknown, Uncoded 12/19/19 16:40) zicam Allergy (Unknown, Uncoded 12/19/19 16:40) all vitamins Allergy (Uncoded 12/19/19 16:40) Seizures Past Medical History - Social History Chew tobacco use (# tins/day): No Frequency of alcohol use: Rare Drug Abuse: None - Past Medical History Cardiac Medical History: Reports: Hx Hypertension - History of Denies: Hx Congestive Heart Failure, Hx Coronary Artery Disease, Hx DVT, Hx Heart Attack, Hx Hypercholesterolemia, Hx Pulmonary Embolism Pulmonary Medical History: Denies: Hx Asthma, Hx Bronchitis, Hx COPD, Hx Pneumonia Neurological Medical History: Reports: Hx Seizures - epilepsy. Denies: Hx Cerebrovascular Accident Endocrine Medical History: Denies: Hx Diabetes Mellitus Type 1, Hx Diabetes Mellitus Type 2, Hx Hyperthyroidism, Hx Hypothyroidism Renal/ Medical History: Reports: Hx Kidney Stones. Denies: Hx Peritoneal Dialysis GI Medical History: Denies: Hx Cirrhosis, Hx Gastroesophageal Reflux Disease, Hx Hepatitis Musculoskeltal Medical History: Reports Hx Arthritis Skin Medical History: Denies Hx Eczema, Denies Hx Psoriasis Psychiatric Medical History: Reports: Hx Anxiety, Hx Bipolar Disorder, Hx Depression, Hx Schizophrenia Infectious Medical History: Denies: Hx Hepatitis Past Surgical History: Reports: Hx Appendectomy, Hx Cholecystectomy, Hx Gynecologic Surgery - Right oophorectomy; Left ovarian cyst, Hx Kidney (Renal Surgery) - lithotripsy, Hx Oral Surgery, Hx Urinary Tract Surgery - stent - Immunizations Hx Diphtheria, Pertussis, Tetanus Vaccination: Yes Physical Exam - Vital signs Vitals: Temp Pulse Resp BP Pulse Ox 98.1 F 93 18 150/93 H 94 12/19/19 15:48 12/19/19 15:48 12/19/19 15:48 12/19/19 15:48 12/19/19 15:48 Course - Vital Signs Vital signs: Temp Pulse Resp BP Pulse Ox 98.1 F 93 18 150/93 H 94 12/19/19 15:48 12/19/19 15:48 12/19/19 15:48 12/19/19 15:48 12/19/19 15:48 Doctor's Discharge - Discharge Referrals: MENDEZ ACOSTA PA-C [Primary Care Provider] - Follow up as needed
--- NOTE | 2019-12-19 17:30 | RADIOLOGY REPORT (SQ) ---
EXAM DESCRIPTION: U/S RETROPERITON (RENAL/AORTA) IMAGES COMPLETED DATE/TIME: 12/19/2019 5:20 pm REASON FOR STUDY: left flank pain COMPARISON: 08/14/2018 TECHNIQUE: Dynamic and static grayscale images acquired of the kidneys and bladder and recorded on P ACS. Additional selected color Doppler and spectral images recorded. LIMITATIONS: None. FINDINGS: RIGHT KIDNEY: The right kidney measures 9.8 x 3.6 x 3.4 cm, normal size. Diffuse mild in creased echotexture to the kidney may be on the basis of underlying medical renal disease. Mild natividad ical thinning suggested. No hydronephrosis. No calcifications. LEFT KIDNEY: The left kidney measures 10.1 x 5.1 x 5.4 cm, normal size. Diffuse mild increased echo genicity may be related to underlying medical renal disease. Mild cortical thinning. Question of a 7 x 5 x 4 mm nonobstructing calculus in the midpole of the kidney. BLADDER: The urinary bladder is decompressed. The patient emptied the bladder prior to the examinat ion. OTHER FINDINGS: No other significant finding. IMPRESSION: 1. Mild diffuse increased echogenicity of the kidneys, may be on the basis of underlyin g medical renal disease. 2. Nonobstructing calculus is suggested in the left kidney. TECHNICAL DOCUMENTATION: JOB ID: [id number] 2010 [employer]- All Rights Reserved Reading location - IP/workstation name: [email or web address]
[2019-12-19 17:48] LABS: APPEARANCE,URINE SLIGHTLY-CLOUDY; BILIRUBIN,URINE NEGATIVE (NEGATIVE); CALCIUM OXALATE CRYSTALS,URINE TOO NUMEROUS TO CNT /HPF; COLOR,URINE YELLOW; GLUCOSE, URINE NEGATIVE (NEGATIVE); KETONES,URINE NEGATIVE (NEGATIVE); PROTEIN,URINE NEGATIVE (NEGATIVE); URINE SPECIFIC GRAVITY 1.023; UROBILINOGEN,URINE NEGATIVE mg/dL (<2.0)
[2019-12-19 18:31] LABS: ABSOLUTE BASOPHILS # (AUTO) 0.1 10^3/uL (0.0-0.2); ABSOLUTE EOSINOPHILS # (AUTO) 0.1 10^3/uL (0.0-0.6); ABSOLUTE LYMPHOCYTES (AUTO) 1.4 10^3/uL (0.5-4.7); ABSOLUTE MONOCYTES (AUTO) 1.4 10^3/uL (0.1-1.4); ABSOLUTE NEUT (AUTO) 7.2 10^3/uL (1.7-8.2); BASOPHILS % (AUTO) 0.8 % (0-2); EOSINOPHILS % (AUTO) 1.3 % (0-6); HEMATOCRIT 39.9 % (36.0-47.0); HEMOGLOBIN 13.6 g/dL (12.0-15.5); LYMPHOCYTES % (AUTO) 13.6 % (13-45); MEAN CORPUSCULAR HEMOGLOBIN 29.9 pg (27.0-33.4); MEAN CORPUSCULAR HGB CONC 34.1 g/dL (32.0-36.0); MEAN CORPUSCULAR VOLUME 88 fl (80-97); MONOCYTES % (AUTO) 13.8 % (3-13); PLATELET COUNT 421 10^3/uL (150-450); RED BLOOD COUNT 4.54 10^6/uL (3.72-5.28); RED CELL DISTRIBUTION WIDTH 13.7 % (11.5-14.0); SEGMENTED NEUTROPHILS % (AUTO) 70.5 % (42-78); TOTAL CELLS COUNTED % (AUTO) 100 %; WHITE BLOOD COUNT 10.2 10^3/uL (4.0-10.5)
[2019-12-19 18:35] LABS: ALBUMIN 3.8 g/dL (3.5-5.0); ALKALINE PHOSPHATASE 102 U/L (38-126); ANION GAP 8 (5-19); ASPARTATE AMINO TRANSFERASE 26 U/L (14-36); BILIRUBIN,TOTAL 0.3 mg/dL (0.2-1.3); BLOOD UREA NITROGEN 20 mg/dL (7-20); CALCIUM 9.6 mg/dL (8.4-10.2); CARBON DIOXIDE 25 mmol/L (22-30); CHLORIDE 103 mmol/L (98-107); GLUCOSE 97 mg/dL (75-110); POTASSIUM 4.2 mmol/L (3.6-5.0); TOTAL PROTEIN 6.9 g/dL (6.3-8.2)
--- NOTE | 2019-12-19 19:27 | ER Document Report ---
ED General - General Chief Complaint: Flank Pain Stated Complaint: FLANK PAIN Time Seen by Provider: 12/19/19 16:52 Primary Care Provider: MENDEZ ACOSTA PA-C [ALLIED HEALTH PROFESSIONAL] - Follow up as needed Mode of Arrival: Ambulatory TRAVEL OUTSIDE OF THE [place] IN LAST 30 DAYS: No - HPI Notes: Chief complaint: Left flank pain 34-year-old female with complicated medical history including recurrent episodes of renal calculi and some chronic flank and pelvic pain possibly related to an E sure device in her left fallopian tube. Patient also has a seizure disorder and reports multiple allergies to a large number of medications. Also has a history of bipolar disorder. She is evaluated here back in October and not found to have a renal stone then. She has had ongoing pain which is intermittent and she says it is a little worse today. She is been nauseated and has not vomited today. She denies fever or chills. Denies dysuria. - Related Data Allergies/Adverse Reactions: alprazolam [From Xanax] Allergy (Severe, Verified 12/19/19 16:40) Aggression asenapine maleate [From Saphris] Allergy (Severe, Verified 12/19/19 16:40) Blackout clonazepam [From Klonopin] Allergy (Severe, Verified 12/19/19 16:40) Seizure meperidine HCl [From Demerol] Allergy (Severe, Verified 12/19/19 16:40) Seizure brompheniramine maleate [From Dimetapp] Allergy (Mild, Verified 12/19/19 16:40) Hives dextromethorphan HBr [From Dimetapp] Allergy (Mild, Verified 12/19/19 16:40) Hives phenylpropanolamine HCl [From Dimetapp] Allergy (Mild, Verified 12/19/19 16:40) Hives pseudoephedrine HCl [From Dimetapp] Allergy (Mild, Verified 12/19/19 16:40) Hives triprolidine HCl [From Actifed] Allergy (Mild, Verified 12/19/19 16:40) Hives amoxicillin [Amoxicillin] Allergy (Unknown, Verified 12/19/19 16:40) doxepin [Doxepin] Allergy (Unknown, Verified 12/19/19 16:40) doxycycline [Doxycycline] Allergy (Unknown, Verified 12/19/19 16:40) erythromycin base [Erythromycin Base] Allergy (Unknown, Verified 12/19/19 16:40) indomethacin [Indomethacin] Allergy (Unknown, Verified 12/19/19 16:40) modafinil [From Provigil] Allergy (Unknown, Verified 12/19/19 16:40) quetiapine fumarate [From Seroquel] Allergy (Unknown, Verified 12/19/19 16:40) tramadol [Tramadol] Allergy (Unknown, Verified 12/19/19 16:40) triazolam [Triazolam] Allergy (Unknown, Verified 12/19/19 16:40) zonisamide [From Zonegran] Allergy (Unknown, Verified 12/19/19 16:40) cefdinir [Cefdinir] Allergy (Verified 12/19/19 16:40) haloperidol [From Haldol] Allergy (Verified 12/19/19 16:40) paliperidone [From Invega] Allergy (Verified 12/19/19 16:40) phenobarbital Allergy (Verified 12/19/19 16:40) primidone Allergy (Verified 12/19/19 16:40) pseudoephedrine [From Sudafed] Allergy (Verified 12/19/19 16:40) levetiracetam [From Keppra] Adverse Reaction (Verified 12/19/19 16:40) phenytoin [From Dilantin] Adverse Reaction (Verified 12/19/19 16:40) palprex Allergy (Unknown, Uncoded 12/19/19 16:40) zicam Allergy (Unknown, Uncoded 12/19/19 16:40) all vitamins Allergy (Uncoded 12/19/19 16:40) Seizures Past Medical History - General Information source: Patient - Social History Smoking Status: Former Smoker Chew tobacco use (# tins/day): No Frequency of alcohol use: Rare Drug Abuse: None Family History: Reviewed & Not Pertinent, Arthritis, CAD, Malignancy, Thyroid Disfunction, Other - Ovarian cancer in mother, asthma Patient has suicidal ideation: No Patient has homicidal ideation: No - Past Medical History Cardiac Medical History: Reports: Hx Hypertension - History of Denies: Hx Congestive Heart Failure, Hx Coronary Artery Disease, Hx DVT, Hx Heart Attack, Hx Hypercholesterolemia, Hx Pulmonary Embolism Pulmonary Medical History: Denies: Hx Asthma, Hx Bronchitis, Hx COPD, Hx Pneumonia Neurological Medical History: Reports: Hx Seizures - epilepsy. Denies: Hx Cerebrovascular Accident Endocrine Medical History: Denies: Hx Diabetes Mellitus Type 1, Hx Diabetes Mellitus Type 2, Hx Hyperthyroidism, Hx Hypothyroidism Renal/ Medical History: Reports: Hx Kidney Stones. Denies: Hx Peritoneal Dialysis GI Medical History: Denies: Hx Cirrhosis, Hx Gastroesophageal Reflux Disease, Hx Hepatitis Musculoskeletal Medical History: Reports Hx Arthritis Skin Medical History: Denies Hx Eczema, Denies Hx Psoriasis Psychiatric Medical History: Reports: Hx Anxiety, Hx Bipolar Disorder, Hx Depression, Hx Schizophrenia Infectious Medical History: Denies: Hx Hepatitis Past Surgical History: Reports: Hx Appendectomy, Hx Cholecystectomy, Hx Gynecologic Surgery - Right oophorectomy; Left ovarian cyst, Hx Kidney (Renal Surgery) - lithotripsy, Hx Oral Surgery, Hx Urinary Tract Surgery - stent - Immunizations Hx Diphtheria, Pertussis, Tetanus Vaccination: Yes Review of Systems - Review of Systems Notes: Constitutional: Negative for fever. HENT: Negative for sore throat. Eyes: Negative for visual changes. Cardiovascular: Negative for chest pain. Respiratory: Negative for shortness of breath. Gastrointestinal: As per HPI. Genitourinary: As per HPI. Musculoskeletal: As per HPI. Skin: Negative for rash. Neurological: Negative for headaches, weakness or numbness. 10 point ROS negative except as marked above and in HPI. Physical Exam - Vital signs Vitals: Temp Pulse Resp BP Pulse Ox 98.1 F 93 18 150/93 H 94 12/19/19 15:48 12/19/19 15:48 12/19/19 15:48 12/19/19 15:48 12/19/19 15:48 - Notes Notes: GENERAL: Well-developed well-nourished appearing in no acute distress. SKIN: Good turgor no rashes. HEAD: Normocephalic atraumatic. EYES: PERRLA. EOMI. Conjunctivae and sclerae clear. EARS: CANALS AND TMS CLEAR. NOSE: CLEAR. MOUTH: Moist mucosa. Good dentition. No stridor or edema. No drooling. NECK: Supple. No masses or thyromegaly. No adenopathy. Carotids 2+ without bruits. No JVD. BACK: Symmetrical without tenderness. CHEST: Respirations unlabored. Breath sounds clear and symmetrical. HEART: Regular rhythm. No murmur gallop or rub. ABDOMEN: Mildly obese. Soft nontender without masses, organomegaly or rebound. Bowel sounds normally active. No bruits. GENITALIA: Deferred. EXTREMITIES: No edema. No calf tenderness. Cap refill less than 1.5 seconds. Dorsalis pedis and posterior tibial pulses 3+ and symmetrical. NEUROLOGICAL: GCS 15. Alert and oriented x3. Normal gait. Fluent speech. Cranial nerves II through XII intact. Sensorimotor and cerebellar normal. Normal tone. PSYCHIATRIC: Extremely flat affect. Course - Re-evaluation Re-evalutation: 12/19/19 20:40 Patient was given some IM Toradol here and also some oral Percocet. I think her pain is probably related to her Esher device and I advised her follow-up with her [facility]. - Vital Signs Vital signs: Temp Pulse Resp BP Pulse Ox 98.1 F 93 18 150/93 H 94 12/19/19 15:48 12/19/19 15:48 12/19/19 15:48 12/19/19 15:48 12/19/19 15:48 - Laboratory Result Diagrams: 12/19/19 17:59 12/19/19 17:59 Laboratory results interpreted by me: 12/19/19 12/19/19 12/19/19 17:22 17:59 17:59 [place] % (Auto) 13.8 H Sodium 136.1 L Urine Blood MODERATE H Leukocyte Esterase Rfl TRACE H - Diagnostic Test Radiology reviewed: Reports reviewed - Noncontrast CT abdomen pelvis reviewed by radiologist demonstrating some bilateral renal calculi but there are no obstruc ting calculi present. Discharge - Discharge Clinical Impression: Left flank pain Condition: Stable Disposition: HOME, SELF-CARE Additional Instructions: Follow-up with your [facility] doctor. Prescriptions: Oxycodone HCl/Acetaminophen [Percocet 5-325 mg Tablet] 1 - 2 tab PO Q4H PRN #15 tablet PRN Reason: Referrals: MENDEZ ACOSTA PA-C [ALLIED HEALTH PROFESSIONAL] - Follow up as needed
--- NOTE | 2019-12-19 20:01 | RADIOLOGY REPORT (SQ) ---
EXAM DESCRIPTION: CT ABD/PELVIS NO ORAL OR IV IMAGES COMPLETED DATE/TIME: 12/19/2019 6:41 pm REASON FOR STUDY: left flank pain. Prior cholecystectomy. History of renal stones. COMPARISON: None. TECHNIQUE: CT scan of the abdomen and pelvis performed without intravenous or oral contrast. Images reviewed with lung, soft tissue, and bone windows. Reconstructed coronal and sagittal MPR images revi ewed. All images stored on PACS. All CT scanners at this facility use dose modulation, iterative reconstruction, and/or weight based d osing when appropriate to reduce radiation dose to as low as reasonably achievable (ALARA). [facility]: Dose Right [facility]: CareDose [facility]: Dose Right [facility]: Teradose 4D [facility]: KDS RADIATION DOSE: CT Rad equipment meets quality standard of care and radiation dose reduction techniq ues were employed. CTDIvol: 16.1 mGy. DLP: 890 mGy-cm.mGy. LIMITATIONS: None. FINDINGS: LOWER CHEST: No significant findings. No nodules or infiltrates. NON-CONTRASTED LIVER, SPLEEN, ADRENALS: Evaluation limited by lack of IV contrast. No identified sign ificant masses. PANCREAS: No masses. No peripancreatic inflammatory changes. GALLBLADDER: Surgically absent. RIGHT KIDNEY AND URETER: No suspicious masses. Assessment limited by lack of IV contrast. There are several nonobstructing right renal calculi. No obstructing renal or ureteral calculus. No hydrone phrosis or hydroureter. LEFT KIDNEY AND URETER: No suspicious masses. Assessment limited by lack of IV contrast. There are several nonobstructing left renal calculi. No obstructing renal or ureteral calculus. No hydroneph rosis or hydroureter. AORTA AND RETROPERITONEUM: No aneurysm. No retroperitoneal masses or adenopathy. BOWEL AND PERITONEAL CAVITY: No obvious masses or inflammatory changes. No free fluid. APPENDIX: Not visualized. PELVIS, BLADDER, AND ABDOMINAL WALL:Uterus and ovaries have normal size. No adnexal mass. Urinary b ladder is unremarkable. Calcified pelvic phleboliths. BONES: No significant findings. OTHER: No other significant finding. IMPRESSION: No acute abnormality in the abdomen or pelvis to explain the patient's pain. Bilateral nonobstructing renal calculi. No hydronephrosis. COMMENT: Quality ID # [id number]: Final reports with documentation of one or more dose reduction techniques (e.g., Automated exposure control, adjustment of the mA and/or kV according to patient size, use of iterative reconstruction technique) TECHNICAL DOCUMENTATION: JOB ID: [id number] 2010 [employer]- All Rights Reserved Reading location - IP/workstation name: [email or web address]
[2019-12-19] MEDS ORDERED: OXYCODONE-ACETAMINOPHEN 5-325 MG TABLET PO ONE (20:41)
[2019-12-19 21:05] VITALS: BP 133/93
== END 2019-12-19 21:06 | disposition home or self-care (01) ==
LOC: ER 15:44
DX: N20.0 Calculus of kidney (principal); R10.9 Unspecified abdominal pain; R11.0 Nausea; Z97.5 Presence of (intrauterine) contraceptive device; Z87.891 Personal history of nicotine dependence; Z90.49 Acquired absence of other specified parts of digestive tract; Z88.8 Allergy status to other drugs, medicaments and biological substances; Z88.6 Allergy status to analgesic agent; Z88.5 Allergy status to narcotic agent; Z88.0 Allergy status to penicillin; Z88.1 Allergy status to other antibiotic agents
CPT/HCPCS: 99284; 96372; 36415; 87086; 83690; 84703; 85025; 80053; 81001; 76770; 74176; J1885; A9270 ×2; S0119

== ENCOUNTER 2020-03-11 13:53 | Emergency (ER) | payer MEDICARE, MEDICAID ==
[2020-03-11 14:12] VITALS: BP 120/69
[2020-03-11] MEDS ORDERED: NORMAL SALINE 1000 ML 1,000 ML IV PRN (14:27)
[2020-03-11] MEDS ORDERED: KETOROLAC TROMETHAMINE 60 MG/2 ML SDV IV ONE (14:27)
--- NOTE | 2020-03-11 14:28 | ER Document Report ---
ED Medical Screen (RME) - General Chief Complaint: UTI Stated Complaint: URINARY ISSUE Time Seen by Provider: 03/11/20 14:24 Primary Care Provider: ABISAI BURK DO [Primary Care Provider] - Follow up as needed Notes: This 34-year-old female with a longstanding history of kidney stones she had a left kidney stone this year and had a CAT scan on that day. She states she has pain to her left flank with radiation around to the groin with frequency and urgency on urination TRAVEL OUTSIDE OF THE [place] IN LAST 30 DAYS: No - Related Data Allergies/Adverse Reactions: alprazolam [From Xanax] Allergy (Severe, Verified 12/19/19 16:40) Aggression asenapine maleate [From Saphris] Allergy (Severe, Verified 12/19/19 16:40) Blackout clonazepam [From Klonopin] Allergy (Severe, Verified 12/19/19 16:40) Seizure meperidine HCl [From Demerol] Allergy (Severe, Verified 12/19/19 16:40) Seizure brompheniramine maleate [From Dimetapp] Allergy (Mild, Verified 12/19/19 16:40) Hives dextromethorphan HBr [From Dimetapp] Allergy (Mild, Verified 12/19/19 16:40) Hives phenylpropanolamine HCl [From Dimetapp] Allergy (Mild, Verified 12/19/19 16:40) Hives pseudoephedrine HCl [From Dimetapp] Allergy (Mild, Verified 12/19/19 16:40) Hives triprolidine HCl [From Actifed] Allergy (Mild, Verified 12/19/19 16:40) Hives amoxicillin [Amoxicillin] Allergy (Unknown, Verified 12/19/19 16:40) doxepin [Doxepin] Allergy (Unknown, Verified 12/19/19 16:40) doxycycline [Doxycycline] Allergy (Unknown, Verified 12/19/19 16:40) erythromycin base [Erythromycin Base] Allergy (Unknown, Verified 12/19/19 16:40) indomethacin [Indomethacin] Allergy (Unknown, Verified 12/19/19 16:40) modafinil [From Provigil] Allergy (Unknown, Verified 12/19/19 16:40) quetiapine fumarate [From Seroquel] Allergy (Unknown, Verified 12/19/19 16:40) tramadol [Tramadol] Allergy (Unknown, Verified 12/19/19 16:40) triazolam [Triazolam] Allergy (Unknown, Verified 12/19/19 16:40) zonisamide [From Zonegran] Allergy (Unknown, Verified 12/19/19 16:40) cefdinir [Cefdinir] Allergy (Verified 12/19/19 16:40) haloperidol [From Haldol] Allergy (Verified 12/19/19 16:40) paliperidone [From Invega] Allergy (Verified 12/19/19 16:40) phenobarbital Allergy (Verified 12/19/19 16:40) primidone Allergy (Verified 12/19/19 16:40) pseudoephedrine [From Sudafed] Allergy (Verified 12/19/19 16:40) levetiracetam [From Keppra] Adverse Reaction (Verified 12/19/19 16:40) phenytoin [From Dilantin] Adverse Reaction (Verified 12/19/19 16:40) palprex Allergy (Unknown, Uncoded 12/19/19 16:40) zicam Allergy (Unknown, Uncoded 12/19/19 16:40) all vitamins Allergy (Uncoded 12/19/19 16:40) Seizures Home Medications: Trazodone. Lamictal. Synthroid. Biotin Past Medical History - Past Medical History Cardiac Medical History: Reports: Hx Hypertension - History of Denies: Hx Congestive Heart Failure, Hx Coronary Artery Disease, Hx DVT, Hx Heart Attack, Hx Hypercholesterolemia, Hx Pulmonary Embolism Pulmonary Medical History: Denies: Hx Asthma, Hx Bronchitis, Hx COPD, Hx Pneumonia Neurological Medical History: Reports: Hx Seizures - epilepsy. Denies: Hx Cerebrovascular Accident Endocrine Medical History: Denies: Hx Diabetes Mellitus Type 1, Hx Diabetes Mellitus Type 2, Hx Hyperthyroidism, Hx Hypothyroidism Renal/ Medical History: Reports: Hx Kidney Stones. Denies: Hx Peritoneal Dialysis GI Medical History: Denies: Hx Cirrhosis, Hx Gastroesophageal Reflux Disease, Hx Hepatitis Musculoskeltal Medical History: Reports Hx Arthritis Skin Medical History: Denies Hx Eczema, Denies Hx Psoriasis Psychiatric Medical History: Reports: Hx Anxiety, Hx Bipolar Disorder, Hx D epression, Hx Schizophrenia Infectious Medical History: Denies: Hx Hepatitis Past Surgical History: Reports: Hx Appendectomy, Hx Cholecystectomy, Hx G ynecologic Surgery - Right oophorectomy; Left ovarian cyst, Hx Kidney (Renal Surgery) - lithotripsy, Hx Oral Surgery, Hx Urinary Tract Surgery - stent - Immunizations Hx Diphtheria, Pertussis, Tetanus Vaccination: Yes Physical Exam - Vital signs Vitals: Temp Pulse Resp BP Pulse Ox 99.1 F 101 H 18 120/69 95 03/11/20 14:05 03/11/20 14:05 03/11/20 14:05 03/11/20 14:05 03/11/20 14:05 Course - Vital Signs Vital signs: Temp Pulse Resp BP Pulse Ox 99.1 F 101 H 18 120/69 95 03/11/20 14:23 03/11/20 14:05 03/11/20 14:05 03/11/20 14:05 03/11/20 14:05 Doctor's Discharge - Discharge Referrals: ABISAI BURK DO [Primary Care Provider] - Follow up as needed
--- NOTE | 2020-03-11 14:54 | ER Document Report ---
ED General - General Chief Complaint: UTI Stated Complaint: URINARY ISSUE Time Seen by Provider: 03/11/20 14:24 Primary Care Provider: WESLY MCNEAL MD [NO LOCAL MD] - Follow up as needed ABISAI BURK DO [Primary Care Provider] - Follow up as needed Mode of Arrival: Ambulatory Information source: Patient TRAVEL OUTSIDE OF THE [place] IN LAST 30 DAYS: No - HPI Notes: 34 year old female with a history of Kidney Stones, HTN, Seizures, Anxiety, Depression, Bipolar here in the ER for several days of left sided flank pain which radiates to her left upper abdomen and is associated with dysuria and urinary urgency. The patient was seen here in November and had a CT scan then showing bilateral nonobstructing small kidney stones. The patient has seen a Urologist in the past but not one recently. The patient denies fevers, chills, sweats. - Related Data Allergies/Adverse Reactions: alprazolam [From Xanax] Allergy (Severe, Verified 12/19/19 16:40) Aggression asenapine maleate [From Saphris] Allergy (Severe, Verified 12/19/19 16:40) Blackout clonazepam [From Klonopin] Allergy (Severe, Verified 12/19/19 16:40) Seizure meperidine HCl [From Demerol] Allergy (Severe, Verified 12/19/19 16:40) Seizure brompheniramine maleate [From Dimetapp] Allergy (Mild, Verified 12/19/19 16:40) Hives dextromethorphan HBr [From Dimetapp] Allergy (Mild, Verified 12/19/19 16:40) Hives phenylpropanolamine HCl [From Dimetapp] Allergy (Mild, Verified 12/19/19 16:40) Hives pseudoephedrine HCl [From Dimetapp] Allergy (Mild, Verified 12/19/19 16:40) Hives triprolidine HCl [From Actifed] Allergy (Mild, Verified 12/19/19 16:40) Hives amoxicillin [Amoxicillin] Allergy (Unknown, Verified 12/19/19 16:40) doxepin [Doxepin] Allergy (Unknown, Verified 12/19/19 16:40) doxycycline [Doxycycline] Allergy (Unknown, Verified 12/19/19 16:40) erythromycin base [Erythromycin Base] Allergy (Unknown, Verified 12/19/19 16:40) indomethacin [Indomethacin] Allergy (Unknown, Verified 12/19/19 16:40) modafinil [From Provigil] Allergy (Unknown, Verified 12/19/19 16:40) quetiapine fumarate [From Seroquel] Allergy (Unknown, Verified 12/19/19 16:40) tramadol [Tramadol] Allergy (Unknown, Verified 12/19/19 16:40) triazolam [Triazolam] Allergy (Unknown, Verified 12/19/19 16:40) zonisamide [From Zonegran] Allergy (Unknown, Verified 12/19/19 16:40) cefdinir [Cefdinir] Allergy (Verified 12/19/19 16:40) haloperidol [From Haldol] Allergy (Verified 12/19/19 16:40) paliperidone [From Invega] Allergy (Verified 12/19/19 16:40) phenobarbital Allergy (Verified 12/19/19 16:40) primidone Allergy (Verified 12/19/19 16:40) pseudoephedrine [From Sudafed] Allergy (Verified 12/19/19 16:40) levetiracetam [From Keppra] Adverse Reaction (Verified 12/19/19 16:40) phenytoin [From Dilantin] Adverse Reaction (Verified 12/19/19 16:40) palprex Allergy (Unknown, Uncoded 12/19/19 16:40) zicam Allergy (Unknown, Uncoded 12/19/19 16:40) all vitamins Allergy (Uncoded 12/19/19 16:40) Seizures Home Medications: Trazodone. Lamictal. Synthroid. Biotin Past Medical History - General Information source: Patient - Social History Smoking Status: Former Smoker Frequency of alcohol use: Occasional Drug Abuse: None Family History: Reviewed & Not Pertinent, Arthritis, CAD, Malignancy, Thyroid Disfunction, Other - Ovarian cancer in mother, asthma Patient has homicidal ideation: No - Past Medical History Cardiac Medical History: Reports: Hx Hypertension - History of Denies: Hx Congestive Heart Failure, Hx Coronary Artery Disease, Hx DVT, Hx Heart Attack, Hx Hypercholesterolemia, Hx Pulmonary Embolism Pulmonary Medical History: Denies: Hx Asthma, Hx Bronchitis, Hx COPD, Hx Pneumonia Neurological Medical History: Reports: Hx Seizures - epilepsy. Denies: Hx Cerebrovascular Accident Endocrine Medical History: Denies: Hx Diabetes Mellitus Type 1, Hx Diabetes Mellitus Type 2, Hx Hyperthyroidism, Hx Hypothyroidism Renal/ Medical History: Reports: Hx Kidney Stones. Denies: Hx Peritoneal Dialysis GI Medical History: Denies: Hx Cirrhosis, Hx Gastroesophageal Reflux Disease, Hx Hepatitis Musculoskeletal Medical History: Reports Hx Arthritis Skin Medical History: Denies Hx Eczema, Denies Hx Psoriasis Psychiatric Medical History: Reports: Hx Anxiety, Hx Bipolar Disorder, Hx Depression, Hx Schizophrenia Infectious Medical History: Denies: Hx Hepatitis Past Surgical History: Reports: Hx Appendectomy, Hx Cholecystectomy, Hx Gynecologic Surgery - Right oophorectomy; Left ovarian cyst, Hx Kidney (Renal Surgery) - lithotripsy, Hx Oral Surgery, Hx Urinary Tract Surgery - stent - Immunizations Hx Diphtheria, Pertussis, Tetanus Vaccination: Yes Review of Systems - Review of Systems Constitutional: No symptoms reported EENT: No symptoms reported Cardiovascular: No symptoms reported Respiratory: No symptoms reported Gastrointestinal: No symptoms reported, Abdominal pain - left sided, Nausea Genitourinary: Burning, Dysuria, Flank pain - left sided, Urgency Female Genitourinary: No symptoms reported Musculoskeletal: No symptoms reported Skin: No symptoms reported Hematologic/Lymphatic: No symptoms reported Neurological/Psychological: No symptoms reported -: Yes All other systems reviewed and negative Physical Exam - Vital signs Vitals: Temp Pulse Resp BP Pulse Ox 99.1 F 101 H 18 120/69 95 03/11/20 14:05 03/11/20 14:05 03/11/20 14:05 03/11/20 14:05 03/11/20 14:05 - Notes Notes: GENERAL: Well-appearing, well-nourished and in no acute distress. HEAD: Atraumatic, normocephalic. EYES: Pupils equal round and reactive to light, extraocular movements intact, sclera anicteric, conjunctiva are normal. ENT: External ears normal, nares patent, oropharynx clear without exudates. Moist mucous membranes. NECK: Normal range of motion, supple without lymphadenopathy or JVD. LUNGS: Breath sounds clear to auscultation bilaterally and equal. No wheezes rales or rhonchi. HEART: Regular rate and rhythm without murmurs, rubs or gallops. ABDOMEN: Soft, mild tenderness in left flank and left upper abdomen, normoactive bowel sounds. No guarding, no rebound. No masses appreciated. EXTREMITIES: Normal range of motion, no pitting or edema. No clubbing or cyanosis. NEUROLOGICAL: Cranial nerves II through XII grossly intact. Normal speech, normal gait. PSYCH: Normal mood, normal affect. SKIN: Warm, Dry, normal turgor, no rashes or lesions noted. Course - Re-evaluation Re-evalutation: 03/11/20 16:15 The patient has known small kidney stones bilaterally and she is here with left sided flank pain and dysuria. UA consistent with a UTI so will treat for Pyelonephritis. Will culture urine and treat with Bactrim (patient has a very long allergy list but she tells me she has tolerated this before). Patient told she needs to follow up with a PCP and Urologist. Patient told to drink plenty of fluids in the days to come. - Vital Signs Vital signs: Temp Pulse Resp BP Pulse Ox 99.1 F 101 H 18 120/69 95 03/11/20 14:23 03/11/20 14:05 03/11/20 14:05 03/11/20 14:05 03/11/20 14:05 - Laboratory Result Diagrams: 03/11/20 15:14 03/11/20 15:14 Laboratory results interpreted by me: 03/11/20 03/11/20 03/11/20 15:14 15:14 15:14 WBC 13.0 H RDW 14.1 H Lymph % (Auto) 12.6 L Absolute Neuts (auto) 9.3 H Absolute Monos (auto) 1.7 H Sodium 133.7 L Est GFR (MDRD) Non-Af 53 L Urine Protein 30 H Ur Leukocyte Esterase LARGE H - Diagnostic Test Radiology reviewed: Image reviewed, Reports reviewed Discharge - Discharge Clinical Impression: Pyelonephritis, Kidney stone Condition: Stable Disposition: HOME, SELF-CARE Instructions: Kidney Stone ([facility]), Pyelonephritis ([facility]) Additional Instructions: Drink plenty of fluids in the days to come. Take antibiotics (Cipro) as prescribed. Follow up with your primary care doctor and also follow up with a Urologist (Dr. Mcneal or one of his associates). Prescriptions: Sulfamethoxazole/Trimethoprim [Bactrim Ds Tablet] 1 tab PO BID 14 Days #28 tablet Ciprofloxacin HCl [Cipro 500 mg Tablet] 500 mg PO BID 7 Days #14 tablet Referrals: ABISAI BURK DO [Primary Care Provider] - Follow up as needed WESLY MCNEAL MD [NO LOCAL MD] - Follow up as needed
--- NOTE | 2020-03-11 15:01 | RADIOLOGY REPORT (SQ) ---
EXAM DESCRIPTION: ACUTE ABDOMEN SERIES IMAGES COMPLETED DATE/TIME: 03/11/2020 2:45 pm REASON FOR STUDY: pain COMPARISON: None. NUMBER OF VIEWS: Three views. TECHNIQUE: Frontal chest, supine abdomen and upright/decubitus abdomen radiographic images acquired. LIMITATIONS: None. FINDINGS: CHEST: The cardiomediastinal silhouette and pulmonary vasculature are within normal limits . There is no consolidation, pleural effusion or pneumothorax. FREE AIR: None. BOWEL GAS PATTERN: No dilated loops of bowel or differential air-fluid levels. CALCIFICATIONS: None. HARDWARE: Cholecystectomy clips, generator pack that projects over the right clavicle, and Essure dev ices in the left hemipelvis. SOFT TISSUES: No abnormality. BONES: Chronic deformity of the right clavicle. OTHER: No other finding. IMPRESSION: 1. No acute cardiopulmonary process. 2. Nonobstructive bowel gas pattern. TECHNICAL DOCUMENTATION: JOB ID: [id number] 2010 [employer]- All Rights Reserved Reading location - IP/workstation name: [email or web address]
[2020-03-11 15:32] LABS: AMORPHOUS SEDIMENT,URINE TRACE /HPF; APPEARANCE,URINE CLOUDY; BILIRUBIN,URINE NEGATIVE (NEGATIVE); COLOR,URINE YELLOW; GLUCOSE, URINE NEGATIVE (NEGATIVE); KETONES,URINE NEGATIVE (NEGATIVE); LEUKOCYTE ESTERASE,URINE LARGE (NEGATIVE); NITRITE,URINE NEGATIVE (NEGATIVE); PROTEIN,URINE 30 mg/dL (NEGATIVE); URINE SPECIFIC GRAVITY 1.019; UROBILINOGEN,URINE NEGATIVE mg/dL (<2.0)
[2020-03-11 15:41] LABS: ABSOLUTE BASOPHILS # (AUTO) 0.1 10^3/uL (0.0-0.2); ABSOLUTE EOSINOPHILS # (AUTO) 0.3 10^3/uL (0.0-0.6); ABSOLUTE LYMPHOCYTES (AUTO) 1.6 10^3/uL (0.5-4.7); ABSOLUTE MONOCYTES (AUTO) 1.7 10^3/uL (0.1-1.4); ABSOLUTE NEUT (AUTO) 9.3 10^3/uL (1.7-8.2); BASOPHILS % (AUTO) 0.9 % (0-2); HEMATOCRIT 42.8 % (36.0-47.0); HEMOGLOBIN 14.4 g/dL (12.0-15.5); LYMPHOCYTES % (AUTO) 12.6 % (13-45); MEAN CORPUSCULAR HEMOGLOBIN 29.9 pg (27.0-33.4); MEAN CORPUSCULAR HGB CONC 33.7 g/dL (32.0-36.0); MEAN CORPUSCULAR VOLUME 89 fl (80-97); PLATELET COUNT 384 10^3/uL (150-450); RED BLOOD COUNT 4.82 10^6/uL (3.72-5.28); RED CELL DISTRIBUTION WIDTH 14.1 % (11.5-14.0); SEGMENTED NEUTROPHILS % (AUTO) 71.5 % (42-78); TOTAL CELLS COUNTED % (AUTO) 100 %
[2020-03-11 15:50] LABS: ALKALINE PHOSPHATASE 123 U/L (38-126); ANION GAP 9 (5-19); ASPARTATE AMINO TRANSFERASE 32 U/L (14-36); BILIRUBIN,DIRECT 0.2 mg/dL (0.0-0.4); BILIRUBIN,TOTAL 0.6 mg/dL (0.2-1.3); BLOOD UREA NITROGEN 11 mg/dL (7-20); CALCIUM 9.5 mg/dL (8.4-10.2); CARBON DIOXIDE 24 mmol/L (22-30); CHLORIDE 101 mmol/L (98-107); GLUCOSE 80 mg/dL (75-110); POTASSIUM 4.3 mmol/L (3.6-5.0); TOTAL PROTEIN 7.4 g/dL (6.3-8.2)
== END 2020-03-11 16:36 | disposition home or self-care (01) ==
LOC: ER 13:53
DX: N12 Tubulo-interstitial nephritis, not specified as acute or chronic (principal); N20.0 Calculus of kidney; I10 Essential (primary) hypertension; F32.9 Major depressive disorder, single episode, unspecified; F41.9 Anxiety disorder, unspecified; G40.909 Epilepsy, unspecified, not intractable, without status epilepticus; Z79.899 Other long term (current) drug therapy; Z88.8 Allergy status to other drugs, medicaments and biological substances; Z88.6 Allergy status to analgesic agent; Z88.5 Allergy status to narcotic agent; Z88.0 Allergy status to penicillin; Z88.1 Allergy status to other antibiotic agents; Z87.891 Personal history of nicotine dependence
CPT/HCPCS: 99283; 96361; 96374; 36415; 87086; 83690; 85025; 81025; 87088; 80053; 81001; 74022; J1885; J7030; 87186

== ENCOUNTER 2020-04-04 19:01 | Emergency (ER) | payer MEDICARE, MEDICAID ==
--- NOTE | 2020-04-04 20:28 | ER Document Report ---
ED Medical Screen (RME) - General Stated Complaint: CHEST PAIN Time Seen by Provider: 04/04/20 20:13 Mode of Arrival: Ambulatory Information source: Patient Notes: 34-year-old female patient presented to the emergency department with multiple complaints. Patient reports she has been having squeezing chest pain that began yesterday. She is also complaining of generalized abdominal pain, nausea x2, chills and body aches. She denies any known exposure 20 COVID-19 positive persons. She is alert, oriented, no acute distress noted. She does want us to know that Toradol does not work for pain. I have greeted and performed a rapid initial assessment of this patient. A comprehensive ED assessment and evaluation of the patient, analysis of test results and completion of the medical decision making process will be conducted by additional ED providers. I have specifically instructed the patient or family members with the patient to immediately return to any nursing staff should anything change in the patient's condition or with their chief complaint. TRAVEL OUTSIDE OF THE [place] IN LAST 30 DAYS: No - Related Data Allergies/Adverse Reactions: alprazolam [From Xanax] Allergy (Severe, Verified 12/19/19 16:40) Aggression asenapine maleate [From Saphris] Allergy (Severe, Verified 12/19/19 16:40) Blackout clonazepam [From Klonopin] Allergy (Severe, Verified 12/19/19 16:40) Seizure meperidine HCl [From Demerol] Allergy (Severe, Verified 12/19/19 16:40) Seizure brompheniramine maleate [From Dimetapp] Allergy (Mild, Verified 12/19/19 16:40) Hives dextromethorphan HBr [From Dimetapp] Allergy (Mild, Verified 12/19/19 16:40) Hives phenylpropanolamine HCl [From Dimetapp] Allergy (Mild, Verified 12/19/19 16:40) Hives pseudoephedrine HCl [From Dimetapp] Allergy (Mild, Verified 12/19/19 16:40) Hives triprolidine HCl [From Actifed] Allergy (Mild, Verified 12/19/19 16:40) Hives amoxicillin [Amoxicillin] Allergy (Unknown, Verified 12/19/19 16:40) doxepin [Doxepin] Allergy (Unknown, Verified 12/19/19 16:40) doxycycline [Doxycycline] Allergy (Unknown, Verified 12/19/19 16:40) erythromycin base [Erythromycin Base] Allergy (Unknown, Verified 12/19/19 16:40) indomethacin [Indomethacin] Allergy (Unknown, Verified 12/19/19 16:40) modafinil [From Provigil] Allergy (Unknown, Verified 12/19/19 16:40) quetiapine fumarate [From Seroquel] Allergy (Unknown, Verified 12/19/19 16:40) tramadol [Tramadol] Allergy (Unknown, Verified 12/19/19 16:40) triazolam [Triazolam] Allergy (Unknown, Verified 12/19/19 16:40) zonisamide [From Zonegran] Allergy (Unknown, Verified 12/19/19 16:40) cefdinir [Cefdinir] Allergy (Verified 12/19/19 16:40) haloperidol [From Haldol] Allergy (Verified 12/19/19 16:40) paliperidone [From Invega] Allergy (Verified 12/19/19 16:40) phenobarbital Allergy (Verified 12/19/19 16:40) primidone Allergy (Verified 12/19/19 16:40) pseudoephedrine [From Sudafed] Allergy (Verified 12/19/19 16:40) levetiracetam [From Keppra] Adverse Reaction (Verified 12/19/19 16:40) phenytoin [From Dilantin] Adverse Reaction (Verified 12/19/19 16:40) palprex Allergy (Unknown, Uncoded 12/19/19 16:40) zicam Allergy (Unknown, Uncoded 12/19/19 16:40) all vitamins Allergy (Uncoded 12/19/19 16:40) Seizures Past Medical History - Past Medical History Cardiac Medical History: Reports: Hx Hypertension - History of Denies: Hx Congestive Heart Failure, Hx Coronary Artery Disease, Hx DVT, Hx Heart Attack, Hx Hypercholesterolemia, Hx Pulmonary Embolism Pulmonary Medical History: Denies: Hx Asthma, Hx Bronchitis, Hx COPD, Hx Pneumonia Neurological Medical History: Reports: Hx Seizures - epilepsy. Denies: Hx Cerebrovascular Accident Endocrine Medical History: Denies: Hx Diabetes Mellitus Type 1, Hx Diabetes Mellitus Type 2, Hx Hyperthyroidism, Hx Hypothyroidism Renal/ Medical History: Reports: Hx Kidney Stones. Denies: Hx Peritoneal Dialysis GI Medical History: Denies: Hx Cirrhosis, Hx Gastroesophageal Reflux Disease, Hx Hepatitis Musculoskeltal Medical History: Reports Hx Arthritis Skin Medical History: Denies Hx Eczema, Denies Hx Psoriasis Psychiatric Medical History: Reports: Hx Anxiety, Hx Bipolar Disorder, Hx Depression, Hx Schizophrenia Infectious Medical History: Denies: Hx Hepatitis Past Surgical History: Reports: Hx Appendectomy, Hx Cholecystectomy, Hx Gynecologic Surgery - Right oophorectomy; Left ovarian cyst, Hx Kidney (Renal Surgery) - lithotripsy, Hx Oral Surgery, Hx Urinary Tract Surgery - stent - Immunizations Hx Diphtheria, Pertussis, Tetanus Vaccination: Yes Physical Exam - Vital signs Vitals: Temp Pulse Resp BP Pulse Ox 98.2 F 96 16 136/94 H 98 04/04/20 19:18 04/04/20 19:18 04/04/20 19:18 04/04/20 19:18 04/04/20 19:18 Course - Vital Signs Vital signs: Temp Pulse Resp BP Pulse Ox 98.2 F 96 16 136/94 H 98 04/04/20 19:18 04/04/20 19:18 04/04/20 19:18 04/04/20 19:18 04/04/20 19:18
--- NOTE | 2020-04-04 21:30 | RADIOLOGY REPORT (SQ) ---
CLINICAL INDICATION: chest pain. TECHNIQUE: A single portable AP view was obtained of the chest at 2114 hours. COMPARISON: None available. FINDINGS: The cardiomediastinal silhouette is normal. The lungs demonstrate crowding at the bases. Lungs of low volume but grossly clear. No evidence of effusion or pneumothorax. Presumed old posttraumatic change right clavicle.. IMPRESSION: No evidence of active intrathoracic disease. Lungs of low volume but grossly clear. Posttraumatic change right clavicle, presumed old. It is obscured by overlying postsurgical change.
[2020-04-04 22:26] LABS: ABSOLUTE BASOPHILS # (AUTO) 0.1 10^3/uL (0.0-0.2); ABSOLUTE EOSINOPHILS # (AUTO) 0.3 10^3/uL (0.0-0.6); ABSOLUTE LYMPHOCYTES (AUTO) 2.1 10^3/uL (0.5-4.7); ABSOLUTE MONOCYTES (AUTO) 1.7 10^3/uL (0.1-1.4); ABSOLUTE NEUT (AUTO) 6.8 10^3/uL (1.7-8.2); BASOPHILS % (AUTO) 0.8 % (0-2); EOSINOPHILS % (AUTO) 2.7 % (0-6); HEMOGLOBIN 13.9 g/dL (12.0-15.5); LYMPHOCYTES % (AUTO) 19.3 % (13-45); MEAN CORPUSCULAR HEMOGLOBIN 30.8 pg (27.0-33.4); MEAN CORPUSCULAR VOLUME 91 fl (80-97); MONOCYTES % (AUTO) 15.7 % (3-13); PLATELET COUNT 341 10^3/uL (150-450); RED BLOOD COUNT 4.53 10^6/uL (3.72-5.28); SEGMENTED NEUTROPHILS % (AUTO) 61.5 % (42-78); TOTAL CELLS COUNTED % (AUTO) 100 %
--- NOTE | 2020-04-04 22:38 | ER Document Report ---
HPI - HPI Patient complains to provider of: Multiple symptoms Time Seen by Provider: 04/04/20 20:13 Onset: Other - This 34-year-old female presented emergency room today with cough cold congestion intermittent squeezing in her chest over the last 3 to 5 days. Quality of pain: Achy Pain Level: 3 Associated Symptoms: None Exacerbated by: Denies Similar symptoms previously: No Recently seen / treated by doctor: No - ROS Systems Reviewed and Negative: Yes All other systems reviewed and negative - CONSTITUTIONAL Constitutional: DENIES: Fever, Chills - NEURO Neurology: REPORTS: Headache - CARDIOVASCULAR Cardiovascular: REPORTS: Chest pain - RESPIRATORY Respiratory: REPORTS: Trouble Breathing - GASTROINTESTINAL Gastrointestinal: REPORTS: Abdominal Pain - REPRODUCTIVE Reproductive: DENIES: : Past Medical History - General Information source: Patient - Social History Smoking Status: Never Smoker Frequency of alcohol use: Rare Drug Abuse: None Family History: Reviewed & Not Pertinent, Arthritis, CAD, Malignancy, Thyroid Disfunction, Other - Ovarian cancer in mother, asthma Patient has homicidal ideation: No - Past Medical History Cardiac Medical History: Reports: Hx Hypertension - History of Denies: Hx Congestive Heart Failure, Hx Coronary Artery Disease, Hx DVT, Hx Heart Attack, Hx Hypercholesterolemia, Hx Pulmonary Embolism Pulmonary Medical History: Denies: Hx Asthma, Hx Bronchitis, Hx COPD, Hx Pneumonia Neurological Medical History: Reports: Hx Seizures - epilepsy. Denies: Hx Cerebrovascular Accident Endocrine Medical History: Denies: Hx Diabetes Mellitus Type 1, Hx Diabetes Mellitus Type 2, Hx Hyperthyroidism, Hx Hypothyroidism Renal/ Medical History: Reports: Hx Kidney Stones. Denies: Hx Peritoneal Dialysis GI Medical History: Denies: Hx Cirrhosis, Hx Gastroesophageal Reflux Disease, Hx Hepatitis Musculoskeletal Medical History: Reports Hx Arthritis Skin Medical History: Denies Hx Eczema, Denies Hx Psoriasis Psychiatric Medical History: Reports: Hx Anxiety, Hx Bipolar Disorder, Hx Depression, Hx Schizophrenia Infectious Medical History: Denies: Hx Hepatitis Past Surgical History: Reports: Hx Appendectomy, Hx Cholecystectomy, Hx Gynecologic Surgery - Right oophorectomy; Left ovarian cyst, Hx Kidney (Renal Surgery) - lithotripsy, Hx Oral Surgery, Hx Urinary Tract Surgery - stent - Immunizations Hx Diphtheria, Pertussis, Tetanus Vaccination: Yes Vertical Provider Document - CONSTITUTIONAL Agree With Documented VS: Yes - INFECTION CONTROL TRAVEL OUTSIDE OF THE [place] IN LAST 30 DAYS: No - HEENT HEENT: Atraumatic, Normocephalic, PERRLA - NECK Neck: Normal Inspection, Supple - RESPIRATORY Respiratory: Breath Sounds Normal, No Respiratory Distress - CARDIOVASCULAR Cardiovascular: Regular Rate, Regular Rhythm - GI/ABDOMEN Gastrointestinal: Abdomen Soft, Abdomen Non-Tender - BACK Back: Normal Inspection - MUSCULOSKELETAL/EXTREMETIES Musculoskeletal/Extremeties: MAEW - NEURO Level of Consciousness: Awake, Alert, Appropriate Course - Re-evaluation Re-evalutation: 04/04/20 23:46 Patient has no current chest pain no exertional exertional chest pain no exertional shortness of breath no diaphoresis ambulatory with a rhythmic and steady gait cardiac markers were negative EKG was within normal limits. - Vital Signs Vital signs: Temp Pulse Resp BP Pulse Ox 98.2 F 96 16 136/94 H 98 04/04/20 19:18 04/04/20 19:18 04/04/20 19:18 04/04/20 19:18 04/04/20 19:18 - Laboratory Result Diagrams: 04/04/20 22:12 04/04/20 22:12 Laboratory results interpreted by me: 04/04/20 22:12 WBC 11.0 H RDW 15.0 H Swisher % (Auto) 15.7 H Absolute Monos (auto) 1.7 H 04/04/20 23:47 Labs- All tests 24 hr 04/04/20 04/04/20 04/04/20 22:12 22:12 22:12 WBC 11.0 H RBC 4.53 Hgb 13.9 Hct 41.0 MCV 91 MCH 30.8 MCHC 34.0 RDW 15.0 H Plt Count 341 Lymph % (Auto) 19.3 Swisher % (Auto) 15.7 H Eos % (Auto) 2.7 Baso % (Auto) 0.8 Absolute Neuts (auto) 6.8 Absolute Lymphs (auto) 2.1 Absolute Monos (auto) 1.7 H Absolute Eos (auto) 0.3 Absolute Basos (auto) 0.1 Seg Neutrophils % 61.5 Sodium 134.8 L Potassium 4.5 Chloride 102 Carbon Dioxide 25 Anion Gap 8 BUN 13 Creatinine 1.30 H Est GFR ( Amer) 56 L Est GFR (MDRD) Non-Af 47 L Glucose 110 Calcium 9.4 Total Bilirubin 0.5 Direct Bilirubin 0.1 Neonat Total Bilirubin Not Reportable Neonat Direct Bilirubin Not Reportable Neonat Indirect Bili Not Reportable AST 34 ALT 30 Alkaline Phosphatase 108 Troponin I < 0.012 Total Protein 7.7 Albumin 4.0 Lipase 90.6 - Diagnostic Test Radiology results interpreted by me: 04/04/20 23:47 Chest X-Ray 04/04/20 20:26 IMPRESSION: No evidence of active intrathoracic disease. Lungs of low volume but grossly clear. Posttraumatic change right clavicle, presumed old. It is obscured by overlying postsurgical change. Discharge - Discharge Clinical Impression: Viral illness Condition: Good Disposition: HOME, SELF-CARE Instructions: Fever ([facility]), Viral Syndrome ([facility]) Additional Instructions: Increase fluid intake rest follow-up with PMD in 3 to 5 days return to ER for any change worsening condition.
[2020-04-04 22:59] LABS: ALKALINE PHOSPHATASE 108 U/L (38-126); ANION GAP 8 (5-19); ASPARTATE AMINO TRANSFERASE 34 U/L (14-36); BILIRUBIN,DIRECT 0.1 mg/dL (0.0-0.4); BILIRUBIN,TOTAL 0.5 mg/dL (0.2-1.3); BLOOD UREA NITROGEN 13 mg/dL (7-20); CALCIUM 9.4 mg/dL (8.4-10.2); CARBON DIOXIDE 25 mmol/L (22-30); CHLORIDE 102 mmol/L (98-107); GLUCOSE 110 mg/dL (75-110); POTASSIUM 4.5 mmol/L (3.6-5.0); TOTAL PROTEIN 7.7 g/dL (6.3-8.2)
[2020-04-04] MEDS ORDERED: IBUPROFEN 800 MG TABLET PO ONE (23:26)
[2020-04-04 23:55] VITALS: BP 111/86
--- NOTE | 2020-04-05 11:47 | EKG REPORT ---
SEVERITY:- BORDERLINE ECG - SINUS RHYTHM BORDERLINE PROLONGED QT INTERVAL : Confirmed by: Brendan Felix MD 05-Apr-2020 11:46:27
== END 2020-04-04 23:55 | disposition home or self-care (01) ==
LOC: ER 19:01
DX: B34.9 Viral infection, unspecified (principal); R05 Cough; R09.81 Nasal congestion; R07.9 Chest pain, unspecified; R51 Headache; R06.9 Unspecified abnormalities of breathing; R10.9 Unspecified abdominal pain; Z20.828 Contact with and (suspected) exposure to other viral communicable diseases
CPT/HCPCS: 93005; 99285; 36415; 83690; 85025; 80053; 84484; 71045; 93010; U0003; A9270; C9803; 87635

== ENCOUNTER 2020-06-13 13:34 | Emergency (ER) | payer MEDICARE, MEDICAID ==
--- NOTE | 2020-06-13 14:01 | ER Document Report ---
ED Medical Screen (RME) - General Chief Complaint: Probable Seizure Stated Complaint: POSSIBLE SEIZURE Time Seen by Provider: 06/13/20 13:53 Mode of Arrival: Medic Information source: Patient Notes: Patient is a 34-year-old female presenting to the emergency department with complaints of seizure activity. Patient has a history of epilepsy, she takes Lamictal. She states she has been compliant with her medication. She reports she had several seizures yesterday and 5 seizures today. She was in [facility] when she had 3 seizures [id number], they called 911 she apparently had a seizure in the ambulance, when she was put on lobby she had another seizure. Patient is alert, oriented, she did not have any incontinence. I have greeted and performed a rapid initial assessment of this patient. A comprehensive ED assessment and evaluation of the patient, analysis of test results and completion of the medical decision making process will be conducted by additional ED providers. I have specifically instructed the patient or family members with the patient to immediately return to any nursing staff should anything change in the patient's condition or with their chief complaint. TRAVEL OUTSIDE OF THE [place] IN LAST 30 DAYS: No - Related Data Allergies/Adverse Reactions: alprazolam [From Xanax] Allergy (Severe, Verified 12/19/19 16:40) Aggression asenapine maleate [From Saphris] Allergy (Severe, Verified 12/19/19 16:40) Blackout clonazepam [From Klonopin] Allergy (Severe, Verified 12/19/19 16:40) Seizure meperidine HCl [From Demerol] Allergy (Severe, Verified 12/19/19 16:40) Seizure brompheniramine maleate [From Dimetapp] Allergy (Mild, Verified 12/19/19 16:40) Hives dextromethorphan HBr [From Dimetapp] Allergy (Mild, Verified 12/19/19 16:40) Hives phenylpropanolamine HCl [From Dimetapp] Allergy (Mild, Verified 12/19/19 16:40) Hives pseudoephedrine HCl [From Dimetapp] Allergy (Mild, Verified 12/19/19 16:40) Hives triprolidine HCl [From Actifed] Allergy (Mild, Verified 12/19/19 16:40) Hives amoxicillin [Amoxicillin] Allergy (Unknown, Verified 12/19/19 16:40) doxepin [Doxepin] Allergy (Unknown, Verified 12/19/19 16:40) doxycycline [Doxycycline] Allergy (Unknown, Verified 12/19/19 16:40) erythromycin base [Erythromycin Base] Allergy (Unknown, Verified 12/19/19 16:40) indomethacin [Indomethacin] Allergy (Unknown, Verified 12/19/19 16:40) modafinil [From Provigil] Allergy (Unknown, Verified 12/19/19 16:40) quetiapine fumarate [From Seroquel] Allergy (Unknown, Verified 12/19/19 16:40) tramadol [Tramadol] Allergy (Unknown, Verified 12/19/19 16:40) triazolam [Triazolam] Allergy (Unknown, Verified 12/19/19 16:40) zonisamide [From Zonegran] Allergy (Unknown, Verified 12/19/19 16:40) cefdinir [Cefdinir] Allergy (Verified 12/19/19 16:40) haloperidol [From Haldol] Allergy (Verified 12/19/19 16:40) paliperidone [From Invega] Allergy (Verified 12/19/19 16:40) phenobarbital Allergy (Verified 12/19/19 16:40) primidone Allergy (Verified 12/19/19 16:40) pseudoephedrine [From Sudafed] Allergy (Verified 12/19/19 16:40) levetiracetam [From Keppra] Adverse Reaction (Verified 12/19/19 16:40) phenytoin [From Dilantin] Adverse Reaction (Verified 12/19/19 16:40) palprex Allergy (Unknown, Uncoded 12/19/19 16:40) zicam Allergy (Unknown, Uncoded 12/19/19 16:40) all vitamins Allergy (Uncoded 12/19/19 16:40) Seizures Past Medical History - Social History Chew tobacco use (# tins/day): No Frequency of alcohol use: Rare - Past Medical History Cardiac Medical History: Reports: Hx Hypertension - History of Denies: Hx Congestive Heart Failure, Hx Coronary Artery Disease, Hx DVT, Hx Heart Attack, Hx Hypercholesterolemia, Hx Pulmonary Embolism Pulmonary Medical History: Denies: Hx Asthma, Hx Bronchitis, Hx COPD, Hx Pneumonia Neurological Medical History: Reports: Hx Seizures - epilepsy. Denies: Hx Cerebrovascular Accident Endocrine Medical History: Denies: Hx Diabetes Mellitus Type 1, Hx Diabetes Mellitus Type 2, Hx Hyperthyroidism, Hx Hypothyroidism Renal/ Medical History: Reports: Hx Kidney Stones. Denies: Hx Peritoneal Dialysis GI Medical History: Denies: Hx Cirrhosis, Hx Gastroesophageal Reflux Disease, Hx Hepatitis Musculoskeltal Medical History: Reports Hx Arthritis Skin Medical History: Denies Hx Eczema, Denies Hx Psoriasis Psychiatric Medical History: Reports: Hx Anxiety, Hx Bipolar Disorder, Hx De pression, Hx Schizophrenia Infectious Medical History: Denies: Hx Hepatitis Past Surgical History: Reports: Hx Appendectomy, Hx Cholecystectomy, Hx Gy necologic Surgery - Right oophorectomy; Left ovarian cyst, Hx Kidney (Renal Surgery) - lithotripsy, Hx Oral Surgery, Hx Urinary Tract Surgery - stent - Immunizations Hx Diphtheria, Pertussis, Tetanus Vaccination: Yes
[2020-06-13 15:13] LABS: APPEARANCE,URINE CLOUDY; BILIRUBIN,URINE NEGATIVE (NEGATIVE); COLOR,URINE YELLOW; GLUCOSE, URINE NEGATIVE (NEGATIVE); KETONES,URINE NEGATIVE (NEGATIVE); LEUKOCYTE ESTERASE,URINE TRACE (NEGATIVE); NITRITE,URINE NEGATIVE (NEGATIVE); PROTEIN,URINE NEGATIVE (NEGATIVE); URINE SPECIFIC GRAVITY 1.009; UROBILINOGEN,URINE NEGATIVE mg/dL (<2.0)
[2020-06-13 15:28] LABS: URINE AMPHETAMINES SCREEN NEGATIVE; URINE BARBITURATES SCREEN NEGATIVE; URINE COCAINE SCREEN NEGATIVE; URINE MARIJUANA (THC) SCREEN NEGATIVE; URINE METHADONE SCREEN NEGATIVE; URINE PHENCYCLIDINE SCREEN NEGATIVE
[2020-06-13 15:29] LABS: ALBUMIN 4.4 g/dL (3.5-5.0); ALKALINE PHOSPHATASE 119 U/L (38-126); ANION GAP 13 (5-19); ASPARTATE AMINO TRANSFERASE 26 U/L (14-36); BILIRUBIN,DIRECT 0.3 mg/dL (0.0-0.4); BILIRUBIN,TOTAL 0.6 mg/dL (0.2-1.3); BLOOD UREA NITROGEN 14 mg/dL (7-20); CALCIUM 10.2 mg/dL (8.4-10.2); CARBON DIOXIDE 24 mmol/L (22-30); CHLORIDE 101 mmol/L (98-107); GLUCOSE 77 mg/dL (75-110); TOTAL PROTEIN 7.8 g/dL (6.3-8.2)
[2020-06-13 15:34] LABS: ALCOHOL < 10 mg/dL (NONE DETECTED); URINE BENZODIAZEPINES SCREEN UNCONFIRMED POSITIVE
[2020-06-13] MEDS ORDERED: DIAZEPAM INJ 10 MG/2 ML DISP.SYRIN IV ONE (17:07)
--- NOTE | 2020-06-13 17:19 | ER Document Report ---
ED Seizure - General Chief Complaint: Probable Seizure Stated Complaint: POSSIBLE SEIZURE Time Seen by Provider: 06/13/20 13:53 Primary Care Provider: ELISABETH URBANO [Primary Care Provider] - Follow up as needed Mode of Arrival: Medic Notes: 34-year-old female with past medical history of seizures and epilepsy presenting today with recurrent seizures. She had 2 this morning. She was also at [facility] when she had 3 generalized seizures. She was picked up by EMS where she had 4 additional seizures in the ambulance. She had 2 seizures in triage and 1 in the waiting room. Her seizure lasted approximately 30 seconds in timing occurring approximately 3-4 times a row. She does have a postictal state. She is groggy at this time. She denies hitting her head on anything. Takes mannitol 150 mg in the morning and 100 mg at night. She has not had a medication change in over a year. Her mom is at bedside with her and states that she typically goes through periods every month where she has seizures. Her neurologist is Dr. Craven at [facility]. She has allergies to phenobarbital, Keppra, Demerol, Klonopin, Xanax. - HPI Patient complains to provider of: History of seizures - Related Data Allergies/Adverse Reactions: alprazolam [From Xanax] Allergy (Severe, Verified 12/19/19 16:40) Aggression asenapine maleate [From Saphris] Allergy (Severe, Verified 12/19/19 16:40) Blackout clonazepam [From Klonopin] Allergy (Severe, Verified 12/19/19 16:40) Seizure meperidine HCl [From Demerol] Allergy (Severe, Verified 12/19/19 16:40) Seizure brompheniramine maleate [From Dimetapp] Allergy (Mild, Verified 12/19/19 16:40) Hives dextromethorphan HBr [From Dimetapp] Allergy (Mild, Verified 12/19/19 16:40) Hives phenylpropanolamine HCl [From Dimetapp] Allergy (Mild, Verified 12/19/19 16:40) Hives pseudoephedrine HCl [From Dimetapp] Allergy (Mild, Verified 12/19/19 16:40) Hives triprolidine HCl [From Actifed] Allergy (Mild, Verified 12/19/19 16:40) Hives amoxicillin [Amoxicillin] Allergy (Unknown, Verified 12/19/19 16:40) doxepin [Doxepin] Allergy (Unknown, Verified 12/19/19 16:40) doxycycline [Doxycycline] Allergy (Unknown, Verified 12/19/19 16:40) erythromycin base [Erythromycin Base] Allergy (Unknown, Verified 12/19/19 16:40) indomethacin [Indomethacin] Allergy (Unknown, Verified 12/19/19 16:40) modafinil [From Provigil] Allergy (Unknown, Verified 12/19/19 16:40) quetiapine fumarate [From Seroquel] Allergy (Unknown, Verified 12/19/19 16:40) tramadol [Tramadol] Allergy (Unknown, Verified 12/19/19 16:40) triazolam [Triazolam] Allergy (Unknown, Verified 12/19/19 16:40) zonisamide [From Zonegran] Allergy (Unknown, Verified 12/19/19 16:40) cefdinir [Cefdinir] Allergy (Verified 12/19/19 16:40) haloperidol [From Haldol] Allergy (Verified 12/19/19 16:40) paliperidone [From Invega] Allergy (Verified 12/19/19 16:40) phenobarbital Allergy (Verified 12/19/19 16:40) primidone Allergy (Verified 12/19/19 16:40) pseudoephedrine [From Sudafed] Allergy (Verified 12/19/19 16:40) levetiracetam [From Keppra] Adverse Reaction (Verified 12/19/19 16:40) phenytoin [From Dilantin] Adverse Reaction (Verified 12/19/19 16:40) palprex Allergy (Unknown, Uncoded 12/19/19 16:40) zicam Allergy (Unknown, Uncoded 12/19/19 16:40) all vitamins Allergy (Uncoded 12/19/19 16:40) Seizures Past Medical History - General Information source: Patient - Social History Smoking Status: Never Smoker Chew tobacco use (# tins/day): No Frequency of alcohol use: Rare Family History: Reviewed & Not Pertinent, Arthritis, CAD, Malignancy, Thyroid Disfunction, Other - Ovarian cancer in mother, asthma - Past Medical History Cardiac Medical History: Reports: Hx Hypertension - History of Denies: Hx Congestive Heart Failure, Hx Coronary Artery Disease, Hx DVT, Hx Heart Attack, Hx Hypercholesterolemia, Hx Pulmonary Embolism Pulmonary Medical History: Denies: Hx Asthma, Hx Bronchitis, Hx COPD, Hx Pneumonia Neurological Medical History: Reports: Hx Seizures - epilepsy. Denies: Hx Cerebrovascular Accident Endocrine Medical History: Denies: Hx Diabetes Mellitus Type 1, Hx Diabetes Mellitus Type 2, Hx Hyperthyroidism, Hx Hypothyroidism Renal/ Medical History: Reports: Hx Kidney Stones. Denies: Hx Peritoneal Dialysis GI Medical History: Denies: Hx Cirrhosis, Hx Gastroesophageal Reflux Disease, Hx Hepatitis Musculoskeletal Medical History: Reports Hx Arthritis Skin Medical History: Denies Hx Eczema, Denies Hx Psoriasis Psychiatric Medical History: Reports: Hx Anxiety, Hx Bipolar Disorder, Hx Depression, Hx Schizophrenia Infectious Medical History: Denies: Hx Hepatitis Past Surgical History: Reports: Hx Appendectomy, Hx Cholecystectomy, Hx Gynecologic Surgery - Right oophorectomy; Left ovarian cyst, Hx Kidney (Renal Surgery) - lithotripsy, Hx Oral Surgery, Hx Urinary Tract Surgery - stent - Immunizations Hx Diphtheria, Pertussis, Tetanus Vaccination: Yes Review of Systems - Review of Systems Constitutional: See HPI EENT: No symptoms reported Cardiovascular: No symptoms reported Respiratory: No symptoms reported Gastrointestinal: No symptoms reported Genitourinary: No symptoms reported Female Genitourinary: No symptoms reported Musculoskeletal: No symptoms reported Skin: No symptoms reported Hematologic/Lymphatic: No symptoms reported Neurological/Psychological: See HPI Physical Exam - Vital signs Vitals: Temp Pulse Resp BP Pulse Ox 98.3 F 100 18 116/74 97 06/13/20 14:12 06/13/20 14:12 06/13/20 14:12 06/13/20 14:12 06/13/20 14:12 Interpretation: Normal - Notes Notes: Adult General: GENERAL: Alert, interacts well. No acute distress, tired HEAD: Normocephalic, atraumatic EYES: Pupils equal, round and reactive to light. Extraocular movements intact. ENT: Oropharynx unremarkable. Airway patent. Nares patent NECK: Full range of motion. Supple. Trachea midline. No lymphadenopathy. LUNGS: Clear to auscultation bilaterally, no wheezes, rales, or rhonchi. No respiratory distress. Nontender chest wall. HEART: Regular rate and rhythm. No murmurs, rubs or gallops. ABDOMEN: Soft, nontender. Nondistended. (-) [place] sign. Bowel sounds present in all 4 quadrants. No rebound, guarding or masses. GENITOURINARY: Deferred EXTREMITIES: Moves all 4 extremities spontaneously. No edema, normal radial and dorsal pedis pulses bilaterally. No cyanosis. BACK: No cervical, thoracic, lumbar midline tenderness. No saddle anesthesia, normal distal neurovascular exam. Moves all extremities with full range of motion. NEUROLOGICAL: Alert and oriented x3. Normal speech. Cranial nerves II through XII grossly intact. Strength 5/ 5 in all extremities. PSYCH: Normal affect, normal mood. SKIN: Warm, dry, normal turgor. No rashes or lesions noted. Course - Re-evaluation Re-evalutation: 06/13/20 17:19 Patients mother at bedside. Patient is mildly sluggish stated she is also tired. Her seizures were witnessed at [facility]. The seizures were also witnessed by EMS. 06/13/20 17:35 06/13/20 17:[address] Lewis who recommends I talk with Dr. Courtney. He recommends a head ct. This has been ordered. Dr. Courtney calls me back and recommends that I call neurology with their recommendations. 06/13/20 17:58 I called [facility]. Talked with Dr. Bebeto Thompson. He informed me patient has a history of psychogenic seizures. He cannot accept the patient as they do not have any rooms available. He would recommend patient be observed at this time. Would recommend if patient having true seizures and not psychogenic seizures that she be given depakote 40 mg per kg. Called [facility]. They are not accepting transfers. I called [facility]- they are not excepting transfers. Head CT is negative for bleed or abnormal intracranial findings. 06/13/20 18:23 Dr. Courtney was called. He came to evaluate the patient. Patient informs him that she wants to leave AMA. I discussed with the patient the importance of staying for additional evaluation and treatment and the risks of not staying and she continues to desire to leave AMA. She is aware that she is leaving AGAINST MEDICAL ADVICE. She understands the risks of leaving AMA which include but are not limited to , worsening symptoms, repeat seizures, brain damage. She also understands that if symptoms return she is to return to the emergency department. I also recommend she follows up with her neurologist and primary care provider. The patient has chosen to leave the facility against medical advice. The relevant issues have been reviewed and discussed with the patient and family at the bedside. At the time of this assessment there is no indication for involuntary commitment. The patient is alert, oriented, and able to express clearly their reasoning for not wanting to remain in the emergency department for further treatment. The patient is not clinically psychotic, intoxicated, and denies and suicidal ideation. Differential or suspected diagnoses based on medical screening exam: seizures, psychogenic seizures. The patient is aware of the concerning diagnoses and acknowledges understanding of the reasons for the following recommendations: recommend continued observation for seizure activity and additional treatment The following recommendations/services were offered and refused: hospital admission The following risks were explained: , permanent disability, loss of function Clinical impression: Patient is competent to make decisions regarding the medical that is being offered. Patient left the Emergency Department against my medical advice. - Vital Signs Vital signs: Temp Pulse Resp BP Pulse Ox 98.3 F 100 13 122/91 H 95 06/13/20 14:12 06/13/20 14:12 06/13/20 17:00 06/13/20 17:00 06/13/20 17:00 - Laboratory Result Diagrams: 06/13/20 16:55 06/13/20 14:43 Laboratory results interpreted by me: 06/13/20 06/13/20 06/13/20 14:43 14:43 16:55 WBC 13.8 H Lymph % (Auto) 10.6 L Absolute Neuts (auto) 10.4 H Absolute Monos (auto) 1.7 H Est GFR (MDRD) Non-Af 50 L Ur Leukocyte Esterase TRACE H Discharge - Discharge Clinical Impression: Seizure disorder Disposition: AGAINST MEDICAL ADVICE Referrals: LOCALMD,NO [Primary Care Provider] - Follow up as needed
[2020-06-13 17:30] LABS: ABSOLUTE BASOPHILS # (AUTO) 0.1 10^3/uL (0.0-0.2); ABSOLUTE EOSINOPHILS # (AUTO) 0.1 10^3/uL (0.0-0.6); ABSOLUTE LYMPHOCYTES (AUTO) 1.5 10^3/uL (0.5-4.7); ABSOLUTE MONOCYTES (AUTO) 1.7 10^3/uL (0.1-1.4); ABSOLUTE NEUT (AUTO) 10.4 10^3/uL (1.7-8.2); BASOPHILS % (AUTO) 0.5 % (0-2); EOSINOPHILS % (AUTO) 1.1 % (0-6); HEMATOCRIT 43.7 % (36.0-47.0); HEMOGLOBIN 14.8 g/dL (12.0-15.5); LYMPHOCYTES % (AUTO) 10.6 % (13-45); MEAN CORPUSCULAR HEMOGLOBIN 30.8 pg (27.0-33.4); MEAN CORPUSCULAR VOLUME 91 fl (80-97); MONOCYTES % (AUTO) 12.5 % (3-13); PLATELET COUNT 385 10^3/uL (150-450); RED BLOOD COUNT 4.83 10^6/uL (3.72-5.28); RED CELL DISTRIBUTION WIDTH 13.7 % (11.5-14.0); SEGMENTED NEUTROPHILS % (AUTO) 75.3 % (42-78); TOTAL CELLS COUNTED % (AUTO) 100 %; WHITE BLOOD COUNT 13.8 10^3/uL (4.0-10.5)
--- NOTE | 2020-06-13 17:42 | RADIOLOGY REPORT (SQ) ---
EXAM DESCRIPTION: CT HEAD WITHOUT IMAGES COMPLETED DATE/TIME: 06/13/2020 5:27 pm REASON FOR STUDY: seizure COMPARISON: 07/29/2017 TECHNIQUE: Axial images acquired through the brain without intravenous contrast. Images reviewed wi th bone, brain and subdural windows. Additional sagittal and coronal reconstructions were generated. Images stored on PACS. All CT scanners at this facility use dose modulation, iterative reconstruction, and/or weight based d osing when appropriate to reduce radiation dose to as low as reasonably achievable (ALARA). [facility]: Dose Right [facility]: CareDose [facility]: Dose Right [facility]: Teradose 4D [facility]: [facility] RADIATION DOSE: mGy. LIMITATIONS: None. FINDINGS: VENTRICLES: Normal size and contour. CEREBRUM: No masses. No hemorrhage. No midline shift. No evidence for acute infarction. Normal gra y/white matter differentiation. No areas of low density in the white matter. CEREBELLUM: No masses. No hemorrhage. No alteration of density. No evidence for acute infarction. EXTRAAXIAL SPACES: No fluid collections. No masses. ORBITS AND GLOBE: No intra- or extraconal masses. Normal contour of globe without masses. CALVARIUM: No fracture. PARANASAL SINUSES: No fluid or mucosal thickening. SOFT TISSUES: No mass or hematoma. OTHER: No other significant finding. IMPRESSION: NORMAL BRAIN CT WITHOUT CONTRAST. EVIDENCE OF ACUTE STROKE: NO. COMMENT: Quality ID # [id number]: Final reports with documentation of one or more dose reduction techniques (e.g., Automated exposure control, adjustment of the mA and/or kV according to patient size, use of iterative reconstruction technique) TECHNICAL DOCUMENTATION: JOB ID: [id number] 2010 [employer]- All Rights Reserved Reading location - IP/workstation name: [email or web address]
[2020-06-13 18:26] VITALS: BP 122/91
== END 2020-06-13 18:43 | disposition left against medical advice (07) ==
LOC: ER 13:34
DX: G40.909 Epilepsy, unspecified, not intractable, without status epilepticus (principal); I10 Essential (primary) hypertension; Z90.49 Acquired absence of other specified parts of digestive tract
CPT/HCPCS: 99285; 96374; 36415; 80307 ×2; 83735; 84703; 85025; 80053; 81001; 70450; J3360

== ENCOUNTER → 2020-06-16 | Outpatient (CLI) | payer MEDICARE, MEDICAID ==
[2020-06-16 14:52] LABS: HEMATOCRIT 43.4 % (36.0-47.0); HEMOGLOBIN 15.2 g/dL (12.0-15.5); MEAN CORPUSCULAR HEMOGLOBIN 31.6 pg (27.0-33.4); MEAN CORPUSCULAR VOLUME 90 fl (80-97); PLATELET COUNT 369 10^3/uL (150-450); RED BLOOD COUNT 4.81 10^6/uL (3.72-5.28); RED CELL DISTRIBUTION WIDTH 13.6 % (11.5-14.0); WHITE BLOOD COUNT 9.5 10^3/uL (4.0-10.5)
[2020-06-16 15:09] LABS: APPEARANCE,URINE CLOUDY; BILIRUBIN,URINE NEGATIVE (NEGATIVE); CALCIUM OXALATE CRYSTALS,URINE FEW /HPF; COLOR,URINE YELLOW; GLUCOSE, URINE NEGATIVE (NEGATIVE); KETONES,URINE NEGATIVE (NEGATIVE); LEUKOCYTE ESTERASE,URINE TRACE (NEGATIVE); NITRITE,URINE NEGATIVE (NEGATIVE); PROTEIN,URINE NEGATIVE (NEGATIVE); URINE SPECIFIC GRAVITY 1.018
[2020-06-17 13:01] LABS: ANION GAP 12 (5-19); BLOOD UREA NITROGEN 16 mg/dL (7-20); CALCIUM 9.8 mg/dL (8.4-10.2); CARBON DIOXIDE 23 mmol/L (22-30); CHLORIDE 100 mmol/L (98-107); GLUCOSE 98 mg/dL (75-110); POTASSIUM 4.6 mmol/L (3.6-5.0)
== END ==
LOC: OD 14:08
PROVIDERS: ATTEND Physician Assistant Medical
DX: E83.42 Hypomagnesemia (principal); N18.3 Chronic kidney disease, stage 3 (moderate)
CPT/HCPCS: 36415; 80048; 81001; 83735; 83970; 85027